=== PATIENT | female | born 1950 | race Caucasian/White ===

== ENCOUNTER 2016-09-08 11:31 | Emergency (ER) | payer MEDICARE, BC, OTHER ==
[~2016-09-08 11:31] MED LIST: /WARF25TA PO; ACETAMINOPHEN PO; ASPIRIN PO; BISO5TAB2 PO; BISO5TAB5 PO; CAFFEINE PO; CALTTAB10 PO; CALTTAB6 PO; CENTTAB PO; FISH1200 PO; KLOR10TA5 PO; LEVO500T PO; NIFE30TA2 PO; OSTETAB PO; SIMV20TA2 PO; TYLE325T5 PO; ULTR50TA PO; VERA180C PO; VITA10006 PO; VITA200015 PO; VITA200016 PO; VITA400C2 PO; VITA500C24 PO
[2016-09-08 12:19] LABS: BASO % 0.6 % (0.0-1.0); EOS # 0.2 K/mm3 (0.0-0.50); EOS % 3.2 % (0.0-3.0); LARGE UNSTAINED CELL # 0.1 K/mm3 (0.0-0.4); LYMPH # 1.6 K/mm3 (1.5-4.5); LYMPH % 22.6 % (24.0-44.0); MEAN CORPUSCULAR HEMOGLOBIN 29.7 pg (27.0-33.0); MEAN CORPUSCULAR HGB CONC 32.6 g/dl (32.0-36.5); MEAN CORPUSCULAR VOLUME 90.9 fl (80.0-96.0); MONO # 0.5 K/mm3 (0.0-0.8); MONO % 7.2 % (0.0-5.0); NEUTROPHILS # 4.1 K/mm3 (1.8-7.7); NEUTROPHILS % 64.3 % (36.0-66.0); PLATELET COUNT, AUTOMATED 289 k/mm3 (150-450); RED CELL DISTRIBUTION WIDTH 13.8 % (11.5-14.5); WHITE BLOOD COUNT 6.4 K/mm3 (4.0-10.0)
[2016-09-08 12:49] LABS: ALBUMIN 3.4 GM/DL (3.2-5.2); ALBUMIN/GLOBULIN RATIO 0.92 (1.00-1.93); ALKALINE PHOSPHATASE 49 U/L (45-117); ALT/SGPT 17 U/L (12-78); ANION GAP 7 MEQ/L (8-16); AST/SGOT 14 U/L (15-37); BILIRUBIN,DIRECT 0.1 MG/DL (0.0-0.2); BILIRUBIN,TOTAL 0.3 MG/DL (0.2-1.0); BLOOD UREA NITROGEN 18 MG/DL (7-18); CALCIUM LEVEL 9.2 MG/DL (8.8-10.2); CARBON DIOXIDE LEVEL 30 MEQ/L (21-32); CHLORIDE LEVEL 106 MEQ/L (98-107); CREATININE FOR GFR 0.75 MG/DL (0.55-1.02); GLOMERULAR FILTRATION RATE > 60.0 (>45); GLUCOSE, FASTING 98 MG/DL (80-110); POTASSIUM SERUM 3.9 MEQ/L (3.5-5.1); SODIUM LEVEL 143 MEQ/L (136-145); TOTAL PROTEIN 7.1 GM/DL (6.4-8.2)
[2016-09-08 12:51] LABS: YEAST LIKE CELL URINE AUTO MODERATE
[2016-09-08] MEDS ORDERED: NAPROXEN 250 MG TAB As Ordered ONE (13:11)
--- NOTE | 2016-09-08 14:59 | EDDOCDS ---
Physician Documentation [facility] Name: Sheryl Olsen Age: 66 yrs Sex: Female : 1950 Arrival Date: 09/08/2016 Time: 11:31 Bed 8 Private MD: Disposition: 09/08/16 14:03 Discharged to Home/Self Care. Impression: Unspecified renal colic, Chronic obstructive pyelonephritis. - Condition is Stable. - Discharge Instructions: Pyelonephritis, Adult, Ureteral Colic. - Prescriptions for Percocet 5- 325 mg Oral Tablet - take 1 tablet by ORAL route every 6 hours As needed MDD: 4 tabs; 20 tablet. Zofran 4 mg Oral Tablet - take 1 tablet by ORAL route 4 times per day As needed; 10 tablet. Cipro 500 mg Oral Tablet - take 1 tablet by ORAL route every 12 hours; 14 tablet. Diflucan 150 mg Oral Tablet - take 1 tablet by ORAL route one time for 1 day take after completing cipro. may repeat x1 after 7 days as needed; 2 tablet. - Medication Reconciliation, Local Pharmacy Hours form. - Follow up: Brennen Wilson; When: Call to arrange an appointment; Reason: Further diagnostic work-up, Continuance of care. - Problem is an acute exacerbation. - Symptoms are unchanged. Historical: - Allergies: no known allergies; - Home Meds: 1. verapamil 180 mg Oral TbER 1 tab 2 times per day 2. simvastatin 20 mg Oral tab 1 tab once daily 3. bisoprolol fumarate 5 mg oral tab 1 tab once daily 4. Nifedical XL 60 mg oral tr24 1 tab once daily - PMHx: brest cancer; Hypertension; Chronic Back pain; Hypercholesterolemia; - PSHx: Tubal ligation; LEFT BREAST RECONSTRUCTION; Knee Arthroplasty, Right; Hysterectomy; Tonsillectomy; Left knee replacement; RIGHT HIP REPLACEMENT; Cataract Surgery- Bilateral; RIGHT KNEE REPLACEMENT; - Social history: Smoking status: Patient states was never smoker of tobacco. No barriers to communication noted, The patient speaks fluent [place] Island[place]. - Family history: Not pertinent. - : The pt / caregiver states he / she is not on anticoagulants. Home medication list is obtained from the patient. - Exposure Risk Screening:: None identified. Vital Signs: 09/08 11:44 BP 169 / 84; Pulse 113; Resp 20; Temp 98.5(O); Pulse Ox 94% on R/A; Weight 108.86 kg / tmm1 240 lbs; Height 5 ft. 1 in. (154.94 cm); Pain 10/10; 11:56 BP 158 / 76 (auto/); js13 11:56 Pulse 102 MON; Resp 16; Pulse Ox 93% on R/A; js13 12:31 BP 171 / 77 (auto/); js13 12:31 Pulse 108 MON; Resp 16; Pulse Ox 93% on R/A; js13 12:41 BP 165 / 77 (auto/); js13 12:41 Pulse 106 MON; Resp 16; Pulse Ox 94% ; js13 12:56 BP 181 / 94 (auto/); js13 12:56 Pulse 114 MON; Resp 16; Pulse Ox 96% on R/A; js13 13:11 BP 164 / 89 (auto/); js13 13:11 Pulse 108 MON; Resp 16; Pulse Ox 96% on R/A; js13 13:26 BP 167 / 95 (auto/); js13 13:26 Pulse 116 MON; Resp 16; Pulse Ox 97% on R/A; js13 13:42 BP 175 / 93 (auto/); js13 13:42 Pulse 116 MON; Resp 16; Pulse Ox 97% on R/A; js13 13:56 BP 162 / 81 (auto/); js13 13:56 Pulse 108 MON; Resp 16; Pulse Ox 94% on R/A; js13 14:11 BP 156 / 77 (auto/); js13 14:11 Pulse 108 MON; Resp 16; Temp 98.3(O); Pulse Ox 94% on R/A; js13 14:20 Pain 3/10; js13 11:44 Body Mass Index 45.35 (108.86 kg, 154.94 cm) tmm1 MDM: 11:50 IV Saline Lock ordered. br1 11:51 CBC with Diff Ordered. EDMS 11:51 BMP Ordered. EDMS 11:51 Liver Profile Ordered. EDMS 11:51 Lipase Ordered. EDMS 11:51 Urinalysis Ordered. EDMS 11:51 Urine Culture Ordered. EDMS 12:34 Straight cath ordered. js13 13:09 Naproxen 500 mg PO once; administer with food or milk ordered. ke 13:10 CT ABD & PELVIS: No Contrast: right flank pain Ordered. EDMS 13:10 CBC with Diff Reviewed. ke 13:10 BMP Reviewed. ke 13:10 Liver Profile Reviewed. ke 13:10 Urinalysis Reviewed. ke 13:10 Lipase Reviewed. ke 14:28 Financial registration complete. mm15 14:31 [facility] Payment Agreement was scanned into [employer] and attached to record. mm15 Administered Medications: 13:27 Drug: Naproxen 500 mg [naproxen 250 mg tablet (2 tabs)] Route: PO; js13 14:20 Follow up: Pain 10/01 Adult; Response: Pain is decreased js13 Signatures: Dispatcher [employer] EDMS Mendez Greer, HISTOLOGIST TECHNOLOGIST HISTOLOGIST TECHNOLOGIST Martir Chaney MD MD br1 Ruba Waite RN RN js13 Franco Urbano mm15 The chart was reviewed and I authenticate all verbal orders and agree with the evaluation and treatment provided.Attachments: 14:31 [facility] Payment Agreement mm15 MTDD
--- NOTE | 2016-09-08 15:00 | EDDOCDS ---
Nurse's Notes [facility] Name: Sheryl Olsen Age: 66 yrs Sex: Female : 1950 Arrival Date: 09/08/2016 Time: 11:31 Bed 8 Private MD: Diagnosis: Unspecified renal colic;Chronic obstructive pyelonephritis Presentation: 09/08 11:41 Presenting complaint: EMS states: Patient has had right sided flank pain for past 3 js13 days. Patient describes pain as a stabbing pain. Suicide/Homicide risk assessment- the patient denies having any suicidal and/or homicidal ideations and does not present with any other emotional, behavioral or mental health complaints. Status: Patient is not a youth services specialist or dependent. Transition of care: patient was not received from another setting of care. Care prior to arrival: See EMS report. 11:41 Acuity: DHAVAL Level 3 js13 11:41 Method Of Arrival: Ambulance js13 11:47 Adult Sepsis Screening: The patient does not have new or worsening altered mentation. js13 Patient's respiratory rate is less than 22. Systolic blood pressure is greater than 100. Patient has a qSOFA score of 0- Negative Sepsis Screen. Triage Assessment: 11:46 General: Appears in no apparent distress, Behavior is appropriate for age, cooperative. js13 Pain: Location: right flank Pain currently is 7 out of 10 on a pain scale. Neurological: Level of Consciousness is awake, alert. Respiratory: Airway is patent Respiratory effort is even, unlabored, Respiratory pattern is regular, symmetrical, Breath sounds are clear. GI: Abdomen is non- distended obese, Bowel sounds present X 4 quads. Abd is soft and non tender. Derm: Skin is pink, warm & dry. Historical: - Allergies: no known allergies; - Home Meds: 1. verapamil 180 mg Oral TbER 1 tab 2 times per day 2. simvastatin 20 mg Oral tab 1 tab once daily 3. bisoprolol fumarate 5 mg oral tab 1 tab once daily 4. Nifedical XL 60 mg oral tr24 1 tab once daily - PMHx: brest cancer; Hypertension; Chronic Back pain; Hypercholesterolemia; - PSHx: Tubal ligation; LEFT BREAST RECONSTRUCTION; Knee Arthroplasty, Right; Hysterectomy; Tonsillectomy; Left knee replacement; RIGHT HIP REPLACEMENT; Cataract Surgery- Bilateral; RIGHT KNEE REPLACEMENT; - Social history: Smoking status: Patient states was never smoker of tobacco. No barriers to communication noted, The patient speaks fluent [place] Citizen. - Family history: Not pertinent. - : The pt / caregiver states he / she is not on anticoagulants. Home medication list is obtained from the patient. - Exposure Risk Screening:: None identified. Screenin:47 Screening information is obtained from the patient. Fall risk: No risks identified. js13 Assistance ADL's: requires no assistance with activities of daily living. Abuse/DV Screen: The patient / caregiver reports he/she is: not in a situation that causes fear, pain or injury. Nutritional screening: No deficits noted. Advance Directives: There is no active DNR order. home support is adequate. Assessment: 11:47 General: Appears in no apparent distress, comfortable, Behavior is appropriate for age, js13 cooperative. Pain: Location: right flank Quality of pain is described as stabbing. Neurological: Level of Consciousness is awake, alert. Respiratory: Airway is patent Respiratory effort is even, unlabored, Respiratory pattern is regular, symmetrical. GI: Abdomen is non- distended obese, Bowel sounds present X 4 quads. Abd is soft and non tender. Derm: Skin is pink, warm & dry. 12:35 General: Appears in no apparent distress, comfortable, Behavior is appropriate for age, js13 cooperative. Pain: Location: righ flank. Neurological: Level of Consciousness is awake, alert. Respiratory: Airway is patent Respiratory effort is even, unlabored, Respiratory pattern is regular, symmetrical. : Urine is cloudy, Reports incontinence. Derm: Skin is pink, warm & dry. 13:40 Adult Sepsis Screening: The patient does not have new or worsening altered mentation. js13 Patient's respiratory rate is less than 22. Systolic blood pressure is greater than 100. Patient has a qSOFA score of 0- Negative Sepsis Screen. General: Appears in no apparent distress, comfortable, Behavior is appropriate for age, cooperative. Pain: Location: right flank. Neurological: Level of Consciousness is awake, alert. Respiratory: Airway is patent Respiratory effort is even, unlabored, Respiratory pattern is regular, symmetrical. Derm: Skin is pink, warm & dry. 14:16 General: Appears in no apparent distress, comfortable, Behavior is appropriate for age, js13 cooperative. Pain: Location: right flank. Neurological: Level of Consciousness is awake, alert. Respiratory: Airway is patent Respiratory effort is even, unlabored, Respiratory pattern is regular, symmetrical. Respiratory: Airway is patent Respiratory effort is even, unlabored, Respiratory pattern is regular, symmetrical. Derm: Skin is pink, warm & dry. Vital Signs: 11:44 BP 169 / 84; Pulse 113; Resp 20; Temp 98.5(O); Pulse Ox 94% on R/A; Weight 108.86 kg; tmm1 Height 5 ft. 1 in. (154.94 cm); Pain 10/10; 11:56 BP 158 / 76 (auto/); js13 11:56 Pulse 102 MON; Resp 16; Pulse Ox 93% on R/A; js13 12:31 BP 171 / 77 (auto/); js13 12:31 Pulse 108 MON; Resp 16; Pulse Ox 93% on R/A; js13 12:41 BP 165 / 77 (auto/); js13 12:41 Pulse 106 MON; Resp 16; Pulse Ox 94% ; js13 12:56 BP 181 / 94 (auto/); js13 12:56 Pulse 114 MON; Resp 16; Pulse Ox 96% on R/A; js13 13:11 BP 164 / 89 (auto/); js13 13:11 Pulse 108 MON; Resp 16; Pulse Ox 96% on R/A; js13 13:26 BP 167 / 95 (auto/); js13 13:26 Pulse 116 MON; Resp 16; Pulse Ox 97% on R/A; js13 13:42 BP 175 / 93 (auto/); js13 13:42 Pulse 116 MON; Resp 16; Pulse Ox 97% on R/A; js13 13:56 BP 162 / 81 (auto/); js13 13:56 Pulse 108 MON; Resp 16; Pulse Ox 94% on R/A; js13 14:11 BP 156 / 77 (auto/); js13 14:11 Pulse 108 MON; Resp 16; Temp 98.3(O); Pulse Ox 94% on R/A; js13 14:20 Pain 3/10; js13 11:44 Body Mass Index 45.35 (108.86 kg, 154.94 cm) tmm1 Vitals: 11:46 Log In Time N/A - ambulance arrival. js13 ED Course: 11:32 Patient visited by Carlotta Morris, Adhesive Primer. lbd 11:32 Patient moved to Waiting lbd 11:35 Ruba Waite,RN is Primary Nurse. lbd 11:35 Patient moved to 8 lbd 11:42 Triage Initiated js13 11:45 Patient visited by Nica Ramirez PCA. tmm1 11:47 The patient / caregiver is instructed regarding the plan of care and ED course. Cardiac js13 monitor on. Pulse ox on. NIBP on. 11:48 Patient visited by Ruba Waite RN. js13 12:33 Urine Culture Sent. js13 12:33 Urinalysis Sent. js13 12:33 Inserted saline lock: 18 gauge in left antecubital area and blood collected. The js13 patient tolerated the procedure well. No procedures done that require assistance. Labs drawn. (by ED staff). Sent per order to lab. Urine collected. straight cath specimen. Urine specimen sent to lab. 12:34 Quick cath inserted Specimen obtained. Returned cloudy urine. Patient tolerated well. js13 12:36 Patient visited by Ruba Waite RN. js13 13:05 [facility]. ke 13:05 Patient visited by Mendez Greer FNP. ke 13:05 Patient visited by Mendez Greer FNP. ke 13:34 Patient visited by Mendez Greer FNP. ke 13:45 Assisted with bedpan. jml1 13:46 Patient visited by Fabian Alvarez. jml1 14:02 Brennen Wilson is Referral Physician. ke 14:11 Discontinued IV lock intact, bleeding controlled, pressure dressing applied, No js13 redness/swelling at site. 14:19 Patient visited by Ruba Waite RN. js13 14:31 [facility] Payment Agreement was scanned into [employer] and attached to record. mm15 Administered Medications: 13:27 Drug: Naproxen 500 mg [naproxen 250 mg tablet (2 tabs)] Route: PO; js13 14:20 Follow up: Pain 3/10 Adult; Response: Pain is decreased js13 Order Results: Lab Order: CBC with Diff; SPEC'M 09/08/16 12:04 Test: WHITE BLOOD COUNT; Value: 6.4; Range: 4.0-10.0; Units: K/mm3; Status: F Test: RED BLOOD COUNT; Value: 4.61; Range: 4.00-5.40; Units: M/mm3; Status: F Test: HEMOGLOBIN; Value: 13.7; Range: 12.0-16.0; Units: g/dl; Status: F Test: HEMATOCRIT; Value: 41.9; Range: 36.0-47.0; Units: %; Status: F Test: MEAN CORPUSCULAR VOLUME; Value: 90.9; Range: 80.0-96.0; Units: fl; Status: F Test: MEAN CORPUSCULAR HEMOGLOBIN; Value: 29.7; Range: 27.0-33.0; Units: pg; Status: F Test: MEAN CORPUSCULAR HGB CONC; Value: 32.6; Range: 32.0-36.5; Units: g/dl; Status: F Test: RED CELL DISTRIBUTION WIDTH; Value: 13.8; Range: 11.5-14.5; Units: %; Status: F Test: PLATELET COUNT, AUTOMATED; Value: 289; Range: 150-450; Units: k/mm3; Status: F Test: NEUTROPHILS %; Value: 64.3; Range: 36.0-66.0; Units: %; Status: F Test: LYMPH %; Value: 22.6; Range: 24.0-44.0; Abnormal: Below low normal; Units: %; Status: F Test: MONO %; Value: 7.2; Range: 0.0-5.0; Abnormal: Above high normal; Units: %; Status: F Test: EOS %; Value: 3.2; Range: 0.0-3.0; Abnormal: Above high normal; Units: %; Status: F Test: BASO %; Value: 0.6; Range: 0.0-1.0; Units: %; Status: F Test: LARGE UNSTAINED CELL %; Value: 2.0; Range: 0.0-4.0; Units: %; Status: F Test: NEUTROPHILS #; Value: 4.1; Range: 1.8-7.7; Units: K/mm3; Status: F Test: LYMPH #; Value: 1.6; Range: 1.5-4.5; Units: K/mm3; Status: F Test: MONO #; Value: 0.5; Range: 0.0-0.8; Units: K/mm3; Status: F Test: EOS #; Value: 0.2; Range: 0.0-0.50; Units: K/mm3; Status: F Test: BASO #; Value: 0.0; Range: 0.0-0.2; Units: K/mm3; Status: F Test: LARGE UNSTAINED CELL #; Value: 0.1; Range: 0.0-0.4; Units: K/mm3; Status: F Lab Order: BMP; SPEC'M 09/08/16 12:03 Test: GLUCOSE, FASTING; Value: 98; Range: 80-110; Units: MG/DL; Status: F Test: BLOOD UREA NITROGEN; Value: 18; Range: 7-18; Units: MG/DL; Status: F Test: CREATININE FOR GFR; Value: 0.75; Range: 0.55-1.02; Units: MG/DL; Status: F Test: GLOMERULAR FILTRATION RATE; Value: > 60.0; Range: >45; Status: F Test: SODIUM LEVEL; Value: 143; Range: 136-145; Units: MEQ/L; Status: F Test: POTASSIUM SERUM; Value: 3.9; Range: 3.5-5.1; Units: MEQ/L; Status: F Test: CHLORIDE LEVEL; Value: 106; Range: 98-107; Units: MEQ/L; Status: F Test: CARBON DIOXIDE LEVEL; Value: 30; Range: 21-32; Units: MEQ/L; Status: F Test: ANION GAP; Value: 7; Range: 8-16; Abnormal: Below low normal; Units: MEQ/L; Status: F Test: CALCIUM LEVEL; Value: 9.2; Range: 8.8-10.2; Units: MG/DL; Status: F Test Note: ; Units are mL/min/1.73 m2 Chronic Kidney Disease Staging per NKF: Stage I & II GFR >=60 Normal to Mildly Decreased Stage III GFR 30-59 Moderately Decreased Stage IV GFR 15-29 Severely Decreased Stage V GFR <15 Very Little GFR Left ESRD GFR <15 on MOLD CLOSER HELPER Lab Order: Liver Profile; SPEC'M 09/08/16 12:03 Test: AST/SGOT; Value: 14; Range: 15-37; Abnormal: Below low normal; Units: U/L; Status: F Test: ALT/SGPT; Value: 17; Range: 12-78; Units: U/L; Status: F Test: ALKALINE PHOSPHATASE; Value: 49; Range: 45-117; Units: U/L; Status: F Test: BILIRUBIN,TOTAL; Value: 0.3; Range: 0.2-1.0; Units: MG/DL; Status: F Test: BILIRUBIN,DIRECT; Value: 0.1; Range: 0.0-0.2; Units: MG/DL; Status: F Test: TOTAL PROTEIN; Value: 7.1; Range: 6.4-8.2; Units: GM/DL; Status: F Test: ALBUMIN; Value: 3.4; Range: 3.2-5.2; Units: GM/DL; Status: F Test: ALBUMIN/GLOBULIN RATIO; Value: 0.92; Range: 1.00-1.93; Abnormal: Below low normal; Status: F Lab Order: Lipase; SPEC'M 09/08/16 12:03 Test: LIPASE; Value: 126; Range: 73-393; Units: U/L; Status: F Lab Order: Urinalysis; SPEC'M 09/08/16 12:30 Test: APPEARANCE, URINE; Value: HAZY; Range: CLEAR; Status: F Test: COLOR, URINE; Value: YELLOW; Range: YELLOW; Status: F Test: PH,URINE; Value: 6.0; Range: 5.0-9.0; Units: UNITS; Status: F Test: SPECIFIC GRAVITY URINE AUTO; Value: 1.010; Range: 1.002-1.035; Status: F Test: PROTEIN, URINE AUTO; Value: 1+; Range: NEGATIVE; Abnormal: Above high normal; Units: mg/dL; Status: F Test: GLUCOSE, URINE (UA) AUTO; Value: NEGATIVE; Range: NEGATIVE; Units: mg/dL; Status: F Test: KETONE, URINE AUTO; Value: NEGATIVE; Range: NEGATIVE; Units: mg/dL; Status: F Test: UROBILINOGEN, URINE AUTO; Value: 0.2; Range: 0.0-2.0; Units: mg/dL; Status: F Test: BILIRUBIN, URINE AUTO; Value: NEGATIVE; Range: NEGATIVE; Status: F Test: NITRITE, URINE AUTO; Value: POSITIVE; Range: NEGATIVE; Status: F Test: LEUKOCYTE ESTERASE, URINE AUTO; Value: 3+; Range: NEGATIVE; Abnormal: Above high normal; Status: F Test: BLOOD, URINE BLOOD; Value: 3+; Range: NEGATIVE; Abnormal: Above high normal; Status: F Test: WBC, URINE AUTO; Value: 103; Range: 0-3; Abnormal: Above high normal; Units: /HPF; Status: F Test: RBC, URINE AUTO; Value: TNTC; Range: 0-3; Abnormal: Above high normal; Units: /HPF; Status: F Test: BACTERIA, URINE AUTO; Value: 3+; Range: NEGATIVE; Abnormal: Above high normal; Status: F Test: YEAST LIKE CELL URINE AUTO; Value: MODERATE; Range: NONE; Abnormal: Above high normal; Status: F Test: SQUAMOUS EPITHELIAL CELL UR AU; Value: 0; Range: 0-6; Units: /HPF; Status: F Test: HYALINE CAST, URINE AUTO; Value: 0; Range: 0-1; Units: /LPF; Status: F Outcome: 14:03 Discharge ordered by Provider. ke 14:11 Discharge Assessment: Patient awake, alert and oriented x 3. No cognitive and/or js13 functional deficits noted. Patient verbalized understanding of disposition instructions. patient administered narcotics - no. The following High Risk Discharge criteria are identified: None. Discharged to home via wheelchair, with significant other. Condition: stable. Discharge instructions given to patient, significant other, Instructed on discharge instructions, follow up and referral plans. medication usage, Demonstrated understanding of instructions, medications, Pt was receptive of discharge instructions/ teaching. CT Study completed. Property :Personal belongings accompany Pt. 14:44 Prescriptions given X 4. js13 14:58 Patient left the ED. js13 Signatures: Carlotta Morris, Adhesive Primer Unit lbd Mendez Greer, SAXOPHONE PLAYER Fabian Jonesl1 Ruba Waite,RIA RN js13 Nica Ramirez, LEATHA LIBRARY CONSULTANT tmm1 Franco Urbano mm15 Corrections: (The following items were deleted from the chart) 14:18 14:11 Pulse 108bpm; MonitorResp 16bpm; Pulse Ox 94% RA; js13 js13 MTDD
--- NOTE | 2016-09-10 16:00 | EDDOCDS ---
Physician Documentation [facility] Name: Sheryl Olsen Age: 66 yrs Sex: Female : 1950 Arrival Date: 09/08/2016 Time: 11:31 Bed 8 Private MD: Disposition: 09/08/16 14:03 Discharged to Home/Self Care. Impression: Unspecified renal colic, Chronic obstructive pyelonephritis. - Condition is Stable. - Discharge Instructions: Pyelonephritis, Adult, Ureteral Colic. - Prescriptions for Percocet 5- 325 mg Oral Tablet - take 1 tablet by ORAL route every 6 hours As needed MDD: 4 tabs; 20 tablet. Zofran 4 mg Oral Tablet - take 1 tablet by ORAL route 4 times per day As needed; 10 tablet. Cipro 500 mg Oral Tablet - take 1 tablet by ORAL route every 12 hours; 14 tablet. Diflucan 150 mg Oral Tablet - take 1 tablet by ORAL route one time for 1 day take after completing cipro. may repeat x1 after 7 days as needed; 2 tablet. - Medication Reconciliation, Local Pharmacy Hours form. - Follow up: Brennen Wilson; When: Call to arrange an appointment; Reason: Further diagnostic work-up, Continuance of care. - Problem is an acute exacerbation. - Symptoms are unchanged. Historical: - Allergies: no known allergies; - Home Meds: 1. verapamil 180 mg Oral TbER 1 tab 2 times per day 2. simvastatin 20 mg Oral tab 1 tab once daily 3. bisoprolol fumarate 5 mg oral tab 1 tab once daily 4. Nifedical XL 60 mg oral tr24 1 tab once daily - PMHx: brest cancer; Hypertension; Chronic Back pain; Hypercholesterolemia; - PSHx: Tubal ligation; LEFT BREAST RECONSTRUCTION; Knee Arthroplasty, Right; Hysterectomy; Tonsillectomy; Left knee replacement; RIGHT HIP REPLACEMENT; Cataract Surgery- Bilateral; RIGHT KNEE REPLACEMENT; - Social history: Smoking status: Patient states was never smoker of tobacco. No barriers to communication noted, The patient speaks fluent [place]. - Family history: Not pertinent. - : The pt / caregiver states he / she is not on anticoagulants. Home medication list is obtained from the patient. - Exposure Risk Screening:: None identified. Vital Signs: 09/08 11:44 BP 169 / 84; Pulse 113; Resp 20; Temp 98.5(O); Pulse Ox 94% on R/A; Weight 108.86 kg / tmm1 240 lbs; Height 5 ft. 1 in. (154.94 cm); Pain 10/10; 11:56 BP 158 / 76 (auto/); js13 11:56 Pulse 102 MON; Resp 16; Pulse Ox 93% on R/A; js13 12:31 BP 171 / 77 (auto/); js13 12:31 Pulse 108 MON; Resp 16; Pulse Ox 93% on R/A; js13 12:41 BP 165 / 77 (auto/); js13 12:41 Pulse 106 MON; Resp 16; Pulse Ox 94% ; js13 12:56 BP 181 / 94 (auto/); js13 12:56 Pulse 114 MON; Resp 16; Pulse Ox 96% on R/A; js13 13:11 BP 164 / 89 (auto/); js13 13:11 Pulse 108 MON; Resp 16; Pulse Ox 96% on R/A; js13 13:26 BP 167 / 95 (auto/); js13 13:26 Pulse 116 MON; Resp 16; Pulse Ox 97% on R/A; js13 13:42 BP 175 / 93 (auto/); js13 13:42 Pulse 116 MON; Resp 16; Pulse Ox 97% on R/A; js13 13:56 BP 162 / 81 (auto/); js13 13:56 Pulse 108 MON; Resp 16; Pulse Ox 94% on R/A; js13 14:11 BP 156 / 77 (auto/); js13 14:11 Pulse 108 MON; Resp 16; Temp 98.3(O); Pulse Ox 94% on R/A; js13 14:20 Pain 3/10; js13 11:44 Body Mass Index 45.35 (108.86 kg, 154.94 cm) tmm1 MDM: 11:50 IV Saline Lock ordered. br1 11:51 CBC with Diff Ordered. EDMS 11:51 BMP Ordered. EDMS 11:51 Liver Profile Ordered. EDMS 11:51 Lipase Ordered. EDMS 11:51 Urinalysis Ordered. EDMS 11:51 Urine Culture Ordered. EDMS 12:34 Straight cath ordered. js13 13:09 Naproxen 500 mg PO once; administer with food or milk ordered. ke 13:10 CT ABD & PELVIS: No Contrast: right flank pain Ordered. EDMS 13:10 CBC with Diff Reviewed. ke 13:10 BMP Reviewed. ke 13:10 Liver Profile Reviewed. ke 13:10 Urinalysis Reviewed. ke 13:10 Lipase Reviewed. ke 14:28 Financial registration complete. mm15 14:31 [facility] Payment Agreement was scanned into [employer] and attached to record. mm15 15:25 T-Sheet-- Draft Copy was scanned into [employer] and attached to record. 09/10 14:34 Lab / Xray Callback was scanned into [employer] and attached to record. lbd Administered Medications: 09/08 13:27 Drug: Naproxen 500 mg [naproxen 250 mg tablet (2 tabs)] Route: PO; js13 14:20 Follow up: Pain 10/01 Adult; Response: Pain is decreased js13 Signatures: Dispatcher [employer] EDMS Carlotta Morris, Professional Skateboarder Unit lbd Zee Piña, Reg Reg gb Mendez Greer, BORDER GUARD BORDER GUARD Martir Chaney MD MD br1 Ruba WaiteRN RN js13 Franco Urbano mm15 The chart was reviewed and I authenticate all verbal orders and agree with the evaluation and treatment provided.Attachments: 14:31 [facility] Payment Agreement mm15 15:25 T-Sheet-- Draft Copy gb Chart Complete MTDD
--- NOTE | 2016-09-10 16:00 | EDDOCDS ---
Physician Documentation [facility] Name: Sheryl Olsen Age: 66 yrs Sex: Female : 1950 Arrival Date: 09/08/2016 Time: 11:31 Bed 8 Private MD: Disposition: 09/08/16 14:03 Discharged to Home/Self Care. Impression: Unspecified renal colic, Chronic obstructive pyelonephritis. - Condition is Stable. - Discharge Instructions: Pyelonephritis, Adult, Ureteral Colic. - Prescriptions for Percocet 5- 325 mg Oral Tablet - take 1 tablet by ORAL route every 6 hours As needed MDD: 4 tabs; 20 tablet. Zofran 4 mg Oral Tablet - take 1 tablet by ORAL route 4 times per day As needed; 10 tablet. Cipro 500 mg Oral Tablet - take 1 tablet by ORAL route every 12 hours; 14 tablet. Diflucan 150 mg Oral Tablet - take 1 tablet by ORAL route one time for 1 day take after completing cipro. may repeat x1 after 7 days as needed; 2 tablet. - Medication Reconciliation, Local Pharmacy Hours form. - Follow up: Brennen Wilson; When: Call to arrange an appointment; Reason: Further diagnostic work-up, Continuance of care. - Problem is an acute exacerbation. - Symptoms are unchanged. Historical: - Allergies: no known allergies; - Home Meds: 1. verapamil 180 mg Oral TbER 1 tab 2 times per day 2. simvastatin 20 mg Oral tab 1 tab once daily 3. bisoprolol fumarate 5 mg oral tab 1 tab once daily 4. Nifedical XL 60 mg oral tr24 1 tab once daily - PMHx: brest cancer; Hypertension; Chronic Back pain; Hypercholesterolemia; - PSHx: Tubal ligation; LEFT BREAST RECONSTRUCTION; Knee Arthroplasty, Right; Hysterectomy; Tonsillectomy; Left knee replacement; RIGHT HIP REPLACEMENT; Cataract Surgery- Bilateral; RIGHT KNEE REPLACEMENT; - Social history: Smoking status: Patient states was never smoker of tobacco. No barriers to communication noted, The patient speaks fluent Iraqi. - Family history: Not pertinent. - : The pt / caregiver states he / she is not on anticoagulants. Home medication list is obtained from the patient. - Exposure Risk Screening:: None identified. Vital Signs: 09/08 11:44 BP 169 / 84; Pulse 113; Resp 20; Temp 98.5(O); Pulse Ox 94% on R/A; Weight 108.86 kg / tmm1 240 lbs; Height 5 ft. 1 in. (154.94 cm); Pain 10/10; 11:56 BP 158 / 76 (auto/); js13 11:56 Pulse 102 MON; Resp 16; Pulse Ox 93% on R/A; js13 12:31 BP 171 / 77 (auto/); js13 12:31 Pulse 108 MON; Resp 16; Pulse Ox 93% on R/A; js13 12:41 BP 165 / 77 (auto/); js13 12:41 Pulse 106 MON; Resp 16; Pulse Ox 94% ; js13 12:56 BP 181 / 94 (auto/); js13 12:56 Pulse 114 MON; Resp 16; Pulse Ox 96% on R/A; js13 13:11 BP 164 / 89 (auto/); js13 13:11 Pulse 108 MON; Resp 16; Pulse Ox 96% on R/A; js13 13:26 BP 167 / 95 (auto/); js13 13:26 Pulse 116 MON; Resp 16; Pulse Ox 97% on R/A; js13 13:42 BP 175 / 93 (auto/); js13 13:42 Pulse 116 MON; Resp 16; Pulse Ox 97% on R/A; js13 13:56 BP 162 / 81 (auto/); js13 13:56 Pulse 108 MON; Resp 16; Pulse Ox 94% on R/A; js13 14:11 BP 156 / 77 (auto/); js13 14:11 Pulse 108 MON; Resp 16; Temp 98.3(O); Pulse Ox 94% on R/A; js13 14:20 Pain 3/10; js13 11:44 Body Mass Index 45.35 (108.86 kg, 154.94 cm) tmm1 MDM: 11:50 IV Saline Lock ordered. br1 11:51 CBC with Diff Ordered. EDMS 11:51 BMP Ordered. EDMS 11:51 Liver Profile Ordered. EDMS 11:51 Lipase Ordered. EDMS 11:51 Urinalysis Ordered. EDMS 11:51 Urine Culture Ordered. EDMS 12:34 Straight cath ordered. js13 13:09 Naproxen 500 mg PO once; administer with food or milk ordered. ke 13:10 CT ABD & PELVIS: No Contrast: right flank pain Ordered. EDMS 13:10 CBC with Diff Reviewed. ke 13:10 BMP Reviewed. ke 13:10 Liver Profile Reviewed. ke 13:10 Urinalysis Reviewed. ke 13:10 Lipase Reviewed. ke 14:28 Financial registration complete. mm15 14:31 [facility] Payment Agreement was scanned into [employer] and attached to record. mm15 15:25 T-Sheet-- Draft Copy was scanned into [employer] and attached to record. 09/10 14:34 Lab / Xray Callback was scanned into [employer] and attached to record. lbd Administered Medications: 09/08 13:27 Drug: Naproxen 500 mg [naproxen 250 mg tablet (2 tabs)] Route: PO; js13 14:20 Follow up: Pain 10/01 Adult; Response: Pain is decreased js13 Signatures: Dispatcher [employer] EDMS Carlotta Morris, Wet End Tester Unit lbd Zee Piña, Reg Reg gb Mendez Greer, NP NP Martir Chaney MD MD br1 Ruba WaiteRN RN js13 Franco Urbano mm15 The chart was reviewed and I authenticate all verbal orders and agree with the evaluation and treatment provided.Attachments: 14:31 [facility] Payment Agreement mm15 15:25 T-Sheet-- Draft Copy gb Chart Complete MTDD
--- NOTE | 2016-09-10 16:00 | EDDOCDS ---
Nurse's Notes [facility] Name: Sheryl Olsen Age: 66 yrs Sex: Female : 1950 Arrival Date: 09/08/2016 Time: 11:31 Bed 8 Private MD: Diagnosis: Unspecified renal colic;Chronic obstructive pyelonephritis Presentation: 09/08 11:41 Presenting complaint: EMS states: Patient has had right sided flank pain for past 3 js13 days. Patient describes pain as a stabbing pain. Suicide/Homicide risk assessment- the patient denies having any suicidal and/or homicidal ideations and does not present with any other emotional, behavioral or mental health complaints. Status: Patient is not a customer service clerk or dependent. Transition of care: patient was not received from another setting of care. Care prior to arrival: See EMS report. 11:41 Acuity: DHAVAL Level 3 js13 11:41 Method Of Arrival: Ambulance js13 11:47 Adult Sepsis Screening: The patient does not have new or worsening altered mentation. js13 Patient's respiratory rate is less than 22. Systolic blood pressure is greater than 100. Patient has a qSOFA score of 0- Negative Sepsis Screen. Triage Assessment: 11:46 General: Appears in no apparent distress, Behavior is appropriate for age, cooperative. js13 Pain: Location: right flank Pain currently is 7 out of 10 on a pain scale. Neurological: Level of Consciousness is awake, alert. Respiratory: Airway is patent Respiratory effort is even, unlabored, Respiratory pattern is regular, symmetrical, Breath sounds are clear. GI: Abdomen is non- distended obese, Bowel sounds present X 4 quads. Abd is soft and non tender. Derm: Skin is pink, warm & dry. Historical: - Allergies: no known allergies; - Home Meds: 1. verapamil 180 mg Oral TbER 1 tab 2 times per day 2. simvastatin 20 mg Oral tab 1 tab once daily 3. bisoprolol fumarate 5 mg oral tab 1 tab once daily 4. Nifedical XL 60 mg oral tr24 1 tab once daily - PMHx: brest cancer; Hypertension; Chronic Back pain; Hypercholesterolemia; - PSHx: Tubal ligation; LEFT BREAST RECONSTRUCTION; Knee Arthroplasty, Right; Hysterectomy; Tonsillectomy; Left knee replacement; RIGHT HIP REPLACEMENT; Cataract Surgery- Bilateral; RIGHT KNEE REPLACEMENT; - Social history: Smoking status: Patient states was never smoker of tobacco. No barriers to communication noted, The patient speaks fluent Haitian. - Family history: Not pertinent. - : The pt / caregiver states he / she is not on anticoagulants. Home medication list is obtained from the patient. - Exposure Risk Screening:: None identified. Screenin:47 Screening information is obtained from the patient. Fall risk: No risks identified. js13 Assistance ADL's: requires no assistance with activities of daily living. Abuse/DV Screen: The patient / caregiver reports he/she is: not in a situation that causes fear, pain or injury. Nutritional screening: No deficits noted. Advance Directives: There is no active DNR order. home support is adequate. Assessment: 11:47 General: Appears in no apparent distress, comfortable, Behavior is appropriate for age, js13 cooperative. Pain: Location: right flank Quality of pain is described as stabbing. Neurological: Level of Consciousness is awake, alert. Respiratory: Airway is patent Respiratory effort is even, unlabored, Respiratory pattern is regular, symmetrical. GI: Abdomen is non- distended obese, Bowel sounds present X 4 quads. Abd is soft and non tender. Derm: Skin is pink, warm & dry. 12:35 General: Appears in no apparent distress, comfortable, Behavior is appropriate for age, js13 cooperative. Pain: Location: righ flank. Neurological: Level of Consciousness is awake, alert. Respiratory: Airway is patent Respiratory effort is even, unlabored, Respiratory pattern is regular, symmetrical. : Urine is cloudy, Reports incontinence. Derm: Skin is pink, warm & dry. 13:40 Adult Sepsis Screening: The patient does not have new or worsening altered mentation. js13 Patient's respiratory rate is less than 22. Systolic blood pressure is greater than 100. Patient has a qSOFA score of 0- Negative Sepsis Screen. General: Appears in no apparent distress, comfortable, Behavior is appropriate for age, cooperative. Pain: Location: right flank. Neurological: Level of Consciousness is awake, alert. Respiratory: Airway is patent Respiratory effort is even, unlabored, Respiratory pattern is regular, symmetrical. Derm: Skin is pink, warm & dry. 14:16 General: Appears in no apparent distress, comfortable, Behavior is appropriate for age, js13 cooperative. Pain: Location: right flank. Neurological: Level of Consciousness is awake, alert. Respiratory: Airway is patent Respiratory effort is even, unlabored, Respiratory pattern is regular, symmetrical. Respiratory: Airway is patent Respiratory effort is even, unlabored, Respiratory pattern is regular, symmetrical. Derm: Skin is pink, warm & dry. Vital Signs: 11:44 BP 169 / 84; Pulse 113; Resp 20; Temp 98.5(O); Pulse Ox 94% on R/A; Weight 108.86 kg; tmm1 Height 5 ft. 1 in. (154.94 cm); Pain 10/10; 11:56 BP 158 / 76 (auto/); js13 11:56 Pulse 102 MON; Resp 16; Pulse Ox 93% on R/A; js13 12:31 BP 171 / 77 (auto/); js13 12:31 Pulse 108 MON; Resp 16; Pulse Ox 93% on R/A; js13 12:41 BP 165 / 77 (auto/); js13 12:41 Pulse 106 MON; Resp 16; Pulse Ox 94% ; js13 12:56 BP 181 / 94 (auto/); js13 12:56 Pulse 114 MON; Resp 16; Pulse Ox 96% on R/A; js13 13:11 BP 164 / 89 (auto/); js13 13:11 Pulse 108 MON; Resp 16; Pulse Ox 96% on R/A; js13 13:26 BP 167 / 95 (auto/); js13 13:26 Pulse 116 MON; Resp 16; Pulse Ox 97% on R/A; js13 13:42 BP 175 / 93 (auto/); js13 13:42 Pulse 116 MON; Resp 16; Pulse Ox 97% on R/A; js13 13:56 BP 162 / 81 (auto/); js13 13:56 Pulse 108 MON; Resp 16; Pulse Ox 94% on R/A; js13 14:11 BP 156 / 77 (auto/); js13 14:11 Pulse 108 MON; Resp 16; Temp 98.3(O); Pulse Ox 94% on R/A; js13 14:20 Pain 3/10; js13 11:44 Body Mass Index 45.35 (108.86 kg, 154.94 cm) tmm1 Vitals: 11:46 Log In Time N/A - ambulance arrival. js13 ED Course: 11:32 Patient visited by Carlotta Morris, Senior Cognos Developer. lbd 11:32 Patient moved to Waiting lbd 11:35 Ruba Waite,RN is Primary Nurse. lbd 11:35 Patient moved to 8 lbd 11:42 Triage Initiated js13 11:45 Patient visited by Nica Ramirez PCA. tmm1 11:47 The patient / caregiver is instructed regarding the plan of care and ED course. Cardiac js13 monitor on. Pulse ox on. NIBP on. 11:48 Patient visited by Ruba Waite RN. js13 12:33 Urine Culture Sent. js13 12:33 Urinalysis Sent. js13 12:33 Inserted saline lock: 18 gauge in left antecubital area and blood collected. The js13 patient tolerated the procedure well. No procedures done that require assistance. Labs drawn. (by ED staff). Sent per order to lab. Urine collected. straight cath specimen. Urine specimen sent to lab. 12:34 Quick cath inserted Specimen obtained. Returned cloudy urine. Patient tolerated well. js13 12:36 Patient visited by Ruba Waite RN. js13 13:05 [facility] ke 13:05 Patient visited by Mendez Greer FNP. ke 13:05 Patient visited by Mendez Greer FNP. ke 13:34 Patient visited by Mendez Greer FNP. ke 13:45 Assisted with bedpan. jml1 13:46 Patient visited by Fabian Alvarez. jml1 14:02 Brennen Wilson is Referral Physician. ke 14:11 Discontinued IV lock intact, bleeding controlled, pressure dressing applied, No js13 redness/swelling at site. 14:19 Patient visited by Ruba Waite RN. js13 14:31 [facility] Payment Agreement was scanned into [employer] and attached to record. mm15 15:25 T-Sheet-- Draft Copy was scanned into [employer] and attached to record. gb 02 14:34 Lab / Xray Callback was scanned into [employer] and attached to record. lbd Administered Medications: 09/08 13:27 Drug: Naproxen 500 mg [naproxen 250 mg tablet (2 tabs)] Route: PO; js13 14:20 Follow up: Pain 3/10 Adult; Response: Pain is decreased js13 Order Results: Lab Order: CBC with Diff; SPEC'M 09/08/16 12:04 Test: WHITE BLOOD COUNT; Value: 6.4; Range: 4.0-10.0; Units: K/mm3; Status: F Test: RED BLOOD COUNT; Value: 4.61; Range: 4.00-5.40; Units: M/mm3; Status: F Test: HEMOGLOBIN; Value: 13.7; Range: 12.0-16.0; Units: g/dl; Status: F Test: HEMATOCRIT; Value: 41.9; Range: 36.0-47.0; Units: %; Status: F Test: MEAN CORPUSCULAR VOLUME; Value: 90.9; Range: 80.0-96.0; Units: fl; Status: F Test: MEAN CORPUSCULAR HEMOGLOBIN; Value: 29.7; Range: 27.0-33.0; Units: pg; Status: F Test: MEAN CORPUSCULAR HGB CONC; Value: 32.6; Range: 32.0-36.5; Units: g/dl; Status: F Test: RED CELL DISTRIBUTION WIDTH; Value: 13.8; Range: 11.5-14.5; Units: %; Status: F Test: PLATELET COUNT, AUTOMATED; Value: 289; Range: 150-450; Units: k/mm3; Status: F Test: NEUTROPHILS %; Value: 64.3; Range: 36.0-66.0; Units: %; Status: F Test: LYMPH %; Value: 22.6; Range: 24.0-44.0; Abnormal: Below low normal; Units: %; Status: F Test: MONO %; Value: 7.2; Range: 0.0-5.0; Abnormal: Above high normal; Units: %; Status: F Test: EOS %; Value: 3.2; Range: 0.0-3.0; Abnormal: Above high normal; Units: %; Status: F Test: BASO %; Value: 0.6; Range: 0.0-1.0; Units: %; Status: F Test: LARGE UNSTAINED CELL %; Value: 2.0; Range: 0.0-4.0; Units: %; Status: F Test: NEUTROPHILS #; Value: 4.1; Range: 1.8-7.7; Units: K/mm3; Status: F Test: LYMPH #; Value: 1.6; Range: 1.5-4.5; Units: K/mm3; Status: F Test: MONO #; Value: 0.5; Range: 0.0-0.8; Units: K/mm3; Status: F Test: EOS #; Value: 0.2; Range: 0.0-0.50; Units: K/mm3; Status: F Test: BASO #; Value: 0.0; Range: 0.0-0.2; Units: K/mm3; Status: F Test: LARGE UNSTAINED CELL #; Value: 0.1; Range: 0.0-0.4; Units: K/mm3; Status: F Lab Order: [facility]; SPEC'M 09/08/16 12:03 Test: GLUCOSE, FASTING; Value: 98; Range: 80-110; Units: MG/DL; Status: F Test: BLOOD UREA NITROGEN; Value: 18; Range: 7-18; Units: MG/DL; Status: F Test: CREATININE FOR GFR; Value: 0.75; Range: 0.55-1.02; Units: MG/DL; Status: F Test: GLOMERULAR FILTRATION RATE; Value: > 60.0; Range: >45; Status: F Test: SODIUM LEVEL; Value: 143; Range: 136-145; Units: MEQ/L; Status: F Test: POTASSIUM SERUM; Value: 3.9; Range: 3.5-5.1; Units: MEQ/L; Status: F Test: CHLORIDE LEVEL; Value: 106; Range: 98-107; Units: MEQ/L; Status: F Test: CARBON DIOXIDE LEVEL; Value: 30; Range: 21-32; Units: MEQ/L; Status: F Test: ANION GAP; Value: 7; Range: 8-16; Abnormal: Below low normal; Units: MEQ/L; Status: F Test: CALCIUM LEVEL; Value: 9.2; Range: 8.8-10.2; Units: MG/DL; Status: F Test Note: ; Units are mL/min/1.73 m2 Chronic Kidney Disease Staging per NKF: Stage I & II GFR >=60 Normal to Mildly Decreased Stage III GFR 30-59 Moderately Decreased Stage IV GFR 15-29 Severely Decreased Stage V GFR <15 Very Little GFR Left ESRD GFR <15 on BOILER HOUSE MECHANIC Lab Order: Liver Profile; [facility]'M 09/08/16 12:03 Test: AST/SGOT; Value: 14; Range: 15-37; Abnormal: Below low normal; Units: U/L; Status: F Test: ALT/SGPT; Value: 17; Range: 12-78; Units: U/L; Status: F Test: ALKALINE PHOSPHATASE; Value: 49; Range: 45-117; Units: U/L; Status: F Test: BILIRUBIN,TOTAL; Value: 0.3; Range: 0.2-1.0; Units: MG/DL; Status: F Test: BILIRUBIN,DIRECT; Value: 0.1; Range: 0.0-0.2; Units: MG/DL; Status: F Test: TOTAL PROTEIN; Value: 7.1; Range: 6.4-8.2; Units: GM/DL; Status: F Test: ALBUMIN; Value: 3.4; Range: 3.2-5.2; Units: GM/DL; Status: F Test: ALBUMIN/GLOBULIN RATIO; Value: 0.92; Range: 1.00-1.93; Abnormal: Below low normal; Status: F Lab Order: Lipase; [facility]'M 09/08/16 12:03 Test: LIPASE; Value: 126; Range: 73-393; Units: U/L; Status: F Lab Order: Urinalysis; [facility]' 09/08/16 12:30 Test: APPEARANCE, URINE; Value: HAZY; Range: CLEAR; Status: F Test: COLOR, URINE; Value: YELLOW; Range: YELLOW; Status: F Test: PH,URINE; Value: 6.0; Range: 5.0-9.0; Units: UNITS; Status: F Test: SPECIFIC GRAVITY URINE AUTO; Value: 1.010; Range: 1.002-1.035; Status: F Test: PROTEIN, URINE AUTO; Value: 1+; Range: NEGATIVE; Abnormal: Above high normal; Units: mg/dL; Status: F Test: GLUCOSE, URINE (UA) AUTO; Value: NEGATIVE; Range: NEGATIVE; Units: mg/dL; Status: F Test: KETONE, URINE AUTO; Value: NEGATIVE; Range: NEGATIVE; Units: mg/dL; Status: F Test: UROBILINOGEN, URINE AUTO; Value: 0.2; Range: 0.0-2.0; Units: mg/dL; Status: F Test: BILIRUBIN, URINE AUTO; Value: NEGATIVE; Range: NEGATIVE; Status: F Test: NITRITE, URINE AUTO; Value: POSITIVE; Range: NEGATIVE; Status: F Test: LEUKOCYTE ESTERASE, URINE AUTO; Value: 3+; Range: NEGATIVE; Abnormal: Above high normal; Status: F Test: BLOOD, URINE BLOOD; Value: 3+; Range: NEGATIVE; Abnormal: Above high normal; Status: F Test: WBC, URINE AUTO; Value: 103; Range: 0-3; Abnormal: Above high normal; Units: /HPF; Status: F Test: RBC, URINE AUTO; Value: TNTC; Range: 0-3; Abnormal: Above high normal; Units: /HPF; Status: F Test: BACTERIA, URINE AUTO; Value: 3+; Range: NEGATIVE; Abnormal: Above high normal; Status: F Test: YEAST LIKE CELL URINE AUTO; Value: MODERATE; Range: NONE; Abnormal: Above high normal; Status: F Test: SQUAMOUS EPITHELIAL CELL UR AU; Value: 0; Range: 0-6; Units: /HPF; Status: F Test: HYALINE CAST, URINE AUTO; Value: 0; Range: 0-1; Units: /LPF; Status: F Lab Order: Urine Culture; SPEC'M 09/08/16 12:30 Test: URINE CULTURE; Value: <EXTERNAL COMMENT eCWMed> FULL REPORT IN LAB NOTES (eCW and Medent).; Status: F Test: URINE CULTURE; Value: ORGANISM 1: ESCHERICHIA COLI; Status: F Test: URINE CULTURE; Value: ESCHERICHIA COLI; Status: F Test: URINE CULTURE; Value: COLONY COUNT CFU/ml >100,000; Status: F Test: URINE CULTURE; Value: GRAM NEG SENSI - VITEK 80; Status: F Test: URINE CULTURE; Value: Method: VIT2; Status: F Test: URINE CULTURE; Value: EXTD BRD SPCTRM BETA LACTAMASE -; Status: F Test: URINE CULTURE; Value: TRIMETHOPRIM/SULFAMETHOXAZOLE <=20 S; Status: F Test: URINE CULTURE; Value: AMPICILLIN <=2 S; Status: F Test: URINE CULTURE; Value: GENTAMICIN <=1 S; Status: F Test: URINE CULTURE; Value: NITROFURANTOIN <=16 S; Status: F Test: URINE CULTURE; Value: CEFAZOLIN <=4 S; Status: F Test: URINE CULTURE; Value: LEVOFLOXACIN <=0.12 S; Status: F Test: URINE CULTURE; Value: TOBRAMYCIN <=1 S; Status: F Test: URINE CULTURE; Value: CEFTRIAXONE <=1 S; Status: F Test: URINE CULTURE; Value: CEFTAZIDIME <=1 S; Status: F Test: URINE CULTURE; Value: AMPICILLIN/SULBACTAM <=2 S; Status: F Test: URINE CULTURE; Value: PIPERACILLIN/TAZOBACTAM <=4 S; Status: F Test: URINE CULTURE; Value: AZTREONAM <=1 S; Status: F Test: URINE CULTURE; Value: ERTAPENEM <=0.5 S; Status: F Test: URINE CULTURE; Value: MEROPENEM <=0.25 S; Status: F Test: URINE CULTURE; Value: TIGECYCLINE <=0.5 S; Status: F Test: URINE CULTURE; Value: CEFEPIME <=1 S; Status: F Outcome: 14:03 Discharge ordered by Provider. ke 14:11 Discharge Assessment: Patient awake, alert and oriented x 3. No cognitive and/or js13 functional deficits noted. Patient verbalized understanding of disposition instructions. patient administered narcotics - no. The following High Risk Discharge criteria are identified: None. Discharged to home via wheelchair, with significant other. Condition: stable. Discharge instructions given to patient, significant other, Instructed on discharge instructions, follow up and referral plans. medication usage, Demonstrated understanding of instructions, medications, Pt was receptive of discharge instructions/ teaching. CT Study completed. Property :Personal belongings accompany Pt. 14:44 Prescriptions given X 4. js13 14:58 Patient left the ED. js13 Signatures: Carlotta Morris, Senior Cognos Developer Unit lbd Zee Piña, Reg Reg gb Mendez Greer, PHARMACIST IN CHARGE OWNER PHARMACIST IN CHARGE OWNER Fabian Ruff Jennifer,RIA RN js13 McLear, Nica, EDGE POLISHER EDGE POLISHER tmm1 Franco Urbano mm15 Corrections: (The following items were deleted from the chart) 14:18 14:11 Pulse 108bpm; MonitorResp 16bpm; Pulse Ox 94% RA; js13 js13 Chart Complete MTDD
--- NOTE | 2016-09-13 17:52 | REP ---
Clinical: Renal colic. Comparison: 01/26/2014. Findings: The left kidney demonstrates multiple intrarenal calculi measuring up to approximately 13 mm in the renal pelvis with surrounding inflammatory stranding suggesting intermittent obstruction associated with renal colic. The right kidney demonstrates multiple intrarenal calcifications. No significant perinephric stranding. No obstructing ureteral calculus. Liver, spleen, pancreas, and bilateral adrenal glands are normal. Cholelithiasis noted without CT evidence for acute cholecystitis. The bowel gas pattern is nonspecific. Scattered colonic and sigmoid diverticulosis noted without acute diverticulitis. No ascites. No free air. No obvious adenopathy. Musculoskeletal structures demonstrate diffuse degenerative changes and right hip prosthesis. Lung bases demonstrate chronic fibro atelectatic changes. Impression: 13 mm calculus in the left renal pelvis with surrounding inflammatory stranding suggests intermittent obstruction and renal colic. Bilateral nonobstructing renal calculi noted. No obstructing ureteral calcifications. Signed by Fritz Aguirre MD 09/13/2016 05:43 P
== END 2016-09-08 14:58 | disposition home or self-care (01) ==
LOC: M ED 11:31
DX: N10 Acute pyelonephritis (principal); N11.9 Chronic tubulo-interstitial nephritis, unspecified; N20.1 Calculus of ureter; Z85.3 Personal history of malignant neoplasm of breast; I10 Essential (primary) hypertension; G89.29 Other chronic pain; M54.9 Dorsalgia, unspecified; E78.00 Pure hypercholesterolemia, unspecified; Z96.651 Presence of right artificial knee joint; Z96.641 Presence of right artificial hip joint; Z96.652 Presence of left artificial knee joint; Z79.899 Other long term (current) drug therapy
CPT/HCPCS: 36415; 74176; 80048; 80076; 81001; 83690; 85025; 87088; 87186; 99285; P9612

== ENCOUNTER 2016-10-02 11:53 | Emergency (ER) | payer MEDICARE, BC, OTHER ==
[2016-10-02] MEDS ORDERED: ACETAMINOPHEN TAB 650MG DOSE (2X325MG) PO ONE (12:30)
[2016-10-02] MEDS ORDERED: NS 500 ML IV ONE ×2 (12:30)
[2016-10-02 13:08] LABS: BASO % 0.5 % (0.0-1.0); EOS # 0.1 K/mm3 (0.0-0.50); EOS % 1.1 % (0.0-3.0); LARGE UNSTAINED CELL # 0.1 K/mm3 (0.0-0.4); LARGE UNSTAINED CELL % 0.6 % (0.0-4.0); LYMPH # 0.2 K/mm3 (1.5-4.5); LYMPH % 1.8 % (24.0-44.0); MEAN CORPUSCULAR HEMOGLOBIN 29.2 pg (27.0-33.0); MEAN CORPUSCULAR HGB CONC 31.9 g/dl (32.0-36.5); MEAN CORPUSCULAR VOLUME 91.6 fl (80.0-96.0); MONO # 0.5 K/mm3 (0.0-0.8); MONO % 6.6 % (0.0-5.0); NEUTROPHILS # 7.1 K/mm3 (1.8-7.7); NEUTROPHILS % 89.5 % (36.0-66.0); PLATELET COUNT, AUTOMATED 247 k/mm3 (150-450); RED CELL DISTRIBUTION WIDTH 13.5 % (11.5-14.5)
[2016-10-02 13:41] LABS: ANION GAP 10 MEQ/L (8-16); BLOOD UREA NITROGEN 14 MG/DL (7-18); CALCIUM LEVEL 8.8 MG/DL (8.8-10.2); CARBON DIOXIDE LEVEL 26 MEQ/L (21-32); CHLORIDE LEVEL 105 MEQ/L (98-107); CREATININE FOR GFR 1.04 MG/DL (0.55-1.02); GLOMERULAR FILTRATION RATE 56.1 (>45); GLUCOSE, FASTING 142 MG/DL (80-110); POTASSIUM SERUM 3.7 MEQ/L (3.5-5.1); SODIUM LEVEL 141 MEQ/L (136-145)
--- NOTE | 2016-10-02 14:17 | REP ---
REASON: History of stroke-like symptoms. COMPARISON: None. The ventricles and sulci are within normal limits. The deep white matter is within normal limits. There is no shift of the midline structures. There is no evidence of any acute intracranial hemorrhagic or nonhemorrhagic event. There is no evidence of a skull fracture. The imaged para nasal sinuses and mastoid air cells are within normal limits. IMPRESSION: No evidence of acute intracranial abnormality. Signed by Andreas Spear DO 10/02/2016 04:48 P
--- NOTE | 2016-10-02 14:18 | REP ---
REASON: Chest pain. COMPARISON: 03/21/2013 The technique utilized in obtaining the radiograph has magnified the cardiac silhouette and accentuated the interstitial markings. There has been no significant change from the prior exam. The heart is enlarged. No acute patchy parenchymal opacities or pleural effusions have developed. There is no change in the osseous structures. IMPRESSION: Stable chronic changes without evidence of acute cardiopulmonary disease. Signed by Andreas Spear DO 10/02/2016 04:48 P
[2016-10-02] MEDS ORDERED: IBUPROFEN 600 MG TAB PO ONE (14:45)
[2016-10-02] MEDS ORDERED: VERA1TAB11 PO (14:46)
[2016-10-02] MEDS ORDERED: NIFE15TA PO (14:46)
[2016-10-02] MEDS ORDERED: BISO5TAB5 PO (14:46)
[2016-10-02] MEDS ORDERED: VITA400C2 PO (14:46)
[2016-10-02] MEDS ORDERED: SIMV20TA2 PO (14:46)
[2016-10-02] MEDS ORDERED: EXCETAB80 PO (14:46)
[2016-10-02] MEDS ORDERED: VITA-130 PO (14:46)
[2016-10-02] MEDS ORDERED: TYLE325T5 PO (14:46)
[2016-10-02] MEDS ORDERED: ALDA25TA PO (14:46)
[2016-10-02] MEDS ORDERED: FISH1000 PO (14:46)
[2016-10-02] MEDS ORDERED: OSTETAB4 PO (14:47)
[2016-10-02] MEDS ORDERED: MACR100C3 PO (15:57)
[2016-10-02] MEDS ORDERED: cefTRIAXone SOD 1 GM in D5W MINI-BAG PLUS 50 ML IV ONE (16:30)
[2016-10-02 17:15] VITALS: BP 118/56
--- NOTE | 2016-10-03 06:38 | ECGEPIP ---
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
== END 2016-10-02 17:16 | disposition home or self-care (01) ==
LOC: EDBD 11:53 → M ED 12:32
DX: N39.0 Urinary tract infection, site not specified (principal); E11.9 Type 2 diabetes mellitus without complications; I10 Essential (primary) hypertension; M54.5 Low back pain; Z85.3 Personal history of malignant neoplasm of breast; Z79.899 Other long term (current) drug therapy; Z88.6 Allergy status to analgesic agent; Z88.8 Allergy status to other drugs, medicaments and biological substances; Z88.5 Allergy status to narcotic agent
CPT/HCPCS: 51701; 70450; 71020; 80048; 81001; 82550; 82553; 83605; 83880; 84484; 85025; 87040; 87088; 87804; 93005; 93041; 94760; 96374; 99285; J0696

== ENCOUNTER → 2016-11-08 | Outpatient (CLI) | payer MEDICARE, BC, OTHER ==
[~2016-11-08] MED LIST changes: +ALDA25TA PO; +EXCETAB80 PO; +FISH1000 PO; +MACR100C3 PO; +NIFE15TA PO; +OSTETAB4 PO; +VERA1TAB11 PO; +VITA-130 PO
--- NOTE | 2016-11-08 13:47 | REP ---
Three-phase bone scan of the knees: History: History of osteoarthritis. Bilateral knee replacements. Left knee pain times 1 year, question loosening. Technique: 20.6 mCi technetium 99m MDP is injected and standard three-phase imaging of the knees is acquired. Comparison study is from April 16, 2016. Findings: Anterior and posterior flow images show symmetric vascular structures and soft tissue perfusion. Blood pool images demonstrate photopenia from the prosthetic knee joint replacement components but no regional hyperemia. Delayed scan images show expected prosthetic bone interface uptake associated with both knee replacements. There is no focal area of increased uptake on either side to suggest loosening. Impression: Expected prosthetic bone interface uptake bilaterally. No scintigraphic evidence to suggest loosening. Signed by Bryce Yung MD 11/08/2016 06:26 P
== END ==
LOC: M RAD 09:24
PROVIDERS: ATTEND Orthopaedic Surgery
DX: M16.12 Unilateral primary osteoarthritis, left hip (principal)
CPT/HCPCS: 78315; A9503

== ENCOUNTER → 2017-01-03 | Outpatient (REF) | payer MEDICARE, BC, OTHER ==
[~2017-01-03] MED LIST changes: +BISO10TA PO; +COUM2.5T17 PO; -MACR100C3 PO; +MACR100C43 PO; +PERC5TAB12 PO; -VITA-130 PO; +VITA400C7 PO; +VITA500T PO
== END ==
LOC: M SMT 17:02
PROVIDERS: ATTEND Nurse Practitioner Women's Health
DX: N39.0 Urinary tract infection, site not specified (principal)
CPT/HCPCS: 51702; 81001; 87088; 87186; G0463

== ENCOUNTER → 2017-01-07 | Outpatient (CLI) | payer MEDICARE, BC, OTHER ==
[~2017-01-07] MED LIST changes: -BISO10TA PO; -COUM2.5T17 PO; +MACR100C3 PO; -MACR100C43 PO; -PERC5TAB12 PO; +VITA-130 PO; -VITA400C7 PO; -VITA500T PO
--- NOTE | 2017-01-07 11:41 | REP ---
Chest two views HISTORY: Hypertension Comparison: 10/02/2016 Calcified granuloma are present in the right upper lobe. The left lung is clear. The cardiac silhouette is enlarged. The pulmonary vasculature is normal in appearance. Degenerative changes present in the thoracic spine. IMPRESSION: 1. Old granulomatous disease. 2. Cardiomegaly. Signed by Rayo Delatorre MD 01/07/2017 11:33 A
[2017-01-07 11:43] LABS: MEAN CORPUSCULAR HEMOGLOBIN 30.1 pg (27.0-33.0); MEAN CORPUSCULAR HGB CONC 33.3 g/dl (32.0-36.5); MEAN CORPUSCULAR VOLUME 90.4 fl (80.0-96.0); RED CELL DISTRIBUTION WIDTH 14.1 % (11.5-14.5); WHITE BLOOD COUNT 7.3 K/mm3 (4.0-10.0)
[2017-01-07 11:46] LABS: INR 0.89
[2017-01-07 12:23] LABS: ALBUMIN/GLOBULIN RATIO 1.33 (1.00-1.93); BILIRUBIN,TOTAL 0.3 MG/DL (0.2-1.0); CALCIUM LEVEL 10.5 MG/DL (8.8-10.2); CREATININE FOR GFR 1.04 MG/DL (0.55-1.02); GLOMERULAR FILTRATION RATE 56.1 (>45); POTASSIUM SERUM 3.9 MEQ/L (3.5-5.1)
--- NOTE | 2017-01-08 08:44 | ECGEPIP ---
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
== END ==
LOC: M ADMPAT 09:20
PROVIDERS: ATTEND Orthopaedic Surgery
DX: M16.12 Unilateral primary osteoarthritis, left hip (principal); I10 Essential (primary) hypertension; I49.9 Cardiac arrhythmia, unspecified

== ENCOUNTER 2017-01-13 08:30 | Inpatient (IN) | payer MEDICARE, BC, OTHER ==
[2017-01-07 10:05] VITALS: BP 140/74
[~2017-01-13] VITALS: Ht 157.5 cm; Wt 95.2 kg
[~2017-01-13 08:30] MED LIST changes: -MACR100C3 PO; +MACR100C43 PO; -VITA-130 PO; +VITA400C7 PO; +VITA500T PO
--- NOTE | 2017-01-18 13:17 | HPE ---
DATE OF ADMISSION: 01/21/2017 ATTENDING: Dr. Eris Diaz. ADMITTING DIAGNOSIS: Left hip pain. HISTORY: This is a pleasant 66-year-old female patient with progressively worsening left hip pain and stiffness. She has failed to improve with conservative management. She has pain with weight bearing activities and activities of daily living. She has elected for surgery for her continued symptoms. She has consented for a left total hip arthroplasty by Dr. Diaz. X-rays of her left hip notable for end stage degenerative changes of her left knee. Medical optimization Dr. Babin. ALLERGIES: CELEBREX. CURRENT MEDICATIONS: - vitamin C 500 mg one tablet twice daily - Osteo Bi-flex - Caltrate 600 plus vitamin D daily - multivitamin - simvastatin 20 mg one tablet at bedtime - bisoprolol 5 mg one tablet once per day - verapamil extended release 180 mg one tablet once per day - nifedipine extended release 60 mg one tablet once per day She also takes over the counter Tylenol, fish oil and vitamin D3. MEDICAL HISTORY INCLUDES: Hypertension. History of breast cancer. Chronic back pain. Elevated lipids. Glaucoma. Right bundle branch block. PRIOR SURGERY INCLUDES: Bilateral total knee arthroplasties. Right total hip arthroplasty. Bilateral mastectomy. She has had bilateral cataract surgeries. She has had tonsils and adenoids removed. She has had a total hysterectomy. FAMILY HISTORY: Noncontributory. SOCIAL HISTORY: She does not smoke. She does not use alcohol. REVIEW OF SYSTEMS: Denies fevers or chills. Denies chest pain, shortness of breath or cough. Denies difficulty breathing. Denies abdominal pain. Denies nausea or vomiting. Denies chest pain. Has persistent pain in her left hip with weight bearing activities and activities of daily living. PHYSICAL EXAMINATION: Well nourished, well developed alert female patient. She reports into the exam room in a wheelchair. There is irritability on left hip range of motion. Straight leg raise testing is negative bilaterally. It is a well perfused left lower extremity. The skin is intact. No erythema, edema or ecchymosis. Neck is supple without adenopathy or jugular venous distention (JVD). Lungs are clear to auscultation without rales or wheeze. Heart: Regular rate and rhythm. Abdomen: Bowel sounds are present. Height 4 feet 11 inches. Weight 202 pounds, temperature 97.1, blood pressure 144/89, pulse 78, respirations 17. LABORATORY DATA: Chest x-ray: No acute cardiopulmonary disease process noted. EKG: Sinus rhythm. Sed rate is 17. Urinalysis positive for protein. Her urine culture was contaminated. Her nasal cultures are normal justina. PT 12.2, INR 0.89, glucose 97, BUN 20, creatinine 1.09, sodium 139, potassium 3.9, WBC count 7.3, RBC count 4.7, hemoglobin 14.2, hematocrit 42.5. IMPRESSION: Symptomatic osteoarthritis of her left hip, consented for left total hip arthroplasty by Dr. Diaz.
[2017-01-21] VITALS (7 sets, daily range): BP systolic 111–140; BP diastolic 69–95
[2017-01-21] MEDS ORDERED: ceFAZolin 1GM INJ (J0690) As Ordered ONE (06:16)
[2017-01-21] MEDS ORDERED: ceFAZolin 2 GM/D5W 50 ML IV BAG (J0690) As Ordered ONE (06:24)
[2017-01-21] MEDS ORDERED: LR 1,000 ML IV SCH ×2 (06:30→11:00)
[2017-01-21] MEDS ORDERED: ACETAMINOPHEN 500 MG TAB PO ONE (06:30)
[2017-01-21] MEDS ORDERED: LR 1,000 ML IV ONE (06:30)
[2017-01-21] MEDS ORDERED: ONDANSETRON 4MG/2ML VIAL (J2405) As Ordered ONE (07:02)
[2017-01-21] MEDS ORDERED: PROPOFOL 200 MG/20 ML VIAL As Ordered ONE (07:02)
[2017-01-21] MEDS ORDERED: fentaNYL 100 MCG/2 ML INJECTION (J3010) As Ordered ONE ×2 (07:02→08:48)
[2017-01-21] MEDS ORDERED: dexameTHASONE 4 MG/ML 1ML VIAL (J1100) As Ordered ONE (07:02)
[2017-01-21] MEDS ORDERED: LIDOCAINE 2% INJ 100 MG/5 ML SDV (FOR ANES.) As Ordered ONE (07:02)
[2017-01-21] MEDS ORDERED: MIDAZOLAM INJ 2 MG/2 ML VIAL (J2250) As Ordered ONE (07:02)
[2017-01-21] MEDS ORDERED: ROCURONIUM BROMIDE 50 MG/5 ML VIAL/SYRINGE As Ordered ONE (07:02)
[2017-01-21] MEDS ORDERED: BUPIVACAINE LIPOSOME/PF 1.3% 20 ML VIAL (13.3MG/ML)(EXPAREL) As Ordered ONE (07:45)
[2017-01-21] MEDS ORDERED: PHENYLEPHRINE INJ 10MG/ML VIAL (J2370) As Ordered ONE (08:41)
[2017-01-21] MEDS ORDERED: HYDROmorphone HCL 2 MG/ML 1ML VIAL (J1170) As Ordered ONE (10:07)
[2017-01-21] MEDS ORDERED: MORPHINE 1MG/ML IN 0.9% NACL 100ML IV BAG As Ordered ONE (10:35)
[2017-01-21] MEDS ORDERED: fentaNYL 100 MCG/2 ML INJECTION (J3010) IV PRN (11:00)
[2017-01-21] MEDS ORDERED: ONDANSETRON 4MG/2ML VIAL (J2405) IV PRN ×2 (11:00→11:15)
[2017-01-21] MEDS ORDERED: FLEET ENEMA PR PRN (11:15)
[2017-01-21] MEDS ORDERED: NALOXONE INJ 0.4 MG/1 ML VIAL (J2310) IV PRN (11:15)
[2017-01-21] MEDS ORDERED: EPIDURAL/PCA KEYS XX PRN (11:15)
[2017-01-21] MEDS ORDERED: diphenhydrAMINE INJ 50MG/ML VIAL (J1200) IV PRN (11:15)
[2017-01-21] MEDS ORDERED: ACETAMINOPHEN TAB 650MG DOSE (2X325MG) PO PRN (11:15)
[2017-01-21] MEDS ORDERED: MORPHINE 1MG/ML IN 0.9% NACL 100ML IV BAG IV PRN (11:15)
[2017-01-21] MEDS ORDERED: NALBUPHINE HCL 10 MG/ML AMP (J2300) IV PRN (11:15)
[2017-01-21] MEDS: LR 1,000 ML IV SCH ×2 (12:40→20:25)
--- NOTE | 2017-01-21 14:18 | RO ---
DATE OF PROCEDURE: 01/21/2017 PREOPERATIVE DIAGNOSIS: Left hip degenerative arthritis. POSTOPERATIVE DIAGNOSIS: Left hip degenerative arthritis. PROCEDURE: Left total hip arthroplasty using a size 4 [place] stem with a 1.5 neck, 36 mm head, with a 54 mm GRIPTION acetabular cup with a 36 mm neutral polyethylene liner. The prosthesis was made by [employer]. SURGEON: Yu Diaz MD LEAD MINER: MICKEY Del Cid ANESTHESIA: Attempted spinal and then converted to general endotracheal anesthetic. COMPLICATIONS: None. SPECIMENS: Femoral head. ESTIMATED BLOOD LOSS: 300 mL. COMPLICATIONS: None. DESCRIPTION OF PROCEDURE: Antibiotics were given intravenously preoperatively. Then they brought her to the operating room and an attempted spinal was done, but unsuccessfully and therefore a general endotracheal anesthetic was established and then a Carter catheter placed. Then she was placed in a lateral decubitus position with a [place] hip positioner. Down leg well padded, especially the perineal nerve and axillary roll was utilized. The hip area was then carefully prepped and draped in the usual sterile fashion. Then after the appropriate time out had been confirmed, an incision was made for a direct lateral approach to the hip. Bovie cautery was used to coagulate crossing vessels down to the tensor fascia. The tensor fascia was divided in line with the skin incision and then we divided the gluteus medius, anterior one third, posterior two third junction, then divided the underlying gluteus minimus and the anterior hip capsule. I then carefully dissected off the anterior femur and dislocated the hip anteriorly. A starter reamer was placed in the piriformis fossa followed by the canal finding reamer and the lateralizing reamer, then we reamed up to a size 4 reamer. A femoral neck osteotomy was performed using the template. We then broached up to a size 4 broach. We exposed the acetabulum and performed a labral incision 360 degrees then began reaming with a 47 mm reamer, advanced to 53. A 54 cup seemed to fit just about right. We started to get thinned anteriorly and posteriorly, thus I elected to go with a 54 cup, but I wanted to extra fixation strength and I called for the GRIPTION cup as well as it had the holes in case I wanted to have supplementary fixation. After copiously pulsatile lavage irrigating out the acetabulum, the 54 GRIPTION cup was placed using the extramedullary alignment jig to help us set the version and abduction. It had a nice bite, but I made one screw fixation point superolaterally for supplementary fixation. The drill was placed and a 20 mm screw was placed with excellent purchase. We then placed the central hole eliminator and then real polyethylene after irrigating. I then reapplied the broach into the femoral canal and did a trial reduction of the 1.5 neck length and the 36 mm head and she had very good stability to flexion, adduction and internal rotation as well as extension and external rotation. There was just a trace of telescoping, thus I felt this was the appropriate size components to use and the trial broach was removed. We copiously irrigated out the femoral canal, placed the real number 4 stem, dried the trunnion, placed a 36 mm ball, and then reduced the hip after irrigating and then began closing the gluteus minimus and anterior hip capsule back anatomically with interrupted #1 PDS. Then we irrigated between layers, closed the gluteus medius back anatomically as well with interrupted #1 PDS sutures. Then we irrigated and closed the tensor fascia with a combination of interrupted #1 PDS sutures as well as running #1 STRATAFIX suture. Deep subdermal tissues were also closed with a running #2-0 PDS STRATAFIX suture deep, and then the more superficial subdermal tissues were closed with interrupted #2-0 PDS sutures. Then the skin was closed with kia, covered by Adaptic dry sterile bulky dressing. She was then turned supine, awakened from general endotracheal anesthesia after having tolerated the procedure well, transferred to the recovery room in stable condition. There were no intraoperative complications. Blanca Mendiola was critical to the success of the procedure by helping to manipulate the leg in and out of the bag, help with appropriate soft tissue retraction such that I could perform the operation smoothly and efficiently as well as helping to close the wound and helping to prepare the patient, amongst many other tasks.
[2017-01-21] MEDS ORDERED: WARFARIN SOD 5 MG TAB PO ONE (17:00)
[2017-01-21] MEDS: SIMVASTATIN 20 MG TAB PO SCH (20:23)
[2017-01-22 02:00] VITALS: BP 123/71
[2017-01-22 05:47] LABS: MEAN CORPUSCULAR HGB CONC 32.7 g/dl (32.0-36.5); MEAN CORPUSCULAR VOLUME 91.8 fl (80.0-96.0); RED CELL DISTRIBUTION WIDTH 13.9 % (11.5-14.5); WHITE BLOOD COUNT 10.5 K/mm3 (4.0-10.0)
[2017-01-22 05:59] LABS: INR 1.22
[2017-01-22 06:00] VITALS: BP 118/74
[2017-01-22 06:02] LABS: ANION GAP 7 MEQ/L (8-16); BLOOD UREA NITROGEN 24 MG/DL (7-18); CALCIUM LEVEL 8.4 MG/DL (8.8-10.2); CARBON DIOXIDE LEVEL 28 MEQ/L (21-32); CHLORIDE LEVEL 107 MEQ/L (98-107); CREATININE FOR GFR 0.77 MG/DL (0.55-1.02); GLOMERULAR FILTRATION RATE > 60.0 (>45); GLUCOSE, FASTING 136 MG/DL (80-110); POTASSIUM SERUM 4.2 MEQ/L (3.5-5.1); SODIUM LEVEL 142 MEQ/L (136-145)
[2017-01-22] MEDS ORDERED: ONDANSETRON 4 MG TAB (S0181) PO PRN (06:45)
[2017-01-22] MEDS: VERAPAMIL 180 MG SR TAB PO SCH (08:21)
[2017-01-22] MEDS: NIFEdipine 60 MG XL TAB PO SCH (08:21)
[2017-01-22] MEDS: SENOKOT S TAB PO SCH ×2 (08:21→20:11)
[2017-01-22] MEDS: PERCOCET 5MG/325MG TAB PO PRN ×3 (08:22→22:57)
[2017-01-22] MEDS: MOM 30ML SUSPENSION UDC PO SCH (08:24)
[2017-01-22] MEDS: BISOPROLOL FUMARATE 5 MG TAB PO SCH (08:24)
[2017-01-22] MEDS: MIRALAX *UNIT DOSE* 17GM PACKET PO SCH (08:24)
--- NOTE | 2017-01-22 09:47 | REP ---
Clinical: Status post arthroplasty. Technique: AP and cross-table lateral views. Findings: The patient is status post left hip replacement with normal positioning and appearance to the femoral and acetabular components. Overlying postsurgical changes appreciated. Impression: Satisfactory left hip replacement radiographs. Signed by Fritz Aguirre MD 01/22/2017 09:38 A
[2017-01-22 10:00] VITALS: BP 177/84
[2017-01-22 14:00] VITALS: BP 119/67
--- NOTE | 2017-01-22 15:44 | IPNPDOC ---
Subjective Date Seen The patient was seen on 01/22/17. Subjective Chief Complaint/HPI The patient is a 66-year-old female admitted with a reason for visit of Arthritis Left Hip. Events since last encounter Patient doing well postop day 1 after left hip arthroplasty. Patient states her pain is well-controlled. She has not yet had a bowel movement, and says she is not passing gas at this point. However, she is tolerating intake, denies nausea or vomiting, fevers, or chills. Constitutional: Denies: Chills, Fever Skin: Denies: Rash Pulmonary: Denies: Dyspnea, Cough Cardiovascular: Denies: Chest Pain, Palpitations Gastrointestinal: Denies: Nausea, Vomiting, Abdominal Pain Musculoskeletal: Reports: Joint Pain (controlled) Objective Physical Examination General Exam: Positive: Alert, Cooperative, No Acute Distress Eye Exam: Positive: Conjunctiva & lids normal, Negative: Sclera icteric ENT Exam: Positive: Mucous membr. moist/pink Neck Exam: Negative: JVD Chest Exam: Positive: Clear to auscultation, Normal air movement, Negative: Rales, Rhonchi, Wheezing Heart Exam: Positive: Tachycardic, Regular Rhythm, Normal S1, Normal S2, Negative: Gallops Abdomen Exam: Positive: Normal bowel sounds, Soft, Negative: Tenderness Extremity Exam: Negative: Clubbing, Cyanosis, Edema Skin Exam: Negative: Rash Neuro Exam: Positive: Sensation Intact Psych Exam: Positive: Mental status NL Assessment /Plan Problems (1) History of arthroplasty of left hip Status: Acute Problem Text: POD 1. Doing well. Pain controlled. - anticoagulation per ortho - pain management per ortho - PT concerned about doing much with the patient due to tachycardia. (2) Postoperative anemia due to acute blood loss Problem Text: Preoperative hemoglobin was 14.3, now 10.5. Patient is having some episodes of tachycardia, especially with exertion. She denies any lightheadedness or dizziness. May want to consider blood transfusion. (3) HTN (hypertension) Status: Chronic Response to Treatment: Stable Problem Text: Blood pressure stable on verapamil 100 mg daily, nifedipine 60 mg daily, bisoprolol 5 mg daily. Patient has had several episodes of tachycardia , especially with exertion. This is improved with her medications, however more likely related to anemia. (4) HLD (hyperlipidemia) Problem Text: Continuing home simvastatin (5) Hx of right bundle branch block Status: Chronic Response to Treatment: Stable Problem Text: No current symptoms of chest pain or pressure. (6) Tachycardia Status: Acute Response to Treatment: Stable Problem Text: Patient is has several episodes of tachycardia to the 130s and 140s. This is worse with exertion of any kind. Today her pulse improved significantly after her medications, so EKG was not obtained. Patient denies current symptoms such as chest pain, nausea, or shortness of breath. Likely related to acute blood loss anemia. If her symptoms of tachycardia persists, may pursue transfusion. -Monitor for resolution; nursing to encourage fluid intake -EKG if there is persistent tachycardia -History of right bundle branch block Plan/VTE VTE Prophylaxis Ordered?: Yes Disposition Per orthopedics VS, I&O, 24H, [facility] Vital Signs/I&O Vital Signs Date Time Temp Pulse Resp B/P (MAP) Pulse Ox O2 Delivery O2 Flow Rate FiO2 01/22/17 14:00 98.4 113 18 119/67 (84) 97 Nasal Cannula 2.0 I&O- Last 24 Hours up to 6 AM 01/22/17 06:00 Intake Total 3173 ml Output Total 900 ml Balance 2273 ml Laboratory Data 24H LABS Laboratory Tests 2 01/22/17 05:14: Prothrombin Time 15.6H, Prothromb Time International Ratio 1.22, Anion Gap 7L, Glomerular Filtration Rate > 60.0, Blood Urea Nitrogen 24H, Creatinine 0.77, Sodium Level 142, Potassium Level 4.2, Chloride Level 107, Carbon Dioxide Level 28, Calcium Level 8.4L CBC/BMP Laboratory Tests 01/22/17 05:14 Red Blood Count 3.33 L, Mean Corpuscular Volume 91.8, Mean Corpuscular Hemoglobin 30.0, Mean Corpuscular Hemoglobin Concent 32.7, Red Cell Distribution Width 13.9, Calcium Level 8.4 L HILDA POOLE MD Jan 22, 2017 15:44
[2017-01-22] MEDS ORDERED: WARFARIN SOD 5 MG TAB PO ONE (17:00)
[2017-01-22] MEDS: SIMVASTATIN 20 MG TAB PO SCH (20:11)
[2017-01-22 22:00] VITALS: BP 134/70
[2017-01-23] VITALS (9 sets, daily range): BP systolic 100–138; BP diastolic 56–80; O2SAT 94
[2017-01-23 06:11] LABS: MEAN CORPUSCULAR HEMOGLOBIN 29.9 pg (27.0-33.0); MEAN CORPUSCULAR HGB CONC 32.5 g/dl (32.0-36.5); MEAN CORPUSCULAR VOLUME 91.9 fl (80.0-96.0); RED CELL DISTRIBUTION WIDTH 13.8 % (11.5-14.5); WHITE BLOOD COUNT 10.5 K/mm3 (4.0-10.0)
[2017-01-23 06:13] LABS: INR 1.4
[2017-01-23 06:28] LABS: ANION GAP 5 MEQ/L (8-16); BLOOD UREA NITROGEN 25 MG/DL (7-18); CALCIUM LEVEL 8.6 MG/DL (8.8-10.2); CARBON DIOXIDE LEVEL 31 MEQ/L (21-32); CHLORIDE LEVEL 107 MEQ/L (98-107); CREATININE FOR GFR 0.62 MG/DL (0.55-1.02); GLOMERULAR FILTRATION RATE > 60.0 (>45); GLUCOSE, FASTING 147 MG/DL (80-110); SODIUM LEVEL 143 MEQ/L (136-145)
[2017-01-23] MEDS: VERAPAMIL 180 MG SR TAB PO SCH (07:40)
[2017-01-23] MEDS: MOM 30ML SUSPENSION UDC PO SCH (07:40)
[2017-01-23] MEDS: BISOPROLOL FUMARATE 5 MG TAB PO SCH (07:40)
[2017-01-23] MEDS: SENOKOT S TAB PO SCH ×2 (07:40→20:52)
[2017-01-23] MEDS: NIFEdipine 60 MG XL TAB PO SCH (07:41)
[2017-01-23] MEDS: MIRALAX *UNIT DOSE* 17GM PACKET PO SCH (07:41)
[2017-01-23] MEDS: PERCOCET 5MG/325MG TAB PO PRN ×3 (07:42→20:54)
--- NOTE | 2017-01-23 13:51 | ECGEPIP ---
Stationary ECG Study [facility] Test Date: 2017-01-23 Pat Name: JONAH ROBLES Department: Room: [place] [address] Gender: F Office Messenger: UBALDO : 1950 Requested By: HILDA Blakely Order Number: [id number] Reading MD: Nick Harrell Measurements Intervals [place] Rate: 130 P: 33 SD: 130 QRS: -17 QRSD: 130 T: -16 QT: 313 QTc: 461 Interpretive Statements SINUS TACHYCARDIA WITH OCCASIONAL SUPRAVENTRICULAR PREMATURE COMPLEXES RIGHT BUNDLE BRANCH BLOCK MODERATE VOLTAGE CRITERIA FOR LVH, CONSIDER NORMAL VARIANT SIMILAR 01/07/17 BUT FASTER HEART RATE Electronically Signed On 01-23-2017 13:51:26 EDT by Nick Harrell
--- NOTE | 2017-01-23 14:59 | IPNPDOC ---
Subjective Date Seen The patient was seen on 01/23/17. Subjective Chief Complaint/HPI The patient is a 66-year-old female admitted with a reason for visit of Arthritis Left Hip. Constitutional: Denies: Chills, Fever Eyes: Denies: Pain ENT: Denies: Head Aches Skin: Denies: Rash Pulmonary: Denies: Dyspnea, Cough Cardiovascular: Reports: Other Symptoms (+ tachycardia), Denies: Chest Pain, Palpitations, Orthopnea, Lt Headedness Gastrointestinal: Denies: Nausea, Vomiting, Abdominal Pain, Diarrhea, Constipation Genitourinary: Denies: Dysuria Hematologic: Denies: Bruising Musculoskeletal: Reports: Other Symptoms (+ hip pain, controlled) Neurological: Denies: Weakness, Numbness Other systems 10 point review systems otherwise negative Objective Physical Examination General Exam: Positive: Alert, Cooperative, No Acute Distress Eye Exam: Positive: Conjunctiva & lids normal, Negative: Sclera icteric ENT Exam: Positive: Mucous membr. moist/pink Neck Exam: Negative: JVD Chest Exam: Positive: Clear to auscultation, Normal air movement, Negative: Rales, Rhonchi, Wheezing Heart Exam: Positive: Tachycardic, Regular Rhythm, Normal S1, Normal S2, Negative: Gallops Abdomen Exam: Positive: Normal bowel sounds, Soft, Negative: Tenderness Extremity Exam: Negative: Clubbing, Cyanosis, Edema Skin Exam: Negative: Rash Neuro Exam: Positive: Sensation Intact Psych Exam: Positive: Mental status NL Assessment /Plan Problems (1) History of arthroplasty of left hip Status: Acute Response to Treatment: Improving Problem Text: POD 2. Doing well. Pain controlled. - anticoagulation per ortho - pain management per ortho -PT concerned about doing activities with the patient due to persistent tachycardia (2) Postoperative anemia due to acute blood loss Status: Acute Response to Treatment: Worse Problem Text: Patient continues to have episodes of tachycardia. Preop hemoglobin was 14.3. Although patient denies any symptoms of dizziness or lightheadedness, nursing states that she is quite sluggish, and is not very active and her own care. Physical therapy has been concerned about doing any PT with the patient due to tachycardia. Given persistent tachycardia, history of right bundle branch block and other cardiac risk factors, would recommend keeping patient above 10. Hemoglobin currently 8.8. -Will discuss with orthopedics -Transfuse 1-2 units if orthopedics and patient are amenable (3) Hx of right bundle branch block Status: Chronic Response to Treatment: Stable Problem Text: EKG obtained today due to persistent tachycardia. EKG indicates persistent right bundle branch block, sinus tachycardia, and occasional premature complexes. There are no acute findings. (4) HTN (hypertension) Status: Chronic Response to Treatment: Stable (5) Tachycardia Status: Acute Response to Treatment: Stable Problem Text: Likely secondary to acute blood loss anemia from recent hip arthroplasty. -See above (6) HLD (hyperlipidemia) Status: Chronic Response to Treatment: Stable Problem Text: Continue home statin Plan/VTE VTE Prophylaxis Ordered?: Yes VS, I&O, 24H, [facility] Vital Signs/I&O Vital Signs Date Time Temp Pulse Resp B/P (MAP) Pulse Ox O2 Delivery O2 Flow Rate FiO2 01/23/17 09:39 Nasal Cannula 2.0 01/23/17 09:11 18 01/23/17 07:42 144 94 01/23/17 06:00 98.2 119/65 (83) I&O- Last 24 Hours up to 6 AM 01/23/17 06:00 Intake Total 660 ml Output Total 300 ml Balance 360 ml Laboratory Data 24H LABS Laboratory Tests 2 01/23/17 05:09: Prothrombin Time 17.5H, Prothromb Time International Ratio 1.40, Anion Gap 5L, Glomerular Filtration Rate > 60.0, Blood Urea Nitrogen 25H, Creatinine 0.62, Sodium Level 143, Potassium Level 4.0, Chloride Level 107, Carbon Dioxide Level 31, Calcium Level 8.6L CBC/BMP Laboratory Tests 01/23/17 05:09 Red Blood Count 2.94 L, Mean Corpuscular Volume 91.9, Mean Corpuscular Hemoglobin 29.9, Mean Corpuscular Hemoglobin Concent 32.5, Red Cell Distribution Width 13.8, Calcium Level 8.6 L HILDA POOLE MD Jan 23, 2017 14:59
[2017-01-23] MEDS ORDERED: FUROSEMIDE 20 MG/2 ML VIAL (J1940) IV PRN (16:15)
[2017-01-23] MEDS ORDERED: WARFARIN SOD 3 MG TAB PO ONE (17:00)
[2017-01-23] MEDS: SIMVASTATIN 20 MG TAB PO SCH (20:53)
[2017-01-24] VITALS (7 sets, daily range): BP systolic 121–146; BP diastolic 66–88
[2017-01-24 07:06] LABS: MEAN CORPUSCULAR HEMOGLOBIN 30.1 pg (27.0-33.0); MEAN CORPUSCULAR HGB CONC 33.4 g/dl (32.0-36.5); MEAN CORPUSCULAR VOLUME 90.1 fl (80.0-96.0); WHITE BLOOD COUNT 10.7 K/mm3 (4.0-10.0)
[2017-01-24 07:08] LABS: INR 1.76
[2017-01-24] MEDS ORDERED: MAGNESIUM CITRATE 300 ML BTL PO ONE (07:30)
[2017-01-24 07:31] LABS: ANION GAP 5 MEQ/L (8-16); BLOOD UREA NITROGEN 27 MG/DL (7-18); CALCIUM LEVEL 8.9 MG/DL (8.8-10.2); CARBON DIOXIDE LEVEL 33 MEQ/L (21-32); CHLORIDE LEVEL 105 MEQ/L (98-107); CREATININE FOR GFR 0.56 MG/DL (0.55-1.02); GLOMERULAR FILTRATION RATE > 60.0 (>45); GLUCOSE, FASTING 125 MG/DL (80-110); SODIUM LEVEL 143 MEQ/L (136-145)
[2017-01-24] MEDS: MIRALAX *UNIT DOSE* 17GM PACKET PO SCH (09:01)
[2017-01-24] MEDS: SENOKOT S TAB PO SCH ×2 (09:01→21:00)
[2017-01-24] MEDS: MOM 30ML SUSPENSION UDC PO SCH (09:01)
[2017-01-24] MEDS: NIFEdipine 60 MG XL TAB PO SCH (09:05)
[2017-01-24] MEDS: PERCOCET 5MG/325MG TAB PO PRN ×3 (09:05→18:39)
[2017-01-24] MEDS: BISOPROLOL FUMARATE 5 MG TAB PO SCH (09:05)
[2017-01-24] MEDS: VERAPAMIL 180 MG SR TAB PO SCH (09:05)
[2017-01-24] MEDS: NYSTATIN 100,000 UNITS/GM TOPICAL PWD 15 GM TOP SCH ×2 (10:18→21:41)
--- NOTE | 2017-01-24 11:00 | IPNPDOC ---
Subjective Date Seen The patient was seen on 01/24/17. Subjective Chief Complaint/HPI The patient is a 66-year-old female admitted with a reason for visit of Arthritis Left Hip. Events since last encounter Pt states she is feeling better today. States more energy. Denies CP or SOB. Constitutional: Denies: Chills, Fever Pulmonary: Denies: Dyspnea Cardiovascular: Denies: Chest Pain Gastrointestinal: Denies: Nausea, Vomiting, Abdominal Pain Objective Physical Examination General Exam: Positive: Alert, Cooperative, No Acute Distress Eye Exam: Positive: Conjunctiva & lids normal, Negative: Sclera icteric ENT Exam: Positive: Mucous membr. moist/pink Neck Exam: Negative: JVD Chest Exam: Positive: Clear to auscultation, Normal air movement, Negative: Rales, Rhonchi, Wheezing Heart Exam: Positive: Tachycardic, Regular Rhythm, Normal S1, Normal S2, Negative: Gallops Abdomen Exam: Positive: Normal bowel sounds, Soft, Negative: Tenderness Extremity Exam: Negative: Clubbing, Cyanosis, Edema Skin Exam: Negative: Rash Neuro Exam: Positive: Sensation Intact Psych Exam: Positive: Mental status NL Assessment /Plan Assessment Family Medicine Attending Note: I saw and examined Ms. Olsen, discussed with URBANO Burks. Agree with their note as documented. She reports she feels much more energy after her transfusion last night. She has been up to the commode with nursing and is also working with physical therapy. She has no other concerns or complaints. 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 Pt feeling better today. States she has been working with PT. Ortho managing pain and anticoagulation. 01/23 -POD 2. Doing well. Pain controlled. - anticoagulation per ortho - pain management per ortho -PT concerned about doing activities with the patient due to persistent tachycardia (2) Postoperative anemia due to acute blood loss Status: Acute Response to Treatment: Worse Problem Text: 01/24 - Pt received 2 units PRBCs yesterday. Hgb improved to 10.2 (was 8.8 yesterday). Pt feels better today and states she has more energy. 01/23 - Patient continues to have episodes of tachycardia. Preop hemoglobin was 14.3. Although patient denies any symptoms of dizziness or lightheadedness, nursing states that she is quite sluggish, and is not very active and her own care. Physical therapy has been concerned about doing any PT with the patient due to tachycardia. Given persistent tachycardia, history of right bundle branch block and other cardiac risk factors, would recommend keeping patient above 10. Hemoglobin currently 8.8. -Will discuss with orthopedics -Transfuse 1-2 units if orthopedics and patient are amenable (3) Hx of right bundle branch block Status: Chronic Response to Treatment: Stable Problem Text: 01/23 - EKG obtained today due to persistent tachycardia. EKG indicates persistent right bundle branch block, sinus tachycardia, and occasional premature complexes. There are no acute findings. (4) HTN (hypertension) Status: Chronic Response to Treatment: Stable (5) Tachycardia Status: Chronic Response to Treatment: Stable Problem Text: 01/24 - HR 110s-120s. 01/23 - Likely secondary to acute blood loss anemia from recent hip arthroplasty. -See above (6) HLD (hyperlipidemia) Status: Chronic Response to Treatment: Stable Problem Text: Continue home statin Plan/VTE VTE Prophylaxis Ordered?: Yes VS, I&O, 24H, [facility] Vital Signs/I&O Vital Signs Date Time Temp Pulse Resp B/P (MAP) Pulse Ox O2 Delivery O2 Flow Rate FiO2 01/24/17 10:38 95 Nasal Cannula 2.0 01/24/17 09:35 18 01/24/17 09:05 110/58 01/24/17 09:05 122 01/24/17 06:00 98.8 I&O- Last 24 Hours up to 6 AM 01/24/17 06:00 Intake Total 1580 ml Output Total 825 ml Balance 755 ml Laboratory Data 24H LABS Laboratory Tests 2 01/24/17 06:21: Prothrombin Time 21.1H, Prothromb Time International Ratio 1.76, Anion Gap 5L, Glomerular Filtration Rate > 60.0, Blood Urea Nitrogen 27H, Creatinine 0.56, Sodium Level 143, Potassium Level 4.0, Chloride Level 105, Carbon Dioxide Level 33H, Calcium Level 8.9 CBC/BMP Laboratory Tests 01/24/17 06:21 Red Blood Count 3.40 L, Mean Corpuscular Volume 90.1, Mean Corpuscular Hemoglobin 30.1, Mean Corpuscular Hemoglobin Concent 33.4, Red Cell Distribution Width 14.0, Calcium Level 8.9 Felix,Kaz M RPA-C Jan 24, 2017 10:59 Rob Leach MD Jan 24, 2017 20:32
[2017-01-24] MEDS ORDERED: WARFARIN SOD 2.5 MG TAB PO ONE (17:00)
[2017-01-24] MEDS: SIMVASTATIN 20 MG TAB PO SCH (21:00)
[2017-01-25 06:13] VITALS: BP 127/66
[2017-01-25 06:45] LABS: BASO % 0.2 % (0.0-1.0); EOS # 0.1 K/mm3 (0.0-0.50); EOS % 1.6 % (0.0-3.0); LARGE UNSTAINED CELL # 0.2 K/mm3 (0.0-0.4); LARGE UNSTAINED CELL % 2.1 % (0.0-4.0); LYMPH # 0.9 K/mm3 (1.5-4.5); LYMPH % 10.7 % (24.0-44.0); MEAN CORPUSCULAR HEMOGLOBIN 30.3 pg (27.0-33.0); MEAN CORPUSCULAR HGB CONC 33.7 g/dl (32.0-36.5); MEAN CORPUSCULAR VOLUME 89.8 fl (80.0-96.0); MONO # 0.7 K/mm3 (0.0-0.8); MONO % 7.7 % (0.0-5.0); NEUTROPHILS # 6.7 K/mm3 (1.8-7.7); NEUTROPHILS % 77.6 % (36.0-66.0); PLATELET COUNT, AUTOMATED 249 k/mm3 (150-450); WHITE BLOOD COUNT 8.6 K/mm3 (4.0-10.0)
[2017-01-25 07:03] LABS: ALBUMIN 2.2 GM/DL (3.2-5.2); ALBUMIN/GLOBULIN RATIO 0.65 (1.00-1.93); ALKALINE PHOSPHATASE 41 U/L (45-117); ALT/SGPT 10 U/L (12-78); ANION GAP 6 MEQ/L (8-16); AST/SGOT 18 U/L (15-37); BILIRUBIN,TOTAL 0.5 MG/DL (0.2-1.0); BLOOD UREA NITROGEN 32 MG/DL (7-18); CALCIUM LEVEL 8.5 MG/DL (8.8-10.2); CARBON DIOXIDE LEVEL 33 MEQ/L (21-32); CHLORIDE LEVEL 105 MEQ/L (98-107); CREATININE FOR GFR 0.57 MG/DL (0.55-1.02); GLOMERULAR FILTRATION RATE > 60.0 (>45); GLUCOSE, FASTING 129 MG/DL (80-110); POTASSIUM SERUM 4.1 MEQ/L (3.5-5.1); SODIUM LEVEL 144 MEQ/L (136-145); TOTAL PROTEIN 5.6 GM/DL (6.4-8.2)
--- NOTE | 2017-01-25 07:59 | IPNPDOC ---
Subjective Date Seen The patient was seen on 01/25/17. Subjective Chief Complaint/HPI The patient is a 66-year-old female admitted with a reason for visit of Arthritis Left Hip. Events since last encounter Pt this morning without new concerns. She states that her pain is reasonably controlled. She has no pain while at rest. She is moving her bowels. General: Denies: Fatigue Constitutional: Denies: Chills, Fever ENT: Denies: Head Aches Skin: Denies: Rash, Lesions Pulmonary: Denies: Dyspnea, Cough Cardiovascular: Denies: Chest Pain, Palpitations Gastrointestinal: Denies: Nausea, Vomiting, Diarrhea, Constipation Neurological: Denies: Weakness Psych: Reports: Mood Normal Objective Physical Examination General Exam: Positive: Alert, Cooperative, No Acute Distress ENT Exam: Positive: Mucous membr. moist/pink Neck Exam: Negative: JVD Chest Exam: Positive: Clear to auscultation, Normal air movement, Negative: Rales, Rhonchi, Wheezing Heart Exam: Positive: Tachycardic, Regular Rhythm, Normal S1, Normal S2, Negative: Gallops Abdomen Exam: Positive: Normal bowel sounds, Soft, Negative: Tenderness Extremity Exam: Negative: Clubbing, Cyanosis, Edema Skin Exam: Negative: Rash Neuro Exam: Positive: Sensation Intact Psych Exam: Positive: Mental status NL Assessment /Plan Problems (1) History of arthroplasty of left hip Status: Acute Response to Treatment: Improving Problem Text: 01/25 - POD 4, pt cont to remain stable. Pain is controlled. Unsafe for d/c per PT. 01/24 - POD 3. Pt feeling better today. States she has been working with PT. Ortho managing pain and anticoagulation. 01/23 -POD 2. Doing well. Pain controlled. - anticoagulation per ortho - pain management per ortho -PT concerned about doing activities with the patient due to persistent tachycardia (2) Postoperative anemia due to acute blood loss Status: Acute Response to Treatment: Worse Problem Text: 01/25 - Hgb remains stable, at 10.2, HR remains tachy. 01/24 - Pt received 2 units PRBCs yesterday. Hgb improved to 10.2 (was 8.8 yesterday). Pt feels better today and states she has more energy. 01/23 - Patient continues to have episodes of tachycardia. Preop hemoglobin was 14.3. Although patient denies any symptoms of dizziness or lightheadedness, nursing states that she is quite sluggish, and is not very active and her own care. Physical therapy has been concerned about doing any PT with the patient due to tachycardia. Given persistent tachycardia, history of right bundle branch block and other cardiac risk factors, would recommend keeping patient above 10. Hemoglobin currently 8.8. -Will discuss with orthopedics -Transfuse 1-2 units if orthopedics and patient are amenable (3) Tachycardia Status: Chronic Response to Treatment: Stable Problem Text: 01/25 - review of office records suggests that pt consistently has had HR > 100, will increase her Zebeta from 5 mg to 10 mg daily today. 01/24 - HR 110s-120s. 01/23 - Likely secondary to acute blood loss anemia from recent hip arthroplasty. -See above (4) Hx of right bundle branch block Status: Chronic Response to Treatment: Stable Problem Text: 01/23 - EKG obtained today due to persistent tachycardia. EKG indicates persistent right bundle branch block, sinus tachycardia, and occasional premature complexes. There are no acute findings. (5) HTN (hypertension) Status: Chronic Response to Treatment: Stable (6) HLD (hyperlipidemia) Status: Chronic Response to Treatment: Stable Problem Text: Continue home statin Plan/VTE VTE Prophylaxis Ordered?: Yes Plan Attending note: I saw and evaluated the patient, and agree with the plan of care as discussed and documented above. Patient is doing significantly better after blood transfusion. Color has improved, and patient is not able to tolerate physical therapy. She has no complaints or concerns today. Heart rate remains somewhat elevated, but discussed with the patient that she will have reduced cardiac capacity for several weeks until her full blood supply is able to be replenished by her body. Selvin Coleman MD VS, I&O, 24H, [facility] Vital Signs/I&O Vital Signs Date Time Temp Pulse Resp B/P (MAP) Pulse Ox O2 Delivery O2 Flow Rate FiO2 01/25/17 06:42 95 Room Air 01/25/17 06:13 98.6 123 20 127/66 (86) 01/24/17 14:00 2.0 I&O- Last 24 Hours up to 6 AM 01/25/17 05:59 Intake Total 980 ml Output Total 700 ml Balance 280 ml Laboratory Data 24H LABS Laboratory Tests 2 01/25/17 06:22: White Blood Count 8.6, Red Blood Count 3.37L, Hemoglobin 10.2L, Hematocrit 30.2L , Mean Corpuscular Volume 89.8, Mean Corpuscular Hemoglobin 30.3, Mean Corpuscular Hemoglobin Concent 33.7, Red Cell Distribution Width 14.0, Platelet Count 249, Neutrophils (%) (Auto) 77.6H, Lymphocytes (%) (Auto) 10.7L, Monocytes (%) (Auto) 7.7H, Eosinophils (%) (Auto) 1.6, Basophils (%) (Auto) 0.2 , Neutrophils # (Auto) 6.7, Lymphocytes # (Auto) 0.9L, Monocytes # (Auto) 0.7, Eosinophils # (Auto) 0.1, Basophils # (Auto) 0.0, Large Unclassified Cells % 2.1 , Large Unclassified Cells # 0.2, Anion Gap 6L, Glomerular Filtration Rate > 60.0, Blood Urea Nitrogen 32H, Creatinine 0.57, Sodium Level 144, Potassium Level 4.1, Chloride Level 105, Carbon Dioxide Level 33H, Calcium Level 8.5L, Aspartate Amino Transf (AST/SGOT) 18, Alanine Aminotransferase (ALT/SGPT) 10L, Alkaline Phosphatase 41L, Total Bilirubin 0.5, Total Protein 5.6L, Albumin 2.2L , Albumin/Globulin Ratio 0.65L CBC/BMP Laboratory Tests 01/25/17 06:22 Red Blood Count 3.37 L, Mean Corpuscular Volume 89.8, Mean Corpuscular Hemoglobin 30.3, Mean Corpuscular Hemoglobin Concent 33.7, Red Cell Distribution Width 14.0, Neutrophils (%) (Auto) 77.6 H, Lymphocytes (%) (Auto) 10.7 L, Monocytes (%) (Auto) 7.7 H, Eosinophils (%) (Auto) 1.6, Basophils (%) ( Auto) 0.2, Neutrophils # (Auto) 6.7, Lymphocytes # (Auto) 0.9 L, Monocytes # ( Auto) 0.7, Eosinophils # (Auto) 0.1, Basophils # (Auto) 0.0, Calcium Level 8.5 L , Aspartate Amino Transf (AST/SGOT) 18, Alanine Aminotransferase (ALT/SGPT) 10 L , Alkaline Phosphatase 41 L, Total Bilirubin 0.5, Total Protein 5.6 L, Albumin 2.2 L KIKI VALE PA-C Jan 25, 2017 07:59 SELVIN COLEMAN MD Jan 25, 2017 13:10
[2017-01-25] MEDS: SENOKOT S TAB PO SCH ×2 (09:00→20:34)
[2017-01-25] MEDS: MIRALAX *UNIT DOSE* 17GM PACKET PO SCH (09:00)
[2017-01-25] MEDS: MOM 30ML SUSPENSION UDC PO SCH (09:00)
[2017-01-25] MEDS: PERCOCET 5MG/325MG TAB PO PRN ×2 (09:50→16:50)
[2017-01-25] MEDS: NIFEdipine 60 MG XL TAB PO SCH (09:51)
[2017-01-25] MEDS: VERAPAMIL 180 MG SR TAB PO SCH (09:51)
[2017-01-25] MEDS: BISOPROLOL FUMARATE 10 MG TAB PO SCH (09:51)
[2017-01-25] MEDS: NYSTATIN 100,000 UNITS/GM TOPICAL PWD 15 GM TOP SCH ×2 (09:52→20:33)
[2017-01-25 14:00] VITALS: BP 135/91
[2017-01-25] MEDS ORDERED: WARFARIN SOD 3 MG TAB PO ONE (17:00)
[2017-01-25] MEDS: SIMVASTATIN 20 MG TAB PO SCH (20:32)
[2017-01-25 22:00] VITALS: BP 120/71
[2017-01-26 06:00] VITALS: BP 129/70
[2017-01-26 07:09] LABS: MEAN CORPUSCULAR HEMOGLOBIN 29.9 pg (27.0-33.0); MEAN CORPUSCULAR HGB CONC 32.8 g/dl (32.0-36.5); MEAN CORPUSCULAR VOLUME 91.2 fl (80.0-96.0); WHITE BLOOD COUNT 7.7 K/mm3 (4.0-10.0)
[2017-01-26 07:11] LABS: INR 1.89
--- NOTE | 2017-01-26 07:38 | IPNPDOC ---
Subjective Date Seen The patient was seen on 01/26/17. Subjective Chief Complaint/HPI The patient is a 66-year-old female admitted with a reason for visit of Arthritis Left Hip. Events since last encounter Pt denies any new issues. Denies CP, SOB. Constitutional: Denies: Chills, Fever Pulmonary: Denies: Dyspnea Cardiovascular: Denies: Chest Pain Gastrointestinal: Denies: Abdominal Pain Objective Physical Examination General Exam: Positive: Alert, Cooperative, No Acute Distress Eye Exam: Positive: Conjunctiva & lids normal, Negative: Sclera icteric ENT Exam: Positive: Mucous membr. moist/pink Neck Exam: Negative: JVD Chest Exam: Positive: Clear to auscultation, Normal air movement, Negative: Rales, Rhonchi, Wheezing Heart Exam: Positive: Tachycardic, Regular Rhythm, Normal S1, Normal S2, Negative: Gallops Abdomen Exam: Positive: Normal bowel sounds, Soft, Negative: Tenderness Extremity Exam: Negative: Clubbing, Cyanosis, Edema Skin Exam: Negative: Rash Neuro Exam: Positive: Sensation Intact Psych Exam: Positive: Mental status NL Assessment /Plan Problems (1) History of arthroplasty of left hip Status: Acute Response to Treatment: Improving Problem Text: 01/26 - POD 5, pt cont to remain stable. Pain is controlled. Unsafe for d/c per PT. 01/25 - POD 4, pt cont to remain stable. Pain is controlled. Unsafe for d/c per PT. 01/24 - POD 3. Pt feeling better today. States she has been working with PT. Ortho managing pain and anticoagulation. 01/23 -POD 2. Doing well. Pain controlled. - anticoagulation per ortho - pain management per ortho -PT concerned about doing activities with the patient due to persistent tachycardia (2) Postoperative anemia due to acute blood loss Status: Acute Response to Treatment: Worse Problem Text: 01/26 - Hgb remains stable, at 10.0, HR remains tachy. 01/25 - Hgb remains stable, at 10.2, HR remains tachy. 01/24 - Pt received 2 units PRBCs yesterday. Hgb improved to 10.2 (was 8.8 yesterday). Pt feels better today and states she has more energy. 01/23 - Patient continues to have episodes of tachycardia. Preop hemoglobin was 14.3. Although patient denies any symptoms of dizziness or lightheadedness, nursing states that she is quite sluggish, and is not very active and her own care. Physical therapy has been concerned about doing any PT with the patient due to tachycardia. Given persistent tachycardia, history of right bundle branch block and other cardiac risk factors, would recommend keeping patient above 10. Hemoglobin currently 8.8. -Will discuss with orthopedics -Transfuse 1-2 units if orthopedics and patient are amenable (3) Tachycardia Status: Chronic Response to Treatment: Stable Problem Text: 01/26 - Zebeta increased to 10 mg yesterday. HR 80s-117. 01/25 - review of office records suggests that pt consistently has had HR > 100, will increase her Zebeta from 5 mg to 10 mg daily today. 01/24 - HR 110s-120s. 01/23 - Likely secondary to acute blood loss anemia from recent hip arthroplasty. -See above (4) Hx of right bundle branch block Status: Chronic Response to Treatment: Stable Problem Text: 01/23 - EKG obtained today due to persistent tachycardia. EKG indicates persistent right bundle branch block, sinus tachycardia, and occasional premature complexes. There are no acute findings. (5) HTN (hypertension) Status: Chronic Response to Treatment: Stable (6) HLD (hyperlipidemia) Status: Chronic Response to Treatment: Stable Problem Text: Continue home statin Plan/VTE VTE Prophylaxis Ordered?: Yes Plan Family Medicine Attending Note: I saw and examined Ms. Olsen, discussed with URBANO Burks. Agree with their note as documented. She reports she is feeling relatively good today. She's been up and walked a little farther. She still does have some significant hip pain. Her hemoglobin is stable. We will continue to monitor this. 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) VS, I&O, 24H, [facility] Vital Signs/I&O Vital Signs Date Time Temp Pulse Resp B/P (MAP) Pulse Ox O2 Delivery O2 Flow Rate FiO2 01/26/17 06:00 98.1 117 14 129/70 (89) 97 Room Air 01/24/17 14:00 2.0 I&O- Last 24 Hours up to 6 AM 01/26/17 06:00 Intake Total 960 ml Output Total 800 ml Balance 160 ml Laboratory Data 24H LABS Laboratory Tests 2 01/26/17 06:21: Prothrombin Time 22.3H, Prothromb Time International Ratio 1.89 CBC/BMP Laboratory Tests 01/26/17 06:21 Red Blood Count 3.36 L, Mean Corpuscular Volume 91.2, Mean Corpuscular Hemoglobin 29.9, Mean Corpuscular Hemoglobin Concent 32.8, Red Cell Distribution Width 14.0 Kaz Felix RPA-Princess Jan 26, 2017 07:38 Rob Leach MD Jan 28, 2017 00:49
[2017-01-26] MEDS: MIRALAX *UNIT DOSE* 17GM PACKET PO SCH (09:00)
[2017-01-26] MEDS: MOM 30ML SUSPENSION UDC PO SCH (09:17)
[2017-01-26] MEDS: PERCOCET 5MG/325MG TAB PO PRN ×3 (09:25→21:55)
[2017-01-26] MEDS: VERAPAMIL 180 MG SR TAB PO SCH (09:25)
[2017-01-26] MEDS: NIFEdipine 60 MG XL TAB PO SCH (09:26)
[2017-01-26] MEDS: BISOPROLOL FUMARATE 10 MG TAB PO SCH (09:26)
[2017-01-26] MEDS: SENOKOT S TAB PO SCH ×2 (09:26→21:00)
[2017-01-26] MEDS: NYSTATIN 100,000 UNITS/GM TOPICAL PWD 15 GM TOP SCH ×2 (09:27→21:55)
[2017-01-26 14:00] VITALS: BP 116/67
[2017-01-26] MEDS ORDERED: WARFARIN SOD 2.5 MG TAB PO ONE (17:00)
[2017-01-26] MEDS: SIMVASTATIN 20 MG TAB PO SCH (21:55)
[2017-01-26 22:00] VITALS: BP 120/72
[2017-01-27 06:00] VITALS: BP 132/61
[2017-01-27] MEDS ORDERED: PERC5TAB12 PO (07:06)
[2017-01-27] MEDS ORDERED: COUM2.5T17 PO (07:06)
[2017-01-27 07:12] LABS: BASO % 0.4 % (0.0-1.0); EOS # 0.4 K/mm3 (0.0-0.50); EOS % 5.6 % (0.0-3.0); LARGE UNSTAINED CELL # 0.2 K/mm3 (0.0-0.4); LARGE UNSTAINED CELL % 2.5 % (0.0-4.0); LYMPH # 1.7 K/mm3 (1.5-4.5); LYMPH % 22.4 % (24.0-44.0); MEAN CORPUSCULAR HEMOGLOBIN 29.4 pg (27.0-33.0); MEAN CORPUSCULAR HGB CONC 32.4 g/dl (32.0-36.5); MEAN CORPUSCULAR VOLUME 90.7 fl (80.0-96.0); MONO # 0.6 K/mm3 (0.0-0.8); MONO % 8.9 % (0.0-5.0); NEUTROPHILS # 4.2 K/mm3 (1.8-7.7); NEUTROPHILS % 60.3 % (36.0-66.0); PLATELET COUNT, AUTOMATED 306 k/mm3 (150-450); RED CELL DISTRIBUTION WIDTH 14.3 % (11.5-14.5)
[2017-01-27 07:17] LABS: INR 1.76
[2017-01-27] MEDS ORDERED: BISO10TA PO (08:42)
--- NOTE | 2017-01-27 08:43 | IPNPDOC ---
Subjective Date Seen The patient was seen on 01/27/17. Subjective Chief Complaint/HPI The patient is a 66-year-old female admitted with a reason for visit of Arthritis Left Hip. Events since last encounter Pt feeling better. Denies CP, SOB, Abd pain. Ortho plans on D/C today. Constitutional: Denies: Chills, Fever Pulmonary: Denies: Dyspnea Cardiovascular: Denies: Chest Pain Gastrointestinal: Denies: Nausea, Vomiting, Abdominal Pain Objective Physical Examination General Exam: Positive: Alert, Cooperative, No Acute Distress Eye Exam: Positive: Conjunctiva & lids normal, Negative: Sclera icteric ENT Exam: Positive: Mucous membr. moist/pink Neck Exam: Negative: JVD Chest Exam: Positive: Clear to auscultation, Normal air movement, Negative: Rales, Rhonchi, Wheezing Heart Exam: Positive: Tachycardic, Regular Rhythm, Normal S1, Normal S2, Negative: Gallops Abdomen Exam: Positive: Normal bowel sounds, Soft, Negative: Tenderness Extremity Exam: Negative: Clubbing, Cyanosis, Edema Skin Exam: Negative: Rash Neuro Exam: Positive: Sensation Intact Psych Exam: Positive: Mental status NL Assessment /Plan Problems (1) History of arthroplasty of left hip Status: Acute Response to Treatment: Improving Problem Text: 01/27 - Ortho plans d/c today. 01/26 - POD 5, pt cont to remain stable. Pain is controlled. Unsafe for d/c per PT. 01/25 - POD 4, pt cont to remain stable. Pain is controlled. Unsafe for d/c per PT. 01/24 - POD 3. Pt feeling better today. States she has been working with PT. Ortho managing pain and anticoagulation. 01/23 -POD 2. Doing well. Pain controlled. - anticoagulation per ortho - pain management per ortho -PT concerned about doing activities with the patient due to persistent tachycardia (2) Postoperative anemia due to acute blood loss Status: Acute Response to Treatment: Worse Problem Text: 01/27 - Hgb stable 01/26 - Hgb remains stable, at 10.0, HR remains tachy. 01/25 - Hgb remains stable, at 10.2, HR remains tachy. 01/24 - Pt received 2 units PRBCs yesterday. Hgb improved to 10.2 (was 8.8 yesterday). Pt feels better today and states she has more energy. 01/23 - Patient continues to have episodes of tachycardia. Preop hemoglobin was 14.3. Although patient denies any symptoms of dizziness or lightheadedness, nursing states that she is quite sluggish, and is not very active and her own care. Physical therapy has been concerned about doing any PT with the patient due to tachycardia. Given persistent tachycardia, history of right bundle branch block and other cardiac risk factors, would recommend keeping patient above 10. Hemoglobin currently 8.8. -Will discuss with orthopedics -Transfuse 1-2 units if orthopedics and patient are amenable (3) Tachycardia Status: Chronic Response to Treatment: Stable Problem Text: 01/27 - On Zebeta. Increased from 5 mg to 10 mg this week. Will d /c home on the increased dose of the Zebeta 10 mg daily. 01/26 - Zebeta increased to 10 mg yesterday. HR 80s-117. 01/25 - review of office records suggests that pt consistently has had HR > 100, will increase her Zebeta from 5 mg to 10 mg daily today. 01/24 - HR 110s-120s. 01/23 - Likely secondary to acute blood loss anemia from recent hip arthroplasty. -See above (4) Hx of right bundle branch block Status: Chronic Response to Treatment: Stable Problem Text: 01/23 - EKG obtained today due to persistent tachycardia. EKG indicates persistent right bundle branch block, sinus tachycardia, and occasional premature complexes. There are no acute findings. (5) HTN (hypertension) Status: Chronic Response to Treatment: Stable (6) HLD (hyperlipidemia) Status: Chronic Response to Treatment: Stable Problem Text: Continue home statin Plan/VTE VTE Prophylaxis Ordered?: Yes Plan Family Medicine Attending Note: I saw and examined Ms. Olsen, discussed with URBANO Burks. Agree with their note as documented. She is excited today. She is made enough progress to go home. I see no medical reason to hold her. We will send her on the increased dose(10 mg versus 5 mg) of Zebeta because she is done better with this while here. I suspect some of it may have to do with the pain of therapy. I told her to watch this carefully and to bring it up to her physician if she ever begins to feel lightheaded or signs of hypotension. They may need to move her Zebeta back down to 5 mg at some point. 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) VS, I&O, 24H, [facility] Vital Signs/I&O Vital Signs Date Time Temp Pulse Resp B/P (MAP) Pulse Ox O2 Delivery O2 Flow Rate FiO2 01/27/17 06:00 98.2 103 16 132/61 (84) 99 Room Air 01/24/17 14:00 2.0 I&O- Last 24 Hours up to 6 AM 01/27/17 06:00 Intake Total 1200 ml Output Total 975 ml Balance 225 ml Laboratory Data 24H LABS Laboratory Tests 2 01/27/17 06:43: White Blood Count 7.0, Red Blood Count 3.27L, Hemoglobin 9.6L, Hematocrit 29.7L , Mean Corpuscular Volume 90.7, Mean Corpuscular Hemoglobin 29.4, Mean Corpuscular Hemoglobin Concent 32.4, Red Cell Distribution Width 14.3, Platelet Count 306, Neutrophils (%) (Auto) 60.3, Lymphocytes (%) (Auto) 22.4L, Monocytes (%) (Auto) 8.9H, Eosinophils (%) (Auto) 5.6H, Basophils (%) (Auto) 0.4, Neutrophils # (Auto) 4.2, Lymphocytes # (Auto) 1.7, Monocytes # (Auto) 0.6, Eosinophils # (Auto) 0.4, Basophils # (Auto) 0.0, Large Unclassified Cells % 2.5 , Large Unclassified Cells # 0.2, Prothrombin Time 21.1H, Prothromb Time International Ratio 1.76 CBC/BMP Laboratory Tests 01/27/17 06:43 Red Blood Count 3.27 L, Mean Corpuscular Volume 90.7, Mean Corpuscular Hemoglobin 29.4, Mean Corpuscular Hemoglobin Concent 32.4, Red Cell Distribution Width 14.3, Neutrophils (%) (Auto) 60.3, Lymphocytes (%) (Auto) 22.4 L, Monocytes (%) (Auto) 8.9 H, Eosinophils (%) (Auto) 5.6 H, Basophils (%) (Auto) 0.4, Neutrophils # (Auto) 4.2, Lymphocytes # (Auto) 1.7, Monocytes # ( Auto) 0.6, Eosinophils # (Auto) 0.4, Basophils # (Auto) 0.0 Kaz Felix RPA-C Jan 27, 2017 08:43 Rob Leach MD Jan 28, 2017 00:52
[2017-01-27] MEDS: MOM 30ML SUSPENSION UDC PO SCH (09:00)
[2017-01-27] MEDS: MIRALAX *UNIT DOSE* 17GM PACKET PO SCH (09:00)
[2017-01-27] MEDS: BISOPROLOL FUMARATE 10 MG TAB PO SCH (09:53)
[2017-01-27 09:54] VITALS: BP 132/61
[2017-01-27] MEDS: NYSTATIN 100,000 UNITS/GM TOPICAL PWD 15 GM TOP SCH (09:54)
[2017-01-27] MEDS: SENOKOT S TAB PO SCH (09:54)
[2017-01-27] MEDS: VERAPAMIL 180 MG SR TAB PO SCH (09:54)
[2017-01-27] MEDS: NIFEdipine 60 MG XL TAB PO SCH (09:54)
[2017-01-27] MEDS: PERCOCET 5MG/325MG TAB PO PRN (10:41)
--- NOTE | 2017-02-02 15:08 | DSES ---
DATE OF ADMISSION: 01/21/2017 DATE OF DISCHARGE: 01/27/2017 ATTENDING PHYSICIAN: Dr. Eris Diaz ADMITTING DIAGNOSIS: Left hip degenerative arthritis. OTHER DIAGNOSES: 1. Hypertension. 2. Chronic back pain. 3. Elevated lipids. 4. Glaucoma. 5. Right bundle branch block. 6. History of breast cancer. DISCHARGE DIAGNOSIS: Left hip degenerative arthritis, status post left total hip arthroplasty. HISTORY OF PRESENT ILLNESS: The patient is a pleasant female with progressively worsening left hip and stiffness. She failed to improve with conservative measures, so she elected for a left total hip arthroplasty with Dr. Diaz. OPERATION PERFORMED: Left total hip arthroplasty. HOSPITALIZATION COURSE: The patient underwent a left total hip arthroplasty under general anesthesia status post attempted spinal. Surgery was without complication. The patient developed tachycardia secondary to postoperative anemia during her hospital stay and was transfused with 2 units of packed red blood cells. She was stable upon discharge and has Cardiology referral per Hospitalist. She was discharged on oral pain medications and was instructed to resume her preoperative medications and diet. She also has followup with cardiology. The patient will be weight bearing as tolerated on the left lower extremity. She will take her Coumadin and use her thromboembolic deterrent stockings for 30 days postoperatively to prevent deep vein thrombosis (DVT). She will followup in our office in 12 to 14 days or sooner if there is any increased pain, drainage, bleeding, redness, numbness and tingling, fever greater than 101 degrees of any other concerns. Please see medical record for additional details. [facility]
== END 2017-01-27 13:05 | disposition home health service (06) | DRG 470 ==
LOC: M OR 01-21 06:07 → M MS5PR 01-21 11:50
PROVIDERS: ADMIT Orthopaedic Surgery; ATTEND Orthopaedic Surgery
PROC: 0SRB02Z Replacement of Left Hip Joint with Metal on Polyethylene Synthetic Substitute, Open Approach (ICD-10-PCS; principal; 2017-01-21 07:30)
PROC: 30253N1 (ICD-10-PCS; 2017-01-23)
DX: M16.12 Unilateral primary osteoarthritis, left hip (principal); D62 Acute posthemorrhagic anemia; I10 Essential (primary) hypertension; E78.5 Hyperlipidemia, unspecified; H40.9 Unspecified glaucoma; M54.9 Dorsalgia, unspecified; R00.0 Tachycardia, unspecified; Z85.3 Personal history of malignant neoplasm of breast; Z96.653 Presence of artificial knee joint, bilateral; Z96.641 Presence of right artificial hip joint; Z90.710 Acquired absence of both cervix and uterus; Z79.891 Long term (current) use of opiate analgesic; Z79.899 Other long term (current) drug therapy; Z88.8 Allergy status to other drugs, medicaments and biological substances; Z88.5 Allergy status to narcotic agent

== ENCOUNTER → 2017-01-20 | Outpatient (REF) | payer MEDICARE, OTHER ==
[~2017-01-20] MED LIST changes: +BISO10TA PO; +COUM2.5T17 PO; +PERC5TAB12 PO
== END ==
LOC: M SMT 17:10
PROVIDERS: ATTEND Nurse Practitioner Women's Health
DX: N39.0 Urinary tract infection, site not specified (principal)

== ENCOUNTER → 2017-02-10 | Outpatient (REF) | payer MEDICARE, OTHER ==
[2017-02-10 13:35] LABS: INR 1.19
== END ==
LOC: M LAB REF 13:01
PROVIDERS: ATTEND Nurse Practitioner Family
DX: Z79.01 Long term (current) use of anticoagulants (principal); I10 Essential (primary) hypertension; M54.9 Dorsalgia, unspecified

== ENCOUNTER → 2017-02-15 | Outpatient (REF) | payer MEDICARE, BC, OTHER ==
[2017-02-15 18:15] LABS: ALBUMIN 3.3 GM/DL (3.2-5.2); ALBUMIN/GLOBULIN RATIO 1.06 (1.00-1.93); ALKALINE PHOSPHATASE 72 U/L (45-117); ALT/SGPT 15 U/L (12-78); ANION GAP 8 MEQ/L (8-16); AST/SGOT 16 U/L (15-37); BILIRUBIN,TOTAL 0.3 MG/DL (0.2-1.0); BLOOD UREA NITROGEN 11 MG/DL (7-18); CALCIUM LEVEL 8.8 MG/DL (8.8-10.2); CARBON DIOXIDE LEVEL 26 MEQ/L (21-32); CHLORIDE LEVEL 105 MEQ/L (98-107); CREATININE FOR GFR 0.68 MG/DL (0.55-1.02); GLOMERULAR FILTRATION RATE > 60.0 (>45); GLUCOSE, FASTING 91 MG/DL (80-110); POTASSIUM SERUM 3.8 MEQ/L (3.5-5.1); SODIUM LEVEL 139 MEQ/L (136-145); TOTAL PROTEIN 6.4 GM/DL (6.4-8.2)
[2017-02-15 18:51] LABS: BASO % 0.3 % (0.0-1.0); EOS # 0.2 K/mm3 (0.0-0.50); EOS % 3.1 % (0.0-3.0); LARGE UNSTAINED CELL # 0.1 K/mm3 (0.0-0.4); LARGE UNSTAINED CELL % 1.9 % (0.0-4.0); LYMPH # 1.4 K/mm3 (1.5-4.5); LYMPH % 17.3 % (24.0-44.0); MEAN CORPUSCULAR HEMOGLOBIN 29.4 pg (27.0-33.0); MEAN CORPUSCULAR HGB CONC 31.4 g/dl (32.0-36.5); MEAN CORPUSCULAR VOLUME 93.6 fl (80.0-96.0); MONO # 0.5 K/mm3 (0.0-0.8); MONO % 7.2 % (0.0-5.0); NEUTROPHILS # 5.3 K/mm3 (1.8-7.7); NEUTROPHILS % 70.3 % (36.0-66.0); PLATELET COUNT, AUTOMATED 360 k/mm3 (150-450); RED CELL DISTRIBUTION WIDTH 14.2 % (11.5-14.5); WHITE BLOOD COUNT 7.5 K/mm3 (4.0-10.0)
== END ==
LOC: M SFHCPLAZ 13:27
PROVIDERS: ATTEND Nurse Practitioner Family
DX: R19.7 Diarrhea, unspecified (principal)
CPT/HCPCS: 36415; 80053; 85025; G0463

== ENCOUNTER → 2017-03-22 | Outpatient (CLI) | payer MEDICARE, BC ==
--- NOTE | 2017-03-24 08:53 | DEXA ---
AP SPINE L1 - L4 1.980 6.3 8.0 LT FEMUR TOTAL Replaced. RT FEMUR TOTAL Replaced. TOTAL BODY TOTAL RIGHT FOREARM 0.888 0.1 1.8 DUAL FEMUR FRAX* ASSESSMENT Risk factors: Not performed. 10 year probability of fracture Major osteoporotic fracture % Hip fracture % COMMENTS: Normal bone densitometry of the spine. Normal bone densitometry of the right forearm. FOLLOW-UP: Recommendation for the next bone density exam: 5 years. MTDD
== END ==
LOC: M WHC 13:12
PROVIDERS: ATTEND Family Medicine
DX: M81.0 Age-related osteoporosis without current pathological fracture (principal)

== ENCOUNTER → 2017-04-18 | Outpatient (REF) | payer MEDICARE, BC, OTHER ==
[2017-04-18 14:41] LABS: YEAST LIKE CELL URINE AUTO LARGE
== END ==
LOC: M SMT 13:10
PROVIDERS: ATTEND Nurse Practitioner Women's Health
DX: R35.0 Frequency of micturition (principal)
CPT/HCPCS: 51702; 81001; 87086; G0463

== ENCOUNTER → 2017-07-21 | Outpatient (CLI) | payer MEDICARE, BC, OTHER ==
[2017-07-21 12:36] LABS: MEAN CORPUSCULAR HEMOGLOBIN 28.2 pg (27.0-33.0); MEAN CORPUSCULAR HGB CONC 31.4 g/dl (32.0-36.5); MEAN CORPUSCULAR VOLUME 89.7 fl (80.0-96.0); PLATELET COUNT, AUTOMATED 324 10^3/uL (150-450); RED CELL DISTRIBUTION WIDTH 14.7 % (11.5-14.5); WHITE BLOOD COUNT 8.9 10^3/uL (4.0-10.0)
[2017-07-21 12:46] LABS: INR 1.02
[2017-07-21 13:19] LABS: ANION GAP 5 MEQ/L (8-16); BLOOD UREA NITROGEN 21 MG/DL (7-18); CALCIUM LEVEL 9.3 MG/DL (8.8-10.2); CARBON DIOXIDE LEVEL 31 MEQ/L (21-32); CHLORIDE LEVEL 109 MEQ/L (98-107); GLOMERULAR FILTRATION RATE > 60.0 (>45); GLUCOSE, FASTING 105 MG/DL (80-110); POTASSIUM SERUM 4.5 MEQ/L (3.5-5.1); SODIUM LEVEL 145 MEQ/L (136-145)
== END ==
LOC: M SMT 09:13
DX: Z01.818 Encounter for other preprocedural examination (principal); N20.0 Calculus of kidney
CPT/HCPCS: 80048

== ENCOUNTER → 2017-08-02 | Outpatient (REF) | payer MEDICARE, OTHER ==
[2017-08-02 19:19] LABS: BILIRUBIN, URINE AUTO NEGATIVE (NEGATIVE); COLOR, URINE YELLOW (YELLOW); GLUCOSE, URINE (UA) AUTO NEGATIVE (NEGATIVE); KETONE, URINE AUTO NEGATIVE (NEGATIVE); MUCUS, URINE SMALL (NEGATIVE); NITRITE, URINE AUTO NEGATIVE (NEGATIVE); UROBILINOGEN, URINE AUTO 0.2 mg/dL (0.0-2.0)
[2017-08-02 21:27] LABS: APPEARANCE, URINE CLOUDY (CLEAR); SPECIFIC GRAVITY URINE AUTO 1.016 (1.002-1.035); TRANSITIONAL EPITHELIAL AUTO 1 /HPF
[2017-08-02 21:28] LABS: BACTERIA, URINE AUTO 1+ (NEGATIVE); BLOOD, URINE BLOOD 3+ (NEGATIVE); LEUKOCYTE ESTERASE, URINE AUTO 3+ (NEGATIVE); PROTEIN, URINE AUTO 2+ mg/dL (NEGATIVE); RBC, URINE AUTO TNTC /HPF (0-3); SQUAMOUS EPITHELIAL CELL UR AU 3 /HPF (0-6); WBC, URINE AUTO TNTC /HPF (0-3)
== END ==
LOC: M SFHCPLAZ 15:32
DX: Z01.818 Encounter for other preprocedural examination (principal); N20.0 Calculus of kidney
CPT/HCPCS: 81001

== ENCOUNTER → 2017-08-08 | Outpatient (REF) | payer MEDICARE | LOC: M SMT 13:21 | DX: N39.0 Urinary tract infection, site not specified (principal) | CPT/HCPCS: 87086 ==

== ENCOUNTER 2017-08-11 05:57 | Day surgery (SDC) | payer MEDICARE, BC, OTHER ==
[2017-08-11] MEDS ORDERED: BISOPROLOL FUMARATE 5 MG TAB As Ordered (07:15)
[2017-08-11] MEDS ORDERED: LR 1,000 ML IV (07:15)
[2017-08-11] MEDS ORDERED: PROPOFOL 200 MG/20 ML VIAL As Ordered (07:16)
[2017-08-11] MEDS ORDERED: LIDOCAINE 2% INJ 100 MG/5 ML SDV (FOR ANES.) As Ordered (07:16)
[2017-08-11] MEDS ORDERED: MIDAZOLAM INJ 2 MG/2 ML VIAL (J2250) As Ordered (07:19)
[2017-08-11] MEDS ORDERED: fentaNYL 100 MCG/2 ML INJECTION (J3010) As Ordered (07:19)
[2017-08-11] MEDS: BISOPROLOL FUMARATE 10 MG TAB PO (07:20)
== END 2017-08-11 10:08 | disposition home or self-care (01) ==
LOC: M SDC 05:57
DX: N20.0 Calculus of kidney (principal); R00.0 Tachycardia, unspecified; I10 Essential (primary) hypertension; E78.00 Pure hypercholesterolemia, unspecified; D64.9 Anemia, unspecified; M12.9 Arthropathy, unspecified; M51.26 Other intervertebral disc displacement, lumbar region; R29.898 Other symptoms and signs involving the musculoskeletal system; E78.5 Hyperlipidemia, unspecified; Z88.5 Allergy status to narcotic agent; Z88.6 Allergy status to analgesic agent; Z88.8 Allergy status to other drugs, medicaments and biological substances; Z79.899 Other long term (current) drug therapy; Z90.710 Acquired absence of both cervix and uterus; Z96.643 Presence of artificial hip joint, bilateral; Z96.653 Presence of artificial knee joint, bilateral; Z96.1 Presence of intraocular lens; Z99.3 Dependence on wheelchair
CPT/HCPCS: 50590

== ENCOUNTER → 2017-10-11 | Outpatient (CLI) | payer MEDICARE, BC, OTHER | LOC: M SMT 10:13 | DX: N20.0 Calculus of kidney (principal) | CPT/HCPCS: 74018 ==

== ENCOUNTER → 2017-10-13 | Outpatient (CLI) | payer MEDICARE, BC, OTHER ==
[2017-10-13 10:53] LABS: HEMATOCRIT 41.4 % (36.0-47.0); HEMOGLOBIN 13.4 g/dl (12.0-16.0); MEAN CORPUSCULAR HEMOGLOBIN 28.3 pg (27.0-33.0); MEAN CORPUSCULAR HGB CONC 32.4 g/dl (32.0-36.5); MEAN CORPUSCULAR VOLUME 87.3 fl (80.0-96.0); PLATELET COUNT, AUTOMATED 257 10^3/uL (150-450); RED BLOOD COUNT 4.74 10^6/uL (4.00-5.40); RED CELL DISTRIBUTION WIDTH 13.7 % (11.5-14.5); WHITE BLOOD COUNT 8.6 10^3/uL (4.0-10.0)
[2017-10-13 11:04] LABS: ANION GAP 9 MEQ/L (8-16); BLOOD UREA NITROGEN 18 MG/DL (7-18); CARBON DIOXIDE LEVEL 26 MEQ/L (21-32); CHLORIDE LEVEL 108 MEQ/L (98-107); CREATININE FOR GFR 0.72 MG/DL (0.55-1.30); GLOMERULAR FILTRATION RATE > 60.0 (>45); GLUCOSE, FASTING 104 MG/DL (70-100); INR 0.93; PROTHROMBIN TIME 12.6 SECONDS (12.4-14.5); SODIUM LEVEL 143 MEQ/L (136-145)
[2017-10-13 11:05] LABS: PARTIAL THROMBOPLASTIN TIME 28.3 SECONDS (26.8-37.9)
[2017-10-13 11:31] LABS: APPEARANCE, URINE MANUAL HAZY (CLEAR); BILIRUBIN, URINE MANUAL NEGATIVE (NEGATIVE); COLOR, URINE MANUAL LT YELLOW (YELLOW); GLUCOSE, URINE (UA) MANUAL NEGATIVE (NEGATIVE); KETONE, URINE MANUAL NEGATIVE (NEGATIVE); PROTEIN, URINE MANUAL 3+ mg/dL (NEGATIVE); SPECIFIC GRAVITY,URINE MANUAL 1.015 (1.002-1.035); UROBILINOGEN, URINE MANUAL NORMAL (NORMAL)
[2017-10-13 11:32] LABS: BLOOD URINE MANUAL POSITIVE (NEGATIVE); LEUKOCYTE ESTERASE, URINE MAN POSITIVE (NEGATIVE); MICROSCOPIC INDICATED? MAN YES (NO); NITRITE, URINE MANUAL POSITIVE (NEGATIVE)
[2017-10-13 11:34] LABS: SQUAMOUS EPITHELIAL CELL URINE SMALL AMOUNT /hpf (SMALL AMT); WBC, URINE 20-30 /hpf (0-3)
[2017-10-13 11:35] LABS: BACTERIA, URINE LARGE AMOUNT; HYALINE CAST, URINE NONE SEEN /lpf (0-1); MICROSCOPIC EXAM UNSPUN
== END ==
LOC: M LAB 10:04
DX: Z01.818 Encounter for other preprocedural examination (principal); N20.0 Calculus of kidney
CPT/HCPCS: 80048

== ENCOUNTER 2017-10-28 03:34 | Emergency (ER) | payer MEDICARE, BC, OTHER ==
[2017-10-28] MEDS: ACETAMINOPHEN 325 MG TAB PO (06:59)
== END 2017-10-28 07:01 | disposition home or self-care (01) ==
LOC: M ED 03:34
DX: S93.601A Unspecified sprain of right foot, initial encounter (principal); W01.0XXA Fall on same level from slipping, tripping and stumbling without subsequent striking against object, initial encounter; Y92.009 Unspecified place in unspecified non-institutional (private) residence as the place of occurrence of the external cause; M19.071 Primary osteoarthritis, right ankle and foot; E66.01 Morbid (severe) obesity due to excess calories; J45.909 Unspecified asthma, uncomplicated; I10 Essential (primary) hypertension; Z79.899 Other long term (current) drug therapy; Z98.890 Other specified postprocedural states; Z88.8 Allergy status to other drugs, medicaments and biological substances
CPT/HCPCS: 73630

== ENCOUNTER 2017-11-17 00:32 | Emergency (ER) | payer MEDICARE, BC, OTHER ==
[2017-11-17] MEDS: AUGMENTIN 875 MG TAB PO (03:45)
== END 2017-11-17 03:52 | disposition home or self-care (01) ==
LOC: M ED 00:32
DX: H66.92 Otitis media, unspecified, left ear (principal); H60.92 Unspecified otitis externa, left ear; I10 Essential (primary) hypertension; Z79.899 Other long term (current) drug therapy; Z88.8 Allergy status to other drugs, medicaments and biological substances; Z88.5 Allergy status to narcotic agent
CPT/HCPCS: 99284

== ENCOUNTER → 2018-03-17 | Outpatient (CLI) | payer MEDICARE, BC, OTHER ==
[2018-03-17 11:50] LABS: ANION GAP 9 MEQ/L (8-16); BLOOD UREA NITROGEN 17 MG/DL (7-18); CALCIUM LEVEL 9.2 MG/DL (8.8-10.2); CARBON DIOXIDE LEVEL 27 MEQ/L (21-32); CHLORIDE LEVEL 108 MEQ/L (98-107); CHOLESTEROL LEVEL 156 MG/DL (<200); CHOLESTEROL RISK RATIO 1.879 (<5); CREATININE FOR GFR 0.87 MG/DL (0.55-1.30); GLOMERULAR FILTRATION RATE > 60.0 (>45); GLUCOSE, FASTING 108 MG/DL (70-100); HDL CHOLESTEROL 83 MG/DL (>40); LDL CHOLESTEROL 57.8 MG/DL (<100); NON-HDL-C 73 MG/DL; POTASSIUM SERUM 4.3 MEQ/L (3.5-5.1); SODIUM LEVEL 144 MEQ/L (136-145); TRIGLYCERIDES LEVEL 76 MG/DL (<150)
== END ==
LOC: M SMT 09:42
DX: Z13.220 Encounter for screening for lipoid disorders (principal); I10 Essential (primary) hypertension
CPT/HCPCS: 80061

== ENCOUNTER → 2018-03-20 | Outpatient (REF) | payer MEDICARE, BC, OTHER ==
[2018-03-20 14:13] LABS: CREATININE, URINE 45.8 MG/DL; MALB URINE SIEMENS 28.7 MG/L; MAU/CREAT RATIO 62.6 MCG/MG (0.0-30.0)
== END ==
LOC: M SFHCPLAZ 13:04
DX: Z13.220 Encounter for screening for lipoid disorders (principal); I10 Essential (primary) hypertension
CPT/HCPCS: 82043

== ENCOUNTER → 2018-03-21 | Outpatient (CLI) | payer MEDICARE, BC, OTHER | LOC: M SMT 13:43 | DX: M51.36 Other intervertebral disc degeneration, lumbar region (principal); M51.34 Other intervertebral disc degeneration, thoracic region; N20.0 Calculus of kidney | CPT/HCPCS: 74018; G0463 ==

== ENCOUNTER → 2018-11-20 | Outpatient (REF) | payer MEDICARE, OTHER ==
[~2018-11-20] MED LIST changes: -/WARF25TA PO; -ALDA25TA PO; +AUGM500T34 PO; -BISO10TA PO; +BISO10TA13 PO; +COUM1TAB18 PO; +EXCETAB81 PO; +FLOM0.4C39 PO; +OXYB10TA PO; +SPIR1TAB34 PO; +TYLE650T35 PO; +VERA180T3 PO; -VERA1TAB11 PO; +VITA100067 PO
[2018-11-20 18:46] LABS: BLOOD UREA NITROGEN 15 MG/DL (7-18); CARBON DIOXIDE LEVEL 27 MEQ/L (21-32); CHLORIDE LEVEL 110 MEQ/L (98-107); CREATININE FOR GFR 0.69 MG/DL (0.55-1.30); GLOMERULAR FILTRATION RATE > 60.0 (>39); GLUCOSE, FASTING 105 MG/DL (70-100); POTASSIUM SERUM 3.7 MEQ/L (3.5-5.1); SODIUM LEVEL 143 MEQ/L (136-145)
== END ==
LOC: M SFHCPLAZ 14:58
PROVIDERS: ATTEND Family Medicine
DX: I10 Essential (primary) hypertension (principal)
CPT/HCPCS: 80048; G0463

== ENCOUNTER 2019-03-14 08:06 | Emergency (ER) | payer MEDICARE, BC, OTHER ==
[~2019-03-14] VITALS: Ht 167.6 cm; Wt 100.0 kg
[~2019-03-14 08:06] MED LIST changes: +BISO5TAB9 PO; -OXYB10TA PO; +OXYB10TA2 PO
[2019-03-14] MEDS ORDERED: ACETAMINOPHEN 500 MG TAB PO ONE (08:30)
[2019-03-14 09:39] LABS: ALBUMIN 2.9 GM/DL (3.2-5.2); ALT/SGPT 14 U/L (12-78); BILIRUBIN,TOTAL 0.7 MG/DL (0.2-1.0); BLOOD UREA NITROGEN 12 MG/DL (7-18); CALCIUM LEVEL 8.6 MG/DL (8.8-10.2); CARBON DIOXIDE LEVEL 29 MEQ/L (21-32); CHLORIDE LEVEL 106 MEQ/L (98-107); CK-MB VALUE MASS < 1.0 NG/ML (<3.6); CPK CREATINE PHOSPHOKINASE 146 U/L (26-192); CREATININE FOR GFR 0.88 MG/DL (0.55-1.30); GLOMERULAR FILTRATION RATE > 60.0 (>39); GLUCOSE, FASTING 122 MG/DL (70-100); LIPASE 101 U/L (73-393); MB/CK RELATIVE INDEX 0.68 (< OR =4); SODIUM LEVEL 143 MEQ/L (136-145); TOTAL PROTEIN 6.6 GM/DL (6.4-8.2); TROPONIN I < 0.02 NG/ML (< 0.10)
[2019-03-14] MEDS ORDERED: NS 500 ML IV ONE ×2 (10:00→10:45)
--- NOTE | 2019-03-14 10:03 | REP ---
Lumbar spine five views: Comparison is the abdomen/pelvis CT dated 05/31/2017. There is lumbar scoliosis convex left, unchanged. Vertebral body heights are normal. There are no vertebral body compression deformities. There is advanced degenerative disc disease at every lumbar level. This is unchanged. There is grade 1 L5 spondylolisthesis. Upon review of the comparison CT. I suspect there are bilateral pars interarticularis defects at L5. There is advanced L5 S1 degenerative disc disease and a suspect that the L5 vertebral body is fused to the S1 vertebral body. The pedicles are unremarkable. The facets are unremarkable. The sacroiliac articulations are unremarkable. There are bilateral hip arthroplasties. Impression: No acute fracture or listhesis. There is chronic grade 1 L5 anterolisthesis, bilateral L5 pars interarticularis defects and advanced L5 S1 degenerative disc disease with probable fusion of the L5 and S1 vertebral bodies. These findings are unchanged from the comparison CT. There is multilevel advanced degenerative disc disease throughout the lumbar spine and lumbar scoliosis, unchanged from the comparison CT. Electronically Signed by Tavo Hernandez MD 03/14/2019 09:55 A
--- NOTE | 2019-03-14 10:05 | REP ---
Thoracic spine four views: Comparison is a PA and lateral plain film study of the chest dated 01/07/2017. Vertebral body heights and alignment are normal. No vertebral body compression deformities. There is advanced degenerative disc disease throughout the thoracic spine. This is unchanged. There is thoracic scoliosis convex right in the lower thoracic spine. This is unchanged. The pedicles are unremarkable. Impression: No vertebral body compression deformity or listhesis. Multilevel advanced degenerative disc disease. Scoliosis. No change from the comparison PA and lateral chest. Electronically Signed by Tavo Hernandez MD 03/14/2019 09:57 A
--- NOTE | 2019-03-14 10:08 | REP ---
Chest, AP and lateral views with the patient sitting: Comparison is 01/07/2017. There is no pneumothorax, hemothorax or pulmonary contusion. There are too small nodules in the right upper lobe, unchanged, likely granulomas. There are surgical clips in the axilla bilaterally. There is advanced degenerative disc disease throughout the thoracic spine and thoracic scoliosis convex right. These findings are unchanged. Cardiac size is normal. The pat, mediastinum, and skeletal structures are unchanged. There is an electronic device along the left lateral chest wall. This was not present on the comparison study. Impression: No acute cardiopulmonary findings. There are chronic stable findings as described. Electronically Signed by Tavo Hernandez MD 03/14/2019 10:00 A
[2019-03-14 10:16] LABS: BASO % 0.3 % (0.0-1.0); EOS % 0.2 % (0.0-3.0); HEMATOCRIT 43.4 % (36.0-47.0); HEMOGLOBIN 13.8 g/dl (12.0-15.5); LYMPH # 0.8 10^3/uL (1.5-4.5); LYMPH % 7.1 % (24.0-44.0); MEAN CORPUSCULAR HEMOGLOBIN 28.6 pg (27.0-33.0); MEAN CORPUSCULAR HGB CONC 31.8 g/dl (32.0-36.5); MONO # 0.9 10^3/uL (0.0-0.8); MONO % 7.7 % (0.0-5.0); NEUTROPHILS # 9.3 10^3/uL (1.8-7.7); NEUTROPHILS % 83.8 % (36.0-66.0); PLATELET COUNT, AUTOMATED 223 10^3/uL (150-450); RED BLOOD COUNT 4.82 10^6/uL (4.00-5.40); WHITE BLOOD COUNT 11.1 10^3/uL (4.0-10.0)
[2019-03-14] MEDS ORDERED: BISOPROLOL FUMARATE 10 MG TAB PO ONE (11:45)
[2019-03-14 11:57] VITALS: BP 186/101
[2019-03-14] MEDS ORDERED: BISOPROLOL FUMARATE 5 MG TAB PO ONE (12:00)
[2019-03-14 13:30] VITALS: BP 166/91
[2019-03-14] MEDS ORDERED: KEFL500C17 PO (13:34)
--- NOTE | 2019-03-15 13:25 | ECGEPIP ---
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
== END 2019-03-14 13:59 | disposition home or self-care (01) ==
LOC: M ED 08:06 → EDBD 08:06 → M ED 13:59
DX: I10 Essential (primary) hypertension (principal); N39.0 Urinary tract infection, site not specified; R00.0 Tachycardia, unspecified; M51.36 Other intervertebral disc degeneration, lumbar region; M51.34 Other intervertebral disc degeneration, thoracic region; M41.86 Other forms of scoliosis, lumbar region; M41.24 Other idiopathic scoliosis, thoracic region; I45.10 Unspecified right bundle-branch block; W19.XXXA Unspecified fall, initial encounter; Y92.099 Unspecified place in other non-institutional residence as the place of occurrence of the external cause; Y93.9 Activity, unspecified; Y99.9 Unspecified external cause status; M51.9 Unspecified thoracic, thoracolumbar and lumbosacral intervertebral disc disorder; Z85.3 Personal history of malignant neoplasm of breast; Z87.442 Personal history of urinary calculi

== ENCOUNTER 2019-03-20 14:39 | Inpatient (IN) | payer MEDICARE, BC, OTHER ==
[~2019-03-20] VITALS: Ht 157.5 cm; Wt 87.0 kg
[~2019-03-20 14:39] MED LIST changes: +KEFL500C17 PO
[2019-03-20] MEDS ORDERED: NS 1,000 ML IV ONE (15:00)
[2019-03-20] MEDS ORDERED: LIDOCAINE 2% 5ML JELLY UROJET TOP ONE (15:15)
[2019-03-20 15:31] LABS: BASO % 0.2 % (0.0-1.0); EOS % 0.4 % (0.0-3.0); HEMATOCRIT 41.9 % (36.0-47.0); HEMOGLOBIN 13.5 g/dl (12.0-15.5); LYMPH # 0.6 10^3/uL (1.5-4.5); LYMPH % 6.1 % (24.0-44.0); MEAN CORPUSCULAR HEMOGLOBIN 28.2 pg (27.0-33.0); MEAN CORPUSCULAR HGB CONC 32.2 g/dl (32.0-36.5); MEAN CORPUSCULAR VOLUME 87.5 fl (80.0-96.0); MONO # 0.4 10^3/uL (0.0-0.8); MONO % 3.9 % (0.0-5.0); NEUTROPHILS # 8.5 10^3/uL (1.8-7.7); NEUTROPHILS % 88.9 % (36.0-66.0); PLATELET COUNT, AUTOMATED 323 10^3/uL (150-450); RED BLOOD COUNT 4.79 10^6/uL (4.00-5.40); WHITE BLOOD COUNT 9.5 10^3/uL (4.0-10.0)
--- NOTE | 2019-03-20 15:38 | REP ---
Portable left knee two views: Comparison is 04/30/2013. There is a total hip arthroplasty with the components tightly applied and in satisfactory positions alignment. There is no fracture, dislocation or loosening. There is a focal lucency in the lateral tibial plateau, similar to the prior study, possibly a bone cyst. There is a small joint effusion. Electronically Signed by Tavo Hernandez MD 03/20/2019 03:28 P
--- NOTE | 2019-03-20 15:48 | REP ---
Portable chest, 03:03 p.m., single AP view with the patient supine: Comparison is 03/14/2009. There is interstitial coarsening, particularly in the upper lobes. This could be from vascular congestion or could be from the patient positioned. There are no focal infiltrates. Cardiac size appears enlarged but is magnified by positioning. The aortic arch is magnified by positioning. Thoracic scoliosis is again identified convex right, unchanged. Impression: Interstitial coarsening, particularly in the upper lobes, interstitial infiltrates versus artifact from supine positioning. Electronically Signed by Tavo Hernandez MD 03/20/2019 03:39 P
--- NOTE | 2019-03-20 15:53 | REP ---
CT of the head without contrast Indication: Fall. Comparison: CT head of 10/02/2016. Technique: Axial CT of the head was performed without contrast. Findings: There is no visible soft tissue swelling or calvarial fracture. There is hyperostosis frontalis. There is no evidence of acute intracranial hemorrhage or extra-axial fluid collection. There are mild scattered hypodensities within the periventricular white matter which is nonspecific but suggestive of microvascular ischemic disease, similar to prior. There is no mass effect or midline shift. The basal cisterns are patent. There is no hydrocephalus. Note is made of intracranial vascular calcification. The visualized paranasal sinuses and mastoid air cells are clear. Impression: No acute intracranial abnormality. Electronically Signed by Abiodun Urbina MD 03/20/2019 03:45 P
[2019-03-20 15:58] LABS: ALBUMIN 3.1 GM/DL (3.2-5.2); ALT/SGPT 17 U/L (12-78); BILIRUBIN,DIRECT 0.1 MG/DL (0.0-0.2); BILIRUBIN,TOTAL 0.4 MG/DL (0.2-1.0); BLOOD UREA NITROGEN 12 MG/DL (7-18); CALCIUM LEVEL 8.8 MG/DL (8.8-10.2); CARBON DIOXIDE LEVEL 31 MEQ/L (21-32); CHLORIDE LEVEL 108 MEQ/L (98-107); CREATININE FOR GFR 0.74 MG/DL (0.55-1.30); GLOMERULAR FILTRATION RATE > 60.0 (>39); GLUCOSE, FASTING 145 MG/DL (70-100); POTASSIUM SERUM 3.3 MEQ/L (3.5-5.1); SODIUM LEVEL 146 MEQ/L (136-145)
[2019-03-20] MEDS ORDERED: SULF1TAB93 PO (16:16)
[2019-03-20] MEDS ORDERED: cefTRIAXone SOD 1 GM in D5W MINI-BAG PLUS 50 ML IV ONE (16:45)
[2019-03-20] MEDS ORDERED: ACETAMINOPHEN TAB 650MG DOSE (2X325MG) PO PRN (17:30)
[2019-03-20] MEDS ORDERED: ALBUTEROL SULFATE 2.5 MG/0.5 ML INH NEB SOLN INH PRN (17:30)
[2019-03-20] MEDS ORDERED: MOM 30ML SUSPENSION UDC PO PRN (17:30)
[2019-03-20] MEDS ORDERED: NIFEdipine 30 MG XL TAB PO STA (17:39)
[2019-03-20] MEDS ORDERED: AZITHROMYCIN INJ 500 MG, VIAL MATE ADAPTER 1 EACH in D5W 250 ML IV SCH (18:00)
--- NOTE | 2019-03-20 18:58 | ECGEPIP ---
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
--- NOTE | 2019-03-20 19:12 | REP ---
THORACIC SPINE: 03/20/2019. Comparison: 03/14/2019. Clinical history: Prior equivocal chest x-ray. Patient fell. Findings: AP and lateral views show a dextroconvex mid upper to lower thoracic scoliosis. There is diffuse degenerative disc change with marginal osteophytes and disc space narrowing at most levels. Posterior ribs and portions of the medial clavicles are grossly unremarkable. Lateral view shows no definite compression deformity or destructive lesion. There is slightly increased kyphosis in the upper thoracic spine. Impression: 1. S-shaped thoracic scoliosis with diffuse degenerative disc changes involving the mid upper to lower thoracic spine and into the lumbar region. No acute compression deformity, destructive lesion or posterior rib articular abnormalities/fracture. Medial clavicles intact. Electronically Signed by Kurtis Perry MD 03/20/2019 07:48 P
--- NOTE | 2019-03-20 19:13 | REP ---
AP LATERAL PORTABLE CHEST: 03/20/2019. Comparison: AP portable chest 03/20/2019 3 hours ago, 03/14/2019. The lungs are less well inflated than on the previous study. Heart has left ventricular configuration. The aorta is quite ectatic and tortuous. Some venous hypertension seen without cierra edema. I do not see dense consolidation or gross effusion. S-shaped thoracic scoliosis noted. There are axillary surgical clips bilaterally. CP angles are sharply defined on the lateral view. Diffuse degenerative disc changes throughout the spine on that lateral projection. Impression: 1. Left ventricular configuration of the heart with some venous hypertension; no cierra edema, effusion or dense consolidation identified. 2. Tortuous calcified aorta and a dextroconvex thoracic scoliosis. 3. Bones demineralized with diffuse degenerative disc changes throughout the thoracic spine. No compression fracture. Electronically Signed by Kurtis Perry MD 03/20/2019 07:48 P
[2019-03-20 20:30] VITALS: BP 186/101
[2019-03-20] MEDS ORDERED: BISO10TA10 PO (22:02)
[2019-03-20] MEDS ORDERED: BACT800T5 PO (22:02)
[2019-03-20] MEDS ORDERED: BISOPROLOL FUMARATE 10 MG TAB PO ONE (22:15)
[2019-03-20] MEDS: HEPARIN SOD (PORCINE) 5000 UNITS/ML VIAL SC SCH (22:28)
[2019-03-20] MEDS: SIMVASTATIN 20 MG TAB PO SCH (22:50)
[2019-03-20] MEDS: BACTRIM 160MG/800MG DS TAB PO SCH (22:50)
[2019-03-20 23:59] VITALS: BP 175/90
[2019-03-21 04:00] VITALS: BP 157/88
[2019-03-21] MEDS: HEPARIN SOD (PORCINE) 5000 UNITS/ML VIAL SC SCH ×3 (05:49→21:06)
[2019-03-21 06:08] LABS: HEMATOCRIT 45.6 % (36.0-47.0); HEMOGLOBIN 14.7 g/dl (12.0-15.5); MEAN CORPUSCULAR HEMOGLOBIN 28.5 pg (27.0-33.0); MEAN CORPUSCULAR HGB CONC 32.2 g/dl (32.0-36.5); MEAN CORPUSCULAR VOLUME 88.4 fl (80.0-96.0); PLATELET COUNT, AUTOMATED 353 10^3/uL (150-450); RED BLOOD COUNT 5.16 10^6/uL (4.00-5.40); WHITE BLOOD COUNT 12.4 10^3/uL (4.0-10.0)
[2019-03-21 06:33] LABS: BLOOD UREA NITROGEN 8 MG/DL (7-18); CALCIUM LEVEL 9.1 MG/DL (8.8-10.2); CARBON DIOXIDE LEVEL 31 MEQ/L (21-32); CHLORIDE LEVEL 105 MEQ/L (98-107); CREATININE FOR GFR 0.72 MG/DL (0.55-1.30); GLOMERULAR FILTRATION RATE > 60.0 (>39); GLUCOSE, FASTING 155 MG/DL (70-100); POTASSIUM SERUM 3.2 MEQ/L (3.5-5.1); SODIUM LEVEL 142 MEQ/L (136-145)
[2019-03-21] MEDS ORDERED: POTASSIUM CHL PWD 20 MEQ PACKET PO ONE (07:00)
[2019-03-21] MEDS ORDERED: KCL 10MEQ/100ML SWI (KRUN) 10 MEQ in APPROPRIATE DILUENT 1 EA IV ONE (07:00)
[2019-03-21 07:55] LABS: MAGNESIUM LEVEL 1.9 MG/DL (1.8-2.4)
[2019-03-21 08:00] VITALS: BP 160/75
[2019-03-21] MEDS ORDERED: POTASSIUM CHLORIDE 10 MEQ SR TABLET PO ONE (08:00)
[2019-03-21] MEDS ORDERED: BENZONATATE 100 MG CAP PO PRN (08:45)
--- NOTE | 2019-03-21 08:48 | IPNPDOC ---
Text Note Date of Service The patient was seen on 03/21/19. NOTE HPI: Patient is examined at bedside. She reported still having cough but otherwise pt minimally answering questions. Patient denies dyspnea but answered yes to chest pain upon asking; however not answering any further questions. ROS: Limited ROS was able to be obtained d/t patient's mental status. Chest: Pos for unspecified chest/chest wall pain PHYSICAL EXAMINATION: General: Patient is alert and oriented to name only; not in acute distress. HEENT: No conjunctiva injection or scleral icterus. Head normocephalic. Mucous membranes appears moist. HEART: RRR, No murmur. Normal S1, S2. LUNGS: CTA b/l, no rales/wheezing/rhonchi. No subcostal retractions or nasal flaring. No obvious accessory muscle use. ABDOMEN: Soft. Bowel sounds auscultated in all four quadrants. No signs of tenderness upon palpation in all quadrants. No guarding. EXTREMITIES: Non-pitting edema noted in bilateral lower extremities. Radial pulses equal bilaterally. NEURO: Alert and oriented times to name only. Slowed response. Mild to modmemory and cognitive function impairment. PSYCH: Mood appears to be stable; flat affect ASSESSMENT/PLAN: 1.Acute cough questionable d/t underlying undiagnosed COPD -Non-productive cough X3 weeks; no dyspnea. NO fever/chills noted. -Initial bedside chest x-ray showed interstitial coarsening particularly in the upper lobes versus artifact. Repeat chest x-ray with AP andlateral showed no signs of infiltrate/consolidation. -Resp panel unremarkable. Tessalon kaleigh PRN ordered. d/C Ceftriaxone and Azithromycin. Albuterol nebulized as needed. Oxygen therapy and acetaminophen as needed. -simple inpt spirometery ordered; pt likely will need to f/u outpt to r/o underlying COPD -Does not require oxy at home; down-titrating oxygen as pt shows no sign of resp distress and sat well on 2L 2. Chronic HTN -Cont pt's home med Bisoprolol 3. Mechanical fall -May be 2/2 dementia. Patient uses a cane at baseline. -PT ordered; recommended pt to cont rehab when ready for d/c -head CT without contrast unremarkable -Left knee x-ray showed no acute fracture, dislocation or loosening. Questionable for a bone cyst was shown on the left knee x-ray. Recommend patient to followup outpatient. - Thoracic X ray showed no acute abnormalities 4. Dementia: Patient is alert and oriented to name only. - reported mentation is at baseline. - Patient is not on outpatient dementia medications. Will continue to observe the patient with fall precaution. -licensed master social worker consulted for placement possible rehab 5. Urinary tract infection (UTI): Patient's urinalysis (UA) showed positive nitrites with leukocyte esterase. Denies dysuria or urinary urgency. Patient reported urinary frequency, however, upon further questioning, she reported urinating four times yesterday and reported that was more frequent than usual. -Urine culture pending. Blood culture 1 neg X24 hrs; 1 pending. -Will continue to observe the patient for signs and symptoms; may restart antibiotics if pt reported urinary symptoms 6. Severe asymptomatic hypertension; resolved -likely 2/2 missing home BP med. - No obvious neurological findings was noted. Brain CT without contrast showed no acute abnormalities. -Cont home BP meds 7. Bilateral lower extremity nonpitting edema - Questionable secondary to un-diagnosed heart failure. Patient had no prior echo noted. Echocardiogram was ordered with pending results. - does not appear to be fluid overload/uncompensated, at this time, we will continue to monitor patient's fluid status. -TSH and T4 wnl 8. Hyperlipidemia: Continue home medications of simvastatin 20 mg by mouth nightly. 9. Chest/chest wall pain -questionable d/t pt's underlying dementia. Unable to obtain further info including whether tenderness present -Vitals roughly stable with CXR yesterday showed no acute abnormalities -trop neg. Cont to monitor -echo pending DVT prophylaxis lovenox Diet low fat low chol diet VS,Fishbone, I+O VS, Fishbone, I+O Laboratory Tests 03/20/19 15:03 Red Blood Count 4.79, Mean Corpuscular Volume 87.5, Mean Corpuscular Hemoglobin 28.2, Mean Corpuscular Hemoglobin Concent 32.2, Red Cell Distribution Width 14.6 H, Neutrophils (%) (Auto) 88.9 H, Lymphocytes (%) (Auto) 6.1 L, Monocytes (%) (Auto) 3.9, Eosinophils (%) (Auto) 0.4, Basophils (%) (Auto) 0.2, Neutrophils # (Auto) 8.5 H, Lymphocytes # (Auto) 0.6 L, Monocytes # (Auto) 0.4, Eosinophils # (Auto) 0.0, Basophils # (Auto) 0.0 03/21/19 05:44 Red Blood Count 5.16, Mean Corpuscular Volume 88.4, Mean Corpuscular Hemoglobin 28.5, Mean Corpuscular Hemoglobin Concent 32.2, Red Cell Distribution Width 14.6 H, Calcium Level 9.1 Vital Signs Date Time Temp Pulse Resp B/P (MAP) Pulse Ox O2 Delivery O2 Flow Rate FiO2 03/21/19 04:00 2.0 03/21/19 04:00 98.5 102 16 157/88 (111) 96 03/20/19 20:07 Nasal Cannula I&O- Last 24 Hours up to 6 AM 03/21/19 05:59 Intake Total 1300 ml Output Total 1825 ml Balance -525 ml GME ATTESTATION GME ATTESTATION My faculty preceptor for this patient encounter was physically present during the encounter and was fully available. All aspects of the patient interview, examination, medical decision making process, and medical care plan development were reviewed and approved by the faculty preceptor. The faculty preceptor is aware and concurs with the plan as stated in the body of this note and will attest to such by his/her cosignature. ATTENDING NOTE I, Sabrina Hernandez, have independently examined this patient and performed my own physical exam, as well as reviewed the documentation and edited where necessary. I have discussed in detail with the resident / student the findings and plan of treatment as documented by the resident / student and edited their note. I agree with their findings and treatment plan and have edited their documentation. I will continue to follow the patient during this hospital stay. DG BEAUCHAMP DO Mar 21, 2019 08:48 SABRINA HERNANDEZ MD Mar 21, 2019 15:23
[2019-03-21 09:15] LABS: FREE T4 1.28 NG/DL (0.76-1.46); THYROID STIMULATING HORMONE 0.594 uIU/ML (0.358-3.740)
--- NOTE | 2019-03-21 09:26 | HPE ---
DATE OF ADMISSION: 03/20/2019 Patient is a 68-year-old female with a past medical history of bilateral breast cancer, hypertension, chronic back pain who presented to the emergency room (ER) due to 3 weeks of nonproductive cough and mechanical fall today. Patient has baseline dementia. Part of the history of present illness (HPI) and medical history was obtained from . It was noted that the patient had 3 weeks of unproductive cough, which is increased on baseline. There is no fever, chills, or sputum production. reported that 3 weeks ago he was diagnosed with pneumonia and was hospitalized for a week. Patient reported no dyspnea or pleuritic chest pain. It was noted that on the way to the ER, patient had a mechanical fall when her was assisting her walk. The patient slipped and fell backwards. Patient reported that she hit her back or head. Denies any dizziness, lightheadedness, vertigo, or loss of consciousness. Patient usually walks with a cane at home. It was noted on 03/14/2019, patient presented to the emergency room, and reported back pain after a mechanical fall. also reported 3-4 days again he found the patient lying on the bedroom floor with unwitnessed fall; pt unable to recall the details of the fall. The patient denies fever or chills, dyspnea, chest pain palpitation, abdominal pain lightheadedness or dizziness. REVIEW OF SYSTEMS: GENERAL: Patient denies fever, chills. PULMONARY: Positive for dry cough. Denies dyspnea or pleuritic chest pain. HEART: Denies chest pain, palpitations. ABDOMEN: Denies abdominal pain, constipation, diarrhea, hematochezia or melena. GENITOURINARY: Denies dysuria. Reported urinary frequency (four times yesterday). Denies urinary urgency. MUSCULOSKELETAL: Positive for thoracic back pain. PAST MEDICAL HISTORY: 1. Left breast cancer diagnosed in 1981. 2. Right breast cancer diagnosed in 2000. 3. Hypertension. 4. Herniated disc/chronic back pain. 5. Dyslipidemia. 6. History of osteoporosis: DEXA February 2017, normal. 7. History of nephrolithiasis. 8. Right bundle branch block/left ventricular hypertrophy/left atrial enlargement (RBBB/LVH/LAE). PAST SURGICAL HISTORY: 1. Cataract surgery in 1957, unspecified side. Patient and family unable to recall which side. 2. Eye surgery, membrane growth. 3. Tonsillectomy and adenoidectomy (T and A) 1959. 4. Tubal ligation 1982. 5. Left mastectomy 1982. 6. Reconstructive breast surgery 1984. 7. Arthroscopic right knee surgery 1986. 8. Hysterectomy for menorrhagia 1998. 9. Right mastectomy 1999. 10. Right hip replacement 2001. 11. Left knee replacement in October of 2012. 12. Double J stent placement March 21, 2013. 13. Right extracorporal shock wave lithotripsy (ESWL), 06/20/2013. 14. Colonoscopy showed diverticulosis, two hyperplastic polyps with Dr. Palacios 2013. 15. Left hip replacement January 04, 2017. 16. Nephrolithiasis lithotripsy October 2017. 17. Reported right knee replacement. MEDICATIONS: - acetaminophen 650 mg every 8 hours abdominal pain. - bisoprolol fumarate 10 mg by mouth daily - nifedipine XL 6 mg by mouth daily - oxybutynin chloride ER 10 mg by mouth daily - simvastatin 20 mg by mouth nightly - SMP TMX 1 tablet by mouth twice a day. - verapamil HCL ER 180 mg by mouth twice a day ALLERGIES: CELEBREX, unknown reaction. DEMEROL, nausea, vomiting. METOPROLOL TARTRATE, wheezing, LISINOPRIL, cough. FAMILY HISTORY: Father at 72 years old of myocardial infarction (AL). Mother at 75 years old of Alzheimer's. Siblings: One brother from amyotrophic lateral sclerosis (ALS), sister with lung cancer, one brother alive and healthy. SOCIAL HISTORY: Patient lives at home with significant other. Never smoker. Alcohol use, rarely. Denies recreational drug use. PHYSICAL EXAMINATION: VITALS: Temperature 97.9, pulse 117, blood pressure 192/97, pulse ox 96% on 2 liters nasal cannula. GENERAL: Patient is alert and oriented times two not in acute distress. Cooperative. HEENT: No conjunctiva injection or scleral icterus. Head normocephalic. Small excoriations less than 1 cm in diameter on the left temporal region and wrapped around the ear. No obvious signs of infection, drainage or active bleeding. Mucous membranes appears moist. HEART: Tachycardia, regular rhythm. No murmur. Normal S1, S2. LUNGS: Mild to moderate rales bilaterally. No subcostal retractions or nasal flaring. No obvious accessory muscle use. ABDOMEN: Soft. Bowel sounds auscultated in all four quadrants. No tenderness upon palpation in all quadrants. No guarding. EXTREMITIES: Ecchymosis noted in the left dorsal hand. Non-pitting edema noted in bilateral lower extremities. Nail hypertrophies noted in all toes. Radial pulse equal bilaterally. MUSCULOSKELETAL: Tenderness upon palpation in the thoracic back region. NEURO: Alert and oriented to name and place. Slowed response. Mild memory and cognitive function impairment. PSYCH: Mood appears to be stable and appropriate to situation. ASSESSMENT/PLAN: 1. Questionable pneumonia versus bronchitis. Nonproductive cough increased from baseline starting 3 weeks ago. Denies dyspnea, fever or chills. Sick contact who was diagnosed with pneumonia 3 weeks ago. Patient is saturating well at 96% on 2 liters nasal cannula; does now require oxygen at home. Initial chest x-ray showed interstitial coarsening, particularly in the upper lobes versus artifact. Repeat chest x-ray with AP and lateral as the bedside chest x-ray was equivocal. Patient was given 1 dose of ceftriaxone in ER. Ceftriaxone and azithromycin was ordered. Albuterol nebulized as needed. Oxygen therapy and acetaminophen as needed. Respiratory panel was ordered. 2. Mechanical fall: Mechanical fall today reported d/t patient slipping. Also frequent falls recently. Patient denies any dizziness, lightheadedness or vertigo. She reported that she fell backwards and hit the back. Reported the back pain is different from baseline back pain.Patient received a head CT without contrast in the emergency room and the result shows no acute intracranial abnormalities. Physical exam revealed tenderness in the thoracic spine region. Thoracic spine x-ray ordered. Left knee x-ray ordered by emergency room showing no acute fracture, dislocation or loosening. A focal lucency in the lateral tibial plateau questionable for a bone cyst was shown on the left knee x-ray. Recommend patient to followup outpatient. Patient uses a cane at baseline. Physical therapy (PT) and occupational therapy (OT) and fall precaution ordered. 3. Dementia: Patient is alert and oriented to name and place. reported mentation is at baseline. Patient is not on outpatient dementia medications. Will continue to observe the patient with fall precaution. 4. Urinary tract infection (UTI): Patient's urinalysis (UA) showed positive nitrites with leukocyte esterase. Denies dysuria or urinary urgency. Patient reported urinary frequency, however, upon further questioning, she reported urinating four times yesterday and reported that was more frequent than usual. Urine culture pending. Blood culture pending. Patient is already on ceftriaxone for questionable pneumonia. Will continue to observe the patient for signs and symptoms and followup on urine culture results. 5. Severe asymptomatic hypertension: Patient's blood pressure in the emergency room ranges from 178/95 to 198/99. Repeat blood pressure after large cough remained high. No obvious neurological findings was noted. Brain CT without contrast showed no acute abnormalities. It was noted that the patient has tachycardia. At this time, we will resume patient's home medications after a dose of nifedipine XL 30 mg by mouth was given. Continue vital signs as scheduled. 6. Bilateral lower extremity nonpitting edema: Questionable secondary to un-diagnosed heart failure. Patient had no prior echo noted. Echocardiogram was ordered with pending results. She does not appear to be fluid overload/uncompensated, at this time, we will continue to monitor patient's fluid status. 7. Hyperlipidemia: Continue home medications of simvastatin 20 mg by mouth nightly. DVT prophylaxis: Sabrina Pacheco, have independently examined this patient and performed my own physical exam, as well as reviewed the documentation and edited where necessary. I have discussed in detail with the resident / student the findings and plan of treatment as documented by the resident / student and edited their note. I agree with their findings and treatment plan and have edited their documentation. I will continue to follow the patient during this hospital stay. ALMA
[2019-03-21] MEDS: oxyBUTYnin *DITROPAN XL* 5 MG TABCR PO SCH (09:39)
[2019-03-21] MEDS: BACTRIM 160MG/800MG DS TAB PO SCH ×2 (09:39→21:06)
[2019-03-21] MEDS: BISOPROLOL FUMARATE 10 MG TAB PO SCH (09:41)
[2019-03-21 12:00] VITALS: BP 136/70
[2019-03-21 16:00] VITALS: BP 140/68
--- NOTE | 2019-03-21 19:40 | ECHO ---
DATE OF PROCEDURE: 03/21/2019 AGE: 68 GENDER: Female HEIGHT: 62 inches WEIGHT: 196 pounds BODY SURFACE AREA: 1.9 m2 PATIENT LOCATION: Inpatient, PCU, room 3226 REFERRING PHYSICIAN: Nicole Steele MD INDICATION: Edema. 2-D MEASUREMENTS: RV: 4.1 cm LV: 3.7 cm Septum: 1.3 cm Posterior wall: 1.2 cm Aortic root: 3.0 cm LA: 4.0 cm LVEF: 70% DOPPLER MEASUREMENTS: AV: not accurate LVOT: not accurate LVOT: 1.8 cm MV-E: 48, A: 35, EA ratio: 1.4 Early mitral deceleration time: 141 ms PV: 0.7 m/s Pulmonary artery acceleration time: 106 ms RVSP: 43 mmHg IVC: 1.5 cm Normal sinus rhythm with right bundle branch block. Technically difficult study in light of the patient's body habitus but diagnostically useful information was still obtained. M-mode and two-dimensional echocardiography was performed with pulsed, continuous wave, color flow and tissue Doppler studies. Mild concentric left ventricular hypertrophy with hyperkinetic wall motion. Mildly dilated left atrium with currently normal, E/A ratio. Unfortunately, unable to obtain tissue Doppler to further define mean left atrial pressure. Right heart chamber sizes upper limits of normal with normal wall motion and Doppler evidence of moderate pulmonary hypertension. Normal IVC size and collapse against an elevated central venous pressure. Slightly thickened aortic cusps with normal cusp separation and only trace insufficiency. Normal aortic root size. Subtle thickening of the mitral valvular apparatus with adequate leaflet separation and mild insufficiency. Normal appearing tricuspid valve with mild insufficiency. No apparent intracardiac mass or pericardial effusion.
[2019-03-21 20:00] VITALS: BP 140/70
[2019-03-21] MEDS: SIMVASTATIN 20 MG TAB PO SCH (21:06)
[2019-03-22 04:00] VITALS: BP 136/92
[2019-03-22 05:40] LABS: HEMATOCRIT 47.4 % (36.0-47.0); HEMOGLOBIN 15.2 g/dl (12.0-15.5); MEAN CORPUSCULAR HEMOGLOBIN 28.6 pg (27.0-33.0); MEAN CORPUSCULAR HGB CONC 32.1 g/dl (32.0-36.5); MEAN CORPUSCULAR VOLUME 89.1 fl (80.0-96.0); PLATELET COUNT, AUTOMATED 363 10^3/uL (150-450); RED BLOOD COUNT 5.32 10^6/uL (4.00-5.40); WHITE BLOOD COUNT 13.6 10^3/uL (4.0-10.0)
[2019-03-22 06:04] LABS: BLOOD UREA NITROGEN 9 MG/DL (7-18); CALCIUM LEVEL 9.2 MG/DL (8.8-10.2); CARBON DIOXIDE LEVEL 32 MEQ/L (21-32); CHLORIDE LEVEL 104 MEQ/L (98-107); CREATININE FOR GFR 0.82 MG/DL (0.55-1.30); GLOMERULAR FILTRATION RATE > 60.0 (>39); GLUCOSE, FASTING 137 MG/DL (70-100); POTASSIUM SERUM 3.9 MEQ/L (3.5-5.1); SODIUM LEVEL 139 MEQ/L (136-145)
[2019-03-22] MEDS: HEPARIN SOD (PORCINE) 5000 UNITS/ML VIAL SC SCH (06:05)
[2019-03-22 08:00] VITALS: BP 147/90
--- NOTE | 2019-03-22 08:20 | IPNPDOC ---
Text Note Date of Service The patient was seen on 03/22/19. NOTE HPI: Patient is examined at bedside. She reported still having cough but otherwise pt minimally answering questions. Patient denies dyspnea but answered yes to chest pain upon asking; however not answering any further questions. ROS: Limited ROS was able to be obtained d/t patient's mental status. Chest: Pos for unspecified chest/chest wall pain PHYSICAL EXAMINATION: General: Patient is alert and oriented to name only; not in acute distress. HEENT: No conjunctiva injection or scleral icterus. Head normocephalic. Mucous membranes appears moist. HEART: RRR, No murmur. Normal S1, S2. LUNGS: CTA b/l, no rales/wheezing/rhonchi. No subcostal retractions or nasal flaring. No obvious accessory muscle use. ABDOMEN: Soft. Bowel sounds auscultated in all four quadrants. No signs of tenderness upon palpation in all quadrants. No guarding. EXTREMITIES: Non-pitting edema noted in bilateral lower extremities. Radial pulses equal bilaterally. NEURO: Alert and oriented times to name only. Slowed response. Mild to modmemory and cognitive function impairment. PSYCH: Mood appears to be stable; flat affect ASSESSMENT/PLAN: 1.Acute cough questionable d/t underlying undiagnosed COPD -Non-productive cough X3 weeks; no dyspnea. NO fever/chills noted. -Initial bedside chest x-ray showed interstitial coarsening particularly in the upper lobes versus artifact. Repeat chest x-ray with AP andlateral showed no signs of infiltrate/consolidation. -Resp panel unremarkable. Tessalon kaleigh PRN ordered. d/C Ceftriaxone and Azithromycin. Albuterol nebulized as needed. Oxygen therapy and acetaminophen as needed. -simple inpt spirometery ordered; pt likely will need to f/u outpt to r/o underlying COPD -Does not require oxy at home; down-titrating oxygen as pt shows no sign of resp distress and sat well on 2L 2. Pulm HTN -Echo showed mod pulm HTN; may be d/t undiagnosed underlying COPD vs less likely chronic thromboembolic disease -CTA pending. 3. Chronic HTN -Initially presented with severe asymptomatic hypertension which had resolved; likely 2/2 missing home BP med. - No obvious neurological findings was noted however pt difficult to assess d/t dementia. Brain CT without contrast showed no acute abnormalities. -Cont home BP meds 4. Mechanical fall -May be 2/2 dementia. Patient uses a cane at baseline. -PT ordered; recommended pt to cont rehab when ready for d/c -head CT without contrast unremarkable -Left knee x-ray showed no acute fracture, dislocation or loosening. Questionable for a bone cyst was shown on the left knee x-ray. Recommend patient to followup outpatient. - Thoracic X ray showed no acute abnormalities 5. Dementia: Patient is alert and oriented to name only. - reported mentation is at baseline. - Patient is not on outpatient dementia medications. Will continue to observe the patient with fall precaution. -social worker aide consulted for placement possible rehab 6. Urinary tract infection (UTI): Patient's urinalysis (UA) showed positive nitrites with leukocyte esterase. Denies dysuria or urinary urgency. Patient reported urinary frequency. -Urine culture pos for e-coli. Blood culture neg -S/p 1 dose Ceftrixaone IV; Bactrim day 2. D/c 03/22 night. -Continue to observe the patient for signs and symptoms; may restart antibiotics if pt reported urinary symptoms - will change antibiotics from TMP-SMX to Cefdinir 7. Bilateral lower extremity nonpitting edema - Questionable secondary to un-diagnosed heart failure. Patient had no prior echo noted. Echocardiogram was ordered with pending results. - does not appear to be fluid overload/uncompensated, at this time, we will continue to monitor patient's fluid status. -TSH and T4 wnl 8. Hyperlipidemia: Continue home medications of simvastatin 20 mg by mouth nightly. 9. Chest/chest wall pain -questionable d/t pt's underlying dementia. Unable to obtain further info including whether tenderness present -Vitals roughly stable with CXR yesterday showed no acute abnormalities -trop negX2. Cont to monitor -echo showed Normal IVC size against elevated CVP; Mild LVH and dilated LA. Moderate pulmonary hypertension. Mild mitral and tricuspid insufficiency. DVT prophylaxis lovenox Diet low fat low chol diet VS,Fishbone, I+O VS, Fishbone, I+O Laboratory Tests 03/22/19 04:51 Red Blood Count 5.32, Mean Corpuscular Volume 89.1, Mean Corpuscular Hemoglobin 28.6, Mean Corpuscular Hemoglobin Concent 32.1, Red Cell Distribution Width 14.8 H, Calcium Level 9.2 Vital Signs Date Time Temp Pulse Resp B/P (MAP) Pulse Ox O2 Delivery O2 Flow Rate FiO2 03/22/19 04:00 97.0 88 18 136/92 (107) 93 03/21/19 12:00 2.0 03/20/19 20:07 Nasal Cannula I&O- Last 24 Hours up to 6 AM 03/22/19 06:00 Intake Total 536 ml Output Total 75 ml Balance 461 ml GME ATTESTATION GME ATTESTATION My faculty preceptor for this patient encounter was physically present during the encounter and was fully available. All aspects of the patient interview, examination, medical decision making process, and medical care plan development were reviewed and approved by the faculty preceptor. The faculty preceptor is aware and concurs with the plan as stated in the body of this note and will attest to such by his/her cosignature. ATTENDING NOTE I, Sabrina Hernandez, have independently examined this patient and performed my own physical exam, as well as reviewed the documentation and edited where necessary. I have discussed in detail with the resident / student the findings and plan of treatment as documented by the resident / student and edited their note. I agree with their findings and treatment plan and have edited their documentation. I will continue to follow the patient during this hospital stay. DG BEAUCHAMP DO Mar 22, 2019 08:20 SABRINA HERNANDEZ MD Mar 22, 2019 13:16
[2019-03-22] MEDS ORDERED: ISOVUE-370 76% 100ML VIAL (Q9967) As Ordered ONE (08:51)
[2019-03-22 09:07] LABS: AMYLASE 64 U/L (25-115); LIPASE 252 U/L (73-393)
[2019-03-22] MEDS: BACTRIM 160MG/800MG DS TAB PO SCH (09:39)
[2019-03-22] MEDS: BISOPROLOL FUMARATE 10 MG TAB PO SCH (09:40)
[2019-03-22] MEDS: oxyBUTYnin *DITROPAN XL* 5 MG TABCR PO SCH (09:40)
[2019-03-22] MEDS ORDERED: GASTROGRAFIN SOLUTION 30ML (Q9963) As Ordered ONE (13:41)
[2019-03-22] MEDS: GASTROGRAFIN SOLUTION 30ML PO SCH ×2 (13:53→13:57)
[2019-03-22] MEDS ORDERED: THIAMINE 100 MG TAB PO ONE (16:00)
--- NOTE | 2019-03-22 16:37 | REP ---
CT of the chest with IV contrast, the pulmonary artery CT angiography protocol: There are no comparison studies. There are no emboli in the pulmonary trunk or central pulmonary arteries. There is a tiny 2 ml embolus in the a right upper lobe segmental branch. There is a second 2 mm tiny embolus in the right upper lobe segmental branch. There is a small 2 ml x 6 mm embolus in a right lower lobe segmental branch. No other pulmonary emboli are identified. There are no infiltrates. There is discoid atelectasis in the lingula. The interstitium is diffusely coarsened, this could be chronic, acute or combination. There are no pleural effusions. The thoracic aorta is unremarkable. Cardiac size is enlarged. There is no pericardial effusion. There are calcified granulomas in the right hilus. There is no mediastinal, hilar or axillary lymph node enlargement. There is a left breast implant. The implant capsule is calcified. Upper abdomen: The visualized hepatic parenchyma is unremarkable. There are multiple tiny gallbladder calculi. There is no biliary duct dilatation. The visualized areas of the pancreas, spleen, adrenals and renal upper poles are unremarkable except for a nonobstructive renal calculi bilaterally. Impression: There are three small emboli in segmental branches of the right upper lobe and right lower lobe. There is discoid atelectasis in the lingula. There is diffuse interstitial coarsening. This could be chronic, acute or combination. There are calcified granulomas in the right hilus. Cholelithiasis. Cardiomegaly. Electronically Signed by Tavo Hernandez MD 03/22/2019 04:28 P
--- NOTE | 2019-03-22 16:51 | REP ---
CT of the abdomen pelvis with IV contrast and with bowel contrast: The studies performed. Contiguous with the chest CT this same date. Comparison is 05/31/2017. The hepatic parenchyma is homogeneous. There are small layering gallbladder calculi, better appreciated on the chest CT. There is no biliary duct dilatation. The pancreas appears diffusely atrophic but is otherwise unremarkable. This is unchanged. The spleen is normal size and unremarkable. The adrenals are unremarkable. There are bilateral nonobstructive renal calculi. There is no hydronephrosis. There are no solid or cystic renal masses. The abdominal aorta is unremarkable. There is mild dilatation of the cecum and ascending colon. There is no distension of the transverse colon or descending colon and there is no small bowel distension. Pelvis: The appendix is unremarkable. There are diverticula in the descending colon and sigmoid colon. There is no CT evidence of diverticulitis. There are bilateral hip arthroplasties resulting in significant beam-hardening artifact that obscures the remainder of the pelvis. Impression: Nonspecific mild distension of the cecum and ascending colon. No other bowel distension. Cholelithiasis without biliary duct dilatation. Chronic pancreatic atrophy. Nonobstructive renal calculi. Diverticulosis without diverticulitis. Bilateral hip arthroplasties resulting in beam hardening and obscures most of the pelvis. Electronically Signed by Tavo Hernandez MD 03/22/2019 04:43 P
[2019-03-22] MEDS: CEFDINIR 300 MG CAP (OMNICEF) PO SCH ×2 (17:03→20:12)
[2019-03-22] MEDS: NYSTATIN 100,000 UNITS/GM TOPICAL PWD 15 GM TOP PRN (17:35)
[2019-03-22] MEDS: APIXABAN 5 MG TAB (ELIQUIS) PO SCH (17:36)
[2019-03-22] MEDS ORDERED: SIMETHICONE 80 MG CHEW TAB PO PRN (17:45)
[2019-03-22 19:57] VITALS: BP 155/97
[2019-03-22] MEDS: SIMVASTATIN 20 MG TAB PO SCH (20:12)
[2019-03-22] MEDS ORDERED: APIXABAN 5 MG TAB (ELIQUIS) PO SCH (21:00)
[2019-03-22 23:59] VITALS: BP 144/80
[2019-03-23 06:03] LABS: HEMATOCRIT 44.2 % (36.0-47.0); HEMOGLOBIN 14.4 g/dl (12.0-15.5); MEAN CORPUSCULAR HEMOGLOBIN 28.7 pg (27.0-33.0); MEAN CORPUSCULAR HGB CONC 32.6 g/dl (32.0-36.5); PLATELET COUNT, AUTOMATED 363 10^3/uL (150-450); RED BLOOD COUNT 5.02 10^6/uL (4.00-5.40); WHITE BLOOD COUNT 13.8 10^3/uL (4.0-10.0)
[2019-03-23 06:33] LABS: CALCIUM LEVEL 9.2 MG/DL (8.8-10.2); CREATININE FOR GFR 1.04 MG/DL (0.55-1.30); GLOMERULAR FILTRATION RATE 55.8 (>39); POTASSIUM SERUM 4.2 MEQ/L (3.5-5.1)
[2019-03-23 08:00] VITALS: BP 160/73
[2019-03-23] MEDS: APIXABAN 5 MG TAB (ELIQUIS) PO SCH ×2 (08:33→21:31)
[2019-03-23] MEDS: oxyBUTYnin *DITROPAN XL* 5 MG TABCR PO SCH (08:34)
[2019-03-23] MEDS: BISOPROLOL FUMARATE 10 MG TAB PO SCH (08:34)
[2019-03-23] MEDS: CEFDINIR 300 MG CAP (OMNICEF) PO SCH ×2 (08:40→21:32)
--- NOTE | 2019-03-23 09:49 | IPNPDOC ---
Text Note Date of Service The patient was seen on 03/23/19. NOTE HPI: Patient is examined at bedside. She appears more alert and answering some questions with short answers. Reported a little dyspnea. Patient denies wheezing, coughing, chest pain, fever, chills, or abdominal pain. Patient indicated that she thinks she has been passing gas. Denies dysuria; unable to answer if urgency or frequency. ROS: Limited ROS was able to be obtained d/t patient's mental status. General: Denies fever or chills Chest: Pos for unspecified chest/chest wall pain Lung: Some dyspnea,. Denies wheezing, coughing Abd: Neg abdominal pain. PHYSICAL EXAMINATION: General: Patient is A&O to name and place; indicated it's fall but unable to tell the year. Not in acute distress; appears sleepy. HEENT: No conjunctiva injection or scleral icterus. Head normocephalic. Mucous membranes appears moist. HEART: RRR, No murmur. Normal S1, S2. LUNGS: Mod wheezing noted b/l. No decreased breath sounds. No subcostal retractions or nasal flaring. No obvious accessory muscle use. ABDOMEN: Soft. Bowel sounds auscultated in all four quadrants. No signs of tenderness upon palpation in all quadrants. No guarding. EXTREMITIES: Non-pitting edema noted in bilateral lower extremities. Radial pulses equal bilaterally. Indicated tenderness upon palpation in b/l LE. Stasis dermatitis noted b/l LE NEURO: Alert and oriented times to name and place. Slowed response. Mod memory and cognitive function impairment. CN 7 &8 appears intact; pt not following com mands thus unable to assess rest of neurological exam. Pt moving all 4 extremities PSYCH: Mood appears to be stable; flat affect ASSESSMENT/PLAN: 1.Pulmonary embolism -Non-productive cough X3 week. Mild dyspnea; pt sat well for COPD on RA. No fever/chills noted. Pt more arousable and oriented compared to yesterday -CTA showed three small emboli in segmental branches of the right upper lobe and right lower lobe; eliquis started -Initial bedside CXR showed interstitial coarsening particularly in the upper lobes versus artifact. CXR repeated showed no signs of infiltrate/consolidation. -Resp panel unremarkable. Tessalon kaleigh PRN ordered. d/C Ceftriaxone and Azithromycin. Albuterol nebulized as needed. Oxygen therapy and acetaminophen as needed. -Oxy therapy ordered PRN 2. Pulm HTN -Echo showed mod pulm HTN; likely d/t PE -Pt now on eliquis and does not appear to be hypovolemia. consider f/u outpt for procedure confirming definitive diagnosis and further maintenance after stablization -; COPD but d/t likely pulmonary HTN; maintain ox>92% 3. Chronic HTN -Initially presented with severe asymptomatic hypertension which had resolved; likely 2/2 missing home BP med. - No obvious neurological findings was noted however pt difficult to assess d/t dementia. Brain CT without contrast showed no acute abnormalities. -Pt moving all 4 extremities following commands; CN7&8 intact, and rest of CN exam unable to assess as pt sleepy -Cont home BP meds 4. Mechanical fall -May be 2/2 dementia. Patient uses a cane at baseline. -PT ordered; recommended pt to cont rehab when ready for d/c -head CT without contrast unremarkable -Left knee x-ray showed no acute fracture, dislocation or loosening. Questionable for a bone cyst was shown on the left knee x-ray. Recommend patient to followup outpatient. - Thoracic X ray showed no acute abnormalities 5. Dementia: Patient is alert and oriented to name only. - initially reported mentation is at baseline; later noted pt mentation decreased compared to baseline - Patient is not on outpatient dementia medications. Will continue to observe the patient with fall precaution. -psychotherapist social worker consulted for placement possible rehab 6. Urinary tract infection (UTI): Patient's urinalysis (UA) showed positive nitrites with leukocyte esterase. Denies dysuria; unable to answer whether other urinary symptoms present -Urine culture pos for e-coli. Blood culture neg -S/p 1 dose Ceftrixaone IV. Cefdinir started day 2. S/p Bactrim day 2. D/c 03/22 night. -Continue to observe the patient for signs and symptoms 7. Bilateral lower extremity nonpitting edema with stasis dermatitis, improving - Likely 2/2 IVC compression. -echo showed Normal IVC size compressed against elevated CVP; Mild LVH and dilated LA. Moderate pulmonary hypertension. Mild mitral and tricuspid insufficiency. - Appears to be chronic; currently does not appear to be fluid overload/uncompensated. Pt limited PO intake. At this time, we will continue to monitor patient's fluid status. -Pt also indicated tenderness in b/l calves, likely 2/2 stasis dermatitis vs DVT -TSH and T4 wnl 8. Hyperlipidemia: Continue home medications of simvastatin 20 mg by mouth nightly. 9. Stage 1 sacral ulcer -Cont wound care -Turn and reposition Q2H 9. Chest/chest wall pain; resolved -questionable d/t pt's underlying dementia/AMS. Pt denies CP today -Vitals roughly stable with CXR yesterday showed no acute abnormalities -trop negX2. Cont to monitor DVT prophylaxis Pt already on eliquis for PE Diet low fat low chol diet VS,Fishbone, I+O VS, Fishbone, I+O Laboratory Tests 03/23/19 05:26 Red Blood Count 5.02, Mean Corpuscular Volume 88.0, Mean Corpuscular Hemoglobin 28.7, Mean Corpuscular Hemoglobin Concent 32.6, Red Cell Distribution Width 14.8 H, Calcium Level 9.2 Vital Signs Date Time Temp Pulse Resp B/P (MAP) Pulse Ox O2 Delivery O2 Flow Rate FiO2 03/23/19 08:34 144/78 03/23/19 08:00 97.2 106 18 95 03/23/19 04:08 2.0 03/20/19 20:07 Nasal Cannula I&O- Last 24 Hours up to 6 AM 03/23/19 06:00 Intake Total 0 ml Output Total 0 ml Balance 0 ml GME ATTESTATION GME ATTESTATION My faculty preceptor for this patient encounter was physically present during the encounter and was fully available. All aspects of the patient interview, examination, medical decision making process, and medical care plan development were reviewed and approved by the faculty preceptor. The faculty preceptor is aware and concurs with the plan as stated in the body of this note and will attest to such by his/her cosignature. ATTENDING NOTE I, Sabrina Hernandez, have independently examined this patient and performed my own physical exam, as well as reviewed the documentation and edited where necessary. I have discussed in detail with the resident / student the findings and plan of treatment as documented by the resident / student and edited their note. I agree with their findings and treatment plan and have edited their documentation. I will continue to follow the patient during this hospital stay. DG BEAUCHAMP DO Mar 23, 2019 09:49 SABRINA HERNANDEZ MD Mar 23, 2019 13:37
[2019-03-23 10:00] VITALS: BP 108/66
[2019-03-23] MEDS: PHENAZOPYRIDINE 100 MG TAB PO SCH (21:31)
[2019-03-23] MEDS: SIMVASTATIN 20 MG TAB PO SCH (21:32)
[2019-03-24 05:52] LABS: HEMATOCRIT 45.7 % (36.0-47.0); HEMOGLOBIN 14.3 g/dl (12.0-15.5); MEAN CORPUSCULAR HEMOGLOBIN 27.6 pg (27.0-33.0); MEAN CORPUSCULAR HGB CONC 31.3 g/dl (32.0-36.5); MEAN CORPUSCULAR VOLUME 88.2 fl (80.0-96.0); PLATELET COUNT, AUTOMATED 420 10^3/uL (150-450); RED BLOOD COUNT 5.18 10^6/uL (4.00-5.40); WHITE BLOOD COUNT 13.2 10^3/uL (4.0-10.0)
[2019-03-24 06:00] VITALS: BP 130/65
[2019-03-24 06:13] LABS: CALCIUM LEVEL 9.2 MG/DL (8.8-10.2); CREATININE FOR GFR 1.2 MG/DL (0.55-1.30); GLOMERULAR FILTRATION RATE 47.3 (>39)
--- NOTE | 2019-03-24 07:04 | IPNPDOC ---
Text Note Date of Service The patient was seen on 03/24/19. NOTE HPI: Patient is examined at bedside; no family member present in exam room at time of exam. She continues to be more alert. Reported a little dyspnea with unproductive cough. She reported having dysuria and frequency; unable to answer if there's urgency. Patient denies wheezing, chest pain, palpitation, fever, chills, or abdominal pain. Patient indicated she is going to have a bowel movement at time of exam Pt indicated her will be visiting today. ROS: Limited ROS was able to be obtained d/t patient's mental status/baseline dementia. General: Denies fever or chills Chest: Denies chest pain, palpitation Lung: Some dyspnea and unproductive cough. Denies wheezing Abd: Neg abdominal pain. : Pos for dysuria and frequency PHYSICAL EXAMINATION: General: Patient is A&O to name and place; unable to tell the year. Not in acute distress. Appears more alert HEENT: No conjunctiva injection or scleral icterus. Head normocephalic. Mucous membranes appears moist. HEART: Tachycardia, normal rhythm, No murmur. Normal S1, S2. LUNGS: Mod rhonchi noted b/l. No obvious decreased breath sounds. No subcostal retractions or nasal flaring. No obvious accessory muscle use. ABDOMEN: Soft. Bowel sounds auscultated in all four quadrants. No signs of tenderness upon palpation in all quadrants. No guarding. EXTREMITIES: Non-pitting edema noted in bilateral lower extremities. Indicated tenderness upon palpation in b/l LE. Stasis dermatitis noted b/l LE NEURO: Alert and oriented times to name and place. Mild to mod memory and cognitive function impairment. Able to answer with short sentences. PSYCH: Mood appears to be stable; flat affect ASSESSMENT/PLAN: 1.Pulmonary embolism, likely 2/2 immobilization -Non-productive cough X3 week. Mild dyspnea; pt sat well for COPD on RA. No fever/chills noted. Pt more alert compared to yesterday; answer questions with short sentences -CTA showed three small emboli in segmental branches of the right upper lobe and right lower lobe; eliquis 10mg BID started 03/22 after CTA result; cont for 10 days then 5mg BID -Initial bedside CXR showed interstitial coarsening particularly in the upper lobes versus artifact. CXR repeated showed no signs of infiltrate/consolidation. -Resp panel unremarkable. Cont Tessalon kaleigh PRN. d/C Ceftriaxone and Azithromycin. Albuterol nebulized as needed. Oxygen therapy and acetaminophen as needed. -Oxy therapy ordered PRN 2. Pulm HTN -Echo showed mod pulm HTN; likely d/t PE -Pt now on eliquis and appears to be mildly hypovolemia. Consider f/u outpt for procedure confirming definitive diagnosis and further maintenance after stabilization -Pt is COPD but d/t likely pulmonary HTN will maintain ox>92% with ox therapy PRN 3. Chronic HTN -Initially presented with severe asymptomatic hypertension which had resolved; likely 2/2 missing home BP med. - No obvious neurological findings was noted however pt difficult to assess d/t dementia. Brain CT without contrast showed no acute abnormalities. -Cont home BP meds 4. Mechanical fall -May be 2/2 dementia vs altered mental status. Patient uses a cane at baseline. -PT ordered; recommended pt to [facility] subacute rehab when ready for d/c -head CT without contrast unremarkable -Left knee x-ray showed no acute fracture, dislocation or loosening. Questionable for a bone cyst was shown on the left knee x-ray. Recommend patient to followup outpatient. - Thoracic X ray showed no acute abnormalities 5. Dementia: - Clinically has had improvement in mentation - initially reported mentation is at baseline; later noted pt mentation decreased compared to baseline - Patient is not on outpatient dementia medications. Will continue to observe the patient with fall precaution. -social media marketing specialist consulted for placement; subacute rehab 6. Complicated Urinary tract infection (UTI) -It was noted that pt had urinary frequency yesterday -Urine culture pos for e-coli. Blood culture neg -Cefdinir 300mg BID d/t sensitivity day 11/01. S/p Bactrim day 2 and 1 dose Ceftrixaone IV. . -Pyridium was started 7. Bilateral lower extremity nonpitting edema with stasis dermatitis, improving - Likely 2/2 IVC compression. -echo showed Normal IVC size compressed against elevated CVP; Mild LVH and dilated LA. Moderate pulmonary hypertension. Mild mitral and tricuspid insufficiency. - Appears to be chronic; currently does not appear to be fluid overload/uncompensated.At this time, we will continue to monitor patient's fluid status. -Pt also indicated tenderness in b/l calves, likely 2/2 stasis dermatitis vs DV T; pt already on eliquis -TSH and T4 wnl 8. Hyperlipidemia: Continue home medications of simvastatin 20 mg by mouth nightly. 9. Stage 1 sacral ulcer -Cont wound care -Turn and reposition Q2H 10. Chest/chest wall pain; resolved -Initially reported chest pain when somnolent; questionable d/t pt's underlying dementia/AMS. Pt has been denying CP since 03/23 -Vitals roughly stable with CXR yesterday showed no acute abnormalities -trop negX2. Cont to monitor DVT prophylaxis Pt already on eliquis for PE Diet low fat low chol diet DISPOSITION: Clinical improvement but still reported mild dyspnea with coughing. Cont eliquis tx for PE and cefidinir for symptomatic UTI. Likely d/c to subacute rehab next Tue VS,Michael, I+O VS, Michael, I+O Laboratory Tests 03/24/19 05:24 Red Blood Count 5.18, Mean Corpuscular Volume 88.2, Mean Corpuscular Hemoglobin 27.6, Mean Corpuscular Hemoglobin Concent 31.3 L, Red Cell Distribution Width 15.0 H, Calcium Level 9.2 Vital Signs Date Time Temp Pulse Resp B/P (MAP) Pulse Ox O2 Delivery O2 Flow Rate FiO2 03/24/19 06:00 97.2 100 18 130/65 (86) 96 03/23/19 04:08 2.0 03/20/19 20:07 Nasal Cannula I&O- Last 24 Hours up to 6 AM0 03/24/19 06:00 Intake Total 1080 ml Output Total 300 ml Balance 780 ml GME ATTESTATION GME ATTESTATION My faculty preceptor for this patient encounter was physically present during the encounter and was fully available. All aspects of the patient interview, examination, medical decision making process, and medical care plan development were reviewed and approved by the faculty preceptor. The faculty preceptor is aware and concurs with the plan as stated in the body of this note and will attest to such by his/her cosignature. ATTENDING NOTE I, Sabrina Hernandez, have independently examined this patient and performed my own physical exam, as well as reviewed the documentation and edited where necessary. I have discussed in detail with the resident / student the findings and plan of treatment as documented by the resident / student and edited their note. I agree with their findings and treatment plan and have edited their documentation. I will continue to follow the patient during this hospital stay. DG BEAUCHAMP DO Mar 24, 2019 07:04 SABRINA HERNANDEZ MD Mar 24, 2019 10:53
[2019-03-24] MEDS ORDERED: NS 1,000 ML IV SCH (08:00)
[2019-03-24] MEDS: LR 1,000 ML IV SCH ×2 (08:13→15:48)
[2019-03-24] MEDS: THIAMINE 100 MG TAB PO SCH (08:13)
[2019-03-24] MEDS: CEFDINIR 300 MG CAP (OMNICEF) PO SCH ×2 (08:14→20:32)
[2019-03-24] MEDS: APIXABAN 5 MG TAB (ELIQUIS) PO SCH ×2 (08:14→20:31)
[2019-03-24] MEDS: BISOPROLOL FUMARATE 10 MG TAB PO SCH (08:14)
[2019-03-24] MEDS: oxyBUTYnin *DITROPAN XL* 5 MG TABCR PO SCH (08:15)
[2019-03-24] MEDS: PHENAZOPYRIDINE 100 MG TAB PO SCH ×2 (08:21→20:31)
--- NOTE | 2019-03-24 10:41 | REP ---
Clinical: Hip pain. Technique: Neutral and lateral views of the left hip. Findings: Prior arthroplasty. No acute fracture dislocation. Orthopedic hardware in satisfactory, normal position. Impression: Relatively normal left hip radiographs. Electronically Signed by Fritz Aguirre MD 03/24/2019 10:32 A
[2019-03-24 14:00] VITALS: BP 102/73
[2019-03-24] MEDS: SIMVASTATIN 20 MG TAB PO SCH (20:31)
[2019-03-24 22:00] VITALS: BP 120/62
[2019-03-25 06:00] VITALS: BP 130/87
[2019-03-25] MEDS: LR 1,000 ML IV SCH (06:19)
[2019-03-25 07:22] LABS: HEMATOCRIT 42.8 % (36.0-47.0); HEMOGLOBIN 13.3 g/dl (12.0-15.5); MEAN CORPUSCULAR HEMOGLOBIN 27.8 pg (27.0-33.0); MEAN CORPUSCULAR HGB CONC 31.1 g/dl (32.0-36.5); MEAN CORPUSCULAR VOLUME 89.4 fl (80.0-96.0); PLATELET COUNT, AUTOMATED 428 10^3/uL (150-450); RED BLOOD COUNT 4.79 10^6/uL (4.00-5.40); WHITE BLOOD COUNT 15.1 10^3/uL (4.0-10.0)
[2019-03-25 08:32] LABS: BLOOD UREA NITROGEN 31 MG/DL (7-18); CALCIUM LEVEL 8.4 MG/DL (8.8-10.2); CARBON DIOXIDE LEVEL 28 MEQ/L (21-32); CHLORIDE LEVEL 110 MEQ/L (98-107); CREATININE FOR GFR 0.79 MG/DL (0.55-1.30); GLOMERULAR FILTRATION RATE > 60.0 (>39); GLUCOSE, FASTING 134 MG/DL (70-100); MAGNESIUM LEVEL 2.2 MG/DL (1.8-2.4); POTASSIUM SERUM 4.7 MEQ/L (3.5-5.1); SODIUM LEVEL 142 MEQ/L (136-145)
[2019-03-25] MEDS: BISOPROLOL FUMARATE 10 MG TAB PO SCH (08:39)
[2019-03-25] MEDS: CEFDINIR 300 MG CAP (OMNICEF) PO SCH (08:39)
[2019-03-25] MEDS: oxyBUTYnin *DITROPAN XL* 5 MG TABCR PO SCH (08:39)
[2019-03-25] MEDS: THIAMINE 100 MG TAB PO SCH (08:39)
[2019-03-25] MEDS: PHENAZOPYRIDINE 100 MG TAB PO SCH ×2 (08:40→20:34)
[2019-03-25] MEDS: APIXABAN 5 MG TAB (ELIQUIS) PO SCH ×2 (08:40→20:34)
[2019-03-25 12:26] LABS: C REACTIVE PROTEIN QUANTITATIV 6.84 MG/DL (0.00-0.30)
--- NOTE | 2019-03-25 12:52 | IPNPDOC ---
Text Note Date of Service The patient was seen on 03/25/19. NOTE Subjective: Patient was seen and examined at the bedside. . Currently, patient reports that she is not expressing any pain. She denies any nausea, vomiting or abdominal pain. Patient was noted to have a bowel movement yesterday. Denies any urinary discomfort. Still has not progressed well with physical therapy. Objective: Vitals (See below) General: Lying in bed, no acute distress, comfortable, Awake / Alert HEENT: NC, AT CVS: RRR, +S1S2 Lungs: Fair air entry b/l, auscultation is free of rhonchi, rales or wheezing Abdomen: Soft, ND, NT, obese Extremities: There does not appear to be any pitting edema bilaterally, - Calf tenderness Assessment and plan: Pulmonary embolism - likely 2/2 immobilization - Patient does not complaint of any short of breath - Remains hemodynamically stable and is saturating well on room air - CTA 03/22: There are three small emboli in segmental branches of the right upper lobe and right lower lobe. There is discoid atelectasis in the lingula. There is diffuse interstitial coarsening. This could be chronic, acute or combination. There are calcified granulomas in the right hilus. Cholelithiasis. Cardiomegaly. - c/w Eliquis Mechanical fall - likely 2/2 deconditioning / dementia - Patient uses a cane at baseline - CT head 03/20: No acute intracranial abnormality. - XR Knee 03/20: There is no fracture, dislocation or loosening. There is a focal lucency in the lateral tibial plateau, similar to the prior study, possibly a bone cyst. There is a small joint effusion. - XR Left Hip 03/24: Relatively normal left hip radiographs. - c/w Physical therapy; patient has been slow to progress - She will likely require subacute rehabilitation placement Deconditioning / weakness - possibly 2/2 underlying infection - Patient remains afebrile and hemodynamically stable - WBC has been noted to trend up; will check CRP trend - Urine analysis consistent with infection - Urine culture. 03/20: Escherichia coli - CTA chest noted above - CT ab/pel 03/22: Nonspecific mild distension of the cecum and ascending colon. No other bowel distension. Cholelithiasis without biliary duct dilatation. Chronic pancreatic atrophy. Nonobstructive renal calculi. Diverticulosis without diverticulitis. Bilateral hip arthroplasties resulting in beam hardening and obscures most of the pelvis. - c/w Cefdinir (Day #3) Dementia - As per patient's home care provider, ; patient has intermittent episodes of confusion - Currently, she remains oriented to person and place Bilateral lower extremity chronic venous stasis changes - No signs of fluid overload - Will continue to monitor Elevated Cr - c/w IV fluid hydration for now Pulmonary HTN - Noted on echocardiogram HTN - s/p Hypertensive urgency - BP appears well controlled - c/w Bisoprolol DLP - c/w Simvastatin Stage 1 sacral decubitus ulcer - c/w local wound care and position changes s/p Pleuritic chest pain - Currently has no complaints of chest pain - EKG without any significant changes - Troponin negative x 2 DVT prophylaxis - c/w full anticoagulation with Eliquis Disposition: - Will likely require GEOFF when medically cleared VS,Fishbone, I+O VS, Fishbone, I+O Laboratory Tests 03/25/19 06:33 Red Blood Count 4.79, Mean Corpuscular Volume 89.4, Mean Corpuscular Hemoglobin 27.8, Mean Corpuscular Hemoglobin Concent 31.1 L, Red Cell Distribution Width 14.9 H 03/25/19 08:02 Calcium Level 8.4 L Vital Signs Date Time Temp Pulse Resp B/P (MAP) Pulse Ox O2 Delivery O2 Flow Rate FiO2 03/25/19 08:39 78 130/87 03/25/19 06:00 98.5 17 95 03/23/19 04:08 2.0 03/20/19 20:07 Nasal Cannula I&O- Last 24 Hours up to 6 AM 03/25/19 06:00 Intake Total 1697 ml Output Total 400 ml Balance 1297 ml DURAN HERNANDEZ MD Mar 25, 2019 12:52
[2019-03-25 13:04] LABS: C REACTIVE PROTEIN QUANTITATIV 8.46 MG/DL (0.00-0.30)
[2019-03-25 13:09] VITALS: BP 122/78
--- NOTE | 2019-03-25 15:08 | REP ---
Clinical: Lethargy. Comparison: 03/20/2019. Findings: The mediastinum and cardiac silhouette are stable and within normal limits for portable technique. The lung dee are clear without acute consolidation, effusion, or pneumothorax. Skeletal structures are intact. Impression: No acute cardiopulmonary process appreciated. Electronically Signed by Fritz Aguirre MD 03/25/2019 03:00 P
[2019-03-25 15:19] LABS: BLOOD UREA NITROGEN 28 MG/DL (7-18); C REACTIVE PROTEIN QUANTITATIV 2.81 MG/DL (0.00-0.30); CARBON DIOXIDE LEVEL 29 MEQ/L (21-32); CHLORIDE LEVEL 109 MEQ/L (98-107); CREATININE FOR GFR 0.83 MG/DL (0.55-1.30); GLOMERULAR FILTRATION RATE > 60.0 (>39); GLUCOSE, FASTING 111 MG/DL (70-100); MAGNESIUM LEVEL 2.4 MG/DL (1.8-2.4); SODIUM LEVEL 144 MEQ/L (136-145)
[2019-03-25 15:25] LABS: HEMATOCRIT 43.8 % (36.0-47.0); HEMOGLOBIN 13.7 g/dl (12.0-15.5); MEAN CORPUSCULAR VOLUME 91.3 fl (80.0-96.0); WHITE BLOOD COUNT 13.9 10^3/uL (4.0-10.0)
[2019-03-25 15:26] LABS: BASO % 0.2 % (0.0-1.0); EOS # 0.1 10^3/uL (0.0-0.5); EOS % 0.6 % (0.0-3.0); LYMPH # 1.1 10^3/uL (1.5-5.0); LYMPH % 7.7 % (24.0-44.0); MEAN CORPUSCULAR HEMOGLOBIN 28.5 pg (27.0-33.0); MEAN CORPUSCULAR HGB CONC 31.3 g/dl (32.0-36.5); MONO # 1.1 10^3/uL (0.0-0.8); MONO % 7.8 % (0.0-5.0); NEUTROPHILS # 11.6 10^3/uL (1.5-8.5); NEUTROPHILS % 83.4 % (36.0-66.0); PLATELET COUNT, AUTOMATED 391 10^3/uL (150-450)
--- NOTE | 2019-03-25 15:27 | REP ---
Clinical: confusion. Comparison: 03/20/2019. Findings: Age-related atrophy and microvascular ischemic changes are appreciated. The ventricles and sulci are symmetric. Payton-white differentiation is maintained. There is no evidence for acute intracranial hemorrhage, mass/mass effect, pathology or infarction. No extra-axial fluid collection. Calvarium is intact. Paranasal sinuses and mastoid air cells are clear. Impression: Age related atrophy and microvascular ischemic changes. No acute intracranial hemorrhage, infarction, or mass/mass effect. Electronically Signed by Fritz Aguirre MD 03/25/2019 03:18 P
--- NOTE | 2019-03-25 15:39 | PHACANCOPD ---
PHARMACY VANCOMYCIN DOSING Pt Demographics Demographics Patient Age:68 , Weight:93.800 , Gender: female Adjusted Body Weight Date: 03/25/19, Adjusted Body Weight: [67] Kg Events Past 24 Hours Events Past 24 Hours: NO: Dialysis, Diuretic Therapy, Change in CrCl, Fever, Elevation in WBC, Pending Diagnostics, Pending Procedures, Other Vancomycin Vancomycin indication: MRSA coverage Vancomycin Target Ranges: 15-20 mcg/ml Vancomycin Load Y/N: Yes Load Dose Date Time Vancomycin Load Dose: 1000mg Date: 03/25 Time: 16:00 Vancomycin Dose Date: 03/25/19. Current Vancomycin Dose: [1g IV q12h @20] Intermittent Dosing?: No Labs Labs Item Value Date Time C-Reactive Protein, Quantitative 2.81 MG/DL H 03/25/19 1446 Creatinine 0.83 MG/DL 03/25/19 1446 White Blood Count 13.9 10^3/uL H 03/25/19 1446 Micro Microbiology 03/25/19 Blood Culture, Received Pending 03/25/19 Blood Culture, Received Pending 03/20/19 Blood Culture - Preliminary, Resulted No Growth after 72 hours. All specime... 03/20/19 Blood Culture - Final, Complete NO GROWTH AFTER 5 DAYS 03/20/19 Respiratory Virus Panel (PCR) (RAJESH) - Final, Complete 03/20/19 Urine Culture - Final, Complete Escherichia Coli Creatinine Clearance Date:03/25/19. Creatinine Clearance: [55-65 ml/min]. Pending Labs Vanco trough scheduled 03/27 @07:00 Assessment and Plan Maintaining Current Dose?: Yes Reason for dose change: No Dose Change Pharmacist Note Pharmacist Note Date: 03/25/19. Pharmacist note: pt has been started on Vancomycin and Zosyn. She was previously on cefdinir 300mg bid x3 days for a UTI (E. coli). She has not been on vancomycin at our facility in the past. I have started her on vancomycin 1g this afternoon, followed by 1g IV q12h dosing to start ~4 hours later. I have a trough scheduled for Tuesday. We will continue to monitor and make adjustments as necessary. Henrique Pastor Pharm.D. Mar 25, 2019 15:39
[2019-03-25] MEDS ORDERED: NS 1,000 ML IV SCH (15:45)
[2019-03-25] MEDS: PIPERACILLIN/TAZOBACTAM SOD 3.375 GM in D5W MINI-BAG PLUS 50 ML IV SCH ×2 (15:57→23:19)
[2019-03-25] MEDS ORDERED: VANCOMYCIN HCL 1,000 MG, VIAL MATE ADAPTER 1 EACH in D5W 250 ML IV ONE (16:00)
[2019-03-25 17:16] LABS: APPEARANCE, URINE CLEAR (CLEAR); BACTERIA, URINE AUTO NEGATIVE (NEGATIVE); BILIRUBIN, URINE AUTO NEGATIVE (NEGATIVE); BLOOD, URINE BLOOD 3+ (NEGATIVE); COLOR, URINE AMBER (YELLOW); GLUCOSE, URINE (UA) AUTO 1+ mg/dL (NEGATIVE); KETONE, URINE AUTO NEGATIVE (NEGATIVE); LEUKOCYTE ESTERASE, URINE AUTO NEGATIVE (NEGATIVE); NITRITE, URINE AUTO POSITIVE (NEGATIVE); PROTEIN, URINE AUTO NEGATIVE (NEGATIVE); RBC, URINE AUTO TNTC /HPF (0-3); SQUAMOUS EPITHELIAL CELL UR AU 0 /HPF (0-6); WBC, URINE AUTO 19 /HPF (0-3)
--- NOTE | 2019-03-25 18:37 | REPVR ---
EXAM: MR Lumbar Spine Without Contrast. EXAM DATE/TIME: 03/25/2019 5:44 PM CLINICAL HISTORY: 68 years old, female; Patient HX: PT states some confusion with UTI infection and past 4 days increase weakness in lower ext. ; Additional info: Weakness of barbie TECHNIQUE: Imaging protocol: Multiplanar magnetic resonance images of the lumbar spine without intravenous contrast. COMPARISON: CR Spine. Lumbosacral, complete 03/14/2019 8:[address] ABD/PEL W/IV ORAL CONTRAS 03/22/2019 3:59:36 PM FINDINGS: Vertebrae: Mild levoconvex scoliosis. 4 mm of degenerative retrolisthesis of T12 on L1. 11 mm of grade 1, borderline grade 2 degenerative anterolisthesis of L5 on S1. No acute fracture seen. There is an L3 hemangioma. Spinal epidural space: No evidence of epidural abscess. Spinal cord: The conus medullaris ends normally. There is a lipomatous filum terminale. T7-T8: Disc desiccation with severe disc height loss and spondylosis throughout with fatty degenerative marrow signal changes of the endplates. No evidence of discitis. T11-T12: Evaluated on the sagittal imaging. Disc osteophyte complex and facet arthropathy without contribution to central spinal canal stenosis. Moderate left neural foraminal stenosis. No significant right neural foraminal narrowing T12-L1: Evaluated on the sagittal imaging. Retrolisthesis, disc osteophyte complex and facet arthropathy. The central spinal canal remains patent. Moderate right and mild left neural foraminal stenoses. L1-L2: Marked diffuse disc osteophyte complex as well as marked right and moderate left facet arthropathy. The central spinal canal remains patent. The right lateral recess is moderately effaced. Moderate right neural foraminal stenosis. No significant left neural foraminal narrowing. L2-L3: Moderate diffuse disc osteophyte complex as well as marked facet arthropathy and ligamentum flavum buckling. The central spinal canal remains patent. Moderate right and mild left lateral recess stenoses. Moderate right neural foraminal stenosis. No significant left neural foraminal narrowing. L3-L4: Moderate disc osteophyte complex and facet arthropathy. A 2.7 mm left lateral canal disc protrusion with high-intensity zone abuts and mildly posteriorly displaces the left L4 nerve root in the lateral recess. The central spinal canal is patent. No significant foraminal stenoses. L4-L5: Moderate disc osteophyte complex, facet arthropathy and ligamentum flavum buckling. 4 mm broad-based right sided disc protrusion demonstrated paracentral to foraminal components. The central spinal canal remains patent. Right lateral recess stenosis is mild. Severe right neural foraminal stenosis, the exiting right L4 nerve root abutting foraminal disc material. No significant left neural foraminal stenosis. L5-S1: Facet arthropathy is severe. The central spinal canal remains patent. The right lateral recess is moderately effaced near the right S1 nerve root. Severe right neural foraminal stenosis, the exiting right L5 nerve root abutting hypertrophic facet and disc osteophyte complex. No significant left neural foraminal narrowing. Soft tissues: Mild, nonspecific edema in the subcutaneous fat may be dependent/positional. IMPRESSION: 1. No acute findings. 2. Degenerative levoconvex scoliosis. 3. Grade 1, borderline grade 2 degenerative anterolisthesis of L5 on S1. 4. Advanced multilevel degenerative disc disease. 5. Moderate left neural foraminal stenosis at T11-12. 6. Moderate right neural foraminal stenosis at T12-L1. 7. Moderate right lateral recess and neural foraminal stenoses at L1-2. 8. Moderate right lateral recess and neural foraminal stenoses at L2-3. 9. A left lateral canal disc protrusion at L3-4 may be cause of left L4 distribution radiculopathy. 10. Diffuse degenerative changes as well as right-sided broad-based disc protrusion at L4-5 causing severe right neural foraminal which may be cause of right L4 distribution radiculopathy. 11. Moderate right lateral recess and severe right neural foraminal stenoses at L5-S1 may be cause of right S1 and L5 distribution radiculopathy, respectively. Electronically signed by: Leilani Love On 03/25/2019 18:37:24 PM
--- NOTE | 2019-03-25 18:45 | REPVR ---
EXAM: MR Pelvis Without Contrast EXAM DATE/TIME: 03/25/2019 5:44 PM CLINICAL HISTORY: 68 years old, female; Patient HX: , PT states some confusion with UTI infection and past 4 days increase weakness in lower ext. ; Additional info: Weakness of le TECHNIQUE: Imaging protocol: Magnetic resonance images of the pelvis without intravenous contrast. COMPARISON: CT ABD/PEL W/IV ORAL CONTRAS 03/22/2019 3:59 PM FINDINGS: Extremely limited study secondary to artifact from bilateral hip arthroplasty prostheses. No pelvic hematoma. Uterus is surgically absent. Distal colonic diverticular changes are present without obvious inflammation. No abnormal pelvic sidewall lymph nodes. No mass within the sciatic notch regions. Symphysis and sacroiliac joints show normal alignment. No acute obturator ring deformity or expansile lesion. Diffuse muscle atrophy in the hip and proximal thigh musculature appearing symmetric. No common hamstring origin avulsion. IMPRESSION: Very limited study secondary to hip arthroplasty artifact, demonstrating no neurocompression in the sciatic notch regions and no pelvic mass or adenopathy. No acute osseous abnormality the imaged pelvis. Prior hysterectomy. Diffuse symmetric muscle atrophy Electronically signed by: Leonardo Ureña On 03/25/2019 18:45:00 PM
[2019-03-25] MEDS ORDERED: VANCOMYCIN HCL 1,000 MG, VIAL MATE ADAPTER 1 EACH in D5W 250 ML IV SCH (20:00)
[2019-03-25] MEDS: SIMVASTATIN 20 MG TAB PO SCH (20:34)
[2019-03-25 22:00] VITALS: BP 120/67
[2019-03-26] MEDS: PIPERACILLIN/TAZOBACTAM SOD 3.375 GM in D5W MINI-BAG PLUS 50 ML IV SCH (03:41)
[2019-03-26 06:00] VITALS: BP 124/69
[2019-03-26 07:31] LABS: HEMATOCRIT 37.7 % (36.0-47.0); HEMOGLOBIN 12.1 g/dl (12.0-15.5); MEAN CORPUSCULAR HEMOGLOBIN 28.3 pg (27.0-33.0); MEAN CORPUSCULAR HGB CONC 32.1 g/dl (32.0-36.5); MEAN CORPUSCULAR VOLUME 88.3 fl (80.0-96.0); PLATELET COUNT, AUTOMATED 370 10^3/uL (150-450); RED BLOOD COUNT 4.27 10^6/uL (4.00-5.40); WHITE BLOOD COUNT 10.9 10^3/uL (4.0-10.0)
[2019-03-26 08:02] LABS: BLOOD UREA NITROGEN 26 MG/DL (7-18); C REACTIVE PROTEIN QUANTITATIV 1.27 MG/DL (0.00-0.30); CALCIUM LEVEL 7.7 MG/DL (8.8-10.2); CARBON DIOXIDE LEVEL 26 MEQ/L (21-32); CHLORIDE LEVEL 111 MEQ/L (98-107); CREATININE FOR GFR 0.82 MG/DL (0.55-1.30); GLOMERULAR FILTRATION RATE > 60.0 (>39); GLUCOSE, FASTING 105 MG/DL (70-100); MAGNESIUM LEVEL 2.1 MG/DL (1.8-2.4); POTASSIUM SERUM 4.4 MEQ/L (3.5-5.1); SODIUM LEVEL 142 MEQ/L (136-145)
[2019-03-26] MEDS: oxyBUTYnin *DITROPAN XL* 5 MG TABCR PO SCH (09:49)
[2019-03-26] MEDS: CEFDINIR 300 MG CAP (OMNICEF) PO SCH ×2 (09:49→20:49)
[2019-03-26] MEDS: APIXABAN 5 MG TAB (ELIQUIS) PO SCH ×2 (09:49→20:49)
[2019-03-26] MEDS: PHENAZOPYRIDINE 100 MG TAB PO SCH ×2 (09:50→20:49)
[2019-03-26] MEDS: THIAMINE 100 MG TAB PO SCH (09:50)
[2019-03-26] MEDS: BISOPROLOL FUMARATE 10 MG TAB PO SCH (09:50)
--- NOTE | 2019-03-26 11:02 | IPNPDOC ---
Text Note Date of Service The patient was seen on 03/26/19. NOTE HPI: Patient was seen and examined at the bedside. Pt reported LLQ abd pain. She denies any dyspnea, chest pain, palpitation, or dysuria. Pt is able to answer the name and place but not to year still. Further questions unable to be obtained due to pt's dementia/mental status. ROS:limited ROS was able to be obtained General: denies fever or chills Chest: denies any chest pain, palp Lung:Denies dyspnea Abd: Pos for LLL pain : denies dysuria Objective: General: Lying in bed, no acute distress, comfortable, A&OX2 but at times falls asleep during conversations HEENT: Head normocephalic, atraumatic Heart: RRR, no murmur, normal S1 and S2 Lungs:CTA, no rhonchi, rales or wheezing. No accessory muscle use Abdomen: Soft, tenderness in b/l upper quadrants. No guarding. Obese Extremities: There does not appear to be any pitting edema bilaterall. Calf tenderness on left Assessment and plan: 1. Pulmonary embolism - likely 2/2 immobilization - Denies dyspnea, sat well on RA - Remains hemodynamically stable and is saturating well on room air - CTA 03/22 showed 3 small emboli in segmental branches of the right upper lobe and right lower lobe. There is discoid atelectasis in the lingula. There is diffuse interstitial coarsening. There are calcified granulomas in the right hilus. -Cont eliquis 10mg BID for 10 days then 5mg BID -Initial bedside CXR showed interstitial coarsening particularly in the upper lobes versus artifact. CXR repeated showed no signs of infiltr ate/consolidation. -Oxygen therapy and acetaminophen as needed. 2. Mechanical fall - likely 2/2 deconditioning / dementia - Patient uses a cane at baseline - CT head 03/20 showed No acute intracranial abnormality. - XR Knee 03/20 showed no fracture, dislocation or loosening.Focal lucency in the lateral tibial plateau, similar to the prior study, possibly a bone cyst; small joint effusion. Pt will likely need f/u outpt for possible bone cyst - XR Left Hip 03/24 unremarkable. - c/w Physical therapy; patient has been slow to progress - She will likely require subacute rehabilitation placement 3. Deconditioning / weakness - possibly 2/2 underlying infection - Remains afebrile and hemodynamically stable - WBC was noted to trend up now trending down; CRP also trending down - Urine Cx pos for E-coli. Cont Cefdinir (Day #4) and pyridium; repeat urine Cx neg. - CTA chest noted above - CT ab/pel 03/22: Nonspecific mild distension of the cecum and ascending colon. No other bowel distension. Cholelithiasis without biliary duct dilatation. Chronic pancreatic atrophy. Nonobstructive renal calculi. Diverticulosis without diverticulitis. Bilateral hip arthroplasties resulting in beam hardening and obscures most of the pelvis. 4. Dementia - As per patient's home care provider, ; patient has intermittent episodes of confusion - Currently, Pt remains A&O to name and place 5. Bilateral lower extremity chronic venous stasis changes - No signs of fluid overload - Will continue to monitor 6. Elevated Cr - Resolved. D/C IV fluid hydration 7. Pulmonary HTN - Noted on echocardiogram - likely d/t PE 8. HTN - s/p Hypertensive urgency - BP appears well controlled - cont home med Bisoprolol 9. Dyslipidemia - cont home med Simvastatin 10. Stage 1 sacral decubitus ulcer - cont local wound care and position changes 11. s/p Pleuritic chest pain - Currently has no complaints of chest pain - EKG without any significant changes - Troponin negative x 2 13. Intertrigo -Cont Nystatin powder; pending clinical improvement DVT prophylaxis - Cont with anticoagulation with Eliquis Disposition: - Will likely require GEOFF when medically cleared; pending clinical improvement and placement. Pt on Cefidinir day 4 VS,[place], I+O VS, [place], I+O Laboratory Tests 03/25/19 14:46 Red Blood Count 4.80, Mean Corpuscular Volume 91.3, Mean Corpuscular Hemoglobin 28.5, Mean Corpuscular Hemoglobin Concent 31.3 L, Red Cell Distribution Width 14.9 H, Neutrophils (%) (Auto) 83.4 H, Lymphocytes (%) (Auto) 7.7 L, Monocytes (%) (Auto) 7.8 H, Eosinophils (%) (Auto) 0.6, Basophils (%) (Auto) 0.2, Neutrophils # (Auto) 11.6 H, Lymphocytes # (Auto) 1.1 L, Monocytes # (Auto) 1.1 H, Eosinophils # (Auto) 0.1, Basophils # (Auto) 0.0, Calcium Level 9.0 03/26/19 07:03 Calcium Level 7.7 L 03/26/19 07:06 Red Blood Count 4.27, Mean Corpuscular Volume 88.3, Mean Corpuscular Hemoglobin 28.3, Mean Corpuscular Hemoglobin Concent 32.1, Red Cell Distribution Width 15.1 H Vital Signs Date Time Temp Pulse Resp B/P (MAP) Pulse Ox O2 Delivery O2 Flow Rate FiO2 03/26/19 09:50 89 118/65 03/26/19 06:00 97.3 18 96 03/23/19 04:08 2.0 03/20/19 20:07 Nasal Cannula I&O- Last 24 Hours up to 6 AM 03/26/19 06:00 Intake Total 1869 ml Output Total 1000 ml Balance 869 ml GME ATTESTATION GME ATTESTATION My faculty preceptor for this patient encounter was physically present during the encounter and was fully available. All aspects of the patient interview, examination, medical decision making process, and medical care plan development were reviewed and approved by the faculty preceptor. The faculty preceptor is aware and concurs with the plan as stated in the body of this note and will attest to such by his/her cosignature. ATTENDING NOTE I, Sabrina Hernandez, have independently examined this patient and performed my own physical exam, as well as reviewed the documentation and edited where necessary. I have discussed in detail with the resident / student the findings and plan of treatment as documented by the resident / student and edited their note. I agree with their findings and treatment plan and have edited their documentation. I will continue to follow the patient during this hospital stay. Yesterday, patient had an episode of lethargy and a possibility of sepsis was raised. - Full septic workup was completed - Imaging via CT head, chest x-ray, MRI, lumbar and sacral spine were completed - Antibiotics were adjusted to broad-spectrum - Results with septic workup have shown improvement of underlying infection; antibiotics were narrowed down to specific treatment of E. coli urinary tract infection DG BEAUCHAMP DO Mar 26, 2019 11:02 SABRINA HERNANDEZ MD Mar 26, 2019 14:39
[2019-03-26 14:00] VITALS: BP 125/69
[2019-03-26 20:33] VITALS: BP 125/70
[2019-03-26] MEDS: SIMVASTATIN 20 MG TAB PO SCH (20:49)
[2019-03-27 05:37] VITALS: BP 117/68
[2019-03-27 06:37] LABS: HEMATOCRIT 40.2 % (36.0-47.0); HEMOGLOBIN 12.8 g/dl (12.0-15.5); MEAN CORPUSCULAR HGB CONC 31.8 g/dl (32.0-36.5); MEAN CORPUSCULAR VOLUME 91.2 fl (80.0-96.0); PLATELET COUNT, AUTOMATED 359 10^3/uL (150-450); RED BLOOD COUNT 4.41 10^6/uL (4.00-5.40); WHITE BLOOD COUNT 9.3 10^3/uL (4.0-10.0)
[2019-03-27 08:08] LABS: BLOOD UREA NITROGEN 21 MG/DL (7-18); C REACTIVE PROTEIN QUANTITATIV 0.84 MG/DL (0.00-0.30); CALCIUM LEVEL 8.5 MG/DL (8.8-10.2); CARBON DIOXIDE LEVEL 27 MEQ/L (21-32); CHLORIDE LEVEL 112 MEQ/L (98-107); CREATININE FOR GFR 0.68 MG/DL (0.55-1.30); GLOMERULAR FILTRATION RATE > 60.0 (>39); GLUCOSE, FASTING 112 MG/DL (70-100); POTASSIUM SERUM 4.1 MEQ/L (3.5-5.1); SODIUM LEVEL 144 MEQ/L (136-145)
[2019-03-27] MEDS: THIAMINE 100 MG TAB PO SCH (08:13)
[2019-03-27] MEDS: CEFDINIR 300 MG CAP (OMNICEF) PO SCH ×2 (08:13→20:45)
[2019-03-27] MEDS: PHENAZOPYRIDINE 100 MG TAB PO SCH ×2 (08:13→20:45)
[2019-03-27] MEDS: oxyBUTYnin *DITROPAN XL* 5 MG TABCR PO SCH (08:16)
[2019-03-27] MEDS: BISOPROLOL FUMARATE 10 MG TAB PO SCH (08:16)
[2019-03-27] MEDS: APIXABAN 5 MG TAB (ELIQUIS) PO SCH ×2 (08:16→20:45)
--- NOTE | 2019-03-27 10:50 | IPNPDOC ---
Text Note Date of Service The patient was seen on 03/27/19. NOTE HPI: Patient was seen and examined at the bedside.Pt reported no complaints today upon asking. She denied any fever, chills, dyspnea, chest pain, palpitation, abd pain, dysuria. Pt is able to answer the name and place but not to year still. Further questions continued to be unable to be obtained due to pt's dementia/mental status. Pt reported that her will come visit her today. ROS:limited ROS was able to be obtained General: denies fever or chills Chest: denies any chest pain or palpitation Lung:Denies dyspnea Abd: Denies any abdominal pain : denies dysuria Objective: General: Sitting on chair. no acute distress, comfortable, A&OX2. Appears more alert HEENT: Head normocephalic, atraumatic Heart: RRR, no murmur, normal S1 and S2 Lungs:CTA, no rhonchi, rales or wheezing. No accessory muscle use Abdomen: Soft, no tenderness upon palpation in all quad. No guarding. Obese Extremities: There does not appear to be any pitting edema bilateral. Calf tenderness b/l Assessment and plan: 1. Pulmonary embolism - likely 2/2 immobilization - Denies dyspnea, continue sat well on RA - Remains hemodynamically stable and is saturating well on room air - CTA 03/22 showed 3 small emboli in segmental branches of the right upper lobe and right lower lobe. There is discoid atelectasis in the lingula. There is diffuse interstitial coarsening. There are calcified granulomas in the right hilus. -Cont eliquis 10mg BID for 10 days then 5mg BID -Initial bedside CXR showed interstitial coarsening particularly in the upper lobes versus artifact. CXR repeated showed no signs of infiltrate/consolidation. -Oxygen therapy and acetaminophen as needed. 2. Mechanical fall - likely 2/2 deconditioning / dementia - Patient uses a cane at baseline - CT head 03/20 showed No acute intracranial abnormality. - XR Knee 03/20 showed no fracture, dislocation or loosening. Focal lucency in the lateral tibial plateau, similar to the prior study, possibly a bone cyst; small joint effusion. Pt will likely need f/u outpt for possible bone cyst - XR Left Hip 03/24 unremarkable. -Cont with Physical therapy; patient has been slow to progress - She will likely require subacute rehabilitation placement 3. Deconditioning / weakness - possibly 2/2 underlying infection - Remains afebrile and hemodynamically stable - WBC was noted to trend up now trending down; CRP also trending down - Urine Cx pos for E-coli. Cont Cefdinir (Day #5/14) and pyridium; repeat urine Cx neg. Leukocytosis resolved - CTA chest noted above - CT ab/pel 03/22: Nonspecific mild distension of the cecum and ascending colon. No other bowel distension. Cholelithiasis without biliary duct dilatation. Chronic pancreatic atrophy. Nonobstructive renal calculi. Diverticulosis without diverticulitis. Bilateral hip arthroplasties resulting in beam hardening and obscures most of the pelvis. 4. Dementia - As per patient's home care provider, ; patient has intermittent episodes of confusion - Currently, Pt remains A&O to name and place 5. Bilateral lower extremity chronic venous stasis changes - No signs of fluid overload - Will continue to monitor 7. Pulmonary HTN - Noted on echocardiogram - likely d/t PE 8. HTN - s/p Hypertensive urgency - BP appears well controlled - cont home med Bisoprolol 9. Dyslipidemia - cont home med Simvastatin 10. Stage 1 sacral decubitus ulcer - cont local wound care and position changes 11. s/p Pleuritic chest pain - Currently has no complaints of chest pain - EKG without any significant changes - Troponin negative x 2 13. Intertrigo -Cont Nystatin powder; pending clinical improvement DVT prophylaxis - Cont with anticoagulation with Eliquis Disposition: - Will likely require GEOFF when medically cleared; pending clinical improvement and placement. Pt on Cefidinir day 5. Leukocytosis resolved I saw and evaluated the patient. I agree with the findings and plan of care as documented in the above note Michael CARMONA, I+O Michael CARMONA, I+O Laboratory Tests 03/27/19 06:16 Red Blood Count 4.41, Mean Corpuscular Volume 91.2, Mean Corpuscular Hemoglobin 29.0, Mean Corpuscular Hemoglobin Concent 31.8 L, Red Cell Distribution Width 15.1 H 03/27/19 07:34 Calcium Level 8.5 L Vital Signs Date Time Temp Pulse Resp B/P (MAP) Pulse Ox O2 Delivery O2 Flow Rate FiO2 03/27/19 08:16 99 116/63 03/27/19 05:37 97.3 16 97 03/23/19 04:08 2.0 I&O- Last 24 Hours up to 6 AM 03/27/19 06:00 Intake Total 2050 ml Output Total 825 ml Balance 1225 ml DG BEAUCHAMP DO Mar 27, 2019 10:50 ANDREW HAND MD Mar 31, 2019 10:23
[2019-03-27 14:00] VITALS: BP 120/81
[2019-03-27] MEDS: SIMVASTATIN 20 MG TAB PO SCH (20:45)
[2019-03-27 22:00] VITALS: BP 123/69
[2019-03-28 06:00] VITALS: BP 133/81
[2019-03-28 07:38] LABS: HEMATOCRIT 38.7 % (36.0-47.0); HEMOGLOBIN 12.1 g/dl (12.0-15.5); MEAN CORPUSCULAR HGB CONC 31.3 g/dl (32.0-36.5); MEAN CORPUSCULAR VOLUME 89.6 fl (80.0-96.0); PLATELET COUNT, AUTOMATED 343 10^3/uL (150-450); RED BLOOD COUNT 4.32 10^6/uL (4.00-5.40); WHITE BLOOD COUNT 8.8 10^3/uL (4.0-10.0)
[2019-03-28 07:50] LABS: BLOOD UREA NITROGEN 19 MG/DL (7-18); CALCIUM LEVEL 8.4 MG/DL (8.8-10.2); CARBON DIOXIDE LEVEL 25 MEQ/L (21-32); CHLORIDE LEVEL 114 MEQ/L (98-107); CREATININE FOR GFR 0.64 MG/DL (0.55-1.30); GLOMERULAR FILTRATION RATE > 60.0 (>39); GLUCOSE, FASTING 110 MG/DL (70-100); POTASSIUM SERUM 4.1 MEQ/L (3.5-5.1); SODIUM LEVEL 143 MEQ/L (136-145)
[2019-03-28] MEDS: THIAMINE 100 MG TAB PO SCH (09:01)
[2019-03-28] MEDS: CEFDINIR 300 MG CAP (OMNICEF) PO SCH ×2 (09:01→19:58)
[2019-03-28] MEDS: oxyBUTYnin *DITROPAN XL* 5 MG TABCR PO SCH (09:02)
[2019-03-28] MEDS: PHENAZOPYRIDINE 100 MG TAB PO SCH (09:02)
[2019-03-28] MEDS: APIXABAN 5 MG TAB (ELIQUIS) PO SCH ×2 (09:02→19:58)
[2019-03-28] MEDS: BISOPROLOL FUMARATE 10 MG TAB PO SCH (09:02)
[2019-03-28] MEDS: NYSTATIN 100,000 UNITS/GM TOPICAL PWD 15 GM TOP PRN (11:11)
[2019-03-28] MEDS: TAMSULOSIN 0.4 MG CAP PO SCH (11:11)
--- NOTE | 2019-03-28 11:16 | IPNPDOC ---
Text Note Date of Service The patient was seen on 03/28/19. NOTE HPI: Patient was seen and examined at the bedside.Pt reported no complaints today upon asking except for dysuria. She denied any fever, chills, dyspnea, chest pain, palpitation, abd pain. Pt is A&OX3 now and is able to answer her date of . It was noted that pt had urinary retention and had required straight cath. Pt reported some mild burning sensations in b/l inguinal region ROS: General: denies fever,chills, N/V Chest: denies any chest pain or palpitation Lung:Denies dyspnea Abd: Denies any abdominal pain, nausea, or vomiting : denies dysuria Objective: General: Sitting on chair. no acute distress, comfortable, A&OX3. Fully awake HEENT: Head normocephalic, atraumatic Heart: RRR, no murmur, normal S1 and S2 Lungs:CTA, no rhonchi, rales or wheezing. No accessory muscle use Abdomen: Soft, no tenderness upon palpation in all quad. No guarding. Obese Extremities: There does not appear to be any pitting edema bilateral. Calf tenderness b/l Skin: Intertrigo still noted in b/l inguinal region Assessment and plan: 1. Pulmonary embolism - likely 2/2 immobilization - Denies dyspnea, continue sat well on RA - Remains hemodynamically stable and is saturating well on room air - CTA 03/22 showed 3 small emboli in segmental branches of the right upper lobe and right lower lobe. There is discoid atelectasis in the lingula. There is diffuse interstitial coarsening. There are calcified granulomas in the right hilus. -Cont eliquis 10mg BID since 03/22/19 for 10 days then 5mg BID -Initial bedside CXR showed interstitial coarsening particularly in the upper lobes versus artifact. CXR repeated showed no signs of infiltrate/consolidation. -Oxygen therapy and acetaminophen as needed. 2. Mechanical fall - likely 2/2 deconditioning / dementia - Patient uses a cane at baseline - CT head 03/20 showed No acute intracranial abnormality. - XR Knee 03/20 showed no fracture, dislocation or loosening. Focal lucency in the lateral tibial plateau, similar to the prior study, possibly a bone cyst; small joint effusion. Pt will likely need f/u outpt for possible bone cyst - XR Left Hip 03/24 unremarkable. -Cont with Physical therapy; PT recommends to cont rehab after d/c 3. Deconditioning / weakness - possibly 2/2 underlying infection - Remains afebrile and hemodynamically stable - leukocytosis resolved; CRP also trending down - Urine Cx pos for E-coli. Cont Cefdinir (Day #6/). Repeat urine Cx neg. Leukocytosis resolved. - CTA chest noted above - CT ab/pel 03/22: Nonspecific mild distension of the cecum and ascending colon. No other bowel distension. Cholelithiasis without biliary duct dilatation. Chronic pancreatic atrophy. Nonobstructive renal calculi. Diverticulosis without diverticulitis. Bilateral hip arthroplasties resulting in beam hardening and obscures most of the pelvis. - Pyridium d/c. It was noted that pt had required straight cath d/t urinary retention. Tamsulosin ordered. Bladder scan and straight cath TID PRN ordered. Pt transferred to [facility]. 4. Dementia - As per patient's home care provider, ; patient has intermittent e pisodes of confusion - Pt mental status improved form A&OX0 to &A&OX3 5. Bilateral lower extremity chronic venous stasis changes - No signs of fluid overload - Will continue to monitor 7. Pulmonary HTN - Noted on echocardiogram - likely d/t PE 8. HTN - s/p Hypertensive urgency - BP appears well controlled - cont home med Bisoprolol 9. Dyslipidemia - cont home med Simvastatin 10. Stage 1 sacral decubitus ulcer - cont local wound care and position changes 11. s/p Pleuritic chest pain - Currently has no complaints of chest pain - EKG without any significant changes - Troponin negative x 2 13. Intertrigo -Intertrigo still present; pt reported burning sensation in b/l inguinal region. -Cont Nystatin powder; pending clinical improvement DVT prophylaxis - Cont with anticoagulation with Eliquis Disposition: - Will likely require GEOFF when medically cleared; pending clinical improvement and placement. Pt on Cefidinir day 6. Pt transferred to [facility] I saw and evaluated the patient. I agree with the findings and plan of care as documented in the above note Michael CARMONA, I+O VSMichael, I+O Laboratory Tests 03/28/19 07:21 Red Blood Count 4.32, Mean Corpuscular Volume 89.6, Mean Corpuscular Hemoglobin 28.0, Mean Corpuscular Hemoglobin Concent 31.3 L, Red Cell Distribution Width 15.1 H, Calcium Level 8.4 L Vital Signs Date Time Temp Pulse Resp B/P (MAP) Pulse Ox O2 Delivery O2 Flow Rate FiO2 03/28/19 09:02 98 133/81 03/28/19 06:00 96.5 17 93 03/23/19 04:08 2.0 I&O- Last 24 Hours up to 6 AM 03/28/19 06:00 Intake Total 810 ml Output Total 0 ml Balance 810 ml DG BEAUCHAMP DO Mar 28, 2019 11:16 ANDREW HAND MD Mar 31, 2019 10:33
[2019-03-28] MEDS: SIMVASTATIN 20 MG TAB PO SCH (19:58)
[2019-03-28 22:04] VITALS: BP 129/77
[2019-03-29 04:17] VITALS: BP 129/77
[2019-03-29 06:58] LABS: HEMATOCRIT 40.7 % (36.0-47.0); HEMOGLOBIN 12.6 g/dl (12.0-15.5); MEAN CORPUSCULAR HEMOGLOBIN 28.6 pg (27.0-33.0); MEAN CORPUSCULAR VOLUME 92.3 fl (80.0-96.0); PLATELET COUNT, AUTOMATED 327 10^3/uL (150-450); RED BLOOD COUNT 4.41 10^6/uL (4.00-5.40)
[2019-03-29 07:19] LABS: BLOOD UREA NITROGEN 16 MG/DL (7-18); CALCIUM LEVEL 8.6 MG/DL (8.8-10.2); CARBON DIOXIDE LEVEL 25 MEQ/L (21-32); CHLORIDE LEVEL 114 MEQ/L (98-107); CREATININE FOR GFR 0.84 MG/DL (0.55-1.30); GLOMERULAR FILTRATION RATE > 60.0 (>39); GLUCOSE, FASTING 114 MG/DL (70-100); POTASSIUM SERUM 4.2 MEQ/L (3.5-5.1); SODIUM LEVEL 143 MEQ/L (136-145)
[2019-03-29] MEDS: BISOPROLOL FUMARATE 10 MG TAB PO SCH (08:33)
[2019-03-29] MEDS: THIAMINE 100 MG TAB PO SCH (08:33)
[2019-03-29] MEDS: oxyBUTYnin *DITROPAN XL* 5 MG TABCR PO SCH (08:34)
[2019-03-29] MEDS: CEFDINIR 300 MG CAP (OMNICEF) PO SCH ×2 (08:34→20:11)
[2019-03-29] MEDS: APIXABAN 5 MG TAB (ELIQUIS) PO SCH ×2 (08:34→20:11)
[2019-03-29] MEDS: TAMSULOSIN 0.4 MG CAP PO SCH (08:34)
[2019-03-29] MEDS: SIMVASTATIN 20 MG TAB PO SCH (20:11)
[2019-03-30 06:42] LABS: HEMATOCRIT 36.8 % (36.0-47.0); HEMOGLOBIN 11.6 g/dl (12.0-15.5); MEAN CORPUSCULAR HEMOGLOBIN 28.9 pg (27.0-33.0); MEAN CORPUSCULAR HGB CONC 31.5 g/dl (32.0-36.5); MEAN CORPUSCULAR VOLUME 91.8 fl (80.0-96.0); PLATELET COUNT, AUTOMATED 320 10^3/uL (150-450); RED BLOOD COUNT 4.01 10^6/uL (4.00-5.40); WHITE BLOOD COUNT 8.5 10^3/uL (4.0-10.0)
[2019-03-30 06:54] VITALS: BP 112/63
[2019-03-30 07:06] LABS: BLOOD UREA NITROGEN 21 MG/DL (7-18); CALCIUM LEVEL 8.9 MG/DL (8.8-10.2); CARBON DIOXIDE LEVEL 26 MEQ/L (21-32); CHLORIDE LEVEL 113 MEQ/L (98-107); CREATININE FOR GFR 0.88 MG/DL (0.55-1.30); GLOMERULAR FILTRATION RATE > 60.0 (>39); GLUCOSE, FASTING 128 MG/DL (70-100); POTASSIUM SERUM 4.2 MEQ/L (3.5-5.1); SODIUM LEVEL 144 MEQ/L (136-145)
[2019-03-30] MEDS ORDERED: FLOM0.4C39 PO (09:02)
[2019-03-30] MEDS ORDERED: ELIQ5TAB PO (09:02)
[2019-03-30 09:10] VITALS: BP 130/70
[2019-03-30] MEDS: BISOPROLOL FUMARATE 10 MG TAB PO SCH (09:10)
[2019-03-30] MEDS: THIAMINE 100 MG TAB PO SCH (09:11)
[2019-03-30] MEDS: APIXABAN 5 MG TAB (ELIQUIS) PO SCH (09:11)
[2019-03-30] MEDS: TAMSULOSIN 0.4 MG CAP PO SCH (09:11)
[2019-03-30] MEDS: oxyBUTYnin *DITROPAN XL* 5 MG TABCR PO SCH (09:12)
[2019-03-30] MEDS: CEFDINIR 300 MG CAP (OMNICEF) PO SCH (09:13)
--- NOTE | 2019-03-30 17:00 | DS.PDOC ---
Discharge Summary General Date of Admission Mar 20, 2019 at 17:32 Date of Discharge 03/30/19 Discharge Summary PROCEDURES PERFORMED DURING STAY: None. ADMITTING DIAGNOSES: 1. Questionable pneumonia versus bronchitis. 2. Mechanical fall 3. Dementia 4. UTI 5. Severe asymptomatic hypertension 6. Bilateral lower extremity non-pitting edema 7. Dyslipidemia DISCHARGE DIAGNOSES: 1. Pulmonary embolism - likely 2/2 immobilization 2. Mechanical fall - likely 2/2 deconditioning / dementia 3. Deconditioning / weakness - possibly 2/2 underlying infection 4. Dementia 5. Bilateral lower extremity chronic venous stasis changes 6. Pulmonary HTN 7. Chronic HTN with resolved severe asymptomatic hypertension 8. Dyslipidemia 9. Stage 1 sacral decubitus ulcer 10. Pleuritic chest pain, resolved 11. Intertrigo COMPLICATIONS/CHIEF COMPLAINT: UTI. HISTORY OF PRESENT ILLNESS: Patient is a 68-year-old female with a PMH of bilateral breast cancer, hypertension, chronic back pain presented [facility] ER due to 3 weeks of nonproductive cough and mechanical fall today. Patient has baseline dementia. Part of the HPI and medical history was obtained from at bedside. It was noted that the patient had 3 weeks of unproductive cough, which is increased on baseline. There is no fever, chills, or sputum production noted. reported that 3 weeks ago he was diagnosed with pneumonia and was hospitalized for a week. Patient reported no dyspnea or pleuritic chest pain. It was noted that on the way to the ER, patient had a mechanical fall when her was assisting her walk. The patient slipped and fell backwards. Patient reported that she hit her back or head; reported that she had back pain in the thoracic region. Denies any dizziness, lightheadedness, vertigo, or loss of consciousness. Patient usually walks with a cane at home. Frequent falls; it was noted prior to this hospital admission, on 03/14/2019, patient presented to [facility] ER, and reported back pain after a mechanical fall. also reported 3-4 days prior to admission, he found the patient lying on the bedroom floor with unwitnessed fall; pt unable to recall the details of the fall at that time. The patient denies fever or chills, dyspnea, chest pain palpitation, abdominal pain lightheadedness, dizziness, dysuria, urgency. She reported urinary frequency, stating she urinated 4 times the day prior to admission which is increased from baseline HOSPITAL COURSE: Upon admission, she is A&O to name and place with slowed response. Tenderness upon palpation in the thorcic back region was also reported. Pt's Initial chest x-ray showed interstitial coarsening,particularly in the upper lobes versus artifact. Repeat chest x-ray ordered AP and lateral as the bedside chest x-ray was equivocal. Patient was given 1 dose of ceftriaxone in ER. Ceftriaxone and azithromycin was ordered with albuterol and oxygen therapy. Respiratory panel was neg thus pt's antibiotics was transitioned to PO cefdinir for UTI. Head CT done in ER and thoracic X ray showed no acute abnormality; left knee X ray showed no acute fracture, dislocation, or loosening however there's focal lucency questionable for bone cyst noted in left knee X ray. She has blood pressure in ER ranges from 178/95 to 198/99 even with large cuff, a nifedipine Xl 30mg was given with resumed home BP med.B/L LE edema noted thus echo ordered which shows mod pulm HTN thus suspected PE; CTA ordered showed several PE. Pt was started on eliquis 10mg and continues to be more alert and awake the next day being started on eliquis. Pt's mental status had gradually improved with good ox sat on RA. On 03/25/19 there was a question whether patient was is sepsis thus several images were ordered and antibiotics were changed but resumed the next day. No acute abnormalities noted in the images. Pt remains A&Ox2 and at times A&OX3 which is likely baseline. It was noted that pt's was hesitant on having pt go to rehab/correction. Pt was made ALC status as clinically stable. On the day of discharge, pt denies any complaint including fever, chills, nausea, vomiting, dyspnea, or abd pain. DISCHARGE MEDICATIONS: Please see below. ALLERGIES: Please see below. PHYSICAL EXAMINATION ON DISCHARGE: VITAL SIGNS: Please see below. GENERAL: Alert and oriented to name and place. Pt thought it's 2016. Not in acute distress. Pleasant HEENT: Head normocephalic, atraumatic, no conjunctiva injection or scleral icterus NECK: supple CARDIOVASCULAR EXAMINATION: RRR, no murmur, normal S1 and S2 RESPIRATORY EXAMINATION:CTA b/l, no rales, wheezing, or rhonchi ABDOMINAL EXAMINATION: soft, no guarding or distention, bowel sound aus in all 4 quad. No tenderness in all 4 quad EXTREMITIES: No to mild pitting edema in b/l LE. Tenderness in left LE. NEUROLOGICAL EXAMINATION: A&O to name and place. Slowed response. Cognitive fxn and memory mild impairment likely baseline PSYCHIATRIC EXAMINATION: Mood stable, appropriate to situation LABORATORY DATA: Please see below. IMAGING: CXR 03/20 showed Interstitial coarsening/ interstitial infiltrates vs artifact CXR 03/20 repeat showed Left ventricular configuration of the heart with some venous hypertension. Tortuous calcified aorta. Thoracic scoliosis and diffuse degenerative disc changes throughout the thoracic spine. CXR 03/25 unremarkable CTA Three small emboli right upper lobe and right lower lobe. Discoid atelectasis in the lingula. Diffuse interstitial coarsening. Calcified granulomas in the right hilus. Cholelithiasis and cardiomegaly. Thoracic spine X ray showed S-shaped thoracic scoliosis;diffuse degenerative disc changes. No acute abnormality Head CT showed no acute abnormality Left knee X ray showed focal lucency in the lateral tibial plateau possibly bone cyst; small joint effusion Pelvis/abd CT showed nonspecific mild distension of cecum and ascending colon Left hip X ray unremarkable Pelvis MRI limited study. Showed prior hysterectomy and diffuse symmetric muscle atrophy Lumbar MRI showed no acute findings Head CT showed age related atrophy and microvascular changes; no acute finding PROGNOSIS: Good ACTIVITY: As tolerated. DIET: 2G Na diet DISPOSITION: [facility]. DISCHARGE PLAN AND INSTRUCTIONS: 1. Follow up with provider at [facility]. 2. Start Eliquis 5 mg BID for PE; Patient has already received 10 mg BID for 7 days 3. Return to ED if symtpoms worsen. ITEMS TO FOLLOWUP ON ON OUTPATIENT: 1. Pulmonary embolism 2. Intertrigo 3. Stage 1 sacral decubitus ulcer 4. Bilateral lower extremity chronic venous stasis changes 5. Deconditioning / weakness 6. Pulmonary hypertension 7. Focal lucency in left knee X ray questionable for bone cyst DISCHARGE CONDITION: Stable. I saw and evaluated the patient. I agree with the findings and plan of care as documented in the documenters note. I spent 45 minutes coordinating this patient's discharge. Vital Signs/I&Os Vital Signs Date Time Temp Pulse Resp B/P (MAP) Pulse Ox O2 Delivery O2 Flow Rate FiO2 03/30/19 09:10 103 130/70 03/30/19 06:54 98.4 18 98 I&O- Last 24 Hours up to 6 AM 03/30/19 06:00 Intake Total 1940 ml Output Total 1200 ml Balance 740 ml Laboratory Data Labs 24H Laboratory Tests 2 03/30/19 05:50: Nucleated Red Blood Cells % (auto) 0.0, Anion Gap 5L, Glomerular Filtration Rate > 60.0, Blood Urea Nitrogen 21H, Creatinine 0.88, Sodium Level 144, Potassium Level 4.2, Chloride Level 113H, Carbon Dioxide Level 26, Calcium Level 8.9 CBC/BMP Laboratory Tests 03/30/19 05:50 Red Blood Count 4.01, Mean Corpuscular Volume 91.8, Mean Corpuscular Hemoglobin 28.9, Mean Corpuscular Hemoglobin Concent 31.5 L, Red Cell Distribution Width 15.2 H, Calcium Level 8.9 Microbiology Microbiology 03/25/19 Blood Culture - Final, Complete NO GROWTH AFTER 5 DAYS 03/25/19 Blood Culture - Final, Complete NO GROWTH AFTER 5 DAYS 03/20/19 Blood Culture - Final, Complete NO GROWTH AFTER 5 DAYS 03/20/19 Blood Culture - Final, Complete NO GROWTH AFTER 5 DAYS 03/20/19 Respiratory Virus Panel (PCR) (RAJESH) - Final, Complete 03/25/19 Urine Culture - Final, Complete 03/20/19 Urine Culture - Final, Complete Escherichia Coli Discharge Medications Scheduled Apixaban (Eliquis) 5 Mg Tablet, 1 TAB PO BID Bisoprolol Fumarate (Bisoprolol Fumarate) 10 Mg Tablet, 10 MG PO DAILY, (Reported) Simvastatin (Simvastatin) 20 Mg Tab, 20 MG PO QHS, (Reported) Tamsulosin HCl (Flomax) 0.4 Mg Capsule, 0.4 MG PO DAILY Allergies Coded Allergies: atenolol (Verified Allergy, Intermediate, WHEEZING, 03/14/19) celecoxib (Verified Adverse Reaction, Mild, NAUSEA, 03/14/19) meperidine (Verified Adverse Reaction, Mild, VOMITING, 03/14/19) DG BEAUCHAMP DO Mar 30, 2019 17:00 ANDREW HAND MD Mar 31, 2019 10:48
== END 2019-03-30 13:15 | DRG 689 ==
LOC: EDBD 14:39 → M ED 14:39 → M ED INP 17:32 → M PCU 20:34 → M MS5PR 03-23 09:37
PROVIDERS: ADMIT Internal Medicine; ATTEND Internal Medicine
DX: N39.0 Urinary tract infection, site not specified (principal); I26.99 Other pulmonary embolism without acute cor pulmonale; I10 Essential (primary) hypertension; E78.5 Hyperlipidemia, unspecified; R60.0 Localized edema; F03.90 Unspecified dementia, unspecified severity, without behavioral disturbance, psychotic disturbance, mood disturbance, and anxiety; B96.20 Unspecified Escherichia coli [E. coli] as the cause of diseases classified elsewhere; I45.10 Unspecified right bundle-branch block; L30.4 Erythema intertrigo; J44.9 Chronic obstructive pulmonary disease, unspecified; I27.20 Pulmonary hypertension, unspecified; M54.6 Pain in thoracic spine; J84.10 Pulmonary fibrosis, unspecified; R07.89 Other chest pain; L89.151 Pressure ulcer of sacral region, stage 1; I87.2 Venous insufficiency (chronic) (peripheral); M81.0 Age-related osteoporosis without current pathological fracture; R29.6 Repeated falls; Z87.442 Personal history of urinary calculi; Z98.49 Cataract extraction status, unspecified eye; Z90.13 Acquired absence of bilateral breasts and nipples; Z96.643 Presence of artificial hip joint, bilateral; Z96.653 Presence of artificial knee joint, bilateral; Z85.3 Personal history of malignant neoplasm of breast; Z86.010 Personal history of colon polyps; Z79.899 Other long term (current) drug therapy; Z88.8 Allergy status to other drugs, medicaments and biological substances

== ENCOUNTER → 2019-04-02 | Outpatient (REF) | payer MEDICARE, BC, OTHER ==
[~2019-04-02] MED LIST changes: +ACET1TAB55 PO; +APAP325T4 PO; +ARIC1TAB PO; +BACT800T5 PO; +BISA10SU27 PR; +BISO10TA14 PO; +BISO5TAB14 PO; -BISO5TAB9 PO; +ELIQ5TAB PO; +ENEMENE PR; +ENSU1LIQ36 PO; +MILKSUS3 PO; +NON-325T5 PO; -OXYB10TA2 PO; +OXYB10TA23 PO; +SIMV20TA22 PO; +SULF1TAB93 PO
[2019-04-02 15:26] LABS: HEMOGLOBIN 11.9 g/dl (12.0-15.5); MEAN CORPUSCULAR HEMOGLOBIN 28.8 pg (27.0-33.0); MEAN CORPUSCULAR HGB CONC 31.3 g/dl (32.0-36.5); PLATELET COUNT, AUTOMATED 297 10^3/uL (150-450); RED BLOOD COUNT 4.13 10^6/uL (4.00-5.40); WHITE BLOOD COUNT 9.2 10^3/uL (4.0-10.0)
[2019-04-02 15:28] LABS: APPEARANCE, URINE MANUAL CLOUDY (CLEAR)
[2019-04-02 15:29] LABS: BILIRUBIN, URINE MANUAL OBSCURED (NEGATIVE); BLOOD URINE MANUAL OBSCURED (NEGATIVE); COLOR, URINE MANUAL BROWN (YELLOW); GLUCOSE, URINE (UA) MANUAL OBSCURED mg/dL (NEGATIVE); KETONE, URINE MANUAL OBSCURED mg/dL (NEGATIVE); LEUKOCYTE ESTERASE, URINE MAN OBSCURED (NEGATIVE); NITRITE, URINE MANUAL OBSCURED (NEGATIVE); PH,URINE MAN OBSCURED UNITS (5.0 - 7.0); PROTEIN, URINE MANUAL OBSCURED mg/dL (NEGATIVE); SPECIFIC GRAVITY,URINE MANUAL 1.016 (1.002-1.035); UROBILINOGEN, URINE MANUAL OBSCURED mg/dl (NORMAL)
[2019-04-02 15:32] LABS: BACTERIA, URINE MOD AMOUNT; RBC, URINE TNTC /hpf (0-3); WBC, URINE 20-30 /hpf (0-3)
[2019-04-02 15:52] LABS: BLOOD UREA NITROGEN 25 MG/DL (7-18); CALCIUM LEVEL 8.6 MG/DL (8.8-10.2); CARBON DIOXIDE LEVEL 25 MEQ/L (21-32); CHLORIDE LEVEL 111 MEQ/L (98-107); CREATININE FOR GFR 0.79 MG/DL (0.55-1.30); GLOMERULAR FILTRATION RATE > 60.0 (>39); GLUCOSE, FASTING 125 MG/DL (70-100); POTASSIUM SERUM 4.3 MEQ/L (3.5-5.1); SODIUM LEVEL 146 MEQ/L (136-145)
== END ==
PROVIDERS: ATTEND Family Medicine
DX: I10 Essential (primary) hypertension (principal)

== ENCOUNTER → 2019-04-05 | Outpatient (REF) ==
[2019-04-05 10:24] LABS: HEMATOCRIT 34.7 % (36.0-47.0); HEMOGLOBIN 10.9 g/dl (12.0-15.5); MEAN CORPUSCULAR HEMOGLOBIN 28.9 pg (27.0-33.0); MEAN CORPUSCULAR HGB CONC 31.4 g/dl (32.0-36.5); PLATELET COUNT, AUTOMATED 269 10^3/uL (150-450); RED BLOOD COUNT 3.77 10^6/uL (4.00-5.40); WHITE BLOOD COUNT 6.9 10^3/uL (4.0-10.0)
[2019-04-05 10:47] LABS: BLOOD UREA NITROGEN 15 MG/DL (7-18); CALCIUM LEVEL 8.4 MG/DL (8.8-10.2); CARBON DIOXIDE LEVEL 25 MEQ/L (21-32); CHLORIDE LEVEL 111 MEQ/L (98-107); GLOMERULAR FILTRATION RATE > 60.0 (>39); GLUCOSE, FASTING 90 MG/DL (70-100); POTASSIUM SERUM 4.2 MEQ/L (3.5-5.1); SODIUM LEVEL 144 MEQ/L (136-145)
== END ==
PROVIDERS: ATTEND Family Medicine
DX: R31.0 Gross hematuria (principal)

== ENCOUNTER → 2019-04-06 | Outpatient (REF) | PROVIDERS: ATTEND Family Medicine | DX: R31.0 Gross hematuria (principal) ==

== ENCOUNTER → 2019-04-09 | Outpatient (REF) | payer MEDICARE ==
[~2019-04-09] MED LIST changes: -ACET1TAB55 PO; -APAP325T4 PO; -ARIC1TAB PO; -BISA10SU27 PR; +BISO10TA10 PO; -BISO10TA14 PO; -BISO5TAB14 PO; +BISO5TAB9 PO; -ENEMENE PR; -ENSU1LIQ36 PO; -MILKSUS3 PO; -NON-325T5 PO; +OXYB10TA2 PO; -OXYB10TA23 PO; -SIMV20TA22 PO
== END ==
PROVIDERS: ATTEND Physician Assistant
DX: R31.9 Hematuria, unspecified (principal)

== ENCOUNTER → 2019-04-11 | Outpatient (REF) ==
[2019-04-11 09:22] LABS: HEMATOCRIT 35.2 % (36.0-47.0); HEMOGLOBIN 11.1 g/dl (12.0-15.5); MEAN CORPUSCULAR HEMOGLOBIN 28.6 pg (27.0-33.0); MEAN CORPUSCULAR HGB CONC 31.5 g/dl (32.0-36.5); MEAN CORPUSCULAR VOLUME 90.7 fl (80.0-96.0); PLATELET COUNT, AUTOMATED 290 10^3/uL (150-450); RED BLOOD COUNT 3.88 10^6/uL (4.00-5.40); WHITE BLOOD COUNT 6.6 10^3/uL (4.0-10.0)
[2019-04-11 09:47] LABS: BLOOD UREA NITROGEN 14 MG/DL (7-18); CALCIUM LEVEL 8.6 MG/DL (8.8-10.2); CARBON DIOXIDE LEVEL 26 MEQ/L (21-32); CHLORIDE LEVEL 109 MEQ/L (98-107); CREATININE FOR GFR 0.72 MG/DL (0.55-1.30); GLOMERULAR FILTRATION RATE > 60.0 (>39); GLUCOSE, FASTING 175 MG/DL (70-100); POTASSIUM SERUM 4.3 MEQ/L (3.5-5.1); SODIUM LEVEL 142 MEQ/L (136-145)
== END ==
PROVIDERS: ATTEND Family Medicine
DX: R31.9 Hematuria, unspecified (principal)

== ENCOUNTER → 2019-04-12 | Outpatient (REF) | payer MEDICARE | PROVIDERS: ATTEND Family Medicine | DX: R31.0 Gross hematuria (principal) ==

== ENCOUNTER → 2019-05-16 | Outpatient (REF) ==
[2019-05-16 10:03] LABS: HEMATOCRIT 40.9 % (36.0-47.0); HEMOGLOBIN 12.5 g/dl (12.0-15.5); MEAN CORPUSCULAR HEMOGLOBIN 28.5 pg (27.0-33.0); MEAN CORPUSCULAR HGB CONC 30.6 g/dl (32.0-36.5); MEAN CORPUSCULAR VOLUME 93.4 fl (80.0-96.0); PLATELET COUNT, AUTOMATED 306 10^3/uL (150-450); RED BLOOD COUNT 4.38 10^6/uL (4.00-5.40); WHITE BLOOD COUNT 7.6 10^3/uL (4.0-10.0)
[2019-05-16 10:21] LABS: BLOOD UREA NITROGEN 26 MG/DL (7-18); CALCIUM LEVEL 8.5 MG/DL (8.8-10.2); CARBON DIOXIDE LEVEL 27 MEQ/L (21-32); CHLORIDE LEVEL 109 MEQ/L (98-107); CREATININE FOR GFR 0.93 MG/DL (0.55-1.30); GLOMERULAR FILTRATION RATE > 60.0 (>39); GLUCOSE, FASTING 267 MG/DL (70-100); SODIUM LEVEL 143 MEQ/L (136-145)
== END ==
PROVIDERS: ATTEND Family Medicine
DX: I10 Essential (primary) hypertension (principal)

== ENCOUNTER → 2019-05-18 | Outpatient (REF) | payer MEDICARE, OTHER ==
[~2019-05-18] MED LIST changes: +ACET1TAB55 PO; +APAP325T4 PO; +ARIC1TAB PO; +BISA10SU27 PR; +ENEMENE PR; +ENSU1LIQ36 PO; +MILKSUS3 PO; +NON-325T5 PO
== END ==
LOC: M SFHCPLAZ 17:32
PROVIDERS: ATTEND Dermatology
DX: C44.519 Basal cell carcinoma of skin of other part of trunk (principal)
CPT/HCPCS: 11102; 88305; G0463

== ENCOUNTER 2019-05-19 17:33 | Emergency (ER) | payer MEDICARE, OTHER ==
[~2019-05-19 17:33] MED LIST changes: -ACET1TAB55 PO; -APAP325T4 PO; -ARIC1TAB PO; -BISA10SU27 PR; -ENEMENE PR; -ENSU1LIQ36 PO; -MILKSUS3 PO; -NON-325T5 PO
[2019-05-19] MEDS ORDERED: NON-325T5 PO (18:03)
[2019-05-19] MEDS ORDERED: BISA10SU27 PR (18:03)
[2019-05-19] MEDS ORDERED: ARIC1TAB PO (18:03)
[2019-05-19] MEDS ORDERED: APAP325T4 PO (18:03)
[2019-05-19] MEDS ORDERED: ELIQ5TAB PO (18:03)
[2019-05-19] MEDS ORDERED: ENEMENE PR (18:03)
[2019-05-19] MEDS ORDERED: ENSU1LIQ36 PO (18:03)
[2019-05-19] MEDS ORDERED: MILKSUS3 PO (18:03)
[2019-05-19] MEDS ORDERED: ACET1TAB55 PO (18:04)
[2019-05-19 18:10] LABS: BASO % 0.2 % (0.0-1.0); EOS % 0.2 % (0.0-3.0); HEMATOCRIT 44.7 % (36.0-47.0); HEMOGLOBIN 14.3 g/dl (12.0-15.5); LYMPH # 1.1 10^3/uL (1.5-5.0); LYMPH % 10.7 % (24.0-44.0); MEAN CORPUSCULAR HEMOGLOBIN 29.4 pg (27.0-33.0); MEAN CORPUSCULAR VOLUME 91.8 fl (80.0-96.0); MONO # 0.7 10^3/uL (0.0-0.8); MONO % 7.1 % (0.0-5.0); NEUTROPHILS # 8.4 10^3/uL (1.5-8.5); NEUTROPHILS % 81.4 % (36.0-66.0); PLATELET COUNT, AUTOMATED 312 10^3/uL (150-450); RED BLOOD COUNT 4.87 10^6/uL (4.00-5.40); WHITE BLOOD COUNT 10.3 10^3/uL (4.0-10.0)
[2019-05-19 18:35] LABS: ALBUMIN 3.3 GM/DL (3.2-5.2); ALT/SGPT 19 U/L (12-78); BILIRUBIN,DIRECT < 0.1 MG/DL (0.0-0.2); BILIRUBIN,TOTAL 0.4 MG/DL (0.2-1.0); LIPASE 149 U/L (73-393); TOTAL PROTEIN 6.5 GM/DL (6.4-8.2)
[2019-05-19] MEDS ORDERED: ISOVUE-370 76% 100ML VIAL (Q9967) As Ordered ONE (19:08)
--- NOTE | 2019-05-19 20:37 | REPVR ---
PROCEDURE INFORMATION: Exam: CT Abdomen And Pelvis With Contrast Exam date and time: 05/19/2019 7:12 PM Clinical history: 69 years old, female; Abdominal pain; Localized; Lower; Additional info: Lower abdominal pain; R/O colitis vs appy TECHNIQUE: Imaging protocol: Computed tomography of the abdomen and pelvis with intravenous contrast. Radiation optimization: All CT scans at this facility use at least one of these dose optimization techniques: automated exposure control; mA and/or kV adjustment per patient size (includes targeted exams where dose is matched to clinical indication); or iterative reconstruction. Contrast material: ISOVUE 370; Contrast volume: 100 ml; Contrast route: IV; COMPARISON: CT ABD/PEL W/IV ORAL CONTRAS 03/22/2019 3:59 PM FINDINGS: Limitations: Streak artifact obscures the pelvis. Tubes, catheters and devices: A balloon bladder catheter is present. Lungs: Dependent subsegmental pulmonary atelectasis. Liver: Small, less than 5 mm, liver hypodensity. Highly likely to be benign and does not require follow-up imaging or biopsy per ACR. Gallbladder and bile ducts: Normal. No calcified stones. No ductal dilation. Pancreas: Normal. No ductal dilation. Spleen: Normal. No splenomegaly. Adrenals: Normal. No mass. Kidneys and ureters: Renal scarring. Right ureteral urothelial enhancement and thickening, correlate with urinalysis for ureteritis. Moderate renal atrophy. Numerous nonobstructing renal calculi measuring up to 1 cm. Renal scarring. Distal ureters cannot be visualized due to the streak artifact from hip hardware. Stomach and bowel: Cholelithiasis, with mild mucosal enhancement of the wall and minimal thickening. Small gastric fundal diverticulum. Mild colonic diverticulosis without evidence for acute diverticulitis. Gastric wall mild thickening, question mild gastritis. Appendix: No evidence of acute appendicitis. Intraperitoneal space: Unremarkable. No free air. No significant fluid collection. Vasculature: Unremarkable. No abdominal aortic aneurysm. Lymph nodes: Unremarkable. No enlarged lymph nodes. Bladder: Largely obscured but decompressed. Reproductive: Hysterectomy. Bones/joints: Bilateral hip arthroplasty hardware intact. Mild lumbar spondylosis. Grade 2 L5-S1 anterolisthesis with osseous fusion across the endplates. Soft tissues: Left breast implants. Calcification of the breast capsule. IMPRESSION: 1. Cholelithiasis, with mild mucosal enhancement of the wall and minimal thickening. Correlate and consider ultrasound. 2. Right ureteral urothelial enhancement and thickening, correlate with urinalysis for ureteritis. 3. Distal ureters cannot be visualized due to the streak artifact from hip hardware. 4. Small gastric fundal diverticulum. 5. Numerous nonobstructing renal calculi measuring up to 1 cm. 6. Mild colonic diverticulosis without evidence for acute diverticulitis. 7. No evidence of acute appendicitis. 8. Gastric wall mild thickening, question mild gastritis. COMMENT: Consistent with the [employer]'s Incidental Findings Committee Report (J [employer] Jewel [employer]iol 2010): Unless the patient's specific circumstances suggest otherwise, any liver lesion 0.5 cm or less, any cystic kidney lesion less than 1.0 cm, and/or any adrenal lesion 1.0 cm or less not otherwise characterized in this report as possessing suspicious or indeterminate imaging features is/are highly likely to be benign and do not require follow-up imaging or biopsy. Electronically signed by: Saturnino Wilkes On 05/19/2019 20:37:18 PM
[2019-05-19 21:45] VITALS: BP 129/80
--- NOTE | 2019-05-20 08:35 | REP ---
CHEST, SINGLE VIEW: COMPARISON: 03/25/2019 I see no acute infiltrate. There is cardiomegaly. There is calcification and ectasia of the thoracic aorta. Calcified granulomatous are again seen in the right upper lobe. There are metallic clips in both axillary regions. There are degenerative changes of the spine with curvature toward the right. IMPRESSION: No acute infiltrate. Cardiomegaly and chronic changes. Electronically Signed by Tavo Payton MD 05/20/2019 12:25 P
--- NOTE | 2019-05-22 11:05 | ED PDOC ---
Post-Departure Follow-Up dr goodrich faxed formal report of ct abd/p for fu Momo Ureña MD May 22, 2019 11:05
== END 2019-05-19 22:09 | disposition home or self-care (01) ==
LOC: M ED 17:33 → EDBD 17:33 → M ED 22:09
DX: K80.20 Calculus of gallbladder without cholecystitis without obstruction (principal); T83.098A Other mechanical complication of other urinary catheter, initial encounter; X58.XXXA Exposure to other specified factors, initial encounter; Y92.89 Other specified places as the place of occurrence of the external cause; I10 Essential (primary) hypertension; E78.5 Hyperlipidemia, unspecified; K21.9 Gastro-esophageal reflux disease without esophagitis; Z79.899 Other long term (current) drug therapy; Z79.01 Long term (current) use of anticoagulants; Z88.8 Allergy status to other drugs, medicaments and biological substances
CPT/HCPCS: 36415; 51702; 71045; 74177; 80047; 80076; 81001; 83605; 83690; 85025; 87040; 87088; 87186; 93041; 99285; Q9967

== ENCOUNTER → 2019-06-05 | Outpatient (REF) ==
[~2019-06-05] MED LIST changes: +ACET1TAB55 PO; +APAP325T4 PO; +ARIC1TAB PO; +BISA10SU27 PR; +ENEMENE PR; +ENSU1LIQ36 PO; +MILKSUS3 PO; +NON-325T5 PO
[2019-06-05 10:54] LABS: HEMOGLOBIN A1c 5.9 %
== END ==
PROVIDERS: ATTEND Family Medicine
DX: E11.9 Type 2 diabetes mellitus without complications (principal)

== ENCOUNTER → 2019-07-16 | Outpatient (REF) ==
[~2019-07-16] MED LIST changes: +SIMV20TA22 PO
[2019-07-16 12:07] LABS: HEMATOCRIT 41.4 % (36.0-47.0); HEMOGLOBIN 12.7 g/dl (12.0-15.5); MEAN CORPUSCULAR HEMOGLOBIN 28.2 pg (27.0-33.0); MEAN CORPUSCULAR HGB CONC 30.7 g/dl (32.0-36.5); MEAN CORPUSCULAR VOLUME 91.8 fl (80.0-96.0); PLATELET COUNT, AUTOMATED 252 10^3/uL (150-450); RED BLOOD COUNT 4.51 10^6/uL (4.00-5.40); WHITE BLOOD COUNT 6.2 10^3/uL (4.0-10.0)
[2019-07-16 12:31] LABS: BLOOD UREA NITROGEN 25 MG/DL (7-18); CALCIUM LEVEL 8.3 MG/DL (8.8-10.2); CARBON DIOXIDE LEVEL 28 MEQ/L (21-32); CHLORIDE LEVEL 107 MEQ/L (98-107); CREATININE FOR GFR 0.83 MG/DL (0.55-1.30); GLOMERULAR FILTRATION RATE > 60.0 (>39); GLUCOSE, FASTING 218 MG/DL (70-100); POTASSIUM SERUM 4.2 MEQ/L (3.5-5.1); SODIUM LEVEL 143 MEQ/L (136-145)
== END ==
PROVIDERS: ATTEND Family Medicine
DX: I10 Essential (primary) hypertension (principal)

== ENCOUNTER → 2019-08-18 | Outpatient (REF) | payer MEDICARE, OTHER ==
[~2019-08-18] MED LIST changes: -BISO10TA10 PO; +BISO10TA14 PO; +BISO5TAB14 PO; -BISO5TAB9 PO; -OXYB10TA2 PO; +OXYB10TA23 PO
== END ==
PROVIDERS: ATTEND Family Medicine
DX: J06.9 Acute upper respiratory infection, unspecified (principal)

== ENCOUNTER → 2019-09-12 | Outpatient (CLI) | payer MEDICARE, BC, OTHER | LOC: M RAD 13:19 | PROVIDERS: ATTEND Family Medicine | DX: R05 Cough (principal) ==

== ENCOUNTER → 2019-09-12 | Outpatient (REF) ==
[2019-09-12 13:47] LABS: HEMOGLOBIN 12.3 g/dl (12.0-15.5); MEAN CORPUSCULAR HEMOGLOBIN 28.1 pg (27.0-33.0); MEAN CORPUSCULAR HGB CONC 31.5 g/dl (32.0-36.5); MEAN CORPUSCULAR VOLUME 89.2 fl (80.0-96.0); PLATELET COUNT, AUTOMATED 308 10^3/uL (150-450); RED BLOOD COUNT 4.37 10^6/uL (4.00-5.40); WHITE BLOOD COUNT 10.6 10^3/uL (4.0-10.0)
[2019-09-12 14:11] LABS: INFLUENZA A AMPLIFICATION POSITIVE (NEGATIVE); INFLUENZA B AMPLIFICATION NEGATIVE (NEGATIVE)
--- NOTE | 2019-09-12 14:12 | REP ---
Clinical: Cough. Technique: AP and cross-table lateral. Comparison: 05/19/2019. Findings: Left lower opacity is again noted and may reflect acute versus chronic infiltrate. Remainder of lung dee are relatively clear without further focal consolidation. No obvious effusion. No pneumothorax. Skeletal structures demonstrate osteopenia and degenerative changes. Evidence of prior bilateral axillary node dissection. Impression: Acute and/or chronic opacity at the left base should be correlated with auscultation and physical examination. Electronically Signed by Fritz Aguirre MD 09/12/2019 02:04 P
[2019-09-12 14:16] LABS: BLOOD UREA NITROGEN 26 MG/DL (7-18); CALCIUM LEVEL 9.2 MG/DL (8.8-10.2); CARBON DIOXIDE LEVEL 30 MEQ/L (21-32); CHLORIDE LEVEL 105 MEQ/L (98-107); CREATININE FOR GFR 0.95 MG/DL (0.55-1.30); GLOMERULAR FILTRATION RATE > 60.0 (>39); GLUCOSE, FASTING 135 MG/DL (70-100); POTASSIUM SERUM 4.7 MEQ/L (3.5-5.1); SODIUM LEVEL 140 MEQ/L (136-145)
== END ==
PROVIDERS: ATTEND Physician Assistant
DX: R05 Cough (principal)

== ENCOUNTER → 2019-10-17 | Outpatient (REF) | payer MEDICARE, BC, OTHER ==
[2019-10-17 10:02] LABS: HEMATOCRIT 39.2 % (36.0-47.0); HEMOGLOBIN 11.9 g/dl (12.0-15.5); MEAN CORPUSCULAR HEMOGLOBIN 27.4 pg (27.0-33.0); MEAN CORPUSCULAR HGB CONC 30.4 g/dl (32.0-36.5); MEAN CORPUSCULAR VOLUME 90.1 fl (80.0-96.0); PLATELET COUNT, AUTOMATED 254 10^3/uL (150-450); RED BLOOD COUNT 4.35 10^6/uL (4.00-5.40); WHITE BLOOD COUNT 7.4 10^3/uL (4.0-10.0)
[2019-10-17 10:16] LABS: BLOOD UREA NITROGEN 19 MG/DL (7-18); CALCIUM LEVEL 8.8 MG/DL (8.8-10.2); CARBON DIOXIDE LEVEL 29 MEQ/L (21-32); CHLORIDE LEVEL 108 MEQ/L (98-107); CREATININE FOR GFR 0.76 MG/DL (0.55-1.30); GLOMERULAR FILTRATION RATE > 60.0 (>39); GLUCOSE, FASTING 153 MG/DL (70-100); POTASSIUM SERUM 3.9 MEQ/L (3.5-5.1); SODIUM LEVEL 142 MEQ/L (136-145)
== END ==
PROVIDERS: ATTEND Family Medicine
DX: I10 Essential (primary) hypertension (principal)

== ENCOUNTER 2019-10-24 03:35 | Observation (INO) | payer MEDICARE, BC, OTHER ==
[~2019-10-24] VITALS: Ht 165.1 cm; Wt 77.3 kg
[2019-10-24] MEDS ORDERED: METF500T13 PO (03:53)
--- NOTE | 2019-10-24 03:59 | REPVR ---
PROCEDURE INFORMATION: Exam: CT Head Without Contrast Exam date and time: 10/24/2019 3:37 AM Age: 69 years old Clinical indication: Injury or trauma; Fall; Initial encounter; Concussion / head injury; Consciousness not specified; Additional info: Fall on eliquis, head injury TECHNIQUE: Imaging protocol: Computed tomography of the head without contrast. Radiation optimization: All CT scans at this facility use at least one of these dose optimization techniques: automated exposure control; mA and/or kV adjustment per patient size (includes targeted exams where dose is matched to clinical indication); or iterative reconstruction. COMPARISON: CT Head without contrast 03/25/2019 3:09 PM FINDINGS: Brain: There is minimal patchy low attenuation of deep white matter. There is slight prominence of the peripheral sulci. Bilateral basal ganglia calcifications are noted. Ventricles: There is slight prominence of the central ventricular system. Bones/joints: Unremarkable. No acute fracture. Sinuses: Visualized sinuses are unremarkable. No fluid levels. Mastoid air cells: Visualized mastoid air cells are well aerated. Soft tissues: Right posterior parietal scalp soft tissue swelling and hematoma. IMPRESSION: 1. Right posterior parietal scalp soft tissue swelling and hematoma which is new since 03/25/2019. 2. Minimal chronic ischemic white matter change and atrophy which is similar to the prior study. 3. Otherwise negative noncontrast head CT. Electronically signed by: Amarjit Guadalupe On 10/24/2019 03:58:41 AM
--- NOTE | 2019-10-24 04:04 | REPVR ---
PROCEDURE INFORMATION: Exam: CT Cervical Spine Without Contrast Exam date and time: 10/24/2019 3:37 AM Age: 69 years old Clinical indication: Injury or trauma; Fall; Initial encounter; Concussion /head injury; Additional info: Fall on eliquis, head injury TECHNIQUE: Imaging protocol: Computed tomography images of the cervical spine without contrast. Radiation optimization: All CT scans at this facility use at least one of these dose optimization techniques: automated exposure control; mA and/or kV adjustment per patient size (includes targeted exams where dose is matched to clinical indication); or iterative reconstruction. COMPARISON: No relevant prior studies available. FINDINGS: Vertebrae: No acute fracture. Ankylosis of the left apophyseal joints at C4-C5. C2-C3: Slight interspace narrowing with bilateral degenerative changes of apophyseal joints with no significant spinal or foraminal stenosis. C3-C4: Prominent interspace narrowing with endplate sclerosis and irregularity and mild retrolisthesis and minimal osteophytes and bilateral degenerative changes. There is moderate secondary spinal stenosis with focal cord flattening or compression and mild bilateral neural foraminal stenosis. C4-C5: Prominent interspace narrowing with slight anterolisthesis and bilateral degenerative change with ankylosis of the left apophyseal joints. There is mild secondary spinal stenosis and borderline left neural foraminal stenosis. C5-C6: Prominent interspace narrowing with minimal posterior osteophytes and bilateral degenerative change. There is mild bilateral neural foraminal stenosis. C6-C7: Moderate interspace narrowing with minimal posterior osteophytes and bilateral degenerative changes. There is adequate size of the neural foramen. C7-T1: Mild interspace narrowing with mild degenerative changes and no significant spinal or foraminal stenosis. Soft tissues: Unremarkable. Lungs: Minimal patchy infiltrates are noted. IMPRESSION: 1. Multilevel degenerative changes with varying degrees of spinal and neural foraminal stenosis as described. There is significant spinal stenosis at C3-C4 with focal cord flattening or compression. In the setting of trauma, cord injury may occur. 2. No acute fracture or subluxation. Electronically signed by: Amarjit Guadalupe On 10/24/2019 04:04:47 AM
[2019-10-24 04:51] LABS: BASO % 0.4 % (0.0-1.0); EOS # 0.1 10^3/uL (0.0-0.5); EOS % 1.3 % (0.0-3.0); HEMATOCRIT 40.3 % (36.0-47.0); HEMOGLOBIN 12.5 g/dl (12.0-15.5); LYMPH # 1.4 10^3/uL (1.5-5.0); LYMPH % 14.2 % (24.0-44.0); MEAN CORPUSCULAR HEMOGLOBIN 27.3 pg (27.0-33.0); NEUTROPHILS # 7.2 10^3/uL (1.5-8.5); NEUTROPHILS % 73.6 % (36.0-66.0); PLATELET COUNT, AUTOMATED 315 10^3/uL (150-450); RED BLOOD COUNT 4.58 10^6/uL (4.00-5.40); WHITE BLOOD COUNT 9.7 10^3/uL (4.0-10.0)
[2019-10-24] MEDS ORDERED: bisoproloL fumarate 5 MG TAB PO ONE (05:00)
[2019-10-24] MEDS ORDERED: bisoproloL fumarate 10 MG TAB PO ONE (05:00)
[2019-10-24 05:15] LABS: BLOOD UREA NITROGEN 20 MG/DL (7-18); CARBON DIOXIDE LEVEL 29 MEQ/L (21-32); CHLORIDE LEVEL 107 MEQ/L (98-107); CK-MB VALUE MASS 1.9 NG/ML (<3.6); CPK CREATINE PHOSPHOKINASE 60 U/L (26-192); CREATININE FOR GFR 0.72 MG/DL (0.55-1.30); GLOMERULAR FILTRATION RATE > 60.0 (>39); GLUCOSE, FASTING 107 MG/DL (70-100); MB/CK RELATIVE INDEX 3.17 (< OR =4); SODIUM LEVEL 141 MEQ/L (136-145); TROPONIN I < 0.02 NG/ML (< 0.10)
--- NOTE | 2019-10-24 05:39 | ECGEPIP ---
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
[2019-10-24] MEDS ORDERED: MECLIZINE 25 MG TABLET PO ONE (06:00)
[2019-10-24] MEDS ORDERED: ROBI1LIQ9 PO (07:33)
[2019-10-24] MEDS ORDERED: ENSU1LIQ36 PO (07:33)
[2019-10-24] MEDS ORDERED: SM A TOP (07:33)
[2019-10-24] MEDS ORDERED: SM N0.65 NARES (07:33)
[2019-10-24] MEDS ORDERED: ACET1TAB55 PO ×2 (07:37)
[2019-10-24] MEDS ORDERED: LR 1,000 ML IV SCH (08:30)
[2019-10-24 09:11] VITALS: BP 115/85
[2019-10-24] MEDS ORDERED: ACETAMINOPHEN TAB 650MG DOSE (2X325MG) PO PRN (11:30)
--- NOTE | 2019-10-24 12:23 | HPEPDOC ---
General Date of Admission Oct 24, 2019 at 08:21 Date of Service: Oct 24, 2019 Primary Care Physician: A Attending Physician: ABEL VENTURA MD Chief Complaint Dizziness, fall with head strike History of Present Illness The patient is a 69-year-old f HTN, HLD, Dementia, prior DVT and b/l breast CA admitted for dizziness and fall with head trauma. History limited as patient has dementia and is unclear regarding reason for remission. Most of history taken from report and notes Per patient, she fell a few days ago due to the floor being wet from being mopped and had head trauma. Patient unclear if she had dizziness at that time. Patient reports coming to the hospital due to her studies being abnormal. Per report from emergency room. Patient had a fall with head strike and dizziness. On interview with patient at bedside. She denies any fevers, chills, chest pain, difficulty breathing, nausea, vomiting, abdominal pain, dysuria, diarrhea, leg pain. Patient endorses intermittent dizziness, and leg swelling. Home Medications Scheduled Acetaminophen (Acetaminophen) 325 Mg Tablet, 650 MG PO TID, (Reported) 0800,1400,1900 Apixaban (Eliquis) 5 Mg Tablet, 5 MG PO BID, (Reported) Bisoprolol Fumarate (Bisoprolol Fumarate) 10 Mg Tablet, 10 MG PO DAILY, (Reported) Donepezil HCl (Aricept) 5 Mg Tablet, 5 MG PO DAILY, (Reported) Lactose-Reduced Food (Ensure Enlive) 237 Ml Liquid, 120 ML PO BID, (Reported) 0800 and 1900 Metformin HCl (Metformin HCl) 500 Mg Tablet, 500 MG PO DAILY, (Reported) Simvastatin (Simvastatin) 20 Mg Tab, 20 MG PO QHS, (Reported) Sodium Chloride (Saline Nasal [place]) 44 Ml [place], 1 SPRAY NARES TID, (Reported) Terbinafine HCl (Athlete's Foot) 15 Gm Cream..g., 1 APLCT TOP DAILY, (Reported) 1000 Scheduled PRN Acetaminophen (Acetaminophen) 325 Mg Tablet, 325 MG PO Q4H PRN for PAIN / FEVER, (Reported) Bisacodyl (Bisacodyl) 10 Mg Supp.rect, 10 MG [place] DAILY PRN for CONSTIPATION, (Reported) Guaifenesin/Dextromethorphan (Robitussin Cough-Chest Dm Liq) 237 Ml Liquid, 10 ML PO Q4H PRN for COUGH, (Reported) Magnesium Hydroxide (Milk of Magnesia) 400 Mg/5 Ml Oral.susp, 30 ML PO DAILY PRN for CONSTIPATION, (Reported) Sodium Phosphate,[place]-Dibasic (Enema) 133 Ml Enema, 1 АЛЕКСАНДР [place] DAILY PRN for CONSTIPATION, (Reported) Allergies Coded Allergies: atenolol (Verified Allergy, Intermediate, WHEEZING, 03/14/19) lisinopril (Verified Allergy, Unknown, 05/19/19) celecoxib (Verified Adverse Reaction, Mild, NAUSEA, 03/14/19) meperidine (Verified Adverse Reaction, Mild, VOMITING, 03/14/19) Past Medical History Medical History PAST MEDICAL HISTORY: 1. Left breast cancer diagnosed in 1981. 2. Right breast cancer diagnosed in 2000. 3. Hypertension. 4. Herniated disc/chronic back pain. 5. Dyslipidemia. 6. History of osteoporosis: DEXA February 2017, normal. 7. History of nephrolithiasis. 8. Right bundle branch block/left ventricular hypertrophy/left atrial enlargement (RBBB/LVH/LAE). 9. Prior DVT 10. Dementia Surgical History PAST SURGICAL HISTORY: 1. Cataract surgery in 1956, unspecified side. Patient and family unable to recall which side. 2. Eye surgery, membrane growth. 3. Tonsillectomy and adenoidectomy (T and A) 1959. 4. Tubal ligation 1982. 5. Left mastectomy 1982. 6. Reconstructive breast surgery 1984. 7. Arthroscopic right knee surgery 1986. 8. Hysterectomy for menorrhagia 1998. 9. Right mastectomy 1999. 10. Right hip replacement 2001. 11. Left knee replacement in October of 2012. 12. Double J stent placement March 21, 2013. 13. Right extracorporal shock wave lithotripsy (ESWL), 06/20/2013. 14. Colonoscopy showed diverticulosis, two hyperplastic polyps with Dr. Palacios 2013. 15. Left hip replacement January 04, 2017. 16. Nephrolithiasis lithotripsy October 2017. 17. Reported right knee replacement. Family History FAMILY HISTORY: Father at 72 years old of myocardial infarction (NH). Mother at 75 years old of Alzheimer's. Siblings: One brother from amyotrophic lateral sclerosis (ALS), sister with lung cancer, one brother alive and healthy. Social History * Smoker: Denies Alcohol: rarely Drugs: denies Recent Travel/Sick Contacts: Denies: Recent travel, Recent sick contacts Psychosocial History: Dementia lives in assisted living facility A-FIB/[facility] A-FIB History Current/History of A-Fib/PAF?: No Current PO Anticoag Therapy: Yes Review of Systems Other systems 14 point ROS reviewed and pertinent positives and negatives documented as per HPI. All other reviewed ROS negative. Physical Examination Other physical findings Laying in bed in no acute distress, pleasant but confused on interview. Surgical pupils, EOMI, OP clear No LAD. RRR, normal S1/2, +murmur CTA B/L, no W/R/R Soft, nondistended, none tender. Intact distal pulses, no pitting edema No rash or skin breakdown appreciated No focal deficits, normal speech. Alert, appropriate but confused. Hematoma over right temporal and occipital regions Vital Signs Vital Signs Date Time Temp Pulse Resp B/P (MAP) Pulse Ox O2 Delivery O2 Flow Rate FiO2 10/24/19 09:11 97.8 96 20 115/85 (95) 94 Room Air Laboratory Data Labs 24H Laboratory Tests 2 10/24/19 04:32: Immature Granulocyte % (Auto) 0.5, Neutrophils (%) (Auto) 73.6H, Lymphocytes (%) (Auto) 14.2L, Monocytes (%) (Auto) 10.0H, Eosinophils (%) (Auto) 1.3, Basophils (%) (Auto) 0.4, Neutrophils # (Auto) 7.2, Lymphocytes # (Auto) 1.4L, Monocytes # (Auto) 1.0H, Eosinophils # (Auto) 0.1, Basophils # (Auto) 0.0, Nucleated Red Blood Cells % (auto) 0.0, Anion Gap 5L, Glomerular Filtration Rate > 60.0, Calcium Level 9.0, Total Creatine Kinase 60, Creatine Kinase MB 1.9, Creatine Kinase MB Relative Index 3.17, Troponin I < 0.02 CBC/BMP Laboratory Tests 10/24/19 04:32 RAD Interpretation STUDY: Rad Actions: Report Reviewed RAD Interpretation: Other Result Comments: (1. Right posterior parietal scalp soft tissue swelling and hematoma) Assessment/Plan The patient is a 69-year-old f HTN, HLD, Dementia, prior DVT and b/l breast CA admitted for dizziness and fall with head trauma with resultant soft tissue hematoma. Patient also intermittent dizziness concern for orthostasis. On left patient looks slightly dry therefore will give fluids, have patient work with physical therapy and assess dizziness. Suspect patient may be able to go back to assisted living tomorrow. Problems (1) Dizziness Status: Acute Problem Text: Admit to observation with telemetry. IVFs Orthostatic vitals Physical therapy to assess for dizziness on standing (2) Fall Status: Acute Problem Text: PT to evaluate Fall precautions (3) Head injury Status: Acute Problem Text: Soft tissue hematoma, no intacranial bleeding Neurochecks. Trend hemoglobin Will continue to monitor Tylenol for headache (4) DVT (deep venous thrombosis) Status: Chronic Problem Text: Continue AC (5) HTN (hypertension) Status: Chronic Problem Text: Trend BP Continue home meds as needed (6) HLD (hyperlipidemia) Status: Chronic Problem Text: Continue home meds (7) Dementia Status: Chronic Problem Text: Appears confused on exam. Continue home meds Plan / VTE VTE Prophylaxis Ordered?: Yes Plan Anticipated Discharge: Assisted Living ABEL VENTURA MD Oct 24, 2019 12:01
[2019-10-24 14:00] VITALS: BP 119/80
[2019-10-24] MEDS ORDERED: traMADol 50 MG TAB PO PRN (15:30)
[2019-10-24 16:45] VITALS: BP_SYST 155; BP_SYST 160; BP_SYST 176; BP_DIAS 103; BP_DIAS 93; BP_DIAS 99
--- NOTE | 2019-10-24 19:05 | REPVR ---
PROCEDURE INFORMATION: Exam: US Duplex Right Lower Extremity Veins, Limited Exam date and time: 10/24/2019 6:41 PM Age: 69 years old Clinical indication: Pain; Leg, lower; Right; Additional info: Warmth of rle with pain and swelling TECHNIQUE: Imaging protocol: Real-time Duplex ultrasound of the Right Lower Extremity with 2-D orozco scale, color Doppler flow and spectral waveform analysis with image documentation. Limited exam was focused on the right lower extremity veins. COMPARISON: No relevant prior studies available. FINDINGS: Right deep veins: Unremarkable. The common femoral, femoral, proximal profunda femoral and popliteal veins are patent without thrombus. Normal Doppler waveforms. Normal compressibility and/or augmentation response. Right superficial veins: Unremarkable. Saphenofemoral junction is patent without thrombus. Soft tissues: Unremarkable. IMPRESSION: No evidence of DVT. Electronically signed by: Gordo Paul On 10/24/2019 19:05:31 PM
[2019-10-24] MEDS: APIXABAN 5 MG TAB (ELIQUIS) PO SCH (20:30)
[2019-10-24] MEDS ORDERED: SIMVASTATIN 20 MG TAB PO SCH (21:00)
[2019-10-24 22:00] VITALS: BP 149/88
[2019-10-24] MEDS: NYSTATIN 100,000 UNITS/GM TOPICAL PWD 15 GM TOP SCH (22:33)
[2019-10-25 05:46] LABS: HEMATOCRIT 32.9 % (36.0-47.0); MEAN CORPUSCULAR HEMOGLOBIN 27.4 pg (27.0-33.0); MEAN CORPUSCULAR HGB CONC 31.3 g/dl (32.0-36.5); MEAN CORPUSCULAR VOLUME 87.5 fl (80.0-96.0); PLATELET COUNT, AUTOMATED 295 10^3/uL (150-450); RED BLOOD COUNT 3.76 10^6/uL (4.00-5.40); WHITE BLOOD COUNT 8.9 10^3/uL (4.0-10.0)
[2019-10-25 05:53] LABS: HEMOGLOBIN 10.3 g/dl (12.0-15.5)
[2019-10-25 05:59] LABS: BLOOD UREA NITROGEN 20 MG/DL (7-18); CALCIUM LEVEL 8.5 MG/DL (8.8-10.2); CARBON DIOXIDE LEVEL 28 MEQ/L (21-32); CHLORIDE LEVEL 110 MEQ/L (98-107); CREATININE FOR GFR 0.65 MG/DL (0.55-1.30); GLOMERULAR FILTRATION RATE > 60.0 (>39); GLUCOSE, FASTING 106 MG/DL (70-100); POTASSIUM SERUM 3.7 MEQ/L (3.5-5.1); SODIUM LEVEL 143 MEQ/L (136-145)
[2019-10-25 06:00] VITALS: BP 120/83
[2019-10-25] MEDS ORDERED: DONEPEZIL 5 MG TAB PO SCH (09:00)
[2019-10-25] MEDS ORDERED: bisoproloL fumarate 10 MG TAB PO SCH (09:00)
[2019-10-25] MEDS: NYSTATIN 100,000 UNITS/GM TOPICAL PWD 15 GM TOP SCH (09:24)
[2019-10-25 09:26] VITALS: BP 129/84
[2019-10-25] MEDS: APIXABAN 5 MG TAB (ELIQUIS) PO SCH (09:26)
--- NOTE | 2019-10-25 13:02 | DS.PDOC ---
Discharge Summary General Date of Admission Oct 24, 2019 at 08:21 Date of Discharge 10/25/19 Attending Physician: ABEL VENTURA MD Discharge Summary PROCEDURES PERFORMED DURING STAY: None. ADMITTING DIAGNOSES: 1. Dizzines 2. Orthostasis 3. Fall with head trauma DISCHARGE DIAGNOSES: 1. Dizzines 2. Orthostasis 3. Fall with head trauma 4. Left breast cancer diagnosed in 1981. 5. Right breast cancer diagnosed in 2000. 6. Hypertension. 7. Herniated disc/chronic back pain. 8. Dyslipidemia. 9. History of osteoporosis: DEXA February 2017, normal. 10. Prior DVT 11. Dementia COMPLICATIONS/CHIEF COMPLAINT: Head Injury, dizziness HISTORY OF PRESENT ILLNESS: The patient is a 69-year-old f HTN, HLD, Dementia, prior DVT and b/l breast CA admitted for dizziness and fall with head trauma. History limited as patient has dementia and is unclear regarding reason for remission. Most of history taken from report and notes Per patient, she fell a few days ago due to the floor being wet from being mopped and had head trauma. Patient unclear if she had dizziness at that time. Patient reports coming to the hospital due to her studies being abnormal. Per report from emergency room. Patient had a fall with head strike and dizziness. On interview with patient at bedside. She denies any fevers, chills, chest pain, difficulty breathing, nausea, vomiting, abdominal pain, dysuria, diarrhea, leg pain. Patient endorses intermittent dizziness, and leg swelling. HOSPITAL COURSE: Patient's intermittent dizziness concerning for orthostasis. On labs patient looked slightly dry therefore given fluids, physical therapy consulted. Initially pt orthostatic but with fluids orthostatic vitals resolved. Dizziness on standing improved but still with some dizziness on changing positions consistent with orthostasis. Discussed with PT and plan to help pt take more time when changing positions to give body time to equilibrate. Pt's fall with head trauma of unclear etiology mechanical fall vs. dizziness. Pt's hematoma stable. Patient seen and examined on day of discharge and doing well. Patient denies dizziness currently as well as fever, chills, chest pain, difficulty breathing, nausea, vomiting, abdominal pain. Plan for patient to be discharged to long term facility. Patient in agreement with plan DISCHARGE MEDICATIONS: Please see below. ALLERGIES: Please see below. PHYSICAL EXAMINATION ON DISCHARGE: VITAL SIGNS: Please see below. Laying in bed in no acute distress, slightly confused, pleasant RRR, normal S1/2, +murmur CTA B/L, no W/R/R Soft, nondistended, none tender. Intact distal pulses, no pitting edema No rash or skin breakdown appreciated No focal deficits, normal speech. Alert, appropriate but confused. Hematoma over right temporal and occipital regions (appears stable) LABORATORY DATA: Please see below. IMAGING: Head CT: 1. Right posterior parietal scalp soft tissue swelling and hematoma which is new since 03/25/2019. 2. Minimal chronic ischemic white matter change and atrophy which is similar to the prior study. 3. Otherwise negative noncontrast head CT. PROGNOSIS: fair ACTIVITY: As tolerated. Please take more time when changing position. DIET: Cardiac diet, ensure enlive supplementation DISCHARGE PLAN: Plan to be discharged back to long term facility with plan to follow with primary care physician in one week DISCHARGE INSTRUCTIONS: 1. Please follow-up with her primary care physician 1 week DISCHARGE CONDITION: Stable. TIME SPENT ON DISCHARGE: 33 minutes. Vital Signs/I&Os Vital Signs Date Time Temp Pulse Resp B/P (MAP) Pulse Ox O2 Delivery O2 Flow Rate FiO2 10/25/19 11:49 15 10/25/19 09:26 97 129/84 10/25/19 06:00 98.7 92 Room Air I&O- Last 24 Hours up to 6 AM 10/25/19 06:00 Intake Total 1420 ml Output Total 300 ml Balance 1120 ml Laboratory Data Labs 24H Laboratory Tests 2 10/25/19 05:15: Nucleated Red Blood Cells % (auto) 0.0, Anion Gap 5L, Glomerular Filtration Rate > 60.0, Calcium Level 8.5L CBC/BMP Laboratory Tests 10/25/19 05:15 Discharge Medications Scheduled Acetaminophen (Acetaminophen) 325 Mg Tablet, 650 MG PO TID, (Reported) 0800,1400,1900 Apixaban (Eliquis) 5 Mg Tablet, 5 MG PO BID, (Reported) Bisoprolol Fumarate (Bisoprolol Fumarate) 10 Mg Tablet, 10 MG PO DAILY, (Reported) Donepezil HCl (Aricept) 5 Mg Tablet, 5 MG PO DAILY, (Reported) Lactose-Reduced Food (Ensure Enlive) 237 Ml Liquid, 120 ML PO BID, (Reported) 0800 and 1900 Metformin HCl (Metformin HCl) 500 Mg Tablet, 500 MG PO DAILY, (Reported) Simvastatin (Simvastatin) 20 Mg Tab, 20 MG PO QHS, (Reported) Sodium Chloride (Saline Nasal [place]) 44 Ml [place], 1 SPRAY NARES TID, (Reported) Terbinafine HCl (Athlete's Foot) 15 Gm Cream..g., 1 APLCT TOP DAILY, (Reported) 1000 Scheduled PRN Acetaminophen (Acetaminophen) 325 Mg Tablet, 325 MG PO Q4H PRN for PAIN / FEVER, (Reported) Bisacodyl (Bisacodyl) 10 Mg Supp.rect, 10 MG [place] DAILY PRN for CONSTIPATION, (Reported) Guaifenesin/Dextromethorphan (Robitussin Cough-Chest Dm Liq) 237 Ml Liquid, 10 ML PO Q4H PRN for COUGH, (Reported) Magnesium Hydroxide (Milk of Magnesia) 400 Mg/5 Ml Oral.susp, 30 ML PO DAILY PRN for CONSTIPATION, (Reported) Sodium Phosphate,[place]-Dibasic (Enema) 133 Ml Enema, 1 АЛЕКСАНДР [place] DAILY PRN for CONSTIPATION, (Reported) Allergies Coded Allergies: atenolol (Verified Allergy, Intermediate, WHEEZING, 03/14/19) lisinopril (Verified Allergy, Unknown, 05/19/19) celecoxib (Verified Adverse Reaction, Mild, NAUSEA, 03/14/19) meperidine (Verified Adverse Reaction, Mild, VOMITING, 03/14/19) ABEL VENTURA MD Oct 25, 2019 13:01
== END 2019-10-25 13:09 ==
LOC: EDBD 03:35 → M ED 03:35 → M ED INP 08:21 → M MSPAV 09:10
PROVIDERS: ADMIT Internal Medicine; ATTEND Internal Medicine
DX: R42 Dizziness and giddiness (principal); I95.1 Orthostatic hypotension; S09.90XA Unspecified injury of head, initial encounter; W01.0XXA Fall on same level from slipping, tripping and stumbling without subsequent striking against object, initial encounter; Y92.009 Unspecified place in unspecified non-institutional (private) residence as the place of occurrence of the external cause; Y93.9 Activity, unspecified; Y99.9 Unspecified external cause status; Z85.3 Personal history of malignant neoplasm of breast; I10 Essential (primary) hypertension; E78.49 Other hyperlipidemia; Z86.718 Personal history of other venous thrombosis and embolism; F03.90 Unspecified dementia, unspecified severity, without behavioral disturbance, psychotic disturbance, mood disturbance, and anxiety; Z79.84 Long term (current) use of oral hypoglycemic drugs; Z79.899 Other long term (current) drug therapy; Z88.8 Allergy status to other drugs, medicaments and biological substances
CPT/HCPCS: 36415; 70450; 72125; 80048; 82550; 82553; 84484; 85025; 85027; 93005; 93971; 96360; 96361; 97161; 97165; 97530; 99285; G0378

== ENCOUNTER → 2019-11-26 | Outpatient (REF) | payer MEDICARE, BC, OTHER ==
[~2019-11-26] MED LIST changes: +METF500T13 PO; +ROBI1LIQ9 PO; +SM A TOP; +SM N0.65 NARES; +VITA-243 PO; -VITA500T PO
--- NOTE | 2019-11-26 17:12 | REPPI ---
REASON: Pain. AP and lateral views show a knee prosthetic device in place. There is no abnormal paraprosthetic lucency. Limited two-view exam shows no acute fracture. Electronically Signed by Andreas Spear DO 11/26/2019 05:39 P
--- NOTE | 2019-11-26 17:25 | REPPI ---
REASON: Pain. COMPARISON: None. No trauma. There is no acute fracture. Not all of the ankle was imaged on this portable exam. Electronically Signed by Andreas Spear DO 11/26/2019 05:40 P
--- NOTE | 2019-11-26 17:26 | REPPI ---
LEFT ANKLE, AP AND LATERAL: AP and lateral views of left ankle performed. I see no fracture or dislocation. There is moderate inferior calcaneal spurring. There is mild narrowing of the talonavicular joint. No other abnormalities are seen. IMPRESSION: Calcaneal spurring. Electronically Signed by Tavo Payton MD 11/27/2019 09:41 A
== END ==
PROVIDERS: ATTEND Family Medicine
DX: M79.605 Pain in left leg (principal)

== ENCOUNTER → 2019-11-29 | Outpatient (CLI) | payer MEDICARE, BC, OTHER ==
--- NOTE | 2019-11-29 14:36 | REP ---
Left lower extremity Duplex Doppler venous ultrasound: Real time compression and duplex Doppler interrogation of the left lower extremity deep venous system is performed. The left common femoral, superficial femoral and popliteal veins are fully compressible with transducer pressure and demonstrate normal spontaneous and phasic flow, without evidence of deep venous thrombosis. Impression: No evidence of deep venous thrombosis of the left lower extremity femoral popliteal venous system. Electronically Signed by Tavo Payton MD 11/29/2019 02:28 P
== END ==
LOC: M RAD 13:35
PROVIDERS: ATTEND Physician Assistant
DX: M79.662 Pain in left lower leg (principal)

== ENCOUNTER → 2019-12-10 | Outpatient (REF) | PROVIDERS: ATTEND Internal Medicine | DX: Z03.818 Encounter for observation for suspected exposure to other biological agents ruled out (principal) ==

== ENCOUNTER → 2019-12-20 | Outpatient (REF) | payer MEDICARE, BC, OTHER ==
[2019-12-20 10:14] LABS: HEMATOCRIT 42.7 % (36.0-47.0); HEMOGLOBIN 14.9 g/dl (12.0-15.5); MEAN CORPUSCULAR HEMOGLOBIN 30.5 pg (27.0-33.0); MEAN CORPUSCULAR HGB CONC 34.9 g/dl (32.0-36.5); MEAN CORPUSCULAR VOLUME 87.3 fl (80.0-96.0); PLATELET COUNT, AUTOMATED 249 10^3/uL (150-450); RED BLOOD COUNT 4.89 10^6/uL (4.00-5.40); WHITE BLOOD COUNT 5.8 10^3/uL (4.0-10.0)
[2019-12-20 10:48] LABS: CALCIUM LEVEL 9.8 MG/DL (8.8-10.2); CREATININE FOR GFR 1.03 MG/DL (0.55-1.30); GLOMERULAR FILTRATION RATE 56.2 (>39); POTASSIUM SERUM 3.7 MEQ/L (3.5-5.1)
== END ==
PROVIDERS: ATTEND Family Medicine
DX: Z86.718 Personal history of other venous thrombosis and embolism (principal)

== ENCOUNTER → 2020-01-17 | Outpatient (REF) ==
[~2020-01-17] MED LIST changes: +ACET-838 PO; +ACET-897 PO; +ACET500T15 PO; +ACET650T61 PO; +FERR325T18 PO; +FURO20TA2 PO; +GABA-1171 PO; +GABA-282; +HYDR-3713 PO; +LOPE2TAB12 PO; +METH25TAB PO; -NON-325T5 PO; +PANT40TA29 PO; +PATIENT COMMENT; -SM A TOP; +TERB15CR TOP; -TYLE650T35 PO
[2020-01-17 10:33] LABS: HEMOGLOBIN 13.7 g/dl (12.0-15.5); MEAN CORPUSCULAR HEMOGLOBIN 26.9 pg (27.0-33.0); MEAN CORPUSCULAR HGB CONC 30.4 g/dl (32.0-36.5); MEAN CORPUSCULAR VOLUME 88.2 fl (80.0-96.0); PLATELET COUNT, AUTOMATED 312 10^3/uL (150-450); WHITE BLOOD COUNT 8.4 10^3/uL (4.0-10.0)
[2020-01-17 10:46] LABS: BLOOD UREA NITROGEN 26 MG/DL (7-18); CALCIUM LEVEL 9.3 MG/DL (8.8-10.2); CARBON DIOXIDE LEVEL 29 MEQ/L (21-32); CHLORIDE LEVEL 106 MEQ/L (98-107); CREATININE FOR GFR 0.82 MG/DL (0.55-1.30); GLOMERULAR FILTRATION RATE > 60.0 (>39); GLUCOSE, FASTING 200 MG/DL (70-100); POTASSIUM SERUM 4.4 MEQ/L (3.5-5.1); SODIUM LEVEL 143 MEQ/L (136-145)
== END ==
PROVIDERS: ATTEND Family Medicine
DX: I82.409 Acute embolism and thrombosis of unspecified deep veins of unspecified lower extremity (principal)

== ENCOUNTER → 2020-01-21 | Outpatient (REF) ==
[~2020-01-21] MED LIST changes: -ACET-838 PO; -ACET-897 PO; -ACET500T15 PO; -ACET650T61 PO; -FERR325T18 PO; -FURO20TA2 PO; -GABA-1171 PO; -GABA-282; -HYDR-3713 PO; -LOPE2TAB12 PO; -METH25TAB PO; +NON-325T5 PO; -PANT40TA29 PO; -PATIENT COMMENT; +SM A TOP; -TERB15CR TOP; +TYLE650T35 PO
[2020-01-21 11:03] LABS: HEMOGLOBIN A1c 6.4 %
== END ==
PROVIDERS: ATTEND Family Medicine
DX: E11.9 Type 2 diabetes mellitus without complications (principal)

== ENCOUNTER → 2020-02-25 | Outpatient (REF) | payer MEDICARE, BC, OTHER ==
[~2020-02-25] MED LIST changes: +ACET650T61 PO; +GABA-1171 PO; +GABA-843; +HYDR-3713 PO; +LOPE2TAB12 PO; +METH25TAB PO; -TYLE650T35 PO
[2020-04-07 11:30] LABS: BLOOD UREA NITROGEN 22 MG/DL (7-18); CALCIUM LEVEL 8.9 MG/DL (8.8-10.2); CARBON DIOXIDE LEVEL 28 MEQ/L (21-32); CHLORIDE LEVEL 112 MEQ/L (98-107); CREATININE FOR GFR 0.79 MG/DL (0.55-1.30); GLOMERULAR FILTRATION RATE > 60.0 (>39); GLUCOSE, FASTING 106 MG/DL (70-100); HEMOGLOBIN A1c 6.1 %; POTASSIUM SERUM 4.1 MEQ/L (3.5-5.1); SODIUM LEVEL 144 MEQ/L (136-145)
== END ==
LOC: M SFHCPLAZ 09:50
PROVIDERS: ATTEND Family Medicine
DX: E11.9 Type 2 diabetes mellitus without complications (principal); I10 Essential (primary) hypertension
CPT/HCPCS: 36415; 80048; 83036; G0463

== ENCOUNTER 2020-05-15 10:00 | Inpatient (IN) | payer MEDICARE, BC, OTHER ==
[~2020-05-15] VITALS: Ht 162.6 cm; Wt 82.9 kg
[~2020-05-15 10:00] MED LIST changes: -GABA-1171 PO; -GABA-843; -HYDR-3713 PO; -LOPE2TAB12 PO; -METH25TAB PO
--- NOTE | 2020-05-15 11:11 | REPVR ---
PROCEDURE INFORMATION: Exam: CT Cervical Spine Without Contrast Exam date and time: 05/15/2020 10:38 AM Age: 70 years old Clinical indication: Injury or trauma; Fall; Blunt trauma TECHNIQUE: Imaging protocol: Computed tomography images of the cervical spine without contrast. Radiation optimization: All CT scans at this facility use at least one of these dose optimization techniques: automated exposure control; mA and/or kV adjustment per patient size (includes targeted exams where dose is matched to clinical indication); or iterative reconstruction. COMPARISON: CT Spine,cervical w/o contrast 10/24/2019 3:39 AM FINDINGS: Bones/joints: 2 mm of grade 1 degenerative anterolisthesis of C2 on C3. 3-4 mm of degenerative retrolisthesis of C3 on C4. Mild lower cervical dextroconvex scoliosis. Alignment is unchanged compared to the prior study. No acute fracture seen. Central spinal canal stenosis again demonstrated at C3-C4, C5-C6 and C6-C7, in particular C3-C4. Multilevel neural foraminal stenoses due to uncovertebral and facet arthropathy. Discs/Spinal canal/Neural foramina: See "Bones/joints" finding. Soft tissues: Unremarkable. Thyroid: Bilateral thyroid nodules, the largest in the right thyroid lobe measures 1.6 cm. Stable compared to the prior study. Thyroid ultrasound is recommended for further evaluation. Lungs: Calcified granulomata in the right lung apex. IMPRESSION: 1. No cervical spine fracture seen. 2. 1.6 cm nodule in the right thyroid lobe. Thyroid ultrasound is recommended for further evaluation. COMMENTS: Consistent with the [employer]'s Incidental Findings Committee white paper (J Am Jewel Radiol 2015): In patients aged 35 years and older with an incidental thyroid nodule equal to or greater than 1.[address], MRI or extrathyroidal US, further evaluation with dedicated thyroid US is recommended for patients with normal life expectancy and without comorbidities. For smaller nodules without suspicious features, no further evaluation or follow up is recommended. Electronically signed by: Leilani Love On 05/15/2020 11:11:35 AM
--- NOTE | 2020-05-15 11:17 | REPVR ---
PROCEDURE INFORMATION: Exam: CT Head Without Contrast Exam date and time: 05/15/2020 10:38 AM Age: 70 years old Clinical indication: Injury or trauma; Fall; Blunt trauma (contusions or hematomas) TECHNIQUE: Imaging protocol: Computed tomography of the head without contrast. Radiation optimization: All CT scans at this facility use at least one of these dose optimization techniques: automated exposure control; mA and/or kV adjustment per patient size (includes targeted exams where dose is matched to clinical indication); or iterative reconstruction. COMPARISON: CT Head without contrast 10/24/2019 3:39 AM FINDINGS: Brain: Due to artifacts, poor visualization of the occipital lobes, kelsey, medulla and superior cerebellum. The brain demonstrates diffuse volume loss. There is white matter hypodensity most consistent with chronic small vessel ischemic change. No visible evolving territorial infarct. No hemorrhage. Cerebral ventricles: The ventricles are mildly enlarged in keeping with volume loss. Bones/joints: Unremarkable. No acute fracture. Paranasal sinuses: Small retention cyst or polyp in the left maxillary sinus. Mastoid air cells: Visualized mastoid air cells are well aerated. Orbital cavity: Prior lens surgery. Soft tissues: Unremarkable. IMPRESSION: 1. Partially degraded by artifact. 2. No acute intracranial abnormality seen. Electronically signed by: Leilani Love On 05/15/2020 11:16:49 AM
[2020-05-15 11:19] LABS: BASO % 0.2 % (0.0-1.0); HEMATOCRIT 43.1 % (36.0-47.0); HEMOGLOBIN 13.1 g/dl (12.0-15.5); LYMPH # 0.9 10^3/uL (1.5-5.0); LYMPH % 5.4 % (24.0-44.0); MEAN CORPUSCULAR HEMOGLOBIN 27.8 pg (27.0-33.0); MEAN CORPUSCULAR HGB CONC 30.4 g/dl (32.0-36.5); MEAN CORPUSCULAR VOLUME 91.3 fl (80.0-96.0); MONO # 1.5 10^3/uL (0.0-0.8); MONO % 8.7 % (0.0-5.0); NEUTROPHILS # 14.2 10^3/uL (1.5-8.5); NEUTROPHILS % 85.1 % (36.0-66.0); PLATELET COUNT, AUTOMATED 253 10^3/uL (150-450); RED BLOOD COUNT 4.72 10^6/uL (4.00-5.40); WHITE BLOOD COUNT 16.6 10^3/uL (4.0-10.0)
[2020-05-15 11:52] LABS: CALCIUM LEVEL 9.2 MG/DL (8.8-10.2); CREATININE FOR GFR 1.05 MG/DL (0.55-1.30); GLOMERULAR FILTRATION RATE 54.8 (>39); POTASSIUM SERUM 4.3 MEQ/L (3.5-5.1)
[2020-05-15] MEDS ORDERED: HYDR-3713 PO (11:53)
[2020-05-15] MEDS ORDERED: GABA-843 (11:53)
[2020-05-15] MEDS ORDERED: cefTRIAXone SOD 1 GM in D5W MINI-BAG PLUS 50 ML IV ONE (12:30)
[2020-05-15] MEDS ORDERED: LOPE2TAB12 PO (12:55)
[2020-05-15] MEDS ORDERED: GABA-1171 PO (12:55)
[2020-05-15] MEDS ORDERED: ACETAMINOPHEN 325 MG TAB PO PRN (14:15)
--- NOTE | 2020-05-15 14:19 | HPEPDOC ---
[facility] Medical History & Physical Date of Admission May 15, 2020 Date of Service: May 15, 2020 Attending Physician: Helga Ferrara MD History and Physical CHIEF COMPLAINT: weakness HISTORY OF PRESENT ILLNESS: Patient is a 70-year-old female with past medical history of bilateral breast cancer, hypertension, dyslipidemia, history of nephrolithiasis, stream of right bundle branch block, history of DVT and dementia who presented to [facility] emergency room with the chief complaint of increased weakness beginning this morning. The patient is an overall poor historian due to dementia. Her at the bedside was able to recant the story. Late last evening the patient complained of increased pain in her right leg and she was noticed to be increasingly shaky. This AM her home health aide arrived she attempted to be stood up and upon standing the patient became weak and fell to the floor backwards. Her states that he attempted to grab her before he fell but was unable. He denies her losing consciousness, tongue biting, loss of bowel or bladder, increased tremoring during this episode. She hit her head on the way down on the wall. She was increasingly shaky in her left upper arm, which her says occurs with urinary tract infections. The patient appeared to be more confused than normal. She denied chest pain, shortness of breath, fevers, chills, nausea or vomiting to her . She was then brought to the emergency room further evaluation. In the emergency room, heart rate was [id number], blood pressure initially 170 systolic and later decreased to 110. The WBC 16.5, UA positive- culture was sent. She was noticeably weak and confused, close to her baseline according to her for confusion. The patient was unable to go through the review of systems with ky due to confusion. The patient was admitted for increased weakness, fall likely secondary to urinary tract infection. REVIEW OF SYSTEMS: Neg PAST MEDICAL HISTORY: 1. Left breast cancer diagnosed in 1981. 2. Right breast cancer diagnosed in 2000. 3. Hypertension. 4. Herniated disc/chronic back pain. 5. Dyslipidemia. 6. History of osteoporosis: DEXA February 2017, normal. 7. History of nephrolithiasis. 8. Right bundle branch block/left ventricular hypertrophy/left atrial enlargement (RBBB/LVH/LAE). 9. Hx of DVT 10. Dementia PAST SURGICAL HISTORY: 1. Cataract surgery in 1957, unspecified side. 2. Eye surgery, membrane growth. 3. Tonsillectomy and adenoidectomy (T and A) 1959. 4. Tubal ligation 1982. 5. Left mastectomy 1982. 6. Reconstructive breast surgery 1984. 7. Arthroscopic right knee surgery 1986. 8. Hysterectomy for menorrhagia 1998. 9. Right mastectomy 1999. 10. Right hip replacement 2001. 11. Left knee replacement in October of 2012. 12. Double J stent placement March 21, 2013. 13. Right extracorporal shock wave lithotripsy (ESWL), 06/20/2013. 14. Colonoscopy showed diverticulosis, two hyperplastic polyps with Dr. Palacios 2013. 15. Left hip replacement January 04, 2017. 16. Nephrolithiasis lithotripsy October 2017. 17. Reported right knee replacement. FAMILY HISTORY: Father at 72 years old of myocardial infarction ([place]). Mother at 75 years old of Alzheimer's. Siblings: One brother from amyotrophic lateral sclerosis (ALS), sister with lung cancer, one brother alive and healthy. SOCIAL HISTORY: Smoker: NO Alcohol: NO Drugs: NO Recent Travel/Sick Contacts: NO Recent travel, Recent sick contacts Psychosocial History: Dementia, lives with who cares for her along with home health aid 5 days/week. ALLERGIES: Please see below. HOME MEDICATIONS: Please see below. PHYSICAL EXAMINATION: VS: Pleases see below. CONSTITUTIONAL: Appears lethargic, confused. No acute distress, resting comfor tably EYES: PERRLA, EOM intact, corrective lenses in place HENT, MOUTH: Normocephalic, atraumatic, moist mucous membranes NECK: SUPPLE, no JVD, no lymphadenopathy, no carotid bruit CV: tachycardic, sinus rhythm, S1S2 normal, no murmurs/rubs/gallops RESPIRATORY: Clear to auscultation bilaterally, no rales/rhonchi/wheezes GI: BS positive in 4 quadrants, soft, nontender, nondistended, no rebound or guarding, no organomegaly : Deferred MUSCULOSKELETAL: Normal ROM. No cyanosis, clubbing, swelling, joint deformity, extremity edema INTEGUMENTARY: Healed RLE ulcer on anterior olivas, PVD skin changes b/l lower ext. Otherwise, Intact, no rashes, no lesions, no erythema NEUROLOGIC: Unable to perform Cranial Nerves exam due to confused, no noted focal deficits LABORATORY DATA: Please see below IMAGING: CT head: 1. Partially degraded by artifact. 2. No acute intracranial abnormality seen. CT cervical spine: 1. No cervical spine fracture seen. 2. 1.6 cm nodule in the right thyroid lobe. Thyroid ultrasound is recommended for further evaluation. ASSESSMENT: 70-year-old female with past medical history of bilateral breast cancer, hypertension, dyslipidemia, history of nephrolithiasis, stream of right bundle branch block, history of DVT and dementia admitted for increased weakness likely secondary to urinary tract infection. PLAN: Weakness, fall 2/2 to UTI. -Hx of chronic deconditioning, requiring 10 months of rehab in past. Returned home this past 12/2019. -Remains weak, lethargic with increased confusion -F/u UCx, Bcx, daily labs -Started on ceftriaxone IV daily -PT/OT, fall precautions HTN -BP 170 systolic initially but improved, currently 110 systolic -C/w home medications Thyroid nodule, incidental finding on CT -Prior TSH in 02/2020 0.8 -F/u repeat TSH, thyroid US HLD -Statin Herniated disc/chronic back pain -C/w home pain regimen Hx of DVT -c/w eliquis BID RBBB, chronic -ECG abnormal but at baseline Bilateral breast cancer history -F/u with PCP Dementia -Requires 24 hr care, 5x/week home health aid -Appears to be close to baseline according to . -Redirect whenever possible DISPOSITION: Admitted under inpatient status. PT/OT when less lethargic. Plan may be rehab vs. home. Vital Signs Vital Signs Date Time Temp Pulse Resp B/P (MAP) Pulse Ox O2 Delivery O2 Flow Rate FiO2 05/15/20 12:00 100 16 117/62 (80) 77 05/15/20 10:15 99.3 Room Air Laboratory Data Labs 24H Laboratory Tests 2 05/15/20 11:02: Immature Granulocyte % (Auto) 0.6, Neutrophils (%) (Auto) 85.1H, Lymphocytes (%) (Auto) 5.4L, Monocytes (%) (Auto) 8.7H, Eosinophils (%) (Auto) 0.0, Basophils (%) (Auto) 0.2, Neutrophils # (Auto) 14.2H, Lymphocytes # (Auto) 0.9L, Monocytes # (Auto) 1.5H, Eosinophils # (Auto) 0.0, Basophils # (Auto) 0.0, Nucleated Red Blood Cells % (auto) 0.0, Anion Gap 3L, Glomerular Filtration Rate 54.8, Calcium Level 9.2 05/15/20 11:40: Urine Color MCKAYLA, Urine Appearance TURBIDH, Urine pH 7.0, Urine Specific [place] 1.015, Urine Protein 3+H, Urine Glucose (UA) NEGATIVE, Urine Ketones NE GATIVE, Urine Blood 2+H, Urine Nitrite POSITIVEH, Urine Bilirubin NEGATIVE, Urine Urobilinogen 0.2, Urine Leukocyte Esterase 1+H, Urine WBC (Auto) TNTCH, Urine RBC (Auto) TNTCH, Urine Hyaline Casts (Auto) 0, Urine Bacteria (Auto) 3+H, Urine Squamous Epithelial Cells 0, Urine Mucus (Auto) SMALL, Urine Sperm (Auto) 05/15/20 12:40: Lactic Acid Level 1.3 CBC/BMP Laboratory Tests 05/15/20 11:02 Microbiology Microbiology 05/15/20 Blood Culture, Received Pending 05/15/20 Urine Culture, Received Pending Home Medications Scheduled Apixaban (Eliquis) 5 Mg Tablet, 5 MG PO BID Bisoprolol Fumarate (Bisoprolol Fumarate) 10 Mg Tablet, 10 MG PO BID Donepezil HCl (Aricept) 5 Mg Tablet, 5 MG PO QHS Gabapentin (Gabapentin) 100 Mg Capsule, 200 MG PO BID Simvastatin (Simvastatin) 20 Mg Tab, 20 MG PO QHS Scheduled PRN Acetaminophen (Acetaminophen) 325 Mg Tablet, 325 MG PO Q4H PRN for PAIN / FEVER Hydrocodone/Acetaminophen (Hydrocodone-Acetamin 5-325 mg) 1 Each Tablet, 1 TAB PO Q8H PRN for PAIN Loperamide HCl (Imodium A-D) 2 Mg Tablet, 2 MG PO for DIARRHEA Allergies Coded Allergies: atenolol (Verified Allergy, Intermediate, WHEEZING, 03/14/19) lisinopril (Verified Allergy, Unknown, unknown reaction, 05/15/20) celecoxib (Verified Adverse Reaction, Mild, NAUSEA, 03/14/19) meperidine (Verified Adverse Reaction, Mild, VOMITING, 03/14/19) A-FIB/CHADSVASC A-FIB History Current/History of A-Fib/PAF?: No Current PO Anticoag Therapy: No Age/Risk Factor Scoring CHADSVASC: CHADSVASC Response (Comments) Value Age Risk Factor Age 65-74 years old 1 Gender Risk Factor Female 1 Hx of CHF No 0 Hx of HTN Yes 1 Hx of Stroke/TIA/or VTE No 0 Hx of Diabetes No 0 Hx of Vascular Disease Yes 1 Total 4 Treatment Treatment ordered: Other Other anticoagulant ordered: Helga Gastelum MD May 15, 2020 14:19
[2020-05-15] MEDS: ACETAMINOPHEN TAB 650MG DOSE (2X325MG) PO PRN (15:09)
[2020-05-15] MEDS: bisoproloL fumarate 10 MG TAB PO SCH ×2 (17:08→20:56)
[2020-05-15] MEDS: APIXABAN 5 MG TAB (ELIQUIS) PO SCH ×2 (17:08→20:55)
[2020-05-15 17:19] VITALS: BP 130/78
[2020-05-15] MEDS: NS 1,000 ML IV SCH (17:28)
[2020-05-15] MEDS: GABAPENTIN 100 MG CAP PO SCH (20:55)
[2020-05-15] MEDS: DONEPEZIL 5 MG TAB PO SCH (20:55)
[2020-05-15] MEDS: SIMVASTATIN 20 MG TAB PO SCH (20:55)
[2020-05-15] MEDS: NYSTATIN 100,000 UNITS/GM TOPICAL PWD 15 GM TOP SCH (20:56)
[2020-05-16] MEDS: ACETAMINOPHEN TAB 650MG DOSE (2X325MG) PO PRN ×2 (01:41→21:06)
[2020-05-16] MEDS: NS 1,000 ML IV SCH ×3 (03:34→21:06)
[2020-05-16 06:00] VITALS: BP 144/68
[2020-05-16 06:38] LABS: HEMATOCRIT 37.9 % (36.0-47.0); HEMOGLOBIN 11.5 g/dl (12.0-15.5); MEAN CORPUSCULAR HEMOGLOBIN 27.5 pg (27.0-33.0); MEAN CORPUSCULAR HGB CONC 30.3 g/dl (32.0-36.5); MEAN CORPUSCULAR VOLUME 90.7 fl (80.0-96.0); PLATELET COUNT, AUTOMATED 204 10^3/uL (150-450); RED BLOOD COUNT 4.18 10^6/uL (4.00-5.40); WHITE BLOOD COUNT 12.1 10^3/uL (4.0-10.0)
[2020-05-16 07:00] LABS: ALBUMIN 2.6 GM/DL (3.2-5.2); ALT/SGPT 11 U/L (12-78); BILIRUBIN,TOTAL 0.3 MG/DL (0.2-1.0); BLOOD UREA NITROGEN 22 MG/DL (7-18); CALCIUM LEVEL 8.3 MG/DL (8.8-10.2); CARBON DIOXIDE LEVEL 26 MEQ/L (21-32); CHLORIDE LEVEL 112 MEQ/L (98-107); CREATININE FOR GFR 0.75 MG/DL (0.55-1.30); GLOMERULAR FILTRATION RATE > 60.0 (>39); GLUCOSE, FASTING 118 MG/DL (70-100); POTASSIUM SERUM 3.5 MEQ/L (3.5-5.1); SODIUM LEVEL 146 MEQ/L (136-145); TOTAL PROTEIN 5.5 GM/DL (6.4-8.2)
[2020-05-16] MEDS: APIXABAN 5 MG TAB (ELIQUIS) PO SCH ×2 (08:27→21:05)
[2020-05-16] MEDS: GABAPENTIN 100 MG CAP PO SCH ×2 (08:28→21:05)
[2020-05-16] MEDS: bisoproloL fumarate 10 MG TAB PO SCH ×2 (08:29→21:06)
[2020-05-16] MEDS: NYSTATIN 100,000 UNITS/GM TOPICAL PWD 15 GM TOP SCH ×2 (08:30→21:05)
--- NOTE | 2020-05-16 09:16 | REP ---
INDICATION: sepsis, r/o PNA COMPARISON: 09/12/2019 TECHNIQUE: PA and lateral. FINDINGS: Mediastinum and cardiac silhouette are stable. Lung dee demonstrate chronic changes without obvious acute consolidation, effusion, or pneumothorax. Bilateral axillary node dissection and evidence for prior mastectomy. Skeletal structures demonstrate age-related changes IMPRESSION: Chronic appearing changes similar to prior examination. No obvious focal consolidation or effusion. <Electronically signed by Fritz Aguirre > 05/16/20 [id number]
[2020-05-16] MEDS: cefTRIAXone SOD 2 GM in D5W MINI-BAG PLUS 50 ML IV SCH (10:47)
[2020-05-16] MEDS ORDERED: cefTRIAXone SOD 1 GM in D5W MINI-BAG PLUS 50 ML IV SCH (13:00)
[2020-05-16 14:00] VITALS: BP 150/90
--- NOTE | 2020-05-16 16:28 | IPNPDOC ---
Date Seen The patient was seen on 05/16/20. Progress Note SUBJECTIVE: Remains tachycardic and febrile at times. WBC improved;however, BCx NG at 24 hrs but UCx pending. Patient states to still feel lethargic but looks more awake and alert compared to yesterday. Denies chest pain, sob, fevers, chill, n/v. OBJECTIVE: PHYSICAL EXAMINATION: VS: Pleases see below. CONSTITUTIONAL: More awake today, still confused but this is likely her baseline . No acute distress, resting comfortably EYES: PERRLA, EOM intact, corrective lenses in place HENT, MOUTH: Normocephalic, atraumatic, moist mucous membranes NECK: SUPPLE, no JVD, no lymphadenopathy, no carotid bruit CV: tachycardic, sinus rhythm, S1S2 normal, no murmurs/rubs/gallops RESPIRATORY: Clear to auscultation bilaterally, no rales/rhonchi/wheezes GI: BS positive in 4 quadrants, soft, nontender, nondistended, no rebound or guarding, no organomegaly : Deferred MUSCULOSKELETAL: Normal ROM. No cyanosis, clubbing, swelling, joint deformity, extremity edema INTEGUMENTARY: Healed RLE ulcer on anterior olivas, PVD skin changes b/l lower ext. Otherwise, Intact, no rashes, no lesions, no erythema NEUROLOGIC: CN 2-12 intact, no noted focal deficits LABORATORY DATA: Please see below IMAGING: CXR: Chronic appearing changes similar to prior examination. No obvious focal consolidation or effusion. CT head: 1. Partially degraded by artifact. 2. No acute intracranial abnormality seen. CT cervical spine: 1. No cervical spine fracture seen. 2. 1.6 cm nodule in the right thyroid lobe. Thyroid ultrasound is recommended for further evaluation. ASSESSMENT: 70-year-old female with past medical history of bilateral breast cancer, hypertension, dyslipidemia, history of nephrolithiasis, stream of right bundle branch block, history of DVT and dementia admitted for increased weakness likely secondary to urinary tract infection. PLAN: Weakness, fall 2/2 to UTI, sepsis. -Remains tachycardic -Hx of chronic deconditioning, requiring 10 months of rehab in past. Returned home this past 12/2019. -Remains weak, lethargic, confused but this is likely at baseline -F/u UCx, Bcx, daily labs -C/w gentle IVFs, ceftriaxone IV (increased dose, day 2) but if continues to spike fevers, consider CT abd/pelvis to r/o abscess/other source of infection and switching to cefepime. -PT/OT, fall precautions Fever, possibly 2/2 to UTI; however, r/o other sources -Persisting despite abx treatment with ceftriaxone -CXR today: neg -UCx pending -BCx NG at 24 hours -C/w treatment/plan above HTN -BP 140-160's -C/w home medications Thyroid nodule, incidental finding on CT -Prior TSH in 02/2020 0.8 -F/u repeat TSH, thyroid US HLD -Statin Herniated disc/chronic back pain -C/w home pain regimen Hx of DVT -c/w eliquis BID RBBB, chronic -ECG abnormal but at baseline Bilateral breast cancer history -F/u with PCP Dementia -Requires 24 hr care, 5x/week home health aid -Appears to be close to baseline according to . -Redirect whenever possible DISPOSITION: Admitted under inpatient status. PT/OT. Plan may be rehab vs. home. VS, I&O, 24H, [facility] Vital Signs/I&O Vital Signs Date Time Temp Pulse Resp B/P (MAP) Pulse Ox O2 Delivery O2 Flow Rate FiO2 05/16/20 14:00 100.0 112 20 150/90 (110) 96 Room Air I&O- Last 24 Hours up to 6 AM 05/16/20 06:00 Intake Total 1390 ml Output Total 200 ml Balance 1190 ml Laboratory Data 24H LABS Laboratory Tests 2 05/16/20 06:10: Nucleated Red Blood Cells % (auto) 0.0, Anion Gap 8, Glomerular Filtration Rate > 60.0, Calcium Level 8.3L, Total Bilirubin 0.3, Aspartate Amino Transf (AST/SGOT) 15, Alanine Aminotransferase (ALT/SGPT) 11L, Alkaline Phosphatase 36L, Total Protein 5.5L, Albumin 2.6L, Albumin/Globulin Ratio 0.9L CBC/BMP Laboratory Tests 05/16/20 06:10 Microbiology Microbiology 05/15/20 Blood Culture - Preliminary, Resulted No growth after 24 hours . All specim... 05/15/20 Blood Culture - Preliminary, Resulted No growth after 24 hours . All specim... 05/15/20 Urine Culture, Received Pending Current Medications Current Medications Medications (Trade) Dose Ordered Sig/Martha Route PRN Reason Start Time Stop Time Status Last Admin Dose Admin Acetaminophen (Tylenol Tab) 325 mg Q4H PRN PO PAIN / FEVER 05/15/20 14:15 Acetaminophen (Tylenol Tab) 650 mg Q4H PRN PO PAIN OR FEVER 05/15/20 13:00 05/16/20 01:41 Acetaminophen/ Hydrocodone Bitart ([place], [place] 5/325) 1 tab Q8H PRN PO PAIN 05/15/20 16:00 Apixaban (Eliquis) 5 mg BID PO 05/15/20 09:00 05/16/20 08:27 Bisoprolol Fumarate (Zebeta) 10 mg BID PO 05/15/20 09:00 05/16/20 08:29 Ceftriaxone Sodium 1 gm/ Dextrose 50 ml @ 100 mls/hr Q24H IV 05/16/20 13:00 05/16/20 08:20 DC Ceftriaxone Sodium 2 gm/ Dextrose 50 ml @ 100 mls/hr Q24H IV 05/16/20 08:30 05/16/20 10:47 Donepezil HCl (AriCEPT) 5 mg QHS PO 05/15/20 21:00 05/15/20 20:55 Gabapentin (Neurontin) 200 mg BID PO 05/15/20 21:00 05/16/20 08:28 Home Med (Med Rec Complete!) ASDIRECTED XX 05/15/20 13:00 05/15/20 12:57 DC Nystatin (Mycostatin Powder, Nystop) Apply to affected ar... BID TOP 05/15/20 21:00 05/16/20 08:30 Simvastatin (Zocor) 20 mg QHS PO 05/15/20 21:00 05/15/20 20:55 Sodium Chloride 1,000 ml @ 80 mls/hr [id number] IV 05/15/20 14:15 05/16/20 03:34 Allergies Coded Allergies: atenolol (Verified Allergy, Intermediate, WHEEZING, 03/14/19) lisinopril (Verified Allergy, Unknown, unknown reaction, 05/15/20) celecoxib (Verified Adverse Reaction, Mild, NAUSEA, 03/14/19) meperidine (Verified Adverse Reaction, Mild, VOMITING, 03/14/19) Helga Ferrara MD May 16, 2020 16:28
[2020-05-16 17:05] LABS: THYROID STIMULATING HORMONE 0.261 uIU/ML (0.358-3.740)
--- NOTE | 2020-05-16 20:14 | ECGEPIP ---
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
[2020-05-16] MEDS: SIMVASTATIN 20 MG TAB PO SCH (21:04)
[2020-05-16] MEDS: DONEPEZIL 5 MG TAB PO SCH (21:05)
--- NOTE | 2020-05-16 21:21 | REP ---
INDICATION: thyroid nodule COMPARISON: None. TECHNIQUE: Payton scale and color evaluation of the thyroid gland using the linear high frequency transducer. FINDINGS: The thyroid gland is diffusely heterogeneous and demonstrates multiple scattered nodules. Right thyroid lobe measures 3.6 x 2.4 x 2.1 cm and includes 1.7 x 1.3 x 1.7 cm complex mid pole nodule with cystic components and small calcifications as well as 5 x 4 x 6 mm lower pole cyst. Isthmus measures 7.6 mm mm in width. Left thyroid lobe measures 3.5 x 1.7 x 1.8 cm and includes 6 x 4 x 7 mm upper pole cyst and 4 x 3 x 3 mm midpole hypoechoic nodule. IMPRESSION: Heterogeneous thyroid gland with multiple nonspecific indeterminate nodules-the largest of which is noted in the right midpole and appears moderately suspicious. <Electronically signed by Fritz Aguirre > 05/16/20 [id number]
[2020-05-16 22:00] VITALS: BP 136/88
[2020-05-17] MEDS: NORCO, ANEXSIA 5/325MG TABLET (HYDROcodone/ACETAMINOPHEN) PO PRN (05:25)
[2020-05-17 05:58] LABS: HEMATOCRIT 35.8 % (36.0-47.0); HEMOGLOBIN 10.8 g/dl (12.0-15.5); MEAN CORPUSCULAR HEMOGLOBIN 27.9 pg (27.0-33.0); MEAN CORPUSCULAR HGB CONC 30.2 g/dl (32.0-36.5); MEAN CORPUSCULAR VOLUME 92.5 fl (80.0-96.0); PLATELET COUNT, AUTOMATED 206 10^3/uL (150-450); RED BLOOD COUNT 3.87 10^6/uL (4.00-5.40); WHITE BLOOD COUNT 11.5 10^3/uL (4.0-10.0)
[2020-05-17 06:00] VITALS: BP 144/83
[2020-05-17 06:29] LABS: ALBUMIN 2.3 GM/DL (3.2-5.2); ALT/SGPT 11 U/L (12-78); BILIRUBIN,TOTAL 0.2 MG/DL (0.2-1.0); BLOOD UREA NITROGEN 20 MG/DL (7-18); CALCIUM LEVEL 7.8 MG/DL (8.8-10.2); CARBON DIOXIDE LEVEL 25 MEQ/L (21-32); CHLORIDE LEVEL 118 MEQ/L (98-107); CREATININE FOR GFR 0.61 MG/DL (0.55-1.30); GLOMERULAR FILTRATION RATE > 60.0 (>39); GLUCOSE, FASTING 115 MG/DL (70-100); SODIUM LEVEL 149 MEQ/L (136-145); TOTAL PROTEIN 5.3 GM/DL (6.4-8.2)
[2020-05-17] MEDS: APIXABAN 5 MG TAB (ELIQUIS) PO SCH ×2 (08:43→20:35)
[2020-05-17] MEDS: cefTRIAXone SOD 2 GM in D5W MINI-BAG PLUS 50 ML IV SCH (08:43)
[2020-05-17] MEDS: NYSTATIN 100,000 UNITS/GM TOPICAL PWD 15 GM TOP SCH ×2 (08:43→20:36)
[2020-05-17] MEDS: GABAPENTIN 100 MG CAP PO SCH ×2 (08:43→20:35)
[2020-05-17] MEDS: bisoproloL fumarate 10 MG TAB PO SCH ×2 (08:45→20:36)
[2020-05-17] MEDS: GASTROGRAFIN SOLUTION 30ML PO SCH ×2 (09:12→09:55)
[2020-05-17] MEDS ORDERED: ISOVUE-370 76% 100ML VIAL As Ordered ONE (10:59)
--- NOTE | 2020-05-17 12:07 | REP ---
INDICATION: fever, r/o PE, infection COMPARISON: None. TECHNIQUE: Axial contrast enhanced images from the thoracic inlet to the upper abdomen using pulmonary embolus technique with multiplanar re-formations. 100 ml Isovue 370 intravenous contrast material administered without complication. CT of the abdomen and pelvis obtained following chest CT. This CT examination was performed using the following dose reduction techniques: Automated exposure control, adjustment of mA and/or kv according to the patient's size, and use of iterative reconstruction technique. FINDINGS: Satisfactory enhancement of the pulmonary vasculature is achieved and no filling defects are identified to suggest pulmonary embolus. Thoracic aorta demonstrates atherosclerotic changes without aneurysm or dissection. Cardiomegaly is appreciated along with moderately prominent pulmonary vasculature and poor inspiratory effort with subtle scattered ground-glass opacities. Trace left basilar atelectasis noted. No effusion. No pneumothorax. Tracheobronchial tree is patent. No obvious adenopathy. Evidence for mastectomy and left mammoplasty. IMPRESSION: 1. No evidence for pulmonary embolus. 2. Poor inspiratory effort limits evaluation. Mild pulmonary vascular congestion cannot be excluded. 3. Trace left basilar atelectasis. <Electronically signed by Fritz Aguirre > 05/17/20 [id number]
--- NOTE | 2020-05-17 12:22 | REP ---
INDICATION: fever, r/o PE, infection. COMPARISON: 05/19/2019 TECHNIQUE: Axial contrast-enhanced images from the lung bases to the pubic symphysis using 100 cc Isovue 370 intravenous contrast material. Coronal and sagittal reformations obtained.. This CT examination was performed using the following dose reduction techniques: Automated exposure control, adjustment of mA and/or kv according to the patient's size, and the use of iterative reconstruction technique. FINDINGS: Liver, spleen, pancreas, and bilateral adrenal glands are relatively normal/stable. Gallbladder demonstrates small amount of layering gravel/stones without evidence for acute cholecystitis. The kidneys demonstrate chronic changes including cortical thinning and perinephric stranding without hydronephrosis. Bilateral nephrolithiasis is appreciated including 13 mm right renal calculus and 8 mm left renal calculus. There is subtle enhancement to the right renal pelvis and proximal ureter which should be correlated with urinalysis. The enteric system is without obstruction or acute inflammatory process. Colonic diverticulosis noted without acute diverticulitis. Evaluation of the distal sigmoid colon within the pelvis is limited due to extensive beam hardening artifact. Evaluation of the pelvis is significantly limited due to beam hardening artifact from bilateral hip prosthesis. Bladder/prostate and rectosigmoid are incompletely evaluated. No ascites. No free air. No obvious adenopathy. Abdominal aorta and vasculature without aneurysm or dissection. Musculoskeletal structures demonstrate degenerative changes without acute osseous abnormality. IMPRESSION: 1. Cholelithiasis without evidence for acute cholecystitis. 2. Subtle stranding surrounding the right renal pelvis and proximal ureter is nonspecific and should be correlated with urinalysis. This may represent chronic changes related to irritation and intermittent obstruction. Non-obstructing renal calculi measure up to roughly 13 mm in the right kidney and 8 mm in the left kidney. 3. Diverticulosis. 4. Evaluation of the pelvis is limited by beam hardening artifact but without obvious acute abnormality. <Electronically signed by Fritz Aguirre > 05/17/20 [id number]
[2020-05-17 14:00] VITALS: BP 139/82
--- NOTE | 2020-05-17 15:31 | IPNPDOC ---
Date Seen The patient was seen on 05/17/20. Progress Note SUBJECTIVE: Tachycardic, febrile 100.0-101.[address] abd/pelvis and CTA chest neg for acute signs of infection. WBC improved, BCx NG at 24 hrs, UCx growing proteus which has been sensitive to current abx- unsure why remaining febrile still. Denies chest pain, sob, fevers, chill, n/v. OBJECTIVE: PHYSICAL EXAMINATION: VS: Pleases see below. CONSTITUTIONAL: More awake , confused at baseline . No acute distress, resting comfortably EYES: PERRLA, EOM intact, corrective lenses in place HENT, MOUTH: Normocephalic, atraumatic, moist mucous membranes NECK: SUPPLE, no JVD, no lymphadenopathy, no carotid bruit CV: tachycardic, sinus rhythm, S1S2 normal, no murmurs/rubs/gallops RESPIRATORY: Clear to auscultation bilaterally, no rales/rhonchi/wheezes GI: BS positive in 4 quadrants, soft, nontender, nondistended, no rebound or guarding, no organomegaly : Deferred MUSCULOSKELETAL: Normal ROM. No cyanosis, clubbing, swelling, joint deformity, extremity edema INTEGUMENTARY: Healed RLE ulcer on anterior olivas, PVD skin changes b/l lower ext. Otherwise, Intact, no rashes, no lesions, no erythema NEUROLOGIC: CN 2-12 intact, no noted focal deficits LABORATORY DATA: Please see below IMAGING: CTA chest: 1. No evidence for pulmonary embolus. 2. Poor inspiratory effort limits evaluation. Mild pulmonary vascular congestion cannot be excluded. 3. Trace left basilar atelectasis. CT abd/pelvis with contrast: 1. Cholelithiasis without evidence for acute cholecystitis. 2. Subtle stranding surrounding the right renal pelvis and proximal ureter is nonspecific and should be correlated with urinalysis. This may represent chronic changes related to irritation and intermittent obstruction. Non-obstructing renal calculi measure up to roughly 13 mm in the right kidney and 8 mm in the left kidney. 3. Diverticulosis. 4. Evaluation of the pelvis is limited by beam hardening artifact but without obvious acute abnormality. CXR: Chronic appearing changes similar to prior examination. No obvious focal consolidation or effusion. CT head: 1. Partially degraded by artifact. 2. No acute intracranial abnormality seen. CT cervical spine: 1. No cervical spine fracture seen. 2. 1.6 cm nodule in the right thyroid lobe. Thyroid ultrasound is recommended for further evaluation. ASSESSMENT: 70-year-old female with past medical history of bilateral breast cancer, hypertension, dyslipidemia, history of nephrolithiasis, stream of right bundle branch block, history of DVT and dementia admitted for increased weakness likely secondary to urinary tract infection. PLAN: Proteus mirabilis UTI, sepsis -Remains tachycardic, febrile overnight -UCx- proteus mirabilis sensitive to IV ceftriaxone -Bcx x 2 sets: NG -C/w gentle IVFs, ceftriaxone IV ( day 3) -F/u daily labs Fever, possibly 2/2 to UTI but ruling out other sources -Persisting fevers despite abx treatment with ceftriaxone, last over the evening -CT abd/pelvis and CTA chest above- no new infectious findings -BCx NG at 24 hours -C/w treatment/plan above Weakness, fall 2/2 UTI, sepsis -Hx of chronic deconditioning, requiring 10 months of rehab in past. Returned home this past 12/2019. -Remains weak, lethargic, confused at baseline -PT: patient was able to stand with maxAx2 was unable to advance lower extremities. She completed turning in bed with maxAx2; Pt states typically her and aids assist at baseline uses cane and walker PRN. Unsafe for discharge. -C/w treatment above, PT/OT, fall precautions HTN -BP stable -C/w home medications Thyroid nodules, incidental finding on CT -TSH low at 0.26, prior 0.8 in 02/2020 -F/u free T4, total T3 -Thyroid US: Heterogeneous thyroid gland with multiple nonspecific indeterminate nodules-the largest of which is noted in the right midpole and appears moderately suspicious. -Will need biopsy as o/p, endocrine referral by PCP Tachycardia, possibly persistent sepsis vs. possible hyperthyroidism -Awaiting thyroid studies above -Monitor on tele. HLD -Statin Herniated disc/chronic back pain -C/w home pain regimen Hx of DVT -c/w eliquis BID RBBB, chronic -ECG abnormal but at baseline Bilateral breast cancer history -F/u with PCP Dementia -Requires 24 hr care, 5x/week home health aid -Appears to be close to baseline according to . -Redirect whenever possible DISPOSITION: Admitted under inpatient status. PT/OT: Unsafe for home at this time. Plan may be rehab vs. home. VS, I&O, 24H, Fishbone Vital Signs/I&O Vital Signs Date Time Temp Pulse Resp B/P (MAP) Pulse Ox O2 Delivery O2 Flow Rate FiO2 05/17/20 08:45 96 142/94 05/17/20 06:58 16 05/17/20 06:00 99.3 95 Room Air I&O- Last 24 Hours up to 6 AM 05/17/20 05:59 Intake Total 360 ml Output Total 0 ml Balance 360 ml Laboratory Data 24H LABS Laboratory Tests 2 05/17/20 05:45: Nucleated Red Blood Cells % (auto) 0.0, Anion Gap 6L, Glomerular Filtration Rate > 60.0, Calcium Level 7.8L, Total Bilirubin 0.2, Aspartate Amino Transf (AST/SGOT) 14, Alanine Aminotransferase (ALT/SGPT) 11L, Alkaline Phosphatase 41L, Total Protein 5.3L, Albumin 2.3L, Albumin/Globulin Ratio 0.8L CBC/BMP Laboratory Tests 05/17/20 05:45 Microbiology Microbiology 05/15/20 Blood Culture - Preliminary, Resulted No Growth after 48 hours. All Specime... 05/15/20 Blood Culture - Preliminary, Resulted No Growth after 48 hours. All Specime... 05/15/20 Urine Culture - Final, Complete Proteus Mirabilis Current Medications Current Medications Medications (Trade) Dose Ordered Sig/Martha Route PRN Reason Start Time Stop Time Status Last Admin Dose Admin Acetaminophen (Tylenol Tab) 325 mg Q4H PRN PO PAIN / FEVER 05/15/20 14:15 Acetaminophen (Tylenol Tab) 650 mg Q4H PRN PO PAIN OR FEVER 05/15/20 13:00 05/16/20 21:06 Acetaminophen/ Hydrocodone Bitart ([place], Anexsia 5/325) 1 tab Q8H PRN PO PAIN 05/15/20 16:00 05/17/20 05:25 Apixaban (Eliquis) 5 mg BID PO 05/15/20 09:00 05/17/20 08:43 Bisoprolol Fumarate (Zebeta) 10 mg BID PO 05/15/20 09:00 05/17/20 08:45 Ceftriaxone Sodium 1 gm/ Dextrose 50 ml @ 100 mls/hr Q24H IV 05/16/20 13:00 05/16/20 08:20 DC Ceftriaxone Sodium 2 gm/ Dextrose 50 ml @ 100 mls/hr Q24H IV 05/16/20 08:30 05/17/20 08:43 Diatrizoate Meglum/ Diatrizoate Sod (Gastrografin) 10 ml Q30M PO 05/17/20 09:30 05/17/20 10:01 DC 05/17/20 09:55 Donepezil HCl (AriCEPT) 5 mg QHS PO 05/15/20 21:00 05/16/20 21:05 Gabapentin (Neurontin) 200 mg BID PO 05/15/20 21:00 05/17/20 08:43 Home Med (Med Rec Complete!) ASDIRECTED XX 05/15/20 13:00 05/15/20 12:57 DC Nystatin (Mycostatin Powder, Nystop) Apply to affected ar... BID TOP 05/15/20 21:00 05/17/20 08:43 Simvastatin (Zocor) 20 mg QHS PO 05/15/20 21:00 05/16/20 21:04 Sodium Chloride 1,000 ml @ 80 mls/hr [id number] IV 05/15/20 14:15 05/17/20 08:40 DC 05/16/20 21:06 Allergies Coded Allergies: atenolol (Verified Allergy, Intermediate, WHEEZING, 03/14/19) lisinopril (Verified Allergy, Unknown, unknown reaction, 05/15/20) celecoxib (Verified Adverse Reaction, Mild, NAUSEA, 03/14/19) meperidine (Verified Adverse Reaction, Mild, VOMITING, 03/14/19) Helga Ferrara MD May 17, 2020 15:31
[2020-05-17] MEDS: DONEPEZIL 5 MG TAB PO SCH (20:35)
[2020-05-17] MEDS: SIMVASTATIN 20 MG TAB PO SCH (20:35)
[2020-05-17 22:00] VITALS: BP 164/90
[2020-05-18 06:00] VITALS: BP 150/84
[2020-05-18 06:49] LABS: HEMATOCRIT 35.6 % (36.0-47.0); HEMOGLOBIN 11.1 g/dl (12.0-15.5); MEAN CORPUSCULAR HGB CONC 31.2 g/dl (32.0-36.5); MEAN CORPUSCULAR VOLUME 89.9 fl (80.0-96.0); PLATELET COUNT, AUTOMATED 228 10^3/uL (150-450); RED BLOOD COUNT 3.96 10^6/uL (4.00-5.40); WHITE BLOOD COUNT 9.1 10^3/uL (4.0-10.0)
[2020-05-18 08:26] LABS: ALBUMIN 2.1 GM/DL (3.2-5.2); ALT/SGPT 13 U/L (12-78); BILIRUBIN,TOTAL 0.3 MG/DL (0.2-1.0); BLOOD UREA NITROGEN 17 MG/DL (7-18); CARBON DIOXIDE LEVEL 27 MEQ/L (21-32); CHLORIDE LEVEL 117 MEQ/L (98-107); CREATININE FOR GFR 0.54 MG/DL (0.55-1.30); FREE T4 1.55 NG/DL (0.76-1.46); GLOMERULAR FILTRATION RATE > 60.0 (>39); GLUCOSE, FASTING 114 MG/DL (70-100); POTASSIUM SERUM 3.6 MEQ/L (3.5-5.1); SODIUM LEVEL 149 MEQ/L (136-145); TOTAL PROTEIN 5.1 GM/DL (6.4-8.2)
[2020-05-18] MEDS: NYSTATIN 100,000 UNITS/GM TOPICAL PWD 15 GM TOP SCH ×2 (10:23→20:57)
[2020-05-18] MEDS: APIXABAN 5 MG TAB (ELIQUIS) PO SCH ×2 (10:23→20:56)
[2020-05-18] MEDS: GABAPENTIN 100 MG CAP PO SCH ×2 (10:23→20:56)
[2020-05-18] MEDS: bisoproloL fumarate 10 MG TAB PO SCH ×2 (10:24→20:57)
[2020-05-18] MEDS: cefTRIAXone SOD 2 GM in D5W MINI-BAG PLUS 50 ML IV SCH (13:51)
[2020-05-18 14:00] VITALS: BP 148/99
--- NOTE | 2020-05-18 16:39 | IPNPDOC ---
Date Seen The patient was seen on 05/18/20. Progress Note SUBJECTIVE: Afebrile since 05/16/20, WBC wnl. COVID + exposure so on precautions. Denies chest pain, sob, fevers, chill, n/v. OBJECTIVE: PHYSICAL EXAMINATION: VS: Pleases see below. CONSTITUTIONAL: Awake . No acute distress, resting comfortably, Ox2 EYES: PERRLA, EOM intact, corrective lenses in place HENT, MOUTH: Normocephalic, atraumatic, moist mucous membranes NECK: SUPPLE, no JVD, no lymphadenopathy, no carotid bruit CV: tachycardic, sinus rhythm, S1S2 normal, no murmurs/rubs/gallops RESPIRATORY: Clear to auscultation bilaterally, no rales/rhonchi/wheezes GI: BS positive in 4 quadrants, soft, nontender, nondistended, no rebound or guarding, no organomegaly : Deferred MUSCULOSKELETAL: Normal ROM. No cyanosis, clubbing, swelling, joint deformity, extremity edema INTEGUMENTARY: Healed RLE ulcer on anterior olivas, PVD skin changes b/l lower ext. Otherwise, Intact, no rashes, no lesions, no erythema NEUROLOGIC: CN 2-12 intact, no noted focal deficits LABORATORY DATA: Please see below IMAGING: CTA chest: 1. No evidence for pulmonary embolus. 2. Poor inspiratory effort limits evaluation. Mild pulmonary vascular congestion cannot be excluded. 3. Trace left basilar atelectasis. CT abd/pelvis with contrast: 1. Cholelithiasis without evidence for acute cholecystitis. 2. Subtle stranding surrounding the right renal pelvis and proximal ureter is nonspecific and should be correlated with urinalysis. This may represent chronic changes related to irritation and intermittent obstruction. Non-obstructing renal calculi measure up to roughly 13 mm in the right kidney and 8 mm in the left kidney. 3. Diverticulosis. 4. Evaluation of the pelvis is limited by beam hardening artifact but without obvious acute abnormality. CXR: Chronic appearing changes similar to prior examination. No obvious focal consolidation or effusion. CT head: 1. Partially degraded by artifact. 2. No acute intracranial abnormality seen. CT cervical spine: 1. No cervical spine fracture seen. 2. 1.6 cm nodule in the right thyroid lobe. Thyroid ultrasound is recommended for further evaluation. ASSESSMENT: 70-year-old female with past medical history of bilateral breast cancer, hypertension, dyslipidemia, history of nephrolithiasis, stream of right bundle branch block, history of DVT and dementia admitted for increased weakness likely secondary to urinary tract infection. PLAN: Proteus mirabilis UTI, resolved sepsis -Remains tachycardic, afebrile overnight -UCx- proteus mirabilis sensitive to IV ceftriaxone -Bcx x 2 sets: NG -C/w gentle IVFs, ceftriaxone IV (day 11/01). Consider changing to PO abx 05/19/20 -F/u daily labs Weakness, fall 2/2 UTI, sepsis -Hx of chronic deconditioning, requiring 10 months of rehab in past. Returned home this past 12/2019. -Remains weak, lethargic, confused at baseline -PT: patient was able to stand with maxAx2 was unable to advance lower extremities. She completed turning in bed with maxAx2; Pt states typically her and aids assist at baseline uses cane and walker PRN. Unsafe for disch arge. -C/w treatment above, PT/OT, fall precautions COVID 19 exposure -Exposed to healthcare worker who tested + -No s/s currently -COVID test neg 05/17/20 but could be too early for symptoms to show -Monitor closely, c/w precautions HTN -BP stable -C/w home medications Thyroid nodules, incidental finding on CT -TSH low at 0.26, prior 0.8 in 02/2020 -Free T4 1.55, total T3 pending -Thyroid US: Heterogeneous thyroid gland with multiple nonspecific indeterminate nodules-the largest of which is noted in the right midpole and appears moderately suspicious. -Will need biopsy as o/p, endocrine referral by PCP Tachycardia, possibly persistent sepsis vs. possible hyperthyroidism -Awaiting thyroid studies above -Monitor on tele. HLD -Statin Herniated disc/chronic back pain -C/w home pain regimen Hx of DVT -c/w eliquis BID RBBB, chronic -ECG abnormal but at baseline Bilateral breast cancer history -F/u with PCP Dementia -Requires 24 hr care, 5x/week home health aid -Appears to be close to baseline according to . -Redirect whenever possible DISPOSITION: Admitted under inpatient status. PT/OT: Unsafe for home at this time. Plan may be rehab vs. home. VS, I&O, 24H, Fishbone Vital Signs/I&O Vital Signs Date Time Temp Pulse Resp B/P (MAP) Pulse Ox O2 Delivery O2 Flow Rate FiO2 05/18/20 14:00 98.7 101 22 148/99 (115) 98 Room Air I&O- Last 24 Hours up to 6 AM 05/18/20 06:00 Intake Total 1620 ml Balance 1620 ml Laboratory Data 24H LABS Laboratory Tests 2 05/17/20 16:47: Coronavirus (COVID-19)(PCR) NEGATIVE 05/18/20 06:37: Nucleated Red Blood Cells % (auto) 0.0, Anion Gap 5L, Glomerular Filtration Rate > 60.0, Calcium Level 8.0L, Total Bilirubin 0.3, Aspartate Amino Transf (AST/SGOT) 14, Alanine Aminotransferase (ALT/SGPT) 13, Alkaline Phosphatase 38L, Total Protein 5.1L, Albumin 2.1L, Albumin/Globulin Ratio 0.7L, Free Thyroxine 1.55H CBC/BMP Laboratory Tests 05/18/20 06:37 Microbiology Microbiology 05/15/20 Blood Culture - Preliminary, Resulted No Growth after 72 hours. All specime... 05/15/20 Blood Culture - Preliminary, Resulted No Growth after 72 hours. All specime... 05/15/20 Urine Culture - Final, Complete Proteus Mirabilis Current Medications Current Medications Medications (Trade) Dose Ordered Sig/Martha Route PRN Reason Start Time Stop Time Status Last Admin Dose Admin Acetaminophen (Tylenol Tab) 325 mg Q4H PRN PO PAIN / FEVER 05/15/20 14:15 Acetaminophen (Tylenol Tab) 650 mg Q4H PRN PO PAIN OR FEVER 05/15/20 13:00 05/16/20 21:06 Acetaminophen/ Hydrocodone Bitart ([place], Anexsia 5/325) 1 tab Q8H PRN PO PAIN 05/15/20 16:00 05/17/20 05:25 Apixaban (Eliquis) 5 mg BID PO 05/15/20 09:00 05/18/20 10:23 Bisoprolol Fumarate (Zebeta) 10 mg BID PO 05/15/20 09:00 05/18/20 10:24 Ceftriaxone Sodium 1 gm/ Dextrose 50 ml @ 100 mls/hr Q24H IV 05/16/20 13:00 05/16/20 08:20 DC Ceftriaxone Sodium 2 gm/ Dextrose 50 ml @ 100 mls/hr Q24H IV 05/16/20 08:30 05/18/20 13:51 Diatrizoate Meglum/ Diatrizoate Sod (Gastrografin) 10 ml Q30M PO 05/17/20 09:30 05/17/20 10:01 DC 05/17/20 09:55 Donepezil HCl (AriCEPT) 5 mg QHS PO 05/15/20 21:00 05/17/20 20:35 Gabapentin (Neurontin) 200 mg BID PO 05/15/20 21:00 05/18/20 10:23 Home Med (Med Rec Complete!) ASDIRECTED XX 05/15/20 13:00 05/15/20 12:57 DC Nystatin (Mycostatin Powder, Nystop) Apply to affected ar... BID TOP 05/15/20 21:00 05/18/20 10:23 Simvastatin (Zocor) 20 mg QHS PO 05/15/20 21:00 05/17/20 20:35 Sodium Chloride 1,000 ml @ 80 mls/hr [id number] IV 05/15/20 14:15 05/17/20 08:40 DC 05/16/20 21:06 Allergies Coded Allergies: atenolol (Verified Allergy, Intermediate, WHEEZING, 03/14/19) lisinopril (Verified Allergy, Unknown, unknown reaction, 05/15/20) celecoxib (Verified Adverse Reaction, Mild, NAUSEA, 03/14/19) meperidine (Verified Adverse Reaction, Mild, VOMITING, 03/14/19) Helga Ferrara MD May 18, 2020 16:39
[2020-05-18] MEDS: SIMVASTATIN 20 MG TAB PO SCH (20:56)
[2020-05-18] MEDS: DONEPEZIL 5 MG TAB PO SCH (20:56)
[2020-05-18 22:00] VITALS: BP 156/88
[2020-05-19 06:00] VITALS: BP 148/90
[2020-05-19 06:38] LABS: HEMATOCRIT 35.9 % (36.0-47.0); HEMOGLOBIN 11.5 g/dl (12.0-15.5); MEAN CORPUSCULAR HEMOGLOBIN 28.6 pg (27.0-33.0); MEAN CORPUSCULAR VOLUME 89.3 fl (80.0-96.0); PLATELET COUNT, AUTOMATED 258 10^3/uL (150-450); RED BLOOD COUNT 4.02 10^6/uL (4.00-5.40)
[2020-05-19 06:55] LABS: ALBUMIN 2.2 GM/DL (3.2-5.2); ALT/SGPT 15 U/L (12-78); BILIRUBIN,TOTAL 0.3 MG/DL (0.2-1.0); BLOOD UREA NITROGEN 17 MG/DL (7-18); CALCIUM LEVEL 8.1 MG/DL (8.8-10.2); CARBON DIOXIDE LEVEL 27 MEQ/L (21-32); CHLORIDE LEVEL 113 MEQ/L (98-107); CREATININE FOR GFR 0.59 MG/DL (0.55-1.30); GLOMERULAR FILTRATION RATE > 60.0 (>39); GLUCOSE, FASTING 113 MG/DL (70-100); POTASSIUM SERUM 3.9 MEQ/L (3.5-5.1); SODIUM LEVEL 146 MEQ/L (136-145); TOTAL PROTEIN 5.3 GM/DL (6.4-8.2)
[2020-05-19] MEDS: MIRALAX *UNIT DOSE* 17GM PACKET PO SCH (08:26)
[2020-05-19] MEDS: GABAPENTIN 100 MG CAP PO SCH ×2 (08:26→21:53)
[2020-05-19] MEDS: cefTRIAXone SOD 2 GM in D5W MINI-BAG PLUS 50 ML IV SCH (08:26)
[2020-05-19] MEDS: bisoproloL fumarate 10 MG TAB PO SCH ×2 (08:26→21:52)
[2020-05-19] MEDS: NYSTATIN 100,000 UNITS/GM TOPICAL PWD 15 GM TOP SCH ×2 (08:27→21:53)
[2020-05-19] MEDS: APIXABAN 5 MG TAB (ELIQUIS) PO SCH ×2 (08:27→21:53)
[2020-05-19] MEDS: LevoFLOXacin 500 MG TABLET PO SCH (09:15)
[2020-05-19 11:54] LABS: TOTAL T3 69.7 NG/DL (60.0-181.0)
[2020-05-19 14:00] VITALS: BP 150/97
--- NOTE | 2020-05-19 15:25 | IPNPDOC ---
Date Seen The patient was seen on 05/19/20. Progress Note SUBJECTIVE: Max assist with PT, very weak. Remains afebrile, transitioned to PO abx today. Denies chest pain, sob, fevers, chill, n/v. OBJECTIVE: PHYSICAL EXAMINATION: VS: Pleases see below. CONSTITUTIONAL: Awake and pleasantly confused at times. No acute distress, resting comfortably, Ox2 EYES: PERRLA, EOM intact, corrective lenses in place HENT, MOUTH: Normocephalic, atraumatic, moist mucous membranes NECK: SUPPLE, no JVD, no lymphadenopathy, no carotid bruit CV: tachycardic, sinus rhythm, S1S2 normal, no murmurs/rubs/gallops RESPIRATORY: Clear to auscultation bilaterally, no rales/rhonchi/wheezes GI: BS positive in 4 quadrants, soft, nontender, nondistended, no rebound or guarding, no organomegaly : Deferred MUSCULOSKELETAL: Normal ROM. No cyanosis, clubbing, swelling, joint deformity, extremity edema INTEGUMENTARY: Healed RLE ulcer on anterior olivas, PVD skin changes b/l lower ext. Otherwise, Intact, no rashes, no lesions, no erythema NEUROLOGIC: CN 2-12 intact, no noted focal deficits LABORATORY DATA: Please see below IMAGING: CTA chest: 1. No evidence for pulmonary embolus. 2. Poor inspiratory effort limits evaluation. Mild pulmonary vascular congestion cannot be excluded. 3. Trace left basilar atelectasis. CT abd/pelvis with contrast: 1. Cholelithiasis without evidence for acute cholecystitis. 2. Subtle stranding surrounding the right renal pelvis and proximal ureter is nonspecific and should be correlated with urinalysis. This may represent chronic changes related to irritation and intermittent obstruction. Non-obstructing renal calculi measure up to roughly 13 mm in the right kidney and 8 mm in the left kidney. 3. Diverticulosis. 4. Evaluation of the pelvis is limited by beam hardening artifact but without obvious acute abnormality. CXR: Chronic appearing changes similar to prior examination. No obvious focal consolidation or effusion. CT head: 1. Partially degraded by artifact. 2. No acute intracranial abnormality seen. CT cervical spine: 1. No cervical spine fracture seen. 2. 1.6 cm nodule in the right thyroid lobe. Thyroid ultrasound is recommended for further evaluation. ASSESSMENT: 70-year-old female with past medical history of bilateral breast cancer, hypertension, dyslipidemia, history of nephrolithiasis, stream of right bundle branch block, history of DVT and dementia admitted for increased weakness likely secondary to urinary tract infection. PLAN: Proteus mirabilis UTI, resolved sepsis -Remains tachycardic, afebrile overnight -UCx- proteus mirabilis sensitive to IV ceftriaxone -Bcx x 2 sets: NG -Received 4 days of ceftriaxone IV , switched to PO levofloxacin today. -F/u daily labs Acute on chronic deconditioning with recent fall 2/2 UTI, sepsis -Hx of chronic deconditioning, requiring 10 months of rehab in past. Returned home this past 12/2019. -Remains weak, lethargic, confused at baseline. -Max assist with PT -C/w treatment above, PT/OT, fall precautions. Will likely need rehab after stay COVID 19 exposure -Exposed to healthcare worker who tested + -No s/s currently -COVID test neg 05/17/20 but could be too early for symptoms to show -Monitor closely, c/w precautions Thyroid nodules, incidental finding on CT -TSH low at 0.26, prior 0.8 in 02/2020 -Free T4 1.55, total T3 wnl -Thyroid US: Heterogeneous thyroid gland with multiple nonspecific indeterminate nodules-the largest of which is noted in the right midpole and appears moderately suspicious. -Will need biopsy as o/p, endocrine referral by PCP Hyperthyroidism likely 2/2 to thyroid nodules above -likely cause for tachycardia -F/u treatment plan above HTN -BP stable -C/w home medications HLD -Statin Herniated disc/chronic back pain -C/w home pain regimen Hx of DVT -c/w eliquis BID RBBB, chronic -ECG abnormal but at baseline Bilateral breast cancer history -F/u with PCP Dementia -Requires 24 hr care, 5x/week home health aid -Appears to be close to baseline according to . -Redirect whenever possible DVT px -Eliquis BID DISPOSITION: Admitted under inpatient status. Will attempt to update today. PT/OT: Unsafe for home at this time. Plan may be rehab vs. home. VS, I&O, 24H, Fishbone Vital Signs/I&O Vital Signs Date Time Temp Pulse Resp B/P (MAP) Pulse Ox O2 Delivery O2 Flow Rate FiO2 05/19/20 14:00 99.9 105 17 150/97 (114) 94 Room Air I&O- Last 24 Hours up to 6 AM 05/19/20 06:00 Intake Total 1150 ml Output Total 475 ml Balance 675 ml Laboratory Data 24H LABS Laboratory Tests 2 05/18/20 23:25: Troponin I < 0.02 05/19/20 06:14: Nucleated Red Blood Cells % (auto) 0.0, Anion Gap 6L, Glomerular Filtration Rate > 60.0, Calcium Level 8.1L, Total Bilirubin 0.3, Aspartate Amino Transf (AST/SGOT) 16, Alanine Aminotransferase (ALT/SGPT) 15, Alkaline Phosphatase 38L, Total Protein 5.3L, Albumin 2.2L, Albumin/Globulin Ratio 0.7L CBC/BMP Laboratory Tests 05/19/20 06:14 Microbiology Microbiology 05/15/20 Blood Culture - Preliminary, Resulted No Growth after 72 hours. All specime... 05/15/20 Blood Culture - Preliminary, Resulted No Growth after 72 hours. All specime... 05/15/20 Urine Culture - Final, Complete Proteus Mirabilis Current Medications Current Medications Medications (Trade) Dose Ordered Sig/Martha Route PRN Reason Start Time Stop Time Status Last Admin Dose Admin Acetaminophen (Tylenol Tab) 325 mg Q4H PRN PO PAIN / FEVER 05/15/20 14:15 05/19/20 09:59 DC Acetaminophen (Tylenol Tab) 650 mg Q4H PRN PO MILD PAIN OR FEVER 05/15/20 13:00 05/16/20 21:06 Acetaminophen/ Hydrocodone Bitart ([place], Anexsia 5/325) 1 tab Q8H PRN PO MODERATE PAIN (PS 5-7) 05/15/20 16:00 05/17/20 05:25 Apixaban (Eliquis) 5 mg BID PO 05/15/20 09:00 05/19/20 08:27 Bisoprolol Fumarate (Zebeta) 10 mg BID PO 05/15/20 09:00 05/19/20 08:26 Ceftriaxone Sodium 1 gm/ Dextrose 50 ml @ 100 mls/hr Q24H IV 05/16/20 13:00 05/16/20 08:20 DC Ceftriaxone Sodium 2 gm/ Dextrose 50 ml @ 100 mls/hr Q24H IV 05/16/20 08:30 05/19/20 08:29 DC 05/19/20 08:26 Diatrizoate Meglum/ Diatrizoate Sod (Gastrografin) 10 ml Q30M PO 05/17/20 09:30 05/17/20 10:01 DC 05/17/20 09:55 Donepezil HCl (AriCEPT) 5 mg QHS PO 05/15/20 21:00 05/18/20 20:56 Gabapentin (Neurontin) 200 mg BID PO 05/15/20 21:00 05/19/20 08:26 Home Med (Med Rec Complete!) ASDIRECTED XX 05/15/20 13:00 05/15/20 12:57 DC Levofloxacin (Levaquin) 500 mg DAILY@06 PO 05/19/20 06:00 05/24/20 05:59 05/19/20 09:15 Nystatin (Mycostatin Powder, Nystop) Apply to affected ar... BID TOP 05/15/20 21:00 05/19/20 08:27 Polyethylene Glycol (Miralax) 1 pkt DAILY PO 05/19/20 09:00 05/19/20 08:26 Simvastatin (Zocor) 20 mg QHS PO 05/15/20 21:00 05/18/20 20:56 Sodium Chloride 1,000 ml @ 80 mls/hr [id number] IV 05/15/20 14:15 05/17/20 08:40 DC 05/16/20 21:06 Allergies Coded Allergies: atenolol (Verified Allergy, Intermediate, WHEEZING, 03/14/19) lisinopril (Verified Allergy, Unknown, unknown reaction, 05/15/20) celecoxib (Verified Adverse Reaction, Mild, NAUSEA, 03/14/19) meperidine (Verified Adverse Reaction, Mild, VOMITING, 03/14/19) Helga Ferrara MD May 19, 2020 15:25
[2020-05-19] MEDS: DONEPEZIL 5 MG TAB PO SCH (21:53)
[2020-05-19] MEDS: SIMVASTATIN 20 MG TAB PO SCH (21:53)
[2020-05-19 22:00] VITALS: BP 157/89
[2020-05-20] MEDS: LevoFLOXacin 500 MG TABLET PO SCH (05:55)
[2020-05-20 06:00] VITALS: BP 160/90
[2020-05-20 06:21] LABS: HEMATOCRIT 38.4 % (36.0-47.0); HEMOGLOBIN 11.9 g/dl (12.0-15.5); MEAN CORPUSCULAR HEMOGLOBIN 27.7 pg (27.0-33.0); MEAN CORPUSCULAR VOLUME 89.3 fl (80.0-96.0); PLATELET COUNT, AUTOMATED 298 10^3/uL (150-450); WHITE BLOOD COUNT 9.5 10^3/uL (4.0-10.0)
[2020-05-20 06:44] LABS: ALBUMIN 2.2 GM/DL (3.2-5.2); ALT/SGPT 21 U/L (12-78); BILIRUBIN,TOTAL 0.4 MG/DL (0.2-1.0); BLOOD UREA NITROGEN 14 MG/DL (7-18); CALCIUM LEVEL 8.8 MG/DL (8.8-10.2); CARBON DIOXIDE LEVEL 30 MEQ/L (21-32); CHLORIDE LEVEL 109 MEQ/L (98-107); CREATININE FOR GFR 0.58 MG/DL (0.55-1.30); GLOMERULAR FILTRATION RATE > 60.0 (>39); GLUCOSE, FASTING 110 MG/DL (70-100); POTASSIUM SERUM 3.9 MEQ/L (3.5-5.1); SODIUM LEVEL 144 MEQ/L (136-145); TOTAL PROTEIN 6.2 GM/DL (6.4-8.2)
[2020-05-20] MEDS: GABAPENTIN 100 MG CAP PO SCH ×2 (08:55→20:23)
[2020-05-20] MEDS: MIRALAX *UNIT DOSE* 17GM PACKET PO SCH (08:55)
[2020-05-20] MEDS: APIXABAN 5 MG TAB (ELIQUIS) PO SCH ×2 (08:55→20:23)
[2020-05-20] MEDS: bisoproloL fumarate 10 MG TAB PO SCH ×2 (08:56→20:23)
[2020-05-20] MEDS: NYSTATIN 100,000 UNITS/GM TOPICAL PWD 15 GM TOP SCH ×2 (08:57→20:24)
[2020-05-20 14:00] VITALS: BP 140/96
[2020-05-20] MEDS: SIMVASTATIN 20 MG TAB PO SCH (20:23)
[2020-05-20] MEDS: DONEPEZIL 5 MG TAB PO SCH (20:23)
[2020-05-21] MEDS: LevoFLOXacin 500 MG TABLET PO SCH (05:07)
[2020-05-21 06:00] VITALS: BP 152/98
[2020-05-21 06:20] LABS: HEMATOCRIT 38.8 % (36.0-47.0); HEMOGLOBIN 11.9 g/dl (12.0-15.5); MEAN CORPUSCULAR HEMOGLOBIN 27.2 pg (27.0-33.0); MEAN CORPUSCULAR HGB CONC 30.7 g/dl (32.0-36.5); MEAN CORPUSCULAR VOLUME 88.6 fl (80.0-96.0); PLATELET COUNT, AUTOMATED 336 10^3/uL (150-450); RED BLOOD COUNT 4.38 10^6/uL (4.00-5.40); WHITE BLOOD COUNT 10.2 10^3/uL (4.0-10.0)
[2020-05-21 06:38] LABS: ALBUMIN 2.3 GM/DL (3.2-5.2); ALT/SGPT 26 U/L (12-78); BILIRUBIN,TOTAL 0.4 MG/DL (0.2-1.0); BLOOD UREA NITROGEN 18 MG/DL (7-18); CALCIUM LEVEL 8.8 MG/DL (8.8-10.2); CARBON DIOXIDE LEVEL 29 MEQ/L (21-32); CHLORIDE LEVEL 107 MEQ/L (98-107); CREATININE FOR GFR 0.55 MG/DL (0.55-1.30); GLOMERULAR FILTRATION RATE > 60.0 (>39); GLUCOSE, FASTING 104 MG/DL (70-100); POTASSIUM SERUM 4.1 MEQ/L (3.5-5.1); SODIUM LEVEL 140 MEQ/L (136-145); TOTAL PROTEIN 6.3 GM/DL (6.4-8.2)
[2020-05-21] MEDS: NYSTATIN 100,000 UNITS/GM TOPICAL PWD 15 GM TOP SCH ×2 (09:49→21:14)
[2020-05-21] MEDS: APIXABAN 5 MG TAB (ELIQUIS) PO SCH ×2 (09:51→21:14)
[2020-05-21] MEDS: GABAPENTIN 100 MG CAP PO SCH ×2 (09:52→21:14)
[2020-05-21] MEDS: MIRALAX *UNIT DOSE* 17GM PACKET PO SCH (09:52)
[2020-05-21] MEDS: bisoproloL fumarate 10 MG TAB PO SCH ×2 (09:54→21:15)
[2020-05-21] MEDS: DONEPEZIL 5 MG TAB PO SCH (21:14)
[2020-05-21] MEDS: SIMVASTATIN 20 MG TAB PO SCH (21:14)
[2020-05-22 06:00] VITALS: BP 166/89
[2020-05-22] MEDS: LevoFLOXacin 500 MG TABLET PO SCH (06:05)
[2020-05-22] MEDS: MIRALAX *UNIT DOSE* 17GM PACKET PO SCH (08:26)
[2020-05-22] MEDS: APIXABAN 5 MG TAB (ELIQUIS) PO SCH ×2 (08:27→21:29)
[2020-05-22] MEDS: GABAPENTIN 100 MG CAP PO SCH ×2 (08:27→21:28)
[2020-05-22] MEDS: bisoproloL fumarate 10 MG TAB PO SCH ×2 (08:28→21:29)
[2020-05-22] MEDS: NYSTATIN 100,000 UNITS/GM TOPICAL PWD 15 GM TOP SCH ×2 (08:29→21:00)
[2020-05-22] MEDS: DONEPEZIL 5 MG TAB PO SCH (21:29)
[2020-05-22] MEDS: SIMVASTATIN 20 MG TAB PO SCH (21:29)
[2020-05-23 06:00] VITALS: BP 130/76
[2020-05-23] MEDS: LevoFLOXacin 500 MG TABLET PO SCH (06:04)
[2020-05-23] MEDS: APIXABAN 5 MG TAB (ELIQUIS) PO SCH ×2 (09:27→20:19)
[2020-05-23] MEDS: GABAPENTIN 100 MG CAP PO SCH ×2 (09:27→20:20)
[2020-05-23] MEDS: MIRALAX *UNIT DOSE* 17GM PACKET PO SCH (09:27)
[2020-05-23] MEDS: bisoproloL fumarate 10 MG TAB PO SCH ×2 (09:29→20:20)
[2020-05-23] MEDS: NYSTATIN 100,000 UNITS/GM TOPICAL PWD 15 GM TOP SCH ×2 (09:32→20:21)
--- NOTE | 2020-05-23 09:46 | IPNPDOC ---
Text Note Date of Service The patient was seen on 05/23/20. NOTE Subjective: No any acute events overnight. Patient denied any pain, fever, chills, nausea, vomiting, diarrhea or dysuria Objective: GENERAL APPEARANCE: pleasantly confused female HEENT: no scleral icterus, no JVD, EOMI CARDIOVASCULAR: S1S2 LUNGS: CTA ABDOMEN: soft & not tender w palpitation MUSCULOSKELETAL: no cyanosis, no swelling INTEGUMENT: no generalized palor NEUROLOGICAL: cranial nerve function from 2-12 intact intact, follows commands, speech not dysarthric ASSESSMENT: 70-year-old female with past medical history of bilateral breast cancer, hypertension, dyslipidemia, history of nephrolithiasis, stream of right bundle branch block, history of DVT and dementia admitted for increased weakness likely secondary to urinary tract infection. PLAN: Proteus mirabilis UTI, resolved sepsis Patient completed course of antibiotic therapy chronic deconditioning with recent fall 2/2 UTI, sepsis -Hx of chronic deconditioning, requiring 10 months of rehab in past. Returned home this past 12/2019. PT/OT, fall precautions. COVID 19 exposure -Exposed to healthcare worker who tested + -No s/s currently -COVID test neg 05/17/20 -Monitor closely, c/w precautions Thyroid nodules, incidental finding on CT/hyperthyroidism -TSH low at 0.26, prior 0.8 in 02/2020 -Free T4 1.55, total T3 wnl -Thyroid US: Heterogeneous thyroid gland with multiple nonspecific indeterminate nodules-the largest of which is noted in the right midpole and appears moderately suspicious. -Patient might need a nuclear thyroid scan -endocrine referral by PCP -Patient continues to be tachycardic, I will start methimazole 5 mg Hyperthyroidism likely 2/2 to thyroid nodules above -likely cause for tachycardia -F/u treatment plan above HTN -BP stable -C/w home medications HLD -Statin Herniated disc/chronic back pain -C/w home pain regimen Hx of DVT -c/w eliquis BID RBBB, chronic -ECG abnormal but at baseline Bilateral breast cancer history -F/u with PCP Dementia -Requires 24 hr care, 5x/week home health aid -Appears to be close to baseline according to . -Redirect whenever possible VS,Fishbone, I+O VS, Fishbone, I+O Vital Signs Date Time Temp Pulse Resp B/P (MAP) Pulse Ox O2 Delivery O2 Flow Rate FiO2 05/23/20 09:29 102 122/74 05/23/20 06:00 97.4 17 95 Room Air I&O- Last 24 Hours up to 6 AM 05/23/20 06:00 Intake Total 590 ml Output Total 0 ml Balance 590 ml FRANCISCA SHETH DO May 23, 2020 09:46
[2020-05-23] MEDS: DONEPEZIL 5 MG TAB PO SCH (20:19)
[2020-05-23] MEDS: SIMVASTATIN 20 MG TAB PO SCH (20:20)
[2020-05-24 04:00] VITALS: BP_SYST 93
[2020-05-24 06:00] VITALS: BP_SYST 146
[2020-05-24] MEDS: MIRALAX *UNIT DOSE* 17GM PACKET PO SCH (07:57)
[2020-05-24] MEDS: APIXABAN 5 MG TAB (ELIQUIS) PO SCH ×2 (07:57→20:24)
[2020-05-24] MEDS: GABAPENTIN 100 MG CAP PO SCH ×2 (07:58→20:24)
[2020-05-24] MEDS: bisoproloL fumarate 10 MG TAB PO SCH ×2 (08:06→20:25)
[2020-05-24] MEDS: NYSTATIN 100,000 UNITS/GM TOPICAL PWD 15 GM TOP SCH ×2 (08:06→20:25)
[2020-05-24] MEDS: NORCO, ANEXSIA 5/325MG TABLET (HYDROcodone/ACETAMINOPHEN) PO PRN (08:16)
[2020-05-24] MEDS: DONEPEZIL 5 MG TAB PO SCH (20:24)
[2020-05-24] MEDS: SIMVASTATIN 20 MG TAB PO SCH (20:24)
[2020-05-25 06:00] VITALS: BP 144/79
[2020-05-25] MEDS: APIXABAN 5 MG TAB (ELIQUIS) PO SCH ×2 (10:08→22:11)
[2020-05-25] MEDS: GABAPENTIN 100 MG CAP PO SCH ×2 (10:08→22:11)
[2020-05-25] MEDS: NYSTATIN 100,000 UNITS/GM TOPICAL PWD 15 GM TOP SCH ×2 (10:10→22:12)
[2020-05-25] MEDS: bisoproloL fumarate 10 MG TAB PO SCH ×2 (10:10→22:13)
[2020-05-25] MEDS: MIRALAX *UNIT DOSE* 17GM PACKET PO SCH (10:18)
[2020-05-25] MEDS: DONEPEZIL 5 MG TAB PO SCH (22:11)
[2020-05-25] MEDS: SIMVASTATIN 20 MG TAB PO SCH (22:11)
[2020-05-26 06:00] VITALS: BP 127/73
[2020-05-26] MEDS: APIXABAN 5 MG TAB (ELIQUIS) PO SCH ×2 (08:33→21:49)
[2020-05-26] MEDS: MIRALAX *UNIT DOSE* 17GM PACKET PO SCH (08:34)
[2020-05-26] MEDS: bisoproloL fumarate 10 MG TAB PO SCH ×2 (08:34→21:50)
[2020-05-26] MEDS: GABAPENTIN 100 MG CAP PO SCH ×2 (08:34→21:48)
[2020-05-26] MEDS: NYSTATIN 100,000 UNITS/GM TOPICAL PWD 15 GM TOP SCH ×2 (08:35→21:49)
[2020-05-26] MEDS: SIMVASTATIN 20 MG TAB PO SCH (21:49)
[2020-05-26] MEDS: DONEPEZIL 5 MG TAB PO SCH (21:49)
[2020-05-27 06:00] VITALS: BP 160/83
[2020-05-27] MEDS: MIRALAX *UNIT DOSE* 17GM PACKET PO SCH (08:53)
[2020-05-27] MEDS: APIXABAN 5 MG TAB (ELIQUIS) PO SCH ×2 (08:54→21:45)
[2020-05-27] MEDS: bisoproloL fumarate 10 MG TAB PO SCH ×2 (08:54→21:00)
[2020-05-27] MEDS: NYSTATIN 100,000 UNITS/GM TOPICAL PWD 15 GM TOP SCH ×2 (08:55→21:46)
[2020-05-27] MEDS: GABAPENTIN 100 MG CAP PO SCH ×2 (08:55→21:45)
[2020-05-27] MEDS: SIMVASTATIN 20 MG TAB PO SCH (21:45)
[2020-05-27] MEDS: DONEPEZIL 5 MG TAB PO SCH (21:46)
[2020-05-28 06:00] VITALS: BP 138/84
[2020-05-28] MEDS: GABAPENTIN 100 MG CAP PO SCH ×2 (08:54→20:45)
[2020-05-28] MEDS: MIRALAX *UNIT DOSE* 17GM PACKET PO SCH ×2 (08:54→09:00)
[2020-05-28] MEDS: APIXABAN 5 MG TAB (ELIQUIS) PO SCH ×2 (08:55→20:46)
[2020-05-28] MEDS: bisoproloL fumarate 10 MG TAB PO SCH ×2 (08:57→20:46)
[2020-05-28] MEDS: NYSTATIN 100,000 UNITS/GM TOPICAL PWD 15 GM TOP SCH ×2 (08:57→20:46)
[2020-05-28] MEDS: SIMVASTATIN 20 MG TAB PO SCH (20:46)
[2020-05-28] MEDS: DONEPEZIL 5 MG TAB PO SCH (20:46)
[2020-05-29 06:00] VITALS: BP 149/79
[2020-05-29] MEDS: bisoproloL fumarate 10 MG TAB PO SCH ×2 (08:04→20:26)
[2020-05-29] MEDS: APIXABAN 5 MG TAB (ELIQUIS) PO SCH ×2 (08:04→20:25)
[2020-05-29] MEDS: MIRALAX *UNIT DOSE* 17GM PACKET PO SCH (08:04)
[2020-05-29] MEDS: GABAPENTIN 100 MG CAP PO SCH ×2 (08:04→20:25)
[2020-05-29] MEDS: NYSTATIN 100,000 UNITS/GM TOPICAL PWD 15 GM TOP SCH ×2 (08:05→20:26)
[2020-05-29] MEDS: SIMVASTATIN 20 MG TAB PO SCH (20:25)
[2020-05-29] MEDS: DONEPEZIL 5 MG TAB PO SCH (20:25)
[2020-05-30 06:00] VITALS: BP 140/78
[2020-05-30] MEDS: bisoproloL fumarate 10 MG TAB PO SCH ×2 (08:43→08:51)
[2020-05-30] MEDS: APIXABAN 5 MG TAB (ELIQUIS) PO SCH (08:43)
[2020-05-30] MEDS: GABAPENTIN 100 MG CAP PO SCH (08:43)
[2020-05-30] MEDS: MIRALAX *UNIT DOSE* 17GM PACKET PO SCH (08:44)
[2020-05-30] MEDS: NYSTATIN 100,000 UNITS/GM TOPICAL PWD 15 GM TOP SCH (08:45)
[2020-05-30 08:51] VITALS: BP 115/66
[2020-05-30] MEDS ORDERED: METH25TAB PO (10:16)
[2020-05-30] MEDS ORDERED: FLUBLOK(EGG FREE)(QUAD)INFLUENZA VACC 0.5ML SYRINGE 18YRS & OLDER IM ONE (11:30)
--- NOTE | 2020-05-30 16:27 | DS.PDOC ---
Discharge Summary General Date of Admission May 15, 2020 at 12:54 Date of Discharge 05/30/20 Discharge Summary PROCEDURES PERFORMED DURING STAY: [None]. ADMITTING DIAGNOSES: Proteus mirabilis UTI, resolved sepsis chronic deconditioning Thyroid nodules hyperthyroidism HTN HLD Herniated disc/chronic back pain RBBB Dementia Bilateral breast cancer history DISCHARGE DIAGNOSES: Proteus mirabilis UTI, resolved sepsis chronic deconditioning Thyroid nodules hyperthyroidism HTN HLD Herniated disc/chronic back pain RBBB Dementia Bilateral breast cancer history COMPLICATIONS/CHIEF COMPLAINT: Uti Weakness. HISTORY OF PRESENT ILLNESS: 70-year-old female with past medical history of bilateral breast cancer, hypertension, dyslipidemia, history of nephrolithiasis, stream of right bundle branch block, history of DVT and dementia admitted for increased weakness likely secondary to urinary tract infection. HOSPITAL COURSE: During hospital stay following issue addressed Proteus mirabilis UTI, resolved sepsis Patient completed course of antibiotic therapy chronic deconditioning with recent fall 2/2 UTI, sepsis -Hx of chronic deconditioning, requiring 10 months of rehab in past. Returned home this past 12/2019. PT/OT, fall precautions. COVID 19 exposure -Exposed to healthcare worker who tested + -No s/s currently -COVID test neg 05/17/20 -Monitor closely, c/w precautions Thyroid nodules, incidental finding on CT/hyperthyroidism -TSH low at 0.26, prior 0.8 in 02/2020 -Free T4 1.55, total T3 wnl -Thyroid US: Heterogeneous thyroid gland with multiple nonspecific indeterminate nodules-the largest of which is noted in the right midpole and appears moderately suspicious. -Patient might need a nuclear thyroid scan -endocrine referral by PCP -Patient continues to be tachycardic, started methimazole 5 mg Hyperthyroidism likely 2/2 to thyroid nodules above -likely cause for tachycardia -F/u treatment plan above HTN -BP stable -C/w home medications HLD -Statin Herniated disc/chronic back pain -C/w home pain regimen Hx of DVT -c/w eliquis BID RBBB, chronic -ECG abnormal but at baseline Bilateral breast cancer history -F/u with PCP Dementia -Requires 24 hr care, 5x/week home health aid -Appears to be close to baseline according to . -Redirect whenever possible DISCHARGE MEDICATIONS: Please see below. ALLERGIES: Please see below. PHYSICAL EXAMINATION ON DISCHARGE: VITAL SIGNS: Please see below. GENERAL APPEARANCE: pleasantly confused female HEENT: no scleral icterus, no JVD, EOMI CARDIOVASCULAR: S1S2 LUNGS: CTA ABDOMEN: soft & not tender w palpitation MUSCULOSKELETAL: no cyanosis, no swelling INTEGUMENT: no generalized palor NEUROLOGICAL: cranial nerve function from 2-12 intact intact, follows commands, speech not [id number]/ LABORATORY DATA: Please see below. IMAGING: [facility] NAME: JONAH ROBLES DATE OF : 1950 AGE: 70 SEX: F REPORT #: [id number] ROOM: [facility] TECHNOLOGIST: RAJI DOCTOR: Helga Ferrara MD Ordered for Date&Time: 05/16/20 162 cc: [~ rep ct ivnm] Service Date&Time: 05/16/20 1704 This report is in Signed status. If this report is in a DRAFT status it has not yet been reviewed by the radiologist for accuracy. Thank you for having your radiology procedures performed at [facility] RADIOLOGY REPORT Date&Time printed: [~ rep prt dt last] [~ rep prt tm last] Page 2 of 2 [place] [address] RADIOLOGY REPORT This report is in Signed status. If this report is in a DRAFT status it has not yet been reviewed by the radiologist for accuracy. Thank you for having your radiology procedures performed at [facility] RADIOLOGY REPORT Date&Time printed: [~ rep prt dt last] [~ rep prt tm last] Page 1 of 1 INDICATION: thyroid nodule COMPARISON: None. TECHNIQUE: Payton scale and color evaluation of the thyroid gland using the linear high frequency transducer. FINDINGS: The thyroid gland is diffusely heterogeneous and demonstrates multiple scattered nodules. Right thyroid lobe measures 3.6 x 2.4 x 2.1 cm and includes 1.7 x 1.3 x 1.7 cm complex mid pole nodule with cystic components and small calcifications as well as 5 x 4 x 6 mm lower pole cyst. Isthmus measures 7.6 mm mm in width. Left thyroid lobe measures 3.5 x 1.7 x 1.8 cm and includes 6 x 4 x 7 mm upper pole cyst and 4 x 3 x 3 mm midpole hypoechoic nodule. IMPRESSION: Heterogeneous thyroid gland with multiple nonspecific indeterminate nodules-the largest of which is noted in the right midpole and appears moderately suspicious. <Electronically signed by Fritz Aguirre > 05/16/202116 DD: Fritz Aguirre MD 05/16/202111 DT: MARCO A 05/16/202116 DS: TONY 05/16/20211105/16/202111 [~ rep ct labl] PROGNOSIS: Fair ACTIVITY: [As tolerated]. 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 TIME SPENT ON DISCHARGE: Greater than 40 minutes. Vital Signs/I&Os Vital Signs Date Time Temp Pulse Resp B/P (MAP) Pulse Ox O2 Delivery O2 Flow Rate FiO2 05/30/20 08:51 94 115/66 05/30/20 06:00 98.4 19 96 Room Air I&O- Last 24 Hours up to 6 AM 05/30/20 06:00 Intake Total 1000 ml Balance 1000 ml Laboratory Data Labs 24H Laboratory Tests 2 05/30/20 08:59: Coronavirus (COVID-19)(PCR) NEGATIVE Discharge Medications Scheduled Apixaban (Eliquis) 5 Mg Tablet, 5 MG PO BID, (Reported) Bisoprolol Fumarate (Bisoprolol Fumarate) 10 Mg Tablet, 10 MG PO BID, (Reported) Donepezil HCl (Aricept) 5 Mg Tablet, 5 MG PO QHS, (Reported) Gabapentin (Gabapentin) 100 Mg Capsule, 200 MG PO BID, (Reported) Methimazole (Methimazole) 5 Mg Tablet, 5 MG PO DAILY Simvastatin (Simvastatin) 20 Mg Tab, 20 MG PO QHS, (Reported) Scheduled PRN Acetaminophen (Acetaminophen) 325 Mg Tablet, 325 MG PO Q4H PRN for PAIN / FEVER, (Reported) Hydrocodone/Acetaminophen (Hydrocodone-Acetamin 5-325 mg) 1 Each Tablet, 1 TAB PO Q8H PRN for PAIN, (Reported) Loperamide HCl (Imodium A-D) 2 Mg Tablet, 2 MG PO for DIARRHEA, (Reported) Allergies Coded Allergies: atenolol (Verified Allergy, Intermediate, WHEEZING, 03/14/19) lisinopril (Verified Allergy, Unknown, unknown reaction, 05/15/20) celecoxib (Verified Adverse Reaction, Mild, NAUSEA, 03/14/19) meperidine (Verified Adverse Reaction, Mild, VOMITING, 03/14/19) FRANCISCA SHETH DO May 30, 2020 16:26
== END 2020-05-30 11:56 | DRG 872 ==
LOC: M ED 10:00 → EDBD 10:00 → M ED INP 12:54 → ENRESERV 15:00 → M MSPAV 16:23
PROVIDERS: ADMIT Internal Medicine; ATTEND Internal Medicine
DX: A41.9 Sepsis, unspecified organism (principal); N39.0 Urinary tract infection, site not specified; R53.1 Weakness; I10 Essential (primary) hypertension; E78.5 Hyperlipidemia, unspecified; F03.90 Unspecified dementia, unspecified severity, without behavioral disturbance, psychotic disturbance, mood disturbance, and anxiety; I45.10 Unspecified right bundle-branch block; Z87.442 Personal history of urinary calculi; Z85.3 Personal history of malignant neoplasm of breast; Z86.718 Personal history of other venous thrombosis and embolism; B96.4 Proteus (mirabilis) (morganii) as the cause of diseases classified elsewhere; M81.0 Age-related osteoporosis without current pathological fracture; Z98.49 Cataract extraction status, unspecified eye; Z90.13 Acquired absence of bilateral breasts and nipples; Z96.643 Presence of artificial hip joint, bilateral; Z96.653 Presence of artificial knee joint, bilateral; E05.00 Thyrotoxicosis with diffuse goiter without thyrotoxic crisis or storm; Z79.01 Long term (current) use of anticoagulants; Z79.899 Other long term (current) drug therapy; Z88.8 Allergy status to other drugs, medicaments and biological substances; R53.83 Other fatigue; Z20.828 Contact with and (suspected) exposure to other viral communicable diseases

== ENCOUNTER → 2020-06-05 | Outpatient (REF) ==
[~2020-06-05] MED LIST changes: +GABA-1171 PO; +GABA-843; +HYDR-3713 PO; +LOPE2TAB12 PO; +METH25TAB PO
[2020-06-06 08:22] LABS: INFLUENZA A AMPLIFICATION NEGATIVE (NEGATIVE); INFLUENZA B AMPLIFICATION NEGATIVE (NEGATIVE)
== END ==
LOC: SKLAB7 13:51
PROVIDERS: ATTEND Internal Medicine
DX: Z20.828 Contact with and (suspected) exposure to other viral communicable diseases (principal)

== ENCOUNTER → 2020-06-11 | Outpatient (REF) | payer MEDICARE, BC, OTHER ==
[~2020-06-11] MED LIST changes: +ACET-838 PO; +ACET-897 PO; +ACET500T15 PO; +FERR325T18 PO; +FURO20TA2 PO; -NON-325T5 PO; +PANT40TA29 PO; +PATIENT COMMENT; -SM A TOP; +TERB15CR TOP
== END ==
LOC: SKLAB7 06-10 15:05 → EDSTATUS 07-17 15:26
PROVIDERS: ATTEND Internal Medicine
DX: Z20.818 Contact with and (suspected) exposure to other bacterial communicable diseases (principal)

== ENCOUNTER → 2020-06-12 | Outpatient (REF) | payer BC, MEDICARE, OTHER ==
[~2020-06-12] MED LIST changes: -ACET-838 PO; -ACET-897 PO; -ACET500T15 PO; -FERR325T18 PO; -FURO20TA2 PO; +NON-325T5 PO; -PANT40TA29 PO; -PATIENT COMMENT; +SM A TOP; -TERB15CR TOP
[2020-06-12 11:45] LABS: CHOLESTEROL RISK RATIO 2.435 (<5)
== END ==
LOC: SKLAB7 07:00
PROVIDERS: ATTEND Internal Medicine
DX: E78.5 Hyperlipidemia, unspecified (principal)

== ENCOUNTER → 2020-07-01 | Outpatient (REF) | payer MEDICARE, OTHER ==
[~2020-07-01] MED LIST changes: +ACET-838 PO; -NON-325T5 PO; -SM A TOP; +TERB15CR TOP
[2020-07-01 15:58] LABS: BASO % 0.3 % (0.0-1.0); EOS # 0.1 10^3/uL (0.0-0.5); EOS % 1.3 % (0.0-3.0); HEMOGLOBIN 12.6 g/dl (12.0-15.5); LYMPH # 1.2 10^3/uL (1.5-5.0); MEAN CORPUSCULAR HEMOGLOBIN 26.4 pg (27.0-33.0); MEAN CORPUSCULAR HGB CONC 29.3 g/dl (32.0-36.5); MONO # 0.6 10^3/uL (0.0-0.8); MONO % 7.1 % (0.0-5.0); NEUTROPHILS # 6.7 10^3/uL (1.5-8.5); PLATELET COUNT, AUTOMATED 311 10^3/uL (150-450); RED BLOOD COUNT 4.78 10^6/uL (4.00-5.40); WHITE BLOOD COUNT 8.7 10^3/uL (4.0-10.0)
[2020-07-01 16:11] LABS: ALBUMIN 3.2 GM/DL (3.2-5.2); ALT/SGPT 17 U/L (12-78); BILIRUBIN,TOTAL 0.3 MG/DL (0.2-1.0); BLOOD UREA NITROGEN 18 MG/DL (7-18); CALCIUM LEVEL 9.1 MG/DL (8.8-10.2); CARBON DIOXIDE LEVEL 32 MEQ/L (21-32); CHLORIDE LEVEL 108 MEQ/L (98-107); CREATININE FOR GFR 0.72 MG/DL (0.55-1.30); FREE T4 1.18 NG/DL (0.76-1.46); GLOMERULAR FILTRATION RATE > 60.0 (>39); GLUCOSE, FASTING 114 MG/DL (70-100); SODIUM LEVEL 143 MEQ/L (136-145); TOTAL PROTEIN 6.6 GM/DL (6.4-8.2)
== END ==
LOC: M SFHCPLAZ 12:14
PROVIDERS: ATTEND Family Medicine
DX: E05.90 Thyrotoxicosis, unspecified without thyrotoxic crisis or storm (principal); R53.81 Other malaise
CPT/HCPCS: 36415; 80053; 84439; 84443; 85025; G0463

== ENCOUNTER 2020-07-22 21:05 | Inpatient (IN) | payer MEDICARE, BC, OTHER ==
[~2020-07-22] VITALS: Ht 170.2 cm; Wt 81.3 kg
[~2020-07-22 21:05] MED LIST changes: +SIMVASTATIN 20 MG TAB PO SCH
[2020-07-22] MEDS ORDERED: ACET500T15 PO (21:33)
[2020-07-22] MEDS ORDERED: ACETAMINOPHEN TAB 650MG DOSE (2X325MG) PO ONE (22:00)
[2020-07-22] MEDS ORDERED: NS 3,000 ML in IV 1 EA IV ONE (22:00)
[2020-07-22] MEDS ORDERED: ACETAMINOPHEN 650 MG SUPP PR ONE (22:15)
[2020-07-22] MEDS: GASTROGRAFIN SOLUTION 30ML PO SCH ×2 (22:30→23:54)
[2020-07-22 22:52] LABS: HEMATOCRIT 49.1 % (36.0-47.0); HEMOGLOBIN 14.6 g/dl (12.0-15.5); LYMPH # 0.2 10^3/uL (1.5-5.0); LYMPH % 5.5 % (24.0-44.0); MEAN CORPUSCULAR HEMOGLOBIN 26.4 pg (27.0-33.0); MEAN CORPUSCULAR HGB CONC 29.7 g/dl (32.0-36.5); MEAN CORPUSCULAR VOLUME 88.8 fl (80.0-96.0); MONO % 0.7 % (0.0-5.0); NEUTROPHILS # 2.5 10^3/uL (1.5-8.5); NEUTROPHILS % 93.4 % (36.0-66.0); PLATELET COUNT, AUTOMATED 242 10^3/uL (150-450); RED BLOOD COUNT 5.53 10^6/uL (4.00-5.40); WHITE BLOOD COUNT 2.7 10^3/uL (4.0-10.0)
[2020-07-22 23:02] LABS: INR 1.06
[2020-07-22 23:03] LABS: PARTIAL THROMBOPLASTIN TIME 24.6 SECONDS (24.2-38.5)
[2020-07-22 23:22] LABS: ALBUMIN 3.3 GM/DL (3.2-5.2); ALT/SGPT 12 U/L (12-78); BILIRUBIN,DIRECT 0.2 MG/DL (0.0-0.2); BILIRUBIN,TOTAL 0.6 MG/DL (0.2-1.0); BLOOD UREA NITROGEN 17 MG/DL (7-18); C REACTIVE PROTEIN QUANTITATIV 0.73 MG/DL (0.00-0.30); CALCIUM LEVEL 9.1 MG/DL (8.8-10.2); CARBON DIOXIDE LEVEL 24 MEQ/L (21-32); CHLORIDE LEVEL 106 MEQ/L (98-107); CK-MB VALUE MASS < 1.0 NG/ML (<3.6); CPK CREATINE PHOSPHOKINASE 38 U/L (26-192); CREATININE FOR GFR 1.18 MG/DL (0.55-1.30); GLOMERULAR FILTRATION RATE 47.9 (>39); GLUCOSE, FASTING 167 MG/DL (70-100); LIPASE 57 U/L (73-393); MB/CK RELATIVE INDEX 2.63 (< OR =4); POTASSIUM SERUM 3.8 MEQ/L (3.5-5.1); SODIUM LEVEL 138 MEQ/L (136-145); TOTAL PROTEIN 7.2 GM/DL (6.4-8.2); TROPONIN I < 0.02 NG/ML (< 0.10)
[2020-07-22 23:37] LABS: RSV AMPLIFICATION NEGATIVE (NEGATIVE)
--- NOTE | 2020-07-22 23:42 | REPVR ---
PROCEDURE INFORMATION: Exam: XR Chest, 1 View Exam date and time: 07/22/2020 11:12 PM Age: 70 years old Clinical indication: Other: Sepsis/ shock; Additional info: Sepsis/shock TECHNIQUE: Imaging protocol: XR of the chest Views: 1 view. COMPARISON: CR Chest, 2 view PA, Lat 05/16/2020 9:00 AM FINDINGS: Lungs: Degree of lung inflation is normal. No evidence of pulmonary edema. No focal consolidation or parenchymal lung mass. Pleural space: No pleural effusion or pneumothorax. Heart/Mediastinum: Cardiac silhouette appears normal. No adenopathy or hilar mass. Vasculature: Tortuous appearing aorta, similar to the prior exam. Bones/joints: Osseous structures show no concerning abnormality. Soft tissues: Bilateral axillary surgical clips are present. IMPRESSION: No acute or focal cardiopulmonary process. Electronically signed by: Leonardo Ureña On 07/22/2020 23:42:20 PM
[2020-07-22] MEDS ORDERED: CEFEPIME HCL 2 GM in D5W MINI-BAG PLUS 50 ML IV ONE (23:45)
[2020-07-22 23:58] LABS: CLOSTRIDIUM DIFFICILE PCR NEGATIVE (NEGATIVE)
[2020-07-23] VITALS (107 sets, daily range): BP systolic 66–154; BP diastolic 35–81; O2SAT 97–99
[2020-07-23] MEDS ORDERED: ISOVUE-370 76% 100ML VIAL As Ordered ONE (00:02)
--- NOTE | 2020-07-23 00:32 | REPVR ---
PROCEDURE INFORMATION: Exam: CT Abdomen And Pelvis With Contrast Exam date and time: 07/22/2020 9:47 PM Age: 70 years old Clinical indication: Fever; Abdominal pain; Generalized; Additional info: Abd pain and fever R/O diverticulitis/appy TECHNIQUE: Imaging protocol: Computed tomography of the abdomen and pelvis with intravenous contrast. Radiation optimization: All CT scans at this facility use at least one of these dose optimization techniques: automated exposure control; mA and/or kV adjustment per patient size (includes targeted exams where dose is matched to clinical indication); or iterative reconstruction. Contrast material: ISO; Contrast volume: 100 ml; Contrast route: INTRAVENOUS (IV); COMPARISON: CT ABD/PEL W/IV ORAL CONTRAS 05/17/2020 11:11 AM FINDINGS: Liver: Liver appears normal with no focal abnormality. Gallbladder and bile ducts: Gallbladder is present and shows no evidence of gallstone. Pancreas: Pancreas appears normal. No focal mass or peripancreatic inflammation. Spleen: Spleen appears homogeneous without focal mass. Adrenal glands: Adrenal glands are normal in appearance. Kidneys and ureters: Left kidney demonstrates perinephric stranding and hydroureteronephrosis with distal ureter stones at the level of the left acetabular roof measuring up to 7 mm. The distal most aspect of the left ureter is not visualized because of orthopedic hardware. Right kidney demonstrates no cierra obstructive uropathy. Stomach and bowel: No evidence of small bowel obstruction. Distal colon is not well visualized. Diverticular changes in the left colon are present. Appendix: Appendix is not visualized. Intraperitoneal space: No pneumoperitoneum. Vasculature: No aortic aneurysm. Lymph nodes: No enlarged lymph nodes. Urinary bladder: Bladder is not well visualized because of orthopedic hardware. Bones/joints: Bilateral hip arthroplasty hardware and lumbar spine degenerative changes are noted. Exam limitations: Exam is limited due to patient motion. Exam is limited by artifact from patient being scanned with arms at the sides. Limited exam secondary to body habitus and orthopedic hardware artifact IMPRESSION: 1. Severely limited study as outlined above 2. Moderate left hydroureteronephrosis and perinephric stranding with a 7 mm ureter stone within the left ureter at the acetabular roof level. The ureter remains somewhat dilated distal to this and a more distal ureter calculus could be present but not able to be seen because of artifact related to hip arthroplasties. 3. Nonvisualization of the appendix. Electronically signed by: Leonardo Ureña On 07/23/2020 00:33:10 AM
[2020-07-23] MEDS ORDERED: ACETAMINOPHEN 650 MG SUPP PR ONE (01:15)
--- NOTE | 2020-07-23 01:28 | ED PDOC ---
Post-Departure Follow-Up 70yo F with a history of dementia, HTN, HLD, DVT and renal stones presents with abdominal pain. Per her , the patient complained of feeling unwell this morning. She had at least 3 episodes of explosive diarrhea yesterday that he treated with Imodium. She has had a poor appetite to solids and fluids, and was pale which prompted him to call EMS. Upon their arrival, she complained of abdominal pain. I am unable to obtain further information due to her AMS/ dementia. Her exam is notable for LUQ tenderness without peritoneal signs. She is febrile, hypertensive and tachycardic, but nontoxic appearing. Her symptoms are concerning for sepsis secondary to an intra-abdominal infection vs pna vs UTI. Labs, imaging and EKG were obtained. She was given IVF and Tylenol 650mg PO. Her work up was notable for signs of a UTI, lactic acidosis, and an obstructing 7mm L renal stone with hydroureteronephrosis. She was given Cefepime 2mg IV. Upon reassessment, she continued to be tachycardic, but her BP improved. She was noted to have bibasilar crackles, and her IVF was slowed to 250cc/hr. Upon furth er assessment, she continued to be tachycardic but her BP down trended to the 90s systolic. her IVF rate was increased. I spoke with Dr. Brody (Urology), who agred to take the patient for an emergent L stent and retrograde. I also spoke with Dr. Villalobos, who accepted the patient to his service. I discussed the findings and the plan to admit her to the hospital. He verbalized understanding and agreed with the plan. Her condition remained guarded while under my care. MAX ESTES MD Jul 23, 2020 01:27
[2020-07-23] MEDS ORDERED: ACET-897 PO (02:22)
[2020-07-23] MEDS ORDERED: PATIENT COMMENT (02:27)
[2020-07-23] MEDS ORDERED: propofoL 200 MG/20 ML VIAL As Ordered ONE (02:42)
[2020-07-23] MEDS ORDERED: LIDOCAINE 2% 100MG/5ML SDV (FOR ANES.) As Ordered ONE ×2 (02:42→02:45)
[2020-07-23] MEDS ORDERED: MIDAZOLAM INJ 2MG/2ML VIAL (J2250 PER 1MG) As Ordered ONE (02:42)
--- NOTE | 2020-07-23 02:46 | HPEPDOC ---
[facility] Medical History & Physical Date of Admission Jul 23, 2020 Date of Service: Jul 23, 2020 History and Physical CHIEF COMPLAINT: Abdominal pain, Altered mental status, Malaise HISTORY OF PRESENT ILLNESS (obtained from ): 70yo F with a history of vascular dementia, HTN, HLD, DVT, herniated disc with chronic back pain, bilateral breast cancer, ?Hyperthyroidism and renal stones presenting with 1 day hx of progressive abdominal pain, altered mental status, and poor appetite. As per , patient's baseline is AO x 2 but would answer questions appropriately which she is currently unable to do. Notes patient did not have a temperature at home, but was complaining of subjective fevers and chills. No cough, nausea/vomiting, sick contacts noted. However patient did have multiple episodes of diarrhea today which the says has been occuring intermittently since last admission (D/C date Jun 16) where she was treated for proteus UTI with IV abx for nearly 2 weeks. In the ED, patient initially with BP 219/113, MN 112, and RR of 32 saturating well on RA but was febrile to T-Max of 104.1. Labs significant for leukopenia of 2.7 with elevated lactic acid of 3.6. Had abdominal CT performed showing left hydroureteronephrosis and perinephric stranding with a 7 mm stone in the left ureter. CXR WNL. PAST MEDICAL HISTORY: 1. Vascular Dementia 2. HTN 3. HLD 4. DVT 5. Disc herniation 6. Bilateral breast cancer 7. ?Hyperthyroidism PAST SURGICAL HISTORY: 1. Cataract surgery in 7. 2. Eye surgery. 3. Tonsillectomy and adenoidectomy in 1959. 4. Tubal ligation in 1982. 5. Reconstructive breast surgery in 1984. 6. Arthroscopic right knee surgery in 1986. 7. Hysterectomy due to menorrhagia in 1998. 8. Right mastectomy in 1999. 9. Right hip replacement in 2001. 10. Left knee replacement in October 2012. 11. Double-J stent placement in 03/21/2013. 12. Extracorporeal shockwave lithotripsy (ESWL) 06/20/2013. 13. Colonoscopy with hyperplastic polyps done in 2013. 14. Left hip replacement 01/04/2017. 15. Nephrolithiasis. 16. Lithotripsy October 2017. 17. Right knee replacement. SOCIAL HISTORY: As per , denies smoking, drinking or illicit drug use FAMILY HISTORY: Father from [place]. Mother from Alzheimer. Brother had ALS and sister had lung cancer ALLERGIES: Please see below. REVIEW OF SYSTEMS: Unable to be accurately obtained as patient is obtunded. As per , he notes patient was complaining of abdominal pain, poor appetite, malaise, and diarrhea. Denies any mention of dysuria, foul smelling urine, increased frequency. Subjective fevers and chills noted at home. HOME MEDICATIONS: Please see below. PHYSICAL EXAMINATION: GENERAL APPEARANCE: Somnolent HEENT: EOMI. CARDIOVASCULAR: HS 1+ 2 normal. no added sounds or murmurs LUNGS: Clear to auscultation ABDOMEN: Fluctuant. Unable to assess for fluid thrill. tender to palpation near epigastric region. Back: Left CVA tender to palpation. Musculoskeletal: able to wiggle fingers and toes EXTREMITIES: Limbs appear to have non-pitting edema NEUROLOGICAL: AO x 1 however able to follow instructions LABORATORY DATA: See below. IMAGING: Abdominal CT: 1. Severely limited study as outlined above 2. Moderate left hydroureteronephrosis and perinephric stranding with a 7 mm ureter stone within the left ureter at the acetabular roof level. The ureter remains somewhat dilated distal to this and a more distal ureter calculus could be present but not able to be seen because of artifact related to hip arthroplasties. 3. Nonvisualization of the appendix. CXR: WNL MICROBIOLOGY: Please see below. ASSESSMENT/Plan: 70yo F with a history of vascular dementia, hyperthyroidism, HTN, HLD, DVT, herniated disc with chronic back pain, bilateral breast cancer, ?hyperthyroidism and renal stones presenting with 1 day hx of progressive abdominal pain, altered mental status, and poor appetite. In the ED, abdominal CT showing 7 mm Left ureteral stent with signs of pyelonephritis and vitals suggestive of urosepsis. Will be admitted for stent placement and management of urosepsis. #Urosepsis likely 2/2 Ureteral Stone -Patient hypotensive, tachypneic, febrile and with UTI -CRP elevated at 0.73. Leukocytosis at 2.7 -S/P one dose of cefepime in ED. Will continue in house while awaiting Urine culture for sensitivities (2g BID--> Renally adjusted) -Urine cultures, blood cultures pending -C/W IVF at 140 ml/hr -Lactic acid 3.6 on admission. Trend #Ureteral Stone -As per CT scan, 7 mm Left ureteral stone -Dr. Brody (urology) consulted, will take patient for stent placement. Holding eliquis. NPO -C/W IVF after surgery #Hypertensive urgency now hypotensive -On admission, SBP > 200s, rapidly progressing to hypotension necessitating fluids and trendelenburg to maintain SBP > 90 -Home medication bisoprolol held due to septic shock -C/W IVF #Diarrhea -Unclear origin -C.Diff presumptive negative -GI panel ordered #Vascular Dementia -C/W home medication Aricept #HLD -C/W home medication simvastatin #Hx of DVT -As per , this occurred earlier this year in Jul/Aug. May consider discussing with PCP to stop medication once records are obtained -Home medication elliquis 5 BID -Hold home medication in anticipation of ureteral stent placement by Dr. Brody. SCDs ordered #?Hx of hyperthyroidism -As per last admission in May, patient discharged with methimazole 5. However as per med historian, methimazole was discontinued. -Jul 01 labs WNL. However 05/16 labs with slightly low TSH, slightly high t4 -Hold methimazole for now. Recheck labs in 6 weeks outpatient when patient does not have an acute illness Diet: NPO in anticipation of stent placement DVT PPX: SCDs Dispo: Home Code status: Not discussed Case discussed with Dr. Wilfredo Petersen MD Hospitalist Resident Vital Signs Vital Signs Date Time Temp Pulse Resp B/P (MAP) Pulse Ox O2 Delivery O2 Flow Rate FiO2 07/23/20 02:30 111 93/59 (70) 94 Room Air 07/23/20 02:15 22 07/23/20 01:45 104.1 Laboratory Data Labs 24H Laboratory Tests 2 07/22/20 22:42: Immature Granulocyte % (Auto) 0.4, Neutrophils (%) (Auto) 93.4H, Lymphocytes (%) (Auto) 5.5L, Monocytes (%) (Auto) 0.7, Eosinophils (%) (Auto) 0.0, Basophils (%) (Auto) 0.0, Neutrophils # (Auto) 2.5, Lymphocytes # (Auto) 0.2L, Monocytes # (Auto) 0.0, Eosinophils # (Auto) 0.0, Basophils # (Auto) 0.0, Nucleated Red Blood Cells % (auto) 0.0, Prothrombin Time 14.0, Prothromb Time International Ratio 1.06, Activated Partial Thromboplast Time 24.6L, Urine Color YELLOW, Urine Appearance CLOUDYH, Urine pH 6.0, Urine Specific [place] 1.010, Urine Protein 2+H, Urine Glucose (UA) NEGATIVE, Urine Ketones TRACEH, Urine Blood 3+H, Urine Nitrite NEGATIVE, Urine Bilirubin NEGATIVE, Urine Urobilinogen 0.2, Urine Leukocyte Esterase 3+H, Urine WBC (Auto) TNTCH, Urine RBC (Auto) TNTCH, Urine Hyaline Casts (Auto) 0, Urine Bacteria (Auto) 1+H, Urine Squamous Epithelial Cells 0, Urine Sperm (Auto) , Anion Gap 8, Glomerular Filtration Rate 47.9, Ca lcium Level 9.1, Total Bilirubin 0.6, Direct Bilirubin 0.2, Aspartate Amino Transf (AST/SGOT) 12, Alanine Aminotransferase (ALT/SGPT) 12, Alkaline Phosphatase 63, Total Creatine Kinase 38, Creatine Kinase MB < 1.0, Creatine Kinase MB Relative Index 2.63, Troponin I < 0.02, C-Reactive Protein, Quanti tative 0.73H, Total Protein 7.2, Albumin 3.3, Albumin/Globulin Ratio 0.8L, Lipase 57L, Coronavirus (COVID-19)(PCR) NEGATIVE, Influenza Type A (RT-PCR) NEGATIVE, Influenza Type B (RT-PCR) NEGATIVE, Respiratory Syncytial Virus (PCR) NEGATIVE 07/22/20 22:43: Lactic Acid Level 3.6*H 07/22/20 22:44: POC Glucose (Misc Panel) 168H, POC Sodium (Misc Panel) 139, POC Potassium (Misc Panel) 3.9, POC Chloride (Misc Panel) 104, POC Total CO2 (Misc Panel) 25.0, POC Blood Urea Nitrogen (Misc Panel 19, POC Ionized Calcium (Misc Panel) 4.6, POC Creatinine (Misc Panel) 1.0, POC Hematocrit (Misc Panel) 49.0 07/22/20 23:09: Clostridium difficile [id number] PRESUMPTIVE NEGATIVE, Clostridium difficile Toxin (PCR) NEGATIVE CBC/BMP Laboratory Tests 07/22/20 22:42 Microbiology Microbiology 07/23/20 Blood Culture, Received Pending 07/22/20 Urine Culture, Received Pending 07/22/20 Blood Culture, Received Pending 07/22/20 Blood Culture, Received Pending Home Medications Scheduled Acetaminophen (Tylenol Extra Strength) 500 Mg Tablet, 1,000 MG PO BID Apixaban (Eliquis) 5 Mg Tablet, 5 MG PO BID Bisoprolol Fumarate (Bisoprolol Fumarate) 10 Mg Tablet, 10 MG PO BID Donepezil HCl (Aricept) 5 Mg Tablet, 5 MG PO QHS Gabapentin (Gabapentin) 100 Mg Capsule, 200 MG PO BID Simvastatin (Simvastatin) 20 Mg Tab, 20 MG PO QHS Scheduled PRN Hydrocodone/Acetaminophen (Hydrocodone-Acetamin 5-325 mg) 1 Each Tablet, 1 TAB PO BID PRN for PAIN Loperamide HCl (Imodium A-D) 2 Mg Tablet, 2 MG PO Q4H PRN for DIARRHEA Miscellaneous Medications [Patient Comment] MED REC COMPLETED VIA MED LIST, EXTERNAL MED HISTORY, AND PREVIOUS CLINIC VISIT Allergies Coded Allergies: atenolol (Verified Allergy, Intermediate, WHEEZING, 03/14/19) lisinopril (Verified Allergy, Unknown, unknown reaction, 05/15/20) celecoxib (Verified Adverse Reaction, Mild, NAUSEA, 03/14/19) meperidine (Verified Adverse Reaction, Mild, VOMITING, 03/14/19) A-FIB/CHADSVASC A-FIB History Current/History of A-Fib/PAF?: No GME ATTESTATION GME ATTESTATION My faculty preceptor for this patient encounter was physically present during the encounter and was fully available. All aspects of the patient interview, examination, medical decision making process, and medical care plan development were reviewed and approved by the faculty preceptor. The faculty preceptor is aware and concurs with the plan as stated in the body of this note and will attest to such by his/her cosignature. ATTENDING NOTE Paige Bliss, have independently examined this patient and performed my own physical exam, as well as reviewed the documentation and edited where necessary. I have discussed in detail with the resident / student the findings and plan of treatment as documented by the resident / student and edited their note. I agree with their findings and treatment plan and have edited their documentation. I will continue to follow the patient during this hospital stay. Awake, able to respond to basic questions, but very frail and ill appearing. Following basic commands, able to move all four extremities. Extremities are cold, rectal temperature 104. In Trendelenburg position in ED, getting fluid boluses and BP has been responding. # Septic shock suspected to be 2/2 pyelonephritis: ICU. UA+, Febrile, tachycardia. LA 3.6 on admit. Trend lactate. IVFs boluses then NS@140. s/p cefepime in ED. IV Abx continue Cefepime 2g BID renally adjusted (includes pseudomonas coverage). CT abdo/pelvis showing perinephric stranding. Fu BCx, UCx. # L ureter stone with resulting left hydronephrosis: Dr Brody urology consulted from the ED and will take patient to OR for stenting. Consult urology. # Hypertensive urgency on presentation, now hypotensive: Hold home meds. ICU. IVFs. # Hyperthyroidism: Continue methimazole # Hx DVT: Continue eliquis # DVT prophylaxis: eliqius Rest per resident note ROMARIO PETERSEN M.D.,PGY-2 Jul 23, 2020 02:46 GABRIELA DENT MD Jul 23, 2020 04:56
[2020-07-23] MEDS ORDERED: ETOMIDATE INJ 20MG/10ML VIAL As Ordered ONE (03:00)
[2020-07-23] MEDS ORDERED: CONRAY-60 60% 50ML VIAL (Q9961) As Ordered ONE (03:17)
[2020-07-23] MEDS ORDERED: ACETAMINOPHEN TAB 650MG DOSE (2X325MG) PO PRN (03:30)
[2020-07-23] MEDS ORDERED: NORCO, ANEXSIA 5/325MG TABLET (HYDROcodone/ACETAMINOPHEN) PO PRN (03:30)
[2020-07-23] MEDS ORDERED: ePHEDrine SULFATE 25 MG/5 ML(5MG/ML) SYRINGE As Ordered ONE (03:59)
[2020-07-23] MEDS ORDERED: PHENYLephrine HCL 500 MCG/5 ML (100MCG/ML) SYRINGE (J2370) As Ordered ONE ×2 (03:59→04:00)
--- NOTE | 2020-07-23 04:20 | SMCUROLCON ---
Urology Consultation General Date of Consultation 07/23/20 Reason For Consultation This patient is seen for L Ureteral Calculus, Sepsis. History of Present Illness The patient is a 70-year-old female with a past medical history for renal calculi who presented to the emergency room in shock. She states her pain started suddenly today with pain left. Patient was found to be hypertensive bradycardic and CT scan showed an obstructing left ureteral calculus. White cell count is very low and urology consult was called to treat the left ureteral obstruction with probable pyelonephrosis. Patient is not able to give much information. Past Medical History Medical History Dementia Hypertension, HLD DVT Renal calculi Surgical Hstory Tonsillectomy Right mastectomy Family History Family History Unable to obtain from the patient Social History Social History Patient lives with her * Smoker: non-smoker Alcohol: Denies Drugs: denies Medications Current Medications Current Medications Medications (Trade) Dose Ordered Sig/Martha Route PRN Reason Start Time Stop Time Status Last Admin Dose Admin Acetaminophen (Tylenol Tab) 650 mg Q6HP PRN PO MILD PAIN OR FEVER 07/23/20 03:30 Acetaminophen/ Hydrocodone Bitart ([place], Anexsia 5/325) 1 tab BID PRN PO PAIN LEVEL 8-10 07/23/20 03:30 Cefepime HCl 2 gm/ Dextrose 50 ml @ 100 mls/hr Q12H IV 07/23/20 12:00 Diatrizoate Meglum/ Diatrizoate Sod (Gastrografin) 10 ml Q30M PO 07/22/20 22:30 07/22/20 23:01 DC 07/22/20 23:54 Donepezil HCl (AriCEPT) 5 mg QHS PO 07/23/20 21:00 Gabapentin (Neurontin) 200 mg BID PO 07/23/20 09:00 Home Med (Med Rec Complete!) ASDIRECTED XX 07/23/20 02:30 07/23/20 02:29 DC Simvastatin (Zocor) 20 mg QHS PO 07/22/20 21:00 Sodium Chloride 1,000 ml @ 140 mls/hr Q7H9M IV 07/23/20 04:00 Allergies Allergies: Coded Allergies: atenolol (Verified Allergy, Intermediate, WHEEZING, 03/14/19) lisinopril (Verified Allergy, Unknown, unknown reaction, 05/15/20) celecoxib (Verified Adverse Reaction, Mild, NAUSEA, 03/14/19) meperidine (Verified Adverse Reaction, Mild, VOMITING, 03/14/19) Review of Systems General: Reports: Other Symptoms (very poorly responsive) Constitutional: Denies: Fever, Chills, Sweats, Weakness, Malaise Eyes: Denies: Pain, Vision change ENT: Denies: Head Aches, Sore Throat, Epistaxis Pulmonary: Denies: Dyspnea, Cough Genitourinary: Denies: Dysuria, Frequency, Incontinence, Hematuria Musculoskeletal: Denies: Neck Pain, Back Pain Physical Examination General Exam: Severe Distress EYE EXAM: PERRLA, Conjunctiva & lids normal, EOMI; No: Sclera icteric Abdomen Exam: Normal Bowel Sounds, Soft; No: Tenderness, Hepatospenomegaly Female Exam Indwelling Carter catheter Vital Signs/I&O Vital Signs Date Time Temp Pulse Resp B/P (MAP) Pulse Ox O2 Delivery O2 Flow Rate FiO2 07/23/20 03:09 88/50 (63) 07/23/20 03:00 107 22 94 Room Air 07/23/20 02:45 100.9 I&O- Last 24 Hours up to 6 AM 07/23/20 06:00 Intake Total 2050 ml Balance 2050 ml Laboratory Data 24H Labs Laboratory Tests 2 07/22/20 22:42: Immature Granulocyte % (Auto) 0.4, Neutrophils (%) (Auto) 93.4H, Lymphocytes (%) (Auto) 5.5L, Monocytes (%) (Auto) 0.7, Eosinophils (%) (Auto) 0.0, Basophils (%) (Auto) 0.0, Neutrophils # (Auto) 2.5, Lymphocytes # (Auto) 0.2L, Monocytes # (Auto) 0.0, Eosinophils # (Auto) 0.0, Basophils # (Auto) 0.0, Nucleated Red Blood Cells % (auto) 0.0, Prothrombin Time 14.0, Prothromb Time International Ratio 1.06, Activated Partial Thromboplast Time 24.6L, Urine Color YELLOW, Urine Appearance CLOUDYH, Urine pH 6.0, Urine Specific [place] 1.010, Urine Protein 2+H, Urine Glucose (UA) NEGATIVE, Urine Ketones TRACEH, Urine Blood 3+H, Urine Nitrite NEGATIVE, Urine Bilirubin NEGATIVE, Urine Urobilinogen 0.2, Urine Leukocyte Esterase 3+H, Urine WBC (Auto) TNTCH, Urine RBC (Auto) TNTCH, Urine Hyaline Casts (Auto) 0, Urine Bacteria (Auto) 1+H, Urine Squamous Epithelial Cells 0, Urine Sperm (Auto) , Anion Gap 8, Glomerular Filtration Rate 47.9, Calcium Level 9.1, Total Bilirubin 0.6, Direct Bilirubin 0.2, Aspartate Amino Transf (AST/SGOT) 12, Alanine Aminotransferase (ALT/SGPT) 12, Alkaline Phosphatase 63, Total Creatine Kinase 38, Creatine Kinase MB < 1.0, Creatine Kinase MB Relative Index 2.63, Troponin I < 0.02, C-Reactive Protein, Quantitative 0.73H, Total Protein 7.2, Albumin 3.3, Albumin/Globulin Ratio 0.8L, Lipase 57L, Coronavirus (COVID-19)(PCR) NEGATIVE, Influenza Type A (RT-PCR) NEGATIVE, Influenza Type B (RT-PCR) NEGATIVE, Respiratory Syncytial Virus (PCR) NEGATIVE 07/22/20 22:43: Lactic Acid Level 3.6*H 07/22/20 22:44: POC Glucose (Misc Panel) 168H, POC Sodium (Misc Panel) 139, POC Potassium (Misc Panel) 3.9, POC Chloride (Misc Panel) 104, POC Total CO2 (Misc Panel) 25.0, POC Blood Urea Nitrogen (Misc Panel 19, POC Ionized Calcium (Misc Panel) 4.6, POC Creatinine (Misc Panel) 1.0, POC Hematocrit (Misc Panel) 49.0 07/22/20 23:09: Clostridium difficile 027-NAP1-B1 PRESUMPTIVE NEGATIVE, Clostridium difficile Toxin (PCR) NEGATIVE CBC/BMP Laboratory Tests 07/22/20 22:42 Microbiology Microbiology 07/23/20 Blood Culture, Received Pending 07/22/20 Urine Culture, Received Pending 07/22/20 Blood Culture, Received Pending 07/22/20 Blood Culture, Received Pending Assessment Obstructing left ureteral calculus with sepsis and pyelonephrosis Plan Patient will need to be taken to the operating room for urgent stent insertion and presented to the intensive care after. Time Spent on Consult: Time Spent / Consult (Minutes): 75 ROGER SILVERIO MD Jul 23, 2020 04:20
--- NOTE | 2020-07-23 04:25 | ROOPDOC ---
[facility] Report Of Operation Report of Operation DATE OF PROCEDURE: 07/23/20 PREPROCEDURE DIAGNOSES: Distal left ureteral calculus with hydroureteronephrosis and probable pyelonephrosis POSTPROCEDURE DIAGNOSES: Distal left ureteral calculus with hydroureteronephrosis and pyelonephrosis PROCEDURE: Cystoscopy, left retrograde pyelogram, stent insertion SURGEON: Eris Brody MD CATALYTIC CASE OPERATOR: None ANESTHESIA: Mac ESTIMATED BLOOD LOSS: Approximately 0 mL. COMPLICATIONS: None REMARKS: Patient had copious amounts of pus effluxing from the left ureteral orifice after wire insertion PROCEDURE NOTE: Patient brought operating room for an urgent stent insertion for sepsis and obstructing left ureteral calculus DESCRIPTION OF PROCEDURE: The patient was placed on the table in supine position and given Mac anesthesia. She was then placed in lithotomy position, prepped with Betadine paint, draped in aseptic manner and timeout was performed. A 22 [place] cystoscope was then inserted into the meatus and advanced under direct vision of a 30 lens and the bladder. There is very little urine in the bladder and ureteral orifices were in the normal anatomic position. The left ureteral orifice was then catheterized with a 5 [place] open-ended Pollack catheter and retrograde injection of 5 mL of Conray showed the patient had an obstructing left ureteral calculus in the distal third of the ureter. There were still contrast proximal to this from previous x-ray. A wire guide is then passed through the ureteral orifice and was able to be passed easily around to the stone up to the renal pelvis. At this point, copious amounts of purulent material was seen draining from the left renal orifice. A 5 [place] double-J stent was then passed over the wire and curled well in the renal pelvis and in the bladder when the wire was removed. The bladder was drained, cystoscope was removed and the patient was awakened and sent to recovery in stable condition having tolerated procedure well. Fluoroscopy was used throughout the case to diagnose the patient condition, size and position of the stone and for stent placement. Interpretation was performed throughout the procedure. ERIS BRODY MD Jul 23, 2020 04:24
[2020-07-23] MEDS ORDERED: fentaNYL 100 MCG/2 ML INJECTION (J3010) IV PRN (04:45)
[2020-07-23] MEDS ORDERED: ONDANSETRON 4MG/2ML VIAL IV PRN (04:45)
[2020-07-23] MEDS: NS 1,000 ML IV SCH ×2 (05:38→16:19)
[2020-07-23] MEDS ORDERED: HYDROCORTISONE 100 MG/2 ML VIAL (J1720 PER 1) IV ONE (06:15)
--- NOTE | 2020-07-23 07:43 | ECGEPIP ---
[facility] - ED Test Date: 2020-07-22 Pat Name: JONAH ROBLES Department: Room: - Gender: Female Elderly Sitter: nette : 1950 Requested By: MAX Hare Order Number: [id number] Reading MD: Saturnino Caceres Measurements Intervals [place] Rate: 137 P: 48 FL: 135 QRS: -10 QRSD: 119 T: -5 QT: 313 QTc: 474 Interpretive Statements SINUS TACHYCARDIA WITH OCCASIONAL VENTRICULAR PREMATURE COMPLEXES RIGHT BUNDLE BRANCH BLOCK MODERATE VOLTAGE CRITERIA FOR LVH, CONSIDER NORMAL VARIANT Rate increased from tracing done 05-15-20 Baseline artifact Electronically Signed on 07-23-2020 7:43:29 EST by Saturnino Caceres
--- NOTE | 2020-07-23 08:02 | REP ---
INDICATION: STENT PLACEMENT. COMPARISON: March 21, 2013. Comparison CT study July 23, 2020.. TECHNIQUE: Two views. 4 seconds of fluoroscopy time is reported. FINDINGS: A sequence of 2 last image hold fluoroscopically obtained spot radiographs document left ureteral cannulation and contrast injection. There is left-sided hydronephrosis and hydroureter. IMPRESSION: Procedural imaging. <Electronically signed by Dayne Yung > 07/23/20 [id number]
[2020-07-23 08:06] LABS: BASO % 0.2 % (0.0-1.0); HEMATOCRIT 40.5 % (36.0-47.0); LYMPH # 0.4 10^3/uL (1.5-5.0); LYMPH % 1.6 % (24.0-44.0); MEAN CORPUSCULAR HEMOGLOBIN 27.6 pg (27.0-33.0); MEAN CORPUSCULAR HGB CONC 30.9 g/dl (32.0-36.5); MEAN CORPUSCULAR VOLUME 89.4 fl (80.0-96.0); MONO # 0.4 10^3/uL (0.0-0.8); MONO % 1.8 % (0.0-5.0); NEUTROPHILS # 22.2 10^3/uL (1.5-8.5); NEUTROPHILS % 94.3 % (36.0-66.0); PLATELET COUNT, AUTOMATED 182 10^3/uL (150-450); RED BLOOD COUNT 4.53 10^6/uL (4.00-5.40); WHITE BLOOD COUNT 23.5 10^3/uL (4.0-10.0)
[2020-07-23 08:09] LABS: HEMOGLOBIN 12.5 g/dl (12.0-15.5)
[2020-07-23 08:19] LABS: ABG BASE EXCESS -8.3 (-2.0-2.0); ABG HCO3 17.6 MEQ/L (22.0-26.0); ABG O2 SATURATION 98.4 % (95.0-99.0); ABG PARTIAL PRESSURE CO2 37.8 mmHg (35.0-45.0); ABG PARTIAL PRESSURE O2 123.9 mmHg (75.0-100.0); ABG STANDARD HCO3 17.8 MEQ/L (22.0-26.0); ABG TOTAL CO2 18.8 MEQ/L (23.0-31.0); ABG pH (ARTERIAL) 7.286 UNITS (7.350-7.450)
[2020-07-23] MEDS ORDERED: flumazeniL 0.5 MG/5 ML VIAL IV STA ×2 (08:33→08:39)
[2020-07-23] MEDS ORDERED: NS 500 ML IV ONE (08:45)
[2020-07-23] MEDS ORDERED: NALOXONE INJ 0.4MG/1ML VIAL (J2310 PER 1MG) IV STA ×2 (09:00→09:09)
[2020-07-23] MEDS ORDERED: GABAPENTIN 100 MG CAP PO SCH (09:00)
[2020-07-23] MEDS ORDERED: APIXABAN 5 MG TAB (ELIQUIS) PO SCH (09:00)
[2020-07-23] MEDS ORDERED: VANCOMYCIN HCL 1,000 MG, VIAL MATE ADAPTER 1 EACH in D5W 250 ML IV ONE (09:30)
[2020-07-23 10:45] LABS: ALBUMIN 2.4 GM/DL (3.2-5.2); BILIRUBIN,TOTAL 0.3 MG/DL (0.2-1.0); CALCIUM LEVEL 7.3 MG/DL (8.8-10.2); CREATININE FOR GFR 1.25 MG/DL (0.55-1.30); GLOMERULAR FILTRATION RATE 44.8 (>39); POTASSIUM SERUM 3.4 MEQ/L (3.5-5.1); TOTAL PROTEIN 4.8 GM/DL (6.4-8.2)
--- NOTE | 2020-07-23 11:28 | IPNPDOC ---
Date Seen The patient was seen on 07/23/20. Progress Note SUBJECTIVE: Patient went for stent placement for left ureteral stone, hydronephrosis and given 25 fentanyl, 2 versed + propofol gtt for sedation. She was very lethargic, somnolent. She was given narcan x 2 doses, flumazenil x 1 dose which helped increase responsiveness but BP was still low. Total in ER received 4 L, given two 500 mL boluses since early this AM. BP still low at 87/51 despite fluids, crackles heard in posterior lung bases. Started on peripheral levophed to maintain MAP >65 mmHg and surgery consulted to place central line. WBC increased to 23K (possibly somewhat reactive to procedure) but broadened abx with vancomycin IV. OBJECTIVE: PHYSICAL EXAMINATION: VS: Please see below GENERAL APPEARANCE: Somnolent initially but slightly more awake after reversal agents. Following some commands, baseline dementia HEENT: pupils dilated, Pupils equal and reactive to light, dry oral mucosa NECK: No JVD, symmetrical CARDIOVASCULAR: HS 1+ 2 normal. no M/R/G LUNGS: crackles mild in post lung bases. No wheezing, rhonchi. ABDOMEN: soft, obese abd. BS + in 4 quad, no organomegaly Back: Left CVA tender to palpation. Musculoskeletal: ROM not tested due to EXTREMITIES: non-pitting edema b/l lower ext NEUROLOGICAL: Follows some commands, too lethargic to test CN, no focal deficits noticed; however. LABORATORY DATA: See below. IMAGING: Abdominal CT: 1. Severely limited study as outlined above 2. Moderate left hydroureteronephrosis and perinephric stranding with a 7 mm ureter stone within the left ureter at the acetabular roof level. The ureter remains somewhat dilated distal to this and a more distal ureter calculus could be present but not able to be seen because of artifact related to hip arthroplasties. 3. Nonvisualization of the appendix. CXR: WNL MICROBIOLOGY: Please see below. ASSESSMENT: 70yo F with a history of vascular dementia, hyperthyroidism, HTN, HLD, DVT, herniated disc with chronic back pain, bilateral breast cancer, ?hyperthyroidism and renal stones presenting with 1 day hx of progressive abdominal pain, altered mental status, and poor appetite. In the ED, abdominal CT showing 7 mm Left ureteral stent with signs of pyelonephritis and vitals suggestive of urosepsis. Currently in ICU, sepsis 2/2 to UTI/pyelonephritis, septic shock. PLAN: #Hypotension, septic shock 2/2 to UTI, pyelonephritis 2/2 to left ureteral stone s/p stent. Also cannot r/o sedative medications as contributing to hypotension as well. -BP after 5+ liters fluid 87/51 mmHg, starting on peripheral levophed -Central line to be placed, f/u CVP -C/w IVFs at 120 cc/hr. Monitor u/o closely -LA 2.1, improving -WBC 23K, worsened but likely partly reactively incr 2/2 to stent placement -Added Vancomycin to Cefepime -F/u BCx, UCx -Monitor closely on tele, ICU #Increased somnolence likely 2/2 to oversedation -S/p fentanyl 25 mcg, versed 2 mg and propofol -S/p 2 doses narcan, 1 dose flumazenil -More awake but still drowsy -Monitoring closely, keep NPO for now #Left ureteral stone s/p stent placement -CT above -Urology (Dr. Brody) consulted -C/w treatment above #Hypokalemia, acute -Giving 40 mEq KCL replacement now -F/u repeat K later today #Hypertensive urgency now hypotensive -On admission, SBP > 200s, rapidly progressing to hypotension requiring 5+ L since admission -Holding all BP meds -C/w treatment above #Diarrhea -Not an issue since admission -Unclear origin -C.Diff presumptive negative -GI panel ordered #Vascular Dementia -C/w home medication Aricept when taking PO #HLD -C/w simvastatin when taking PO #Hx of DVT -As per , this occurred earlier this year in Jul/Aug. May consider discussing with PCP to stop medication once records are obtained -Home medication elliquis 5 BID -lovenox BID #?Hx of hyperthyroidism -As per last admission in May, patient discharged with methimazole 5. However as per med historian, methimazole was discontinued. -Jul 01 labs WNL. However 05/16 labs with slightly low TSH, slightly high t4 -Hold methimazole for now. Recheck labs in 6 weeks outpatient when patient does not have an acute illness #GI px: PPI IV #DVT PPX -SCDs currently -Will discuss with urology when to restart lovenox DISPOSITION: Currently admitted to ICU. Plan is PT/OT, undecided for discharge at this time. TOTAL AMOUNT OF CRITICAL CARE TIME SPENT ON PATIENT (nonprocedural): 50 mins VS, I&O, 24H, Fishbone Vital Signs/I&O Vital Signs Date Time Temp Pulse Resp B/P (MAP) Pulse Ox O2 Delivery O2 Flow Rate FiO2 07/23/20 11:00 98 87/51 (63) 90 Nasal Cannula 2.0 07/23/20 08:00 97.2 20 07/23/20 07:00 100 I&O- Last 24 Hours up to 6 AM 07/23/20 06:00 Intake Total 3300 ml Output Total 100 ml Balance 3200 ml Laboratory Data 24H LABS Laboratory Tests 2 07/22/20 22:42: Immature Granulocyte % (Auto) 0.4, Neutrophils (%) (Auto) 93.4H, Lymphocytes (%) (Auto) 5.5L, Monocytes (%) (Auto) 0.7, Eosinophils (%) (Auto) 0.0, Basophils (%) (Auto) 0.0, Neutrophils # (Auto) 2.5, Lymphocytes # (Auto) 0.2L, Monocytes # (Auto) 0.0, Eosinophils # (Auto) 0.0, Basophils # (Auto) 0.0, Nucleated Red Blood Cells % (auto) 0.0, Prothrombin Time 14.0, Prothromb Time International Ratio 1.06, Activated Partial Thromboplast Time 24.6L, Urine Color YELLOW, Urine Appearance CLOUDYH, Urine pH 6.0, Urine Specific [place] 1.010, Urine Protein 2+H, Urine Glucose (UA) NEGATIVE, Urine Ketones TRACEH, Urine Blood 3+H, Urine Nitrite NEGATIVE, Urine Bilirubin NEGATIVE, Urine Urobilinogen 0.2, Urine Leukocyte Esterase 3+H, Urine WBC (Auto) TNTCH, Urine RBC (Auto) TNTCH, Urine Hyaline Casts (Auto) 0, Urine Bacteria (Auto) 1+H, Urine Squamous Epithelial Cells 0, Urine Sperm (Auto) , Anion Gap 8, Glomerular Filtration Rate 47.9, Ca lcium Level 9.1, Total Bilirubin 0.6, Direct Bilirubin 0.2, Aspartate Amino Transf (AST/SGOT) 12, Alanine Aminotransferase (ALT/SGPT) 12, Alkaline Phosphatase 63, Total Creatine Kinase 38, Creatine Kinase MB < 1.0, Creatine Kinase MB Relative Index 2.63, Troponin I < 0.02, C-Reactive Protein, Quanti tative 0.73H, Total Protein 7.2, Albumin 3.3, Albumin/Globulin Ratio 0.8L, Lipase 57L, Coronavirus (COVID-19)(PCR) NEGATIVE, Influenza Type A (RT-PCR) NEGATIVE, Influenza Type B (RT-PCR) NEGATIVE, Respiratory Syncytial Virus (PCR) NEGATIVE 07/22/20 22:43: Lactic Acid Level 3.6*H 07/22/20 22:44: POC Glucose (Misc Panel) 168H, POC Sodium (Misc Panel) 139, POC Potassium (Misc Panel) 3.9, POC Chloride (Misc Panel) 104, POC Total CO2 (Misc Panel) 25.0, POC Blood Urea Nitrogen (Misc Panel 19, POC Ionized Calcium (Misc Panel) 4.6, POC Creatinine (Misc Panel) 1.0, POC Hematocrit (Misc Panel) 49.0 07/22/20 23:09: Clostridium difficile 027-NAP1-B1 PRESUMPTIVE NEGATIVE, Clostridium difficile Toxin (PCR) NEGATIVE 07/23/20 05:00: Immature Granulocyte % (Auto) 2.1, Neutrophils (%) (Auto) 94.3H, Lymphocytes (%) (Auto) 1.6L, Monocytes (%) (Auto) 1.8, Eosinophils (%) (Auto) 0.0, Basophils (%) (Auto) 0.2, Neutrophils # (Auto) 22.2H, Lymphocytes # (Auto) 0.4L, Monocytes # (Auto) 0.4, Eosinophils # (Auto) 0.0, Basophils # (Auto) 0.0, Nucleated Red Blood Cells % (auto) 0.0 07/23/20 05:49: Bedside Glucose (Misc Panel) 106 07/23/20 06:02: Bedside Glucose (Misc Panel) 108 07/23/20 06:32: Lactic Acid Followup at 4 Hours 2.9*H 07/23/20 08:04: Blood Gas Bicarbonate Standard 17.8L, Arterial Blood pH 7.286L, Arterial Blood Partial Pressure CO2 37.8, Arterial Blood Partial Pressure O2 123.9H, Arterial Blood Total CO2 18.8L, Arterial Blood HCO3 17.6L, Arterial Blood Base Excess - 8.3L, Arterial Blood Oxygen Saturation 98.4 07/23/20 09:39: Anion Gap 8, Glomerular Filtration Rate 44.8, Lactic Acid Level 2.1*H, Calcium Level 7.3#L, Total Bilirubin 0.3, Aspartate Amino Transf (AST/SGOT) 17, Alanine Aminotransferase (ALT/SGPT) 10L, Alkaline Phosphatase 32L, Total Protein 4.8#L, Albumin 2.4#L, Albumin/Globulin Ratio 1.0L CBC/BMP Laboratory Tests 07/22/20 22:42 07/23/20 05:00 07/23/20 09:39 Microbiology Microbiology 07/23/20 Blood Culture, Received Pending 07/22/20 Urine Culture, Received Pending 07/22/20 Blood Culture, Received Pending 07/22/20 Blood Culture, Received Pending Current Medications Current Medications Medications (Trade) Dose Ordered Sig/Martha Route PRN Reason Start Time Stop Time Status Last Admin Dose Admin Acetaminophen (Tylenol Tab) 650 mg Q6HP PRN PO MILD PAIN OR FEVER 07/23/20 03:30 Acetaminophen/ Hydrocodone Bitart ([place], Anexsia 5/325) 1 tab BID PRN PO PAIN LEVEL 8-10 07/23/20 03:30 Apixaban (Eliquis) 5 mg BID PO 07/23/20 09:00 Cefepime HCl 2 gm/ Dextrose 50 ml @ 100 mls/hr Q12H IV 07/23/20 12:00 Diatrizoate Meglum/ Diatrizoate Sod (Gastrografin) 10 ml Q30M PO 07/22/20 22:30 07/22/20 23:01 DC 07/22/20 23:54 Donepezil HCl (AriCEPT) 5 mg QHS PO 07/23/20 21:00 Fentanyl Citrate (Sublimaze) 25 mcg Q5MP PRN IV PAIN LEVEL 5-10 07/23/20 04:45 07/23/20 05:44 DC Flumazenil (Romazicon) 1 mg STAT STAT IV 07/23/20 08:39 07/23/20 08:40 DC 07/23/20 08:48 Flumazenil (Romazicon) 3 mg STAT STAT IV 07/23/20 08:33 07/23/20 08:34 Cancel Gabapentin (Neurontin) 200 mg BID PO 07/23/20 09:00 Home Med (Med Rec Complete!) ASDIRECTED XX 07/23/20 02:30 07/23/20 02:29 DC Naloxone HCl (Narcan) 0.4 mg STAT STAT IV 07/23/20 09:00 07/23/20 09:01 DC 07/23/20 09:04 Naloxone HCl (Narcan) 0.4 mg STAT STAT IV 07/23/20 09:09 07/23/20 09:11 DC 07/23/20 09:22 Ondansetron HCl (ZOFRAN INJection) 4 mg Q4HP PRN IV NAUSEA OR VOMITING 07/23/20 04:45 07/23/20 05:44 DC Simvastatin (Zocor) 20 mg QHS PO 07/22/20 21:00 Sodium Chloride 1,000 ml @ 120 mls/hr Q8H20M IV 07/23/20 04:00 07/23/20 05:38 Vancomycin HCl 1000 mg/IV Miscellaneous Supplies 1 each/ Dextrose 270 ml @ 270 mls/hr Q18H IV 07/24/20 04:00 Allergies Coded Allergies: atenolol (Verified Allergy, Intermediate, WHEEZING, 03/14/19) lisinopril (Verified Allergy, Unknown, unknown reaction, 05/15/20) celecoxib (Verified Adverse Reaction, Mild, NAUSEA, 03/14/19) meperidine (Verified Adverse Reaction, Mild, VOMITING, 03/14/19) Helga Ferrara MD Jul 23, 2020 11:28
[2020-07-23] MEDS ORDERED: VANCOMYCIN HCL 500 MG in D5W MINI-BAG PLUS 100 ML IV ONE (12:00)
[2020-07-23] MEDS ORDERED: KCL 10MEQ/100ML SWI (KRUN) 10 MEQ in IV 1 EA IV SCH (12:00)
--- NOTE | 2020-07-23 12:33 | REP ---
INDICATION: central line placement. COMPARISON: Comparison chest x-ray 07/22/2020. TECHNIQUE: Portable upright AP chest radiograph. FINDINGS: A right-sided internal jugular central venous catheter is been been inserted with its tip in the expected location of the SVC right atrial junction. Cardiomegaly is again observed. The aorta is quite tortuous as before. There are surgical clips in the axillary soft tissues bilaterally. Patient appears to be status post right mastectomy. There are granulomatous calcifications in the right lung and right hilus. There is no evidence of pneumothorax. No new infiltrate.. IMPRESSION: Right IJ line in position. No complication seen. Otherwise unchanged.. <Electronically signed by Dayne Yung > 07/23/20 [id number]
[2020-07-23] MEDS: CEFEPIME HCL 2 GM in D5W MINI-BAG PLUS 50 ML IV SCH (12:53)
[2020-07-23] MEDS: NOREPINEPHRINE BITARTRATE 8 MG in D5W 492 ML IV SCH (12:54)
[2020-07-23] MEDS: PANTOPRAZOLE 40MG VIAL (C9113 PER 1) IV SCH (13:57)
[2020-07-23] MEDS: ENOXAPARIN 40MG/0.4ML SYRINGE (J1650 PER 10MG) SC SCH (13:58)
[2020-07-23] MEDS: KCL 20MEQ IN 100ML SWI (KRUN) 20 MEQ in IV 1 EA IV SCH ×4 (14:35→16:19)
--- NOTE | 2020-07-23 14:51 | RO ---
OPERATIVE NOTE DATE OF OPERATION: 07/23/2020 PREOPERATIVE DIAGNOSIS: POSTOPERATIVE DIAGNOSIS: PROCEDURE: Right-sided internal jugular vein central line. INDICATION: Septic shock. PROCEDURE TOBACCO CLOTH RECLAIMER: Richard Forrest D.O. ATTENDING PHYSICIAN: Dr. Tavo Mason D.O, who was in attendance. CONSENT: Consent was unable to be obtained secondary to patient's mental status and due to the emergent nature of the patient's condition. PROCEDURE SUMMARY: My hands were washed immediately prior to the procedure. I wore a surgical cap, mask with protective eyewear, full gown, the sterile gloves throughout the procedure. The patient was placed in Trendelenburg position. The right neck and chest region was prepped using chlorhexidine scrub and draped in sterile fashion using a full drape and sterile probe cover employed. The medial and lateral heads of the sternocleidomastoid muscle were identified as was the carotid pulse. The internal jugular vein was identified using the ultrasound. Anesthesia was achieved over the vein using 1% lidocaine. Using real-time [id number] guidance, the introducer needle was inserted into the vein under direct ultrasound visualization. Venous blood was withdrawn. The syringe was removed, and a guidewire was advanced into the introducer needle. A small incision was made at the skin surface with a scalpel, and the introducer needle was exchanged for a dilator over the guidewire. After appropriate dilatation, dilation was obtained. The dilator was exchanged over the wire for a central venous catheter. The wire was removed, and the catheter was sutured in place. A sterile SorbaView shield was placed over the catheter at the insertion site. The patient tolerated the procedure without any hemodynamic compromise. At time of procedure completion, all ports aspirated and flushed properly. Postprocedure chest x-ray showed the right internal jugular (IJ) line in position. No complications seen. Otherwise unchanged. Estimated blood loss is less than 2 mL.
--- NOTE | 2020-07-23 15:54 | CR ---
CONSULTATION DATE: 07/23/2020 REASON FOR CONSULTATION: Central line placement. HISTORY OF PRESENT ILLNESS: Patient is a 70-year-old female. She was admitted to the hospital for altered mental status. She was found to have pyelonephritis. She has already been evaluated by urology. She is requiring pressor support for her blood pressure, because she has failed resuscitation with fluids. Therefore I was called to place a central line for access. There was a senior resident, Dr. Forrest, who was available for lien placement. He did the entire procedure, supervised by myself. He did a great job and did not require my immediate assistance of any kind. Chest x-ray was obtained post procedure and was appropriate. Dr. Ferrara will continue to manage the line during the rest of the patient's stay.
[2020-07-23] MEDS ORDERED: DONEPEZIL 5 MG TAB PO SCH (21:00)
[2020-07-24] VITALS (44 sets, daily range): BP systolic 78–129; BP diastolic 50–69
[2020-07-24] MEDS: NOREPINEPHRINE BITARTRATE 8 MG in D5W 492 ML IV SCH ×4 (00:03→07:16)
[2020-07-24] MEDS: CEFEPIME HCL 2 GM in D5W MINI-BAG PLUS 50 ML IV SCH ×3 (00:11→23:43)
[2020-07-24] MEDS: NS 1,000 ML IV SCH ×3 (02:53→13:45)
[2020-07-24] MEDS: VANCOMYCIN HCL 1,000 MG, VIAL MATE ADAPTER 1 EACH in D5W 250 ML IV SCH ×2 (04:22→21:57)
--- NOTE | 2020-07-24 05:29 | IPNPDOC ---
Subjective Review oF Systems Chief Complaint The patient is a 70-year-old female admitted with a reason for visit of L Ureteral Calculus, Sepsis. General: Reports: Normal Appetite; Denies: Fatigue, Malaise Constitutional: Denies: Fever, Chills, Sweats, Weakness, Malaise Eyes: Denies: Pain, Vision change Genitourinary: Denies: Dysuria, Frequency, Incontinence, Hematuria Objective Physical Examination General Exam: Alert, No Acute Distress Eye Exam: PERRLA, Conjunctiva & lids normal, EOMI; No: Sclera icteric ENT EXAM: Atraumatic, Mucous membr. moist/pink, Pharynx Normal Other physical findings Urine is now draining clear yellow patient is comfortable without bladder spasms or urinary complaints. Vital Signs/I&O Vital Signs Date Time Temp Pulse Resp B/P (MAP) Pulse Ox O2 Delivery O2 Flow Rate FiO2 07/24/20 04:00 98.9 117 92/54 (67) Room Air 07/24/20 03:40 96 07/24/20 03:20 15 07/23/20 11:20 2.0 07/23/20 07:00 100 I&O- Last 24 Hours up to 6 AM 07/24/20 06:00 Intake Total 3271.6 ml Output Total 655 ml Balance 2616.6 ml Laboratory Data Labs 24H Laboratory Tests 2 07/23/20 05:49: Bedside Glucose (Misc Panel) 106 07/23/20 06:02: Bedside Glucose (Misc Panel) 108 07/23/20 06:32: Lactic Acid Followup at 4 Hours 2.9*H 07/23/20 08:04: Blood Gas Bicarbonate Standard 17.8L, Arterial Blood pH 7.286L, Arterial Blood Partial Pressure CO2 37.8, Arterial Blood Partial Pressure O2 123.9H, Arterial Blood Total CO2 18.8L, Arterial Blood HCO3 17.6L, Arterial Blood Base Excess - 8.3L, Arterial Blood Oxygen Saturation 98.4 07/23/20 09:39: Anion Gap 8, Glomerular Filtration Rate 44.8, Lactic Acid Level 2.1*H, Calcium Level 7.3#L, Total Bilirubin 0.3, Aspartate Amino Transf (AST/SGOT) 17, Alanine Aminotransferase (ALT/SGPT) 10L, Alkaline Phosphatase 32L, Total Protein 4.8#L, Albumin 2.4#L, Albumin/Globulin Ratio 1.0L 07/23/20 15:22: Lactic Acid Followup at 4 Hours 2.6*H CBC/BMP Laboratory Tests 07/23/20 09:39 FSBS Laboratory Tests Test 07/23/20 05:49 07/23/20 06:02 Range/Units Bedside Glucose (Misc Panel) 106 108 83-110 MG/DL Microbiology Microbiology 07/23/20 Blood Culture - Preliminary, Resulted 07/22/20 Urine Culture, Received Pending 07/22/20 Blood Culture - Preliminary, Resulted 07/22/20 Blood Culture - Preliminary, Resulted Assessment/Plan Date Seen The patient was seen on 07/24/20. Patient Summary Hematuria has resolved and the patient now has no bladder spasms or urinary complaints Plan/VTE VTE Prophylaxis Ordered?: No VTE Exclusion Mechanical Proph: N/A:VTE Prophy Ordered VTE Exclusion Pharmacological: N/A:VTE Prophy Ordered Plan No further urologic intervention necessary at this time. Patient may follow with her regular physicians at home. If further issues develop, please contact me ROGER SILVERIO MD Jul 24, 2020 05:29
[2020-07-24 05:40] LABS: BASO # 0.1 10^3/uL (0.0-0.2); BASO % 0.3 % (0.0-1.0); HEMATOCRIT 35.1 % (36.0-47.0); HEMOGLOBIN 10.9 g/dl (12.0-15.5); LYMPH % 2.7 % (24.0-44.0); MEAN CORPUSCULAR HEMOGLOBIN 27.7 pg (27.0-33.0); MEAN CORPUSCULAR HGB CONC 31.1 g/dl (32.0-36.5); MEAN CORPUSCULAR VOLUME 89.3 fl (80.0-96.0); MONO # 1.6 10^3/uL (0.0-0.8); MONO % 4.2 % (0.0-5.0); NEUTROPHILS # 31.2 10^3/uL (1.5-8.5); NEUTROPHILS % 82.7 % (36.0-66.0); PLATELET COUNT, AUTOMATED 191 10^3/uL (150-450); RED BLOOD COUNT 3.93 10^6/uL (4.00-5.40)
[2020-07-24 05:59] LABS: WHITE BLOOD COUNT 37.7 10^3/uL (4.0-10.0)
[2020-07-24 06:17] LABS: ALBUMIN 2.2 GM/DL (3.2-5.2); BILIRUBIN,TOTAL 0.3 MG/DL (0.2-1.0); CREATININE FOR GFR 1.16 MG/DL (0.55-1.30); GLOMERULAR FILTRATION RATE 48.9 (>39); TOTAL PROTEIN 4.6 GM/DL (6.4-8.2)
[2020-07-24] MEDS: PANTOPRAZOLE 40MG VIAL (C9113 PER 1) IV SCH (09:10)
[2020-07-24] MEDS: metroNIDAZOLE 500 MG in IV 1 EA IV SCH ×2 (09:11→16:47)
[2020-07-24] MEDS: ENOXAPARIN 40MG/0.4ML SYRINGE (J1650 PER 10MG) SC SCH (09:11)
[2020-07-24] MEDS: GASTROGRAFIN SOLUTION 30ML (Q9963) PO SCH ×2 (09:11→10:04)
--- NOTE | 2020-07-24 12:02 | REP ---
INDICATION: worsening leukocytosis, r/o developed abscess COMPARISON: None TECHNIQUE: Axial contrast enhanced images from the thoracic inlet to the upper abdomen with coronal and sagittal reformations using 100 ml Isovue 370 intravenous contrast material. This CT examination was performed using the following dose reduction techniques: Automated exposure control, adjustment of mA and/or kv according to the patient's size, and use of iterative reconstruction technique. FINDINGS: Evaluation is significantly limited by motion artifact. Perihilar and basilar atelectasis (left greater than right) along with small left pleural effusion appear slightly increased when compared with lung base images from abdominal CT dated 07/23/2020. Cardiomegaly with evidence for pulmonary vascular congestion including cephalization and prominence to the pulmonary vasculature and interstitium noted. No pericardial effusion. No obvious adenopathy. Few scattered calcified nodules again noted and consistent with prior granulomatous disease. IMPRESSION: 1. Cardiomegaly and pulmonary vascular congestion. 2. Relatively mild perihilar atelectasis with small left basilar consolidation and small left pleural effusion minimally increased from prior examination. <Electronically signed by Fritz Aguirre > 07/24/20 [id number]
--- NOTE | 2020-07-24 12:08 | REP ---
INDICATION: worsening leukocytosis, r/o developed abscess. COMPARISON: 07/23/2020 TECHNIQUE: Axial contrast-enhanced images from the lung bases to the pubic symphysis using oral and 100 cc Isovue 370 intravenous contrast material. Coronal and sagittal reformations obtained. This CT examination was performed using the following dose reduction techniques: Automated exposure control, adjustment of mA and/or kv according to the patient's size, and the use of iterative reconstruction technique. FINDINGS: Examination is significantly limited by motion artifact along with significant beam hardening artifact related to bilateral hip replacements and patient's overlying arms. Liver, spleen, pancreas, and bilateral adrenal glands are grossly normal. The gallbladder demonstrates layering high density material likely representing vicarious excretion of contrast although cholelithiasis cannot be excluded. The kidneys demonstrate a left pigtail catheter in satisfactory position. The right kidney demonstrates mild hydronephrosis and hydroureter and subtle stranding which warrants correlation with urinalysis to exclude the possibility of pyelonephritis. The enteric system is without obstruction or obvious acute inflammatory process. No obvious free air to suggest perforation. Extensive colonic and sigmoid diverticulosis noted without clear evidence for acute diverticulitis (despite artifact reduction techniques, evaluation of the pelvis and sigmoid colon is markedly limited). Pelvis demonstrates Carter catheter and pigtail catheter in collapsed bladder. Findings suggest prior hysterectomy. No obvious significant pelvic fluid or ascites. Abdominal aorta without aneurysm. Osseous structures demonstrate degenerative changes without acute osseous abnormality noted. IMPRESSION: 1. Correlation with urinalysis to exclude the possibility of pyelonephritis. 2. Nonacute findings as described above. <Electronically signed by Fritz Aguirre > 07/24/20 [id number]
--- NOTE | 2020-07-24 12:44 | IPNPDOC ---
Date Seen The patient was seen on 07/24/20. Progress Note SUBJECTIVE: Further weaned down to 4 mcg levophed, WBC incr to 37.7 from 23.5. Three loose BM today, checking C. diff PCR. BCx Gram neg rods in all bottles. Rescanned abd/pelvis, chest and ordering echocardiogram to r/o other sources of infection. Patient is more awake and alert but confused to place, time, reason she is here- has baseline confusion. OBJECTIVE: PHYSICAL EXAMINATION: VS: Please see below GENERAL APPEARANCE: More awake and alert today, confused to date, time and person (could not recount her full name) HEENT: PERRLA, moist oral mucosa NECK: No JVD, symmetrical CARDIOVASCULAR: HS 1+ 2 normal. no M/R/G LUNGS: crackles mild in post lungs b/l. No wheezing, rhonchi. ABDOMEN: soft, obese abd. BS + in 4 quad, no organomegaly EXTREMITIES: pitting edema b/l lower ext +2 INTEGUMENTARY: intact, normal skin turgor NEUROLOGICAL: Follows some commands, no focal deficits noticed LABORATORY DATA: See below. MICROBIOLOGY: BCx x 3 sets: Gram neg rods UCx from admission: Contaminated Repeat UA/UCx sent today C. diff PCR pending IMAGING: CT chest with contrast 07/24/20: 1. Cardiomegaly and pulmonary vascular congestion. 2. Relatively mild perihilar atelectasis with small left basilar consolidation and small left pleural effusion minimally increased from prior examination. CT abd/pelvis with contrast 07/24/20: 1. Correlation with urinalysis to exclude the possibility of pyelonephritis. 2. Nonacute findings as described above. Abdominal CT: 1. Severely limited study as outlined above 2. Moderate left hydroureteronephrosis and perinephric stranding with a 7 mm ureter stone within the left ureter at the acetabular roof level. The ureter remains somewhat dilated distal to this and a more distal ureter calculus could be present but not able to be seen because of artifact related to hip arthroplasties. 3. Nonvisualization of the appendix. CXR: WNL MICROBIOLOGY: Please see below. ASSESSMENT: 70yo F with a history of vascular dementia, hyperthyroidism, HTN, HLD, DVT, herniated disc with chronic back pain, bilateral breast cancer, ?h yperthyroidism and renal stones presenting with 1 day hx of progressive abdominal pain, altered mental status, and poor appetite. In the ED, abdominal CT showing 7 mm Left ureteral stent with signs of pyelonephritis and vitals suggestive of urosepsis. Currently in ICU, sepsis 2/2 to UTI/pyelonephritis, septic shock. PLAN: #Septic shock 2/2 to UTI, pyelonephritis and Gram neg flor bacteremia 2/2 to left obstructive ureteral stone s/p stent. R/o developing PNA, diarrhea (poss c. diff ) as additional causes below -WBC much increased to 37.7 from 23.5, afebrile. -BP after 5+ liters/24 H, weaning down on levophed, currently on 4 mcg -Repeating CVP -Repeat imaging of CT abd/pelvis: no abscess -CT chest above -Echocardiogram ordered, f/u results -LA wnl -C/w IVFs at 120 cc/hr. Monitor u/o closely -Vancomycin, Cefepime added flagyl -F/u BCx results, UA repeated due to 1st culture stating to be "contaminated" -Monitor closely on tele, ICU #Increased somnolence likely 2/2 to oversedation-improving -S/p fentanyl 25 mcg, versed 2 mg and propofol during stent placement -S/p 2 doses narcan, 1 dose flumazenilthis admission -More awake and alert today but still confused -Monitoring closely, keep NPO for now #Diarrhea r/o C. diff colitis -Three liquid BM's today -Had diarrhea prior to admission that was of concern, GI panel never collected due to patient not having any BM's until today -On several abx but no colitis seen on CT -F/u C. diff PCR #LLL PNA?, atelectasis on CT chest -Seen on CT chest -On RA, no respiratory symptoms -On abx coverage above -Sputum cx ordered, cultures above pending -IS Q2H while awake #Left ureteral stone s/p stent placement -CT above -Left pigtail catheter in place on CT -Urology (Dr. Brody) consulted and following -C/w treatment above #Hypokalemia, acute-resolved. -F/u daily labs. #HTN hx -Holding all antihypertensive meds due to hypotension #Vascular Dementia -C/w home medication Aricept when taking PO #HLD -C/w simvastatin when taking PO #Hx of DVT -As per , this occurred earlier this year in Jul/Aug. May consider discussing with PCP to stop medication once records are obtained -Home medication elliquis 5 BID -lovenox #?Hx of hyperthyroidism -As per last admission in May, patient discharged with methimazole 5. However as per med historian, methimazole was discontinued. -Jul 01 labs WNL. However 05/16 labs with slightly low TSH, slightly high t4 -Hold methimazole for now. Recheck labs in 6 weeks outpatient when patient does not have an acute illness #GI px: PPI IV #DVT PPX -SCDs -Lovenox DISPOSITION: Currently admitted to ICU. Plan is PT/OT, undecided for discharge at this time. TOTAL AMOUNT OF CRITICAL CARE TIME SPENT ON PATIENT (nonprocedural): 40 mins VS, I&O, 24H, Fishbone Vital Signs/I&O Vital Signs Date Time Temp Pulse Resp B/P (MAP) Pulse Ox O2 Delivery O2 Flow Rate FiO2 07/24/20 12:00 97.6 107 14 109/62 (78) 98 Room Air 07/23/20 11:20 2.0 07/23/20 07:00 100 I&O- Last 24 Hours up to 6 AM 07/24/20 06:00 Intake Total 3606.6 ml Output Total 855 ml Balance 2751.6 ml Laboratory Data 24H LABS Laboratory Tests 2 07/23/20 15:22: Lactic Acid Followup at 4 Hours 2.6*H 07/24/20 05:19: Immature Granulocyte % (Auto) 10.1H, Neutrophils (%) (Auto) 82.7H, Lymphocytes (%) (Auto) 2.7L, Monocytes (%) (Auto) 4.2, Eosinophils (%) (Auto) 0.0, Basophils (%) (Auto) 0.3, Neutrophils # (Auto) 31.2H, Lymphocytes # (Auto) 1.0L, Monocytes # (Auto) 1.6H, Eosinophils # (Auto) 0.0, Basophils # (Auto) 0.1, Nucleated Red Blood Cells % (auto) 0.0, Anion Gap 9, Glomerular Filtration Rate 48.9, Lactic Acid Level 1.9, Calcium Level 7.0L, Total Bilirubin 0.3, Aspartate Amino Transf (AST/SGOT) 19, Alanine Aminotransferase (ALT/SGPT) 14, Alkaline Phosphatase 50, Total Protein 4.6L, Albumin 2.2L, Albumin/Globulin Ratio 0.9L CBC/BMP Laboratory Tests 07/24/20 05:19 Microbiology Microbiology 07/23/20 Blood Culture - Preliminary, Resulted 07/22/20 Urine Culture - Final, Complete 07/22/20 Blood Culture - Preliminary, Resulted 07/22/20 Blood Culture - Preliminary, Resulted Current Medications Current Medications Medications (Trade) Dose Ordered Sig/Martha Route PRN Reason Start Time Stop Time Status Last Admin Dose Admin Acetaminophen (Tylenol Tab) 650 mg Q6HP PRN PO MILD PAIN OR FEVER 07/23/20 03:30 07/23/20 11:55 DC Acetaminophen/ Hydrocodone Bitart (Dilley, Anexsia 5/325) 1 tab BID PRN PO PAIN LEVEL 8-10 07/23/20 03:30 07/23/20 11:55 DC Apixaban (Eliquis) 5 mg BID PO 07/23/20 09:00 07/23/20 11:55 DC Cefepime HCl 2 gm/ Dextrose 50 ml @ 100 mls/hr Q12H IV 07/23/20 12:00 07/24/20 12:28 Diatrizoate Meglum/ Diatrizoate Sod (Gastrografin) 10 ml Q30M PO 07/22/20 22:30 07/22/20 23:01 DC 07/22/20 23:54 Diatrizoate Meglum/ Diatrizoate Sod (Gastrografin) 10 ml Q30M PO 07/24/20 09:00 07/24/20 09:31 DC 07/24/20 10:04 Donepezil HCl (AriCEPT) 5 mg QHS PO 07/23/20 21:00 07/23/20 11:55 DC Enoxaparin Sodium (Lovenox) 40 mg DAILY SC 07/23/20 12:30 07/24/20 09:11 Fentanyl Citrate (Sublimaze) 25 mcg Q5MP PRN IV PAIN LEVEL 5-10 07/23/20 04:45 07/23/20 05:44 DC Flumazenil (Romazicon) 1 mg STAT STAT IV 07/23/20 08:39 07/23/20 08:40 DC 07/23/20 08:48 Flumazenil (Romazicon) 3 mg STAT STAT IV 07/23/20 08:33 07/23/20 08:34 Cancel Gabapentin (Neurontin) 200 mg BID PO 07/23/20 09:00 07/23/20 11:55 DC Home Med (Med Rec Complete!) ASDIRECTED XX 07/23/20 02:30 07/23/20 02:29 DC Metronidazole 500 mg/IV Miscellaneous Supplies 100 ml @ 100 mls/hr Q8H IV 07/24/20 08:00 07/24/20 09:11 Naloxone HCl (Narcan) 0.4 mg STAT STAT IV 07/23/20 09:00 07/23/20 09:01 DC 07/23/20 09:04 Naloxone HCl (Narcan) 0.4 mg STAT STAT IV 07/23/20 09:09 07/23/20 09:11 DC 07/23/20 09:22 Norepinephrine Bitartrate 8 mg/ Dextrose 500 ml @ 30 mls/hr [id number] IV 07/23/20 12:00 07/24/20 07:16 Ondansetron HCl (ZOFRAN INJection) 4 mg Q4HP PRN IV NAUSEA OR VOMITING 07/23/20 04:45 07/23/20 05:44 DC Pantoprazole Sodium (Protonix) 40 mg DAILY IV 07/23/20 09:00 07/24/20 09:10 Potassium Chloride 10 meq/ IV Miscellaneous Supplies 100 ml @ 100 mls/hr Q1H IV 07/23/20 12:00 07/23/20 12:28 DC Potassium Chloride 20 meq/ IV Miscellaneous Supplies 100 ml @ 100 mls/hr Q1H IV 07/23/20 13:00 07/23/20 14:59 DC 07/23/20 16:19 Simvastatin (Zocor) 20 mg QHS PO 07/22/20 21:00 07/23/20 11:55 DC Sodium Chloride 1,000 ml @ 120 mls/hr Q8H20M IV 07/23/20 04:00 07/24/20 02:53 Vancomycin HCl 1000 mg/IV Miscellaneous Supplies 1 each/ Dextrose 270 ml @ 270 mls/hr Q18H IV 07/24/20 04:00 07/24/20 04:22 Allergies Coded Allergies: atenolol (Verified Allergy, Intermediate, WHEEZING, 03/14/19) lisinopril (Verified Allergy, Unknown, unknown reaction, 05/15/20) celecoxib (Verified Adverse Reaction, Mild, NAUSEA, 03/14/19) meperidine (Verified Adverse Reaction, Mild, VOMITING, 03/14/19) Helga Ferrara MD Jul 24, 2020 12:44
[2020-07-24 14:43] LABS: CLOSTRIDIUM DIFFICILE PCR NEGATIVE (NEGATIVE)
[2020-07-25] VITALS (17 sets, daily range): BP systolic 82–150; BP diastolic 43–105
[2020-07-25] MEDS: metroNIDAZOLE 500 MG in IV 1 EA IV SCH ×3 (00:51→15:28)
--- NOTE | 2020-07-25 03:21 | REPVR ---
PROCEDURE INFORMATION: Exam: XR Chest, 1 View Exam date and time: 07/25/2020 2:20 AM Age: 70 years old Clinical indication: Other vascular access device placement or adjustment; Central line, non-tunnelled; Additional info: Central line placement TECHNIQUE: Imaging protocol: XR of the chest Views: 1 view. COMPARISON: CT Chest with contrast 2020-07-24 11:25 FINDINGS: Limitations: Limited by patient's body habitus. Tubes, catheters and devices: Bilateral axillary dissection clips. Right IJ central venous catheter tip in the low SVC. Lungs: Dependent subsegmental pulmonary atelectasis. There is a pulmonary parenchymal calcification consistent with remote granulomatous organism exposure. Pleural space: Small bilateral pleural effusions. Heart/Mediastinum: Cardiac enlargement. Bones/joints: Dextroconvex thoracic scoliosis. Soft tissues: Right breast implant. Right mastectomy. IMPRESSION: Right IJ central venous catheter tip in the low SVC. Electronically signed by: Saturnino Wilkes On 07/25/2020 03:21:32 AM
[2020-07-25] MEDS: NS 1,000 ML IV SCH ×2 (03:32→15:29)
[2020-07-25 05:45] LABS: BASO # 0.1 10^3/uL (0.0-0.2); BASO % 0.2 % (0.0-1.0); EOS # 0.2 10^3/uL (0.0-0.5); EOS % 0.6 % (0.0-3.0); HEMATOCRIT 30.9 % (36.0-47.0); HEMOGLOBIN 9.8 g/dl (12.0-15.5); MEAN CORPUSCULAR HEMOGLOBIN 27.7 pg (27.0-33.0); MEAN CORPUSCULAR HGB CONC 31.7 g/dl (32.0-36.5); MEAN CORPUSCULAR VOLUME 87.3 fl (80.0-96.0); MONO # 1.1 10^3/uL (0.0-0.8); MONO % 4.1 % (0.0-5.0); NEUTROPHILS # 19.8 10^3/uL (1.5-8.5); NEUTROPHILS % 77.3 % (36.0-66.0); PLATELET COUNT, AUTOMATED 150 10^3/uL (150-450); RED BLOOD COUNT 3.54 10^6/uL (4.00-5.40); WHITE BLOOD COUNT 25.6 10^3/uL (4.0-10.0)
[2020-07-25 06:16] LABS: ALT/SGPT 12 U/L (12-78); BILIRUBIN,TOTAL 0.6 MG/DL (0.2-1.0); BLOOD UREA NITROGEN 23 MG/DL (7-18); CALCIUM LEVEL 7.5 MG/DL (8.8-10.2); CARBON DIOXIDE LEVEL 19 MEQ/L (21-32); CHLORIDE LEVEL 117 MEQ/L (98-107); CREATININE FOR GFR 0.79 MG/DL (0.55-1.30); GLOMERULAR FILTRATION RATE > 60.0 (>39); GLUCOSE, FASTING 83 MG/DL (70-100); POTASSIUM SERUM 3.3 MEQ/L (3.5-5.1); SODIUM LEVEL 145 MEQ/L (136-145); TOTAL PROTEIN 4.7 GM/DL (6.4-8.2)
[2020-07-25] MEDS ORDERED: KCL 10MEQ/100ML SWI (KRUN) 10 MEQ in IV 1 EA IV ONE (08:00)
[2020-07-25] MEDS: KCL 20MEQ IN 100ML SWI (KRUN) 20 MEQ in IV 1 EA IV SCH ×4 (08:22→09:36)
[2020-07-25] MEDS: PANTOPRAZOLE 40MG VIAL (C9113 PER 1) IV SCH (08:22)
[2020-07-25] MEDS: ENOXAPARIN 40MG/0.4ML SYRINGE (J1650 PER 10MG) SC SCH (08:22)
--- NOTE | 2020-07-25 11:16 | IPNPDOC ---
Date Seen The patient was seen on 07/25/20. Progress Note SUBJECTIVE: Weaned off levophed 07/24, currently on NS decreased to 100 cc/hr. WBC improved further to 25.6, stopped Vancomycin as BCx growing Enterobacter, not likely having sensitivities until 07/26/19 per lab. Advanced diet today. Still confused to place, time, reason she is here- has baseline confusion but awake and alert. OBJECTIVE: PHYSICAL EXAMINATION: VS: Please see below GENERAL APPEARANCE: Awake and alert , still confused to date, time HEENT: PERRLA, moist oral mucosa NECK: No JVD, symmetrical CARDIOVASCULAR: HS 1+ 2 normal. no M/R/G LUNGS: crackles mild in post lungs b/l. No wheezing, rhonchi. ABDOMEN: soft, obese abd. BS + in 4 quad, no organomegaly EXTREMITIES: pitting edema b/l lower ext +2 INTEGUMENTARY: intact, normal skin turgor NEUROLOGICAL: Follows some commands, no focal deficits noticed LABORATORY DATA: See below. MICROBIOLOGY: BCx x 3 sets: Enterobacter- sensitivities pending (called lab for results) UCx from admission: Contaminated Repeat UA + and UCx NG C. diff PCR: NEg GI panel: pending IMAGING: Echocardiogram 07/24/20: Pending CT chest with contrast 07/24/20: 1. Cardiomegaly and pulmonary vascular congestion. 2. Relatively mild perihilar atelectasis with small left basilar consolidation and small left pleural effusion minimally increased from prior examination. CT abd/pelvis with contrast 07/24/20: 1. Correlation with urinalysis to exclude the possibility of pyelonephritis. 2. Nonacute findings as described above. Abdominal CT: 1. Severely limited study as outlined above 2. Moderate left hydroureteronephrosis and perinephric stranding with a 7 mm ureter stone within the left ureter at the acetabular roof level. The ureter remains somewhat dilated distal to this and a more distal ureter calculus could be present but not able to be seen because of artifact related to hip arthroplasties. 3. Nonvisualization of the appendix. CXR: WNL MICROBIOLOGY: Please see below. ASSESSMENT: 70yo F with a history of vascular dementia, hyperthyroidism, HTN, HLD, DVT, herniated disc with chronic back pain, bilateral breast cancer, ?hyperthyroidism and renal stones presenting with 1 day hx of progressive abdominal pain, altered mental status, and poor appetite. In the ED, abdominal CT showing 7 mm Left ureteral stent with signs of pyelonephritis and vitals suggestive of urosepsis. Currently in ICU, sepsis 2/2 to UTI/pyelonephritis, septic shock. PLAN: #Sepsis 2/2 to UTI, pyelonephritis and Enterobacter bacteremia 2/2 to left obstructive ureteral stone s/p stent. R/o developing PNA -WBC improved from 37.7K to 25.6K -BP soft but improved and off levophed 07/24/20, remains on NSS at 100 cc/hr currently -Repeat imaging of CT abd/pelvis: no abscess -CT chest above -Echocardiogram ordered, f/u results -D/c Vancomycin, c/w Cefepime added flagyl for now only -F/u BCx results -Monitor closely on tele, ICU #Diarrhea r/o infectious cause -5 incontinent BMS 07/24/20, placed dignishield- to remove today -C. diff PCR neg -Had diarrhea prior to admission that was of concern, GI panel never collected due to patient not having any BM's until today -GI panel sent this AM -On several abx but no colitis seen on CT #LLL PNA?, atelectasis on CT chest. Could also be some fluid as patient does hav e crackles -Seen on CT chest -On RA, no respiratory symptoms -On abx coverage above -F/u BNP -Sputum cx ordered, cultures above pending -IS Q2H while awake #Left ureteral stone s/p stent placement -CT above -Left pigtail catheter in place on CT -Urology (Dr. Brody) consulted and following -C/w treatment above #Hypokalemia, acute -S/p 40 mEq KCL replacement today -F/u daily labs. #Vascular Dementia -Believed to be close to baseline -C/w home medication Aricept when taking PO #HTN hx -Holding all antihypertensive meds due to hypotension/soft BP #HLD -C/w simvastatin when tolerating advanced diet #Hx of DVT -As per , this occurred earlier this year in Jul/Aug. May consider discussing with PCP to stop medication once records are obtained -Home medication elliquis 5 BID -Lovenox #?Hx of hyperthyroidism -As per last admission in May, patient discharged with methimazole 5. However as per med historian, methimazole was discontinued. -Jul 01 labs WNL. However 05/16 labs with slightly low TSH, slightly high t4 -Hold methimazole for now. Recheck labs in 6 weeks outpatient when patient does not have an acute illness #GI px: PPI IV #DVT PPX -SCDs -Lovenox REsolved issues: #Increased somnolence likely 2/2 to oversedation DISPOSITION: Currently admitted to ICU. Plan is PT/OT, undecided for discharge at this time. TOTAL AMOUNT OF CRITICAL CARE TIME SPENT ON PATIENT (nonprocedural): 40 mins VS, I&O, 24H, Fishbone Vital Signs/I&O Vital Signs Date Time Temp Pulse Resp B/P (MAP) Pulse Ox O2 Delivery O2 Flow Rate FiO2 07/25/20 08:00 97.2 106 20 100/51 (67) 93 Room Air 07/23/20 11:20 2.0 07/23/20 07:00 100 I&O- Last 24 Hours up to 6 AM 07/25/20 06:00 Intake Total 3642 ml Output Total 1995 ml Balance 1647 ml Laboratory Data 24H LABS Laboratory Tests 2 07/24/20 13:30: Urine Color YELLOW, Urine Appearance CLOUDYH, Urine pH 5.0, Urine Specific [place] 1.026, Urine Protein NEGATIVE, Urine Glucose (UA) NEGATIVE, Urine Ketones NEGATIVE, Urine Blood 2+H, Urine Nitrite NEGATIVE, Urine Bilirubin NEGATIVE, Urine Urobilinogen 0.2, Urine Leukocyte Esterase 3+H, Urine WBC (Auto) 51H, Urine RBC (Auto) 8H, Urine Hyaline Casts (Auto) 0, Urine Bacteria (Auto) 1+H, Urine Squamous Epithelial Cells 0, Urine Mucus (Auto) SMALL, Urine Sperm (Auto) , Clostridium difficile [id number] PRESUMPTIVE NEGATIVE, Clostridium difficile Toxin (PCR) NEGATIVE 07/25/20 05:26: Immature Granulocyte % (Auto) 13.8H, Neutrophils (%) (Auto) 77.3H, Lymphocytes (%) (Auto) 4.0L, Monocytes (%) (Auto) 4.1, Eosinophils (%) (Auto) 0.6, Basophils (%) (Auto) 0.2, Neutrophils # (Auto) 19.8H, Lymphocytes # (Auto) 1.0L, Monocytes # (Auto) 1.1H, Eosinophils # (Auto) 0.2, Basophils # (Auto) 0.1, Nucleated Red Blood Cells % (auto) 0.0, Anion Gap 9, Glomerular Filtration Rate > 60.0, Calcium Level 7.5L, Total Bilirubin 0.6#, Aspartate Amino Transf (AST/SGOT) 14, Alanine Aminotransferase (ALT/SGPT) 12, Alkaline Phosphatase 61, Total Protein 4.7L, Albumin 2.0L, Albumin/Globulin Ratio 0.7L CBC/BMP Laboratory Tests 07/25/20 05:26 Microbiology Microbiology 07/24/20 Urine Culture - Final, Complete 07/23/20 Blood Culture - Preliminary, Resulted 07/22/20 Urine Culture - Final, Complete 07/22/20 Blood Culture - Preliminary, Resulted 07/22/20 Blood Culture - Preliminary, Resulted Current Medications Current Medications Medications (Trade) Dose Ordered Sig/Martha Route PRN Reason Start Time Stop Time Status Last Admin Dose Admin Acetaminophen (Tylenol Tab) 650 mg Q6HP PRN PO MILD PAIN OR FEVER 07/23/20 03:30 07/23/20 11:55 DC Acetaminophen/ Hydrocodone Bitart ([place], Anexsia 5/325) 1 tab BID PRN PO PAIN LEVEL 8-10 07/23/20 03:30 07/23/20 11:55 DC Apixaban (Eliquis) 5 mg BID PO 07/23/20 09:00 07/23/20 11:55 DC Cefepime HCl 2 gm/ Dextrose 50 ml @ 100 mls/hr Q12H IV 07/23/20 12:00 07/24/20 23:43 Diatrizoate Meglum/ Diatrizoate Sod (Gastrografin) 10 ml Q30M PO 07/22/20 22:30 07/22/20 23:01 DC 07/22/20 23:54 Diatrizoate Meglum/ Diatrizoate Sod (Gastrografin) 10 ml Q30M PO 07/24/20 09:00 07/24/20 09:31 DC 07/24/20 10:04 Donepezil HCl (AriCEPT) 5 mg QHS PO 07/23/20 21:00 07/23/20 11:55 DC Enoxaparin Sodium (Lovenox) 40 mg DAILY SC 07/23/20 12:30 07/25/20 08:22 Fentanyl Citrate (Sublimaze) 25 mcg Q5MP PRN IV PAIN LEVEL 5-10 07/23/20 04:45 07/23/20 05:44 DC Flumazenil (Romazicon) 1 mg STAT STAT IV 07/23/20 08:39 07/23/20 08:40 DC 07/23/20 08:48 Flumazenil (Romazicon) 3 mg STAT STAT IV 07/23/20 08:33 07/23/20 08:34 Cancel Gabapentin (Neurontin) 200 mg BID PO 07/23/20 09:00 07/23/20 11:55 DC Home Med (Med Rec Complete!) ASDIRECTED XX 07/23/20 02:30 07/23/20 02:29 DC Metronidazole 500 mg/IV Miscellaneous Supplies 100 ml @ 100 mls/hr Q8H IV 07/24/20 08:00 07/25/20 08:22 Naloxone HCl (Narcan) 0.4 mg STAT STAT IV 07/23/20 09:00 07/23/20 09:01 DC 07/23/20 09:04 Naloxone HCl (Narcan) 0.4 mg STAT STAT IV 07/23/20 09:09 07/23/20 09:11 DC 07/23/20 09:22 Norepinephrine Bitartrate 8 mg/ Dextrose 500 ml @ 30 mls/hr [id number] IV 07/23/20 12:00 Hold 07/24/20 07:16 Ondansetron HCl (ZOFRAN INJection) 4 mg Q4HP PRN IV NAUSEA OR VOMITING 07/23/20 04:45 07/23/20 05:44 DC Pantoprazole Sodium (Protonix) 40 mg DAILY IV 07/23/20 09:00 07/25/20 08:22 Potassium Chloride 10 meq/ IV Miscellaneous Supplies 100 ml @ 100 mls/hr Q1H IV 07/23/20 12:00 07/23/20 12:28 DC Potassium Chloride 20 meq/ IV Miscellaneous Supplies 100 ml @ 100 mls/hr Q1H IV 07/25/20 08:00 07/25/20 09:59 DC 07/25/20 09:36 Potassium Chloride 20 meq/ IV Miscellaneous Supplies 100 ml @ 100 mls/hr Q1H IV 07/23/20 13:00 07/23/20 14:59 DC 07/23/20 16:19 Simvastatin (Zocor) 20 mg QHS PO 07/22/20 21:00 07/23/20 11:55 DC Sodium Chloride 1,000 ml @ 100 mls/hr Q10H IV 07/23/20 04:00 07/25/20 03:32 Vancomycin HCl 1000 mg/IV Miscellaneous Supplies 1 each/ Dextrose 270 ml @ 270 mls/hr Q18H IV 07/24/20 04:00 07/25/20 10:49 DC 07/24/20 21:57 Allergies Coded Allergies: atenolol (Verified Allergy, Intermediate, WHEEZING, 03/14/19) lisinopril (Verified Allergy, Unknown, unknown reaction, 05/15/20) celecoxib (Verified Adverse Reaction, Mild, NAUSEA, 03/14/19) meperidine (Verified Adverse Reaction, Mild, VOMITING, 03/14/19) Helga Ferrara MD Jul 25, 2020 11:16
[2020-07-25 11:57] LABS: NT-PRO BNP 5159 PG/ML (<125)
[2020-07-25] MEDS: CEFEPIME HCL 2 GM in D5W MINI-BAG PLUS 50 ML IV SCH ×2 (11:59→23:35)
--- NOTE | 2020-07-25 17:35 | ECHO ---
DATE OF PROCEDURE: 07/24/2020 Age: 70 Gender: Female Height: 67 inches Weight: 198 pounds Body surface area: 2.01 m2 PATIENT LOCATION: Inpatient PCU, Room 3222. REFERRING PHYSICIAN: Helga Ferrara M.D. INDICATION: Sepsis. MEASUREMENTS: 2D Measurements: RV 4.3 cm LV 3.6 cm Septum 1.3 cm Posterior wall 1.3 cm Aortic Root 3.4 cm LA 4.4 cm LVEF 70% Doppler Measurements: AV 1.42 m/s LVOT 0.92 m/s LVOT diameter 1.9 cm MV-E 79, A 60, E/A ratio 1.3 Early mitral deceleration time 162 msec E prime medial 4.9, A prime medial 8, E prime lateral 8.3 Average E/E prime ratio 12/PCWP 16.7 mmHg PV 0.95 m/s Pulmonary artery acceleration time 87 msec RVSP 55 mmHg IVC 2.0 cm COMMENTS: Normal sinus rhythm with intraventricular conduction disturbance. M-mode and two-dimensional echocardiography was performed with pulse, continuous wave, color flow, and tissue Doppler studies. Mild concentric left ventricular hypertrophy with no septal wall motion abnormality yet preserved global resting systolic function. At least mildly dilated left atrium with grade 2 LV diastolic dysfunction with current estimated mean left atrial pressure upper limits of normal. Mildly dilated right ventricle with normal wall motion and Doppler evidence of at least moderately severe pulmonary hypertension. Moderately dilated right atrium and IVC size upper limits of normal with adequate respiratory collapse in keeping with central venous pressure upper limits of normal. Normal aortic dimensions. Three equal size aortic cusps with mildly thickened cusp edges, but adequate cusp separation. No apparent insufficiency. Mild degenerative changes of the mitral valve apparatus with adequate leaflet excursion and no posterior systolic buckling, but mild mitral insufficiency (not definitely outside normal limits). Normal appearing tricuspid valve with moderate to moderately severe insufficiency. No apparent separate intracardiac mass or pericardial effusion. If a cardiac source of systemic infection is seriously suspect and cultures are positive with elevated sedimentation rate, I would recommend a transesophageal echocardiogram to further define valvular structure and function. MTDD
[2020-07-26] VITALS: BP 137/72
[2020-07-26] MEDS: metroNIDAZOLE 500 MG in IV 1 EA IV SCH (01:17)
[2020-07-26 04:00] VITALS: BP 144/72
[2020-07-26] MEDS: NS 1,000 ML IV SCH (04:26)
[2020-07-26 06:38] LABS: BASO % 0.1 % (0.0-1.0); EOS # 0.2 10^3/uL (0.0-0.5); EOS % 1.1 % (0.0-3.0); HEMATOCRIT 31.9 % (36.0-47.0); HEMOGLOBIN 9.8 g/dl (12.0-15.5); LYMPH # 1.2 10^3/uL (1.5-5.0); LYMPH % 5.6 % (24.0-44.0); MEAN CORPUSCULAR HEMOGLOBIN 26.8 pg (27.0-33.0); MEAN CORPUSCULAR HGB CONC 30.7 g/dl (32.0-36.5); MEAN CORPUSCULAR VOLUME 87.4 fl (80.0-96.0); MONO # 0.7 10^3/uL (0.0-0.8); MONO % 3.4 % (0.0-5.0); NEUTROPHILS # 18.5 10^3/uL (1.5-8.5); NEUTROPHILS % 89.5 % (36.0-66.0); PLATELET COUNT, AUTOMATED 172 10^3/uL (150-450); RED BLOOD COUNT 3.65 10^6/uL (4.00-5.40); WHITE BLOOD COUNT 20.7 10^3/uL (4.0-10.0)
[2020-07-26 06:53] LABS: ALBUMIN 2.1 GM/DL (3.2-5.2); ALT/SGPT 11 U/L (12-78); BILIRUBIN,TOTAL 0.5 MG/DL (0.2-1.0); BLOOD UREA NITROGEN 19 MG/DL (7-18); CALCIUM LEVEL 7.8 MG/DL (8.8-10.2); CARBON DIOXIDE LEVEL 21 MEQ/L (21-32); CHLORIDE LEVEL 123 MEQ/L (98-107); CREATININE FOR GFR 0.62 MG/DL (0.55-1.30); GLOMERULAR FILTRATION RATE > 60.0 (>39); GLUCOSE, FASTING 103 MG/DL (70-100); POTASSIUM SERUM 3.7 MEQ/L (3.5-5.1); SODIUM LEVEL 149 MEQ/L (136-145); TOTAL PROTEIN 4.4 GM/DL (6.4-8.2)
[2020-07-26] MEDS: LACTOBACILLUS ACIDOPHILUS CAP (BACID) PO SCH ×2 (08:00→17:57)
[2020-07-26 08:08] VITALS: BP 140/83
[2020-07-26] MEDS: ENOXAPARIN 40MG/0.4ML SYRINGE (J1650 PER 10MG) SC SCH (09:36)
[2020-07-26] MEDS: FUROSEMIDE 20MG/2ML VIAL (J1940) IV SCH (09:36)
[2020-07-26] MEDS: PANTOPRAZOLE 40MG TAB (PROTONIX) PO SCH (09:36)
[2020-07-26] MEDS: LevoFLOXacin IV 500 MG in IV 1 EA IV SCH (09:37)
--- NOTE | 2020-07-26 11:00 | IPNPDOC ---
Date Seen The patient was seen on 07/26/20. Progress Note SUBJECTIVE: Still confused but awake, alert and eating well. Tailored antibiotics to E. cloacae only. PT/OT. Denies chest pain, n/v/d, shortness of breath. OBJECTIVE: PHYSICAL EXAMINATION: VS: Please see below GENERAL APPEARANCE: Awake and alert , still confused to date, time HEENT: PERRLA, moist oral mucosa NECK: No JVD, symmetrical CARDIOVASCULAR: HS 1+ 2 normal. no M/R/G LUNGS: crackles mild in post lungs b/l. No wheezing, rhonchi. ABDOMEN: soft, obese abd. BS + in 4 quad, no organomegaly EXTREMITIES: pitting edema b/l lower ext +2 INTEGUMENTARY: intact, normal skin turgor NEUROLOGICAL: Follows some commands, no focal deficits noticed, no motor/sensory deficts LABORATORY DATA: See below. MICROBIOLOGY: BCx x 3 sets: Enterobacter cloacae UCx from admission: Contaminated Repeat UA + and UCx NG C. diff PCR: NEg GI panel: Neg IMAGING: Echocardiogram 07/24/20: EF 70% Normal sinus rhythm with intraventricular conduction disturbance. M-mode and two-dimensional echocardiography was performed with pulse, continuous wave, color flow, and tissue Doppler studies. Mild concentric left ventricular hypertrophy with no septal wall motion abnormality yet preserved global resting systolic function At least mildly dilated left atrium with grade 2 LV diastolic dysfunction with current estimated mean left atrial pressure upper limits of normal. Mildly dilated right ventricle with normal wall motion and Doppler evidence of at least moderately severe pulmonary hypertension. Moderately dilated right atrium and IVC size upper limits of normal with adequate respiratory collapse in keeping with central venous pressure upper limits of normal. Normal aortic dimensions. Three equal size aortic cusps with mildly thickened cusp edges, but adequate cusp separation. No apparent insufficiency. Mild degenerative changes of the mitral valve apparatus with adequate leaflet excursion and no posterior systolic buckling, but mild mitral insufficiency (not definitely outside normal limits). Normal appearing tricuspid valve with moderate to moderately severe insuffici ency. No apparent separate intracardiac mass or pericardial effusion. If a cardiac source of systemic infection is seriously suspect and cultures are positive with elevated sedimentation rate, I would recommend a transesophageal echocardiogram to further define valvular structure and function. CT chest with contrast 07/24/20: 1. Cardiomegaly and pulmonary vascular congestion. 2. Relatively mild perihilar atelectasis with small left basilar consolidation and small left pleural effusion minimally increased from prior examination. CT abd/pelvis with contrast 07/24/20: 1. Correlation with urinalysis to exclude the possibility of pyelonephritis. 2. Nonacute findings as described above. Abdominal CT: 1. Severely limited study as outlined above 2. Moderate left hydroureteronephrosis and perinephric stranding with a 7 mm ureter stone within the left ureter at the acetabular roof level. The ureter remains somewhat dilated distal to this and a more distal ureter calculus could be present but not able to be seen because of artifact related to hip arthroplasties. 3. Nonvisualization of the appendix. CXR: WNL MICROBIOLOGY: Please see below. ASSESSMENT: 70yo F with a history of vascular dementia, hyperthyroidism, HTN, HLD, DVT, herniated disc with chronic back pain, bilateral breast cancer, ?hyperthyroidism and renal stones presenting with 1 day hx of progressive abdomi nal pain, altered mental status, and poor appetite. In the ED, abdominal CT showing 7 mm Left ureteral stent with signs of pyelonephritis and vitals suggestive of urosepsis. Currently in ICU, sepsis 2/2 to UTI/pyelonephritis, septic shock. PLAN: #Sepsis 2/2 to UTI, pyelonephritis and Enterobacter cloacae bacteremia 2/2 to left obstructive ureteral stone s/p stent. R/o developing PNA -WBC currently 20.7, afebrile but remains tachycardia -BP much improved and off levophed 07/24/20, stopped IVFs -Repeat imaging of CT abd/pelvis: no abscess -CT chest above -Echocardiogram above: No murmur but low suspicion of cardiac source currently. Will d/w cardiology after weekend. -BCx: E. cloacae -D/c cefepime due to cx results -Started on IV levofloxacin -On tele #Acute HFpEF -BNP >5K, increased lower ext swelling, crackles on exam b/l post lung dee. -Currently on RA -Echo above: EF 70%, Grade 2 LV diastolic dysfunction -D/cd IVF today -Starting on lasix 20 mg IV daily, can increase if BP tolerates. Consider back home bisoprolol if BP continues to tolerate diuresis -Does not follow with cardiology o/p #LLL PNA?, atelectasis on CT chest/ ? pulmonary vascular congestion -WBC 20K, see sepsis workup above -On RA, no increased coughing or times of desaturation -Seen on CT chest -BNP elevated -Sputum cx ordered -IS Q2H while awake -Lasix, levofloxacin IV #Left ureteral stone s/p stent placement -CT above -Left pigtail catheter in place on CT -Urology (Dr. Brody) consulted and following -C/w treatment above #Anemia likely acute and cannot r/o dilutional component. -No hx of anemia, MCV normal -No s/s of bleeding -F/u iron, tibc, ferritin -Daily CBC, stopped fluids #Hypokalemia, acute- resolved -Wnl today -Monitor with daily labs now that lasix added #Vascular Dementia -According to , she is normally signing legal papers at home. Currently very confused at times and does not appear to be at baseline. -Restarted home donepezil -Redirect whenever possible #HTN hx -Resolved hypotension recently with improvement of septic shock -BP 140's systolic so stopped IVFs -Starting only on lasix today #HLD -C/w simvastatin #Hx of DVT -As per , this occurred earlier this year in Jul/Aug. -Resume home eliquis 5 BID today #Hx of hyperthyroidism -As per last admission in May, patient discharged with methimazole 5. However as per med historian, methimazole was discontinued. -Jul 01 labs WNL. However 05/16 labs with slightly low TSH, slightly high t4 -Patient to f/u with PCP after discharge #GI px: PPI PO #DVT PPX -Eliquis BID REsolved issues: #Increased somnolence likely 2/2 to oversedation #Diarrhea improved and likely 2/2 to IV abx, GI upset DISPOSITION: Downgraded to med/surg tele . Plan is PT/OT, undecided for discharge at this time. VS, I&O, 24H, Fishbone Vital Signs/I&O Vital Signs Date Time Temp Pulse Resp B/P (MAP) Pulse Ox O2 Delivery O2 Flow Rate FiO2 07/26/20 08:08 97.9 114 19 140/83 (102) 96 Room Air 07/23/20 11:20 2.0 07/23/20 07:00 100 I&O- Last 24 Hours up to 6 AM 07/26/20 05:59 Intake Total 1880 ml Output Total 1390 ml Balance 490 ml Laboratory Data 24H LABS Laboratory Tests 2 07/26/20 06:20: Immature Granulocyte % (Auto) 0.3, Neutrophils (%) (Auto) 89.5H, Lymphocytes (%) (Auto) 5.6L, Monocytes (%) (Auto) 3.4, Eosinophils (%) (Auto) 1.1, Basophils (%) (Auto) 0.1, Neutrophils # (Auto) 18.5H, Lymphocytes # (Auto) 1.2L, Monocytes # (Auto) 0.7, Eosinophils # (Auto) 0.2, Basophils # (Auto) 0.0, Nucleated Red Bl ood Cells % (auto) 0.0, Anion Gap 5L, Glomerular Filtration Rate > 60.0, Calcium Level 7.8L, Total Bilirubin 0.5, Aspartate Amino Transf (AST/SGOT) 11, Alanine Aminotransferase (ALT/SGPT) 11L, Alkaline Phosphatase 68, Total Protein 4.4L, Albumin 2.1L, Albumin/Globulin Ratio 0.9L CBC/BMP Laboratory Tests 07/26/20 06:20 Microbiology Microbiology 07/25/20 Gastrointestinal Tract Panel (PCR) - Final, Complete 07/24/20 Urine Culture - Final, Complete 07/23/20 Blood Culture - Final, Complete Enterobacter Cloacae Complex 07/22/20 Urine Culture - Final, Complete 07/22/20 Blood Culture - Final, Complete Enterobacter Cloacae Complex 07/22/20 Blood Culture - Final, Complete Enterobacter Cloacae Complex Current Medications Current Medications Medications (Trade) Dose Ordered Sig/Martha Route PRN Reason Start Time Stop Time Status Last Admin Dose Admin Acetaminophen (Tylenol Tab) 650 mg Q6HP PRN PO MILD PAIN OR FEVER 07/23/20 03:30 07/23/20 11:55 DC Acetaminophen/ Hydrocodone Bitart ([place], Anexsia 5/325) 1 tab BID PRN PO PAIN LEVEL 8-10 07/23/20 03:30 07/23/20 11:55 DC Apixaban (Eliquis) 5 mg BID PO 07/23/20 09:00 07/23/20 11:55 DC Cefepime HCl 2 gm/ Dextrose 50 ml @ 100 mls/hr Q12H IV 07/23/20 12:00 07/26/20 07:40 DC 07/25/20 23:35 Diatrizoate Meglum/ Diatrizoate Sod (Gastrografin) 10 ml Q30M PO 07/22/20 22:30 07/22/20 23:01 DC 07/22/20 23:54 Diatrizoate Meglum/ Diatrizoate Sod (Gastrografin) 10 ml Q30M PO 07/24/20 09:00 07/24/20 09:31 DC 07/24/20 10:04 Donepezil HCl (AriCEPT) 5 mg QHS PO 07/26/20 21:00 Donepezil HCl (AriCEPT) 5 mg QHS PO 07/23/20 21:00 07/23/20 11:55 DC Enoxaparin Sodium (Lovenox) 40 mg DAILY SC 07/23/20 12:30 07/26/20 09:36 Fentanyl Citrate (Sublimaze) 25 mcg Q5MP PRN IV PAIN LEVEL 5-10 07/23/20 04:45 07/23/20 05:44 DC Flumazenil (Romazicon) 1 mg STAT STAT IV 07/23/20 08:39 07/23/20 08:40 DC 07/23/20 08:48 Flumazenil (Romazicon) 3 mg STAT STAT IV 07/23/20 08:33 07/23/20 08:34 Cancel Furosemide (LASIX injection) 20 mg DAILY IV 07/26/20 09:00 07/26/20 09:36 Gabapentin (Neurontin) 200 mg BID PO 07/23/20 09:00 07/23/20 11:55 DC Home Med (Med Rec Complete!) ASDIRECTED XX 07/23/20 02:30 07/23/20 02:29 DC Levofloxacin 500 mg/IV Miscellaneous Supplies 100 ml @ 100 mls/hr Q24H IV 07/26/20 09:00 07/26/20 09:37 Metronidazole 500 mg/IV Miscellaneous Supplies 100 ml @ 100 mls/hr Q8H IV 07/24/20 08:00 07/26/20 07:40 DC 07/26/20 01:17 Naloxone HCl (Narcan) 0.4 mg STAT STAT IV 07/23/20 09:00 07/23/20 09:01 DC 07/23/20 09:04 Naloxone HCl (Narcan) 0.4 mg STAT STAT IV 07/23/20 09:09 07/23/20 09:11 DC 07/23/20 09:22 Norepinephrine Bitartrate 8 mg/ Dextrose 500 ml @ 30 mls/hr [id number] IV 07/23/20 12:00 Hold 07/24/20 07:16 Ondansetron HCl (ZOFRAN INJection) 4 mg Q4HP PRN IV NAUSEA OR VOMITING 07/23/20 04:45 07/23/20 05:44 DC Pantoprazole Sodium (Protonix) 40 mg DAILY IV 07/23/20 09:00 07/26/20 07:44 DC 07/25/20 08:22 Pantoprazole Sodium (Protonix) 40 mg DAILY PO 07/26/20 09:00 07/26/20 09:36 Potassium Chloride 10 meq/ IV Miscellaneous Supplies 100 ml @ 100 mls/hr Q1H IV 07/23/20 12:00 07/23/20 12:28 DC Potassium Chloride 20 meq/ IV Miscellaneous Supplies 100 ml @ 100 mls/hr Q1H IV 07/25/20 08:00 07/25/20 09:59 DC 07/25/20 09:36 Potassium Chloride 20 meq/ IV Miscellaneous Supplies 100 ml @ 100 mls/hr Q1H IV 07/23/20 13:00 07/23/20 14:59 DC 07/23/20 16:19 Simvastatin (Zocor) 20 mg QHS PO 07/26/20 21:00 Simvastatin (Zocor) 20 mg QHS PO 07/22/20 21:00 07/23/20 11:55 DC Sodium Chloride 1,000 ml @ 100 mls/hr Q10H IV 07/23/20 04:00 07/26/20 07:40 DC 07/26/20 04:26 Vancomycin HCl 1000 mg/IV Miscellaneous Supplies 1 each/ Dextrose 270 ml @ 270 mls/hr Q18H IV 07/24/20 04:00 07/25/20 10:49 DC 07/24/20 21:57 Allergies Coded Allergies: atenolol (Verified Allergy, Intermediate, WHEEZING, 03/14/19) lisinopril (Verified Allergy, Unknown, unknown reaction, 05/15/20) celecoxib (Verified Adverse Reaction, Mild, NAUSEA, 03/14/19) meperidine (Verified Adverse Reaction, Mild, VOMITING, 03/14/19) Helga Ferrara MD Jul 26, 2020 11:00
[2020-07-26 11:59] VITALS: BP 172/96
[2020-07-26 14:06] LABS: FERRITIN 87 NG/ML (8-252); IRON (FE) 40 UG/DL (50-170); PERCENT SATURATION 23.8 % (13.2-45.0); TOTAL IRON BINDING CAPACITY 168 UG/DL (250-450)
[2020-07-26] MEDS: SIMVASTATIN 20 MG TAB PO SCH (19:59)
[2020-07-26] MEDS: APIXABAN 5 MG TAB (ELIQUIS) PO SCH (20:00)
[2020-07-26] MEDS: DONEPEZIL 5 MG TAB PO SCH (20:00)
[2020-07-26 22:00] VITALS: BP 131/63
[2020-07-27 06:00] VITALS: BP 125/73
[2020-07-27] MEDS ORDERED: SODIUM CHLORIDE 0.9% INJ 10 ML SYR IV PRN (06:00)
[2020-07-27] MEDS ORDERED: SODIUM CHLORIDE 0.9% INJ 10 ML SYR IV SCH (06:00)
[2020-07-27 06:16] LABS: BASO % 0.3 % (0.0-1.0); EOS % 0.3 % (0.0-3.0); HEMOGLOBIN 10.8 g/dl (12.0-15.5); LYMPH # 1.1 10^3/uL (1.5-5.0); LYMPH % 9.8 % (24.0-44.0); MEAN CORPUSCULAR HEMOGLOBIN 26.7 pg (27.0-33.0); MEAN CORPUSCULAR HGB CONC 30.9 g/dl (32.0-36.5); MEAN CORPUSCULAR VOLUME 86.6 fl (80.0-96.0); MONO # 0.8 10^3/uL (0.0-0.8); MONO % 6.9 % (0.0-5.0); NEUTROPHILS # 9.4 10^3/uL (1.5-8.5); NEUTROPHILS % 81.8 % (36.0-66.0); PLATELET COUNT, AUTOMATED 177 10^3/uL (150-450); RED BLOOD COUNT 4.04 10^6/uL (4.00-5.40); WHITE BLOOD COUNT 11.5 10^3/uL (4.0-10.0)
[2020-07-27 07:03] LABS: ALBUMIN 2.2 GM/DL (3.2-5.2); ALT/SGPT 12 U/L (12-78); BILIRUBIN,TOTAL 0.5 MG/DL (0.2-1.0); BLOOD UREA NITROGEN 14 MG/DL (7-18); CALCIUM LEVEL 8.1 MG/DL (8.8-10.2); CARBON DIOXIDE LEVEL 26 MEQ/L (21-32); CHLORIDE LEVEL 116 MEQ/L (98-107); CREATININE FOR GFR 0.58 MG/DL (0.55-1.30); GLOMERULAR FILTRATION RATE > 60.0 (>39); GLUCOSE, FASTING 114 MG/DL (70-100); POTASSIUM SERUM 3.7 MEQ/L (3.5-5.1); SODIUM LEVEL 148 MEQ/L (136-145); TOTAL PROTEIN 4.9 GM/DL (6.4-8.2)
[2020-07-27] MEDS ORDERED: bisoproloL fumarate 5 MG TAB PO SCH (09:00)
[2020-07-27] MEDS: LevoFLOXacin IV 500 MG in IV 1 EA IV SCH (09:42)
[2020-07-27] MEDS: APIXABAN 5 MG TAB (ELIQUIS) PO SCH ×2 (09:43→20:22)
[2020-07-27] MEDS: LACTOBACILLUS ACIDOPHILUS CAP (BACID) PO SCH ×2 (09:43→17:58)
[2020-07-27] MEDS: PANTOPRAZOLE 40MG TAB (PROTONIX) PO SCH (09:43)
[2020-07-27] MEDS: FUROSEMIDE 20MG/2ML VIAL (J1940) IV SCH (09:44)
[2020-07-27 09:59] VITALS: BP 190/122
[2020-07-27 12:49] VITALS: BP 160/102
[2020-07-27 14:00] VITALS: BP 142/94
--- NOTE | 2020-07-27 14:35 | IPNPDOC ---
Date Seen The patient was seen on 07/27/20. Progress Note SUBJECTIVE: Neg 3570/24H, only on 20 mg IV lasix daily. Appears more lethargic this AM, HR slightly more tachycardic with BP elevated 160-190 mmHg. D/paula central line, repeated BCx to see if resolution of bacteremia. Denies chest pain, n/v/d, shortness of breath. OBJECTIVE: PHYSICAL EXAMINATION: VS: Please see below GENERAL APPEARANCE: Awake but slightly more lethargic this AM, still confused to date, time HEENT: PERRLA, moist oral mucosa NECK: No JVD, symmetrical CARDIOVASCULAR: HS 1+ 2 normal. no M/R/G LUNGS: crackles mild in post lungs b/l. No wheezing, rhonchi. ABDOMEN: soft, obese abd. BS + in 4 quad, no organomegaly EXTREMITIES: pitting edema b/l lower ext +2 but improving slowly INTEGUMENTARY: intact, normal skin turgor NEUROLOGICAL: Follows some commands, no focal deficits noticed, no motor/sensory deficts LABORATORY DATA: See below. MICROBIOLOGY: BCx x 3 sets: Enterobacter cloacae UCx from admission: Contaminated Repeat UA + and UCx NG C. diff PCR: NEg GI panel: Neg IMAGING: Echocardiogram 07/24/20: EF 70% Normal sinus rhythm with intraventricular conduction disturbance. M-mode and two-dimensional echocardiography was performed with pulse, continuous wave, color flow, and tissue Doppler studies. Mild concentric left ventricular hypertrophy with no septal wall motion abnormality yet preserved global resting systolic function At least mildly dilated left atrium with grade 2 LV diastolic dysfunction with current estimated mean left atrial pressure upper limits of normal. Mildly dilated right ventricle with normal wall motion and Doppler evidence of at least moderately severe pulmonary hypertension. Moderately dilated right atrium and IVC size upper limits of normal with adequate respiratory collapse in keeping with central venous pressure upper limits of normal. Normal aortic dimensions. Three equal size aortic cusps with mildly thickened cusp edges, but adequate cusp separation. No apparent insufficiency. Mild degenerative changes of the mitral valve apparatus with adequate leaflet excursion and no posterior systolic buckling, but mild mitral insufficiency (not definitely outside normal limits). Normal appearing tricuspid valve with moderate to moderately severe insufficiency. No apparent separate intracardiac mass or pericardial effusion. If a cardiac source of systemic infection is seriously suspect and cultures are positive with elevated sedimentation rate, I would recommend a transesophageal echocardiogram to further define valvular structure and function. CT chest with contrast 07/24/20: 1. Cardiomegaly and pulmonary vascular congestion. 2. Relatively mild perihilar atelectasis with small left basilar consolidation and small left pleural effusion minimally increased from prior examination. CT abd/pelvis with contrast 07/24/20: 1. Correlation with urinalysis to exclude the possibility of pyelonephritis. 2. Nonacute findings as described above. Abdominal CT: 1. Severely limited study as outlined above 2. Moderate left hydroureteronephrosis and perinephric stranding with a 7 mm ureter stone within the left ureter at the acetabular roof level. The ureter remains somewhat dilated distal to this and a more distal ureter calculus could be present but not able to be seen because of artifact related to hip arthroplasties. 3. Nonvisualization of the appendix. CXR: WNL ASSESSMENT: 70yo F with a history of vascular dementia, hyperthyroidism, HTN, HLD, DVT, herniated disc with chronic back pain, bilateral breast cancer, ?hyperthyroidism and renal stones presenting with 1 day hx of progressive abdominal pain, altered mental status, and poor appetite. In the ED, abdominal CT showing 7 mm Left ureteral stent with signs of pyelonephritis and vitals suggestive of urosepsis. Currently in ICU, sepsis 2/2 to UTI/pyelonephritis, septic shock. PLAN: #Sepsis 2/2 to UTI, pyelonephritis and Enterobacter cloacae bacteremia 2/2 to left obstructive ureteral stone s/p stent. R/o developing PNA -WBC 11.5, afebrile but remains tachycardic -Repeat imaging of CT abd/pelvis: no abscess -CT chest above -Echocardiogram above: No murmur but low suspicion of cardiac source currently. Will d/w cardiology after weekend. -BCx: E. cloacae -Pulling central line, blood cultures x 2 sets repeated to see if resolution of bacteremia -C/w IV levofloxacin (Day 5 of appropriate abx therapy including prior abx) for total of 7-10 days -On tele #Acute HFpEF -BNP >5K, increased lower ext swelling, crackles on exam b/l post lung dee. -Currently on RA -Echo above: EF 70%, Grade 2 LV diastolic dysfunction -Neg fluid balance of 3.5 liters / 24H with only being on 20 mg IV daily, BP t olerating -Bisoprolol BID. Do not wish to mask tachycardia 2/2 to sepsis so if feel this is worsening, d/c BB -Does not follow with cardiology o/p #HTN -BP 160-190's mmHg -C/w lasix , bisoprolol #LLL PNA?, atelectasis on CT chest/ ? pulmonary vascular congestion -WBC 11.5, see sepsis workup above -On RA, no increased coughing or times of desaturation -Seen on CT chest -BNP elevated , repeat again in the AM since diuresing -Sputum cx ordered -IS Q2H while awake -Lasix, levofloxacin IV #Tachycardia 2/2 to sepsis? vs. anxiety (more awake and alert to things around her) -Baseline tachycardia is not recorded -C/w treatment above -Monitor on tele #Hypernatremia likely 2/2 to IVFs -Decreasing since IVFs stopped -Monitor with daily labs #Left ureteral stone s/p stent placement -CT above -Left pigtail catheter in place on CT -Urology (Dr. Brody) consulted and following -C/w treatment above #RACHAEL and cannot r/o dilutional component. -No s/s of bleeding -Iron low -Adding ferrous sulfate BID with BR -Daily CBC #Vascular Dementia -According to , she is normally signing legal papers at home. Currently very confused at times and does not appear to be at baseline. -Restarted home donepezil -Redirect whenever possible #HLD -C/w simvastatin #Hx of DVT -As per , this occurred earlier this year in Jul/Aug. -C/w eliquis 5 BID #Hx of hyperthyroidism -As per last admission in May, patient discharged with methimazole 5. However as per med historian, methimazole was discontinued. -Jul 01 labs WNL. However 05/16 labs with slightly low TSH, slightly high t4 -Patient to f/u with PCP after discharge #GI px: PPI PO #DVT PPX -Eliquis BID REsolved issues: #Increased somnolence likely 2/2 to oversedation #Diarrhea improved and likely 2/2 to IV abx, GI upset #Hypokalemia, acute DISPOSITION: PT/OT ordered, undecided for discharge at this time. VS, I&O, 24H, Fishbone Vital Signs/I&O Vital Signs Date Time Temp Pulse Resp B/P (MAP) Pulse Ox O2 Delivery O2 Flow Rate FiO2 07/27/20 12:49 160/102 (121) 07/27/20 10:03 131 07/27/20 06:00 98.9 19 96 Room Air 07/23/20 11:20 2.0 07/23/20 07:00 100 I&O- Last 24 Hours up to 6 AM 07/27/20 05:59 Intake Total 1480 ml Output Total 4675 ml Balance -3195 ml Laboratory Data 24H LABS Laboratory Tests 2 07/27/20 06:05: Immature Granulocyte % (Auto) 0.9, Neutrophils (%) (Auto) 81.8H, Lymphocytes (%) (Auto) 9.8L, Monocytes (%) (Auto) 6.9H, Eosinophils (%) (Auto) 0.3, Basophils (%) (Auto) 0.3, Neutrophils # (Auto) 9.4H, Lymphocytes # (Auto) 1.1L, Monocytes # (Auto) 0.8, Eosinophils # (Auto) 0.0, Basophils # (Auto) 0.0, Nucleated Red Blood Cells % (auto) 0.0, Anion Gap 6L, Glomerular Filtration Rate > 60.0, Calcium Level 8.1L, Total Bilirubin 0.5, Aspartate Amino Transf (AST/SGOT) 10, Alanine Aminotransferase (ALT/SGPT) 12, Alkaline Phosphatase 69, Total Protein 4.9L, Albumin 2.2L, Albumin/Globulin Ratio 0.8L CBC/BMP Laboratory Tests 07/27/20 06:05 Microbiology Microbiology 07/27/20 Blood Culture, Received Pending 07/27/20 Blood Culture, Received Pending 07/25/20 Gastrointestinal Tract Panel (PCR) - Final, Complete 07/24/20 Urine Culture - Final, Complete 07/23/20 Blood Culture - Final, Complete Enterobacter Cloacae Complex 07/22/20 Urine Culture - Final, Complete 07/22/20 Blood Culture - Final, Complete Enterobacter Cloacae Complex 07/22/20 Blood Culture - Final, Complete Enterobacter Cloacae Complex Current Medications Current Medications Medications (Trade) Dose Ordered Sig/Martha Route PRN Reason Start Time Stop Time Status Last Admin Dose Admin Acetaminophen (Tylenol Tab) 650 mg Q6HP PRN PO MILD PAIN OR FEVER 07/23/20 03:30 07/23/20 11:55 DC Acetaminophen/ Hydrocodone Bitart ([place], [employer] 5/325) 1 tab BID PRN PO PAIN LEVEL 8-10 07/23/20 03:30 07/23/20 11:55 DC Apixaban (Eliquis) 5 mg BID PO 07/26/20 21:00 07/27/20 09:43 Apixaban (Eliquis) 5 mg BID PO 07/23/20 09:00 07/23/20 11:55 DC Bisoprolol Fumarate (Zebeta) 5 mg BID PO 07/27/20 09:00 07/27/20 10:03 Cefepime HCl 2 gm/ Dextrose 50 ml @ 100 mls/hr Q12H IV 07/23/20 12:00 07/26/20 07:40 DC 07/25/20 23:35 Diatrizoate Meglum/ Diatrizoate Sod (Gastrografin) 10 ml Q30M PO 07/22/20 22:30 07/22/20 23:01 DC 07/22/20 23:54 Diatrizoate Meglum/ Diatrizoate Sod (Gastrografin) 10 ml Q30M PO 07/24/20 09:00 07/24/20 09:31 DC 07/24/20 10:04 Donepezil HCl (AriCEPT) 5 mg QHS PO 07/26/20 21:00 07/26/20 20:00 Donepezil HCl (AriCEPT) 5 mg QHS PO 07/23/20 21:00 07/23/20 11:55 DC Enoxaparin Sodium (Lovenox) 40 mg DAILY SC 07/23/20 12:30 07/26/20 10:58 DC 07/26/20 09:36 Fentanyl Citrate (Sublimaze) 25 mcg Q5MP PRN IV PAIN LEVEL 5-10 07/23/20 04:45 07/23/20 05:44 DC Flumazenil (Romazicon) 1 mg STAT STAT IV 07/23/20 08:39 07/23/20 08:40 DC 07/23/20 08:48 Flumazenil (Romazicon) 3 mg STAT STAT IV 07/23/20 08:33 07/23/20 08:34 Cancel Furosemide (LASIX injection) 20 mg DAILY IV 07/26/20 09:00 07/27/20 09:44 Gabapentin (Neurontin) 200 mg BID PO 07/23/20 09:00 07/23/20 11:55 DC Heparin Sodium (Heparin Lock Flush 10units/ml) 10 units ASDIRECTED PRN IV SEE LABEL COMMENTS 07/27/20 06:00 Heparin Sodium (Heparin Lock Flush 10units/ml) 10 units HLF IV 07/27/20 06:00 07/27/20 06:04 Home Med (Med Rec Complete!) ASDIRECTED XX 07/23/20 02:30 07/23/20 02:29 DC Lactobacillus Acidophilus (Bacid) 1 ea BIDWM PO 07/26/20 08:00 07/27/20 09:43 Levofloxacin 500 mg/IV Miscellaneous Supplies 100 ml @ 100 mls/hr Q24H IV 07/26/20 09:00 07/27/20 09:42 Metronidazole 500 mg/IV Miscellaneous Supplies 100 ml @ 100 mls/hr Q8H IV 07/24/20 08:00 07/26/20 07:40 DC 07/26/20 01:17 Naloxone HCl (Narcan) 0.4 mg STAT STAT IV 07/23/20 09:00 07/23/20 09:01 DC 07/23/20 09:04 Naloxone HCl (Narcan) 0.4 mg STAT STAT IV 07/23/20 09:09 07/23/20 09:11 DC 07/23/20 09:22 Norepinephrine Bitartrate 8 mg/ Dextrose 500 ml @ 30 mls/hr [id number] IV 07/23/20 12:00 07/26/20 10:37 DC 07/24/20 07:16 Ondansetron HCl (ZOFRAN INJection) 4 mg Q4HP PRN IV NAUSEA OR VOMITING 07/23/20 04:45 07/23/20 05:44 DC Pantoprazole Sodium (Protonix) 40 mg DAILY IV 07/23/20 09:00 07/26/20 07:44 DC 07/25/20 08:22 Pantoprazole Sodium (Protonix) 40 mg DAILY PO 07/26/20 09:00 07/27/20 09:43 Potassium Chloride 10 meq/ IV Miscellaneous Supplies 100 ml @ 100 mls/hr Q1H IV 07/23/20 12:00 07/23/20 12:28 DC Potassium Chloride 20 meq/ IV Miscellaneous Supplies 100 ml @ 100 mls/hr Q1H IV 07/25/20 08:00 07/25/20 09:59 DC 07/25/20 09:36 Potassium Chloride 20 meq/ IV Miscellaneous Supplies 100 ml @ 100 mls/hr Q1H IV 07/23/20 13:00 07/23/20 14:59 DC 07/23/20 16:19 Simvastatin (Zocor) 20 mg QHS PO 07/26/20 21:00 07/26/20 19:59 Simvastatin (Zocor) 20 mg QHS PO 07/22/20 21:00 07/23/20 11:55 DC Sodium Chloride 1,000 ml @ 100 mls/hr Q10H IV 07/23/20 04:00 07/26/20 07:40 DC 07/26/20 04:26 Sodium Chloride (Saline Lock Flush) 10 ml ASDIRECTED PRN IV SEE LABEL COMMENTS 07/27/20 06:00 Sodium Chloride (Saline Lock Flush) 10 ml SLF IV 07/27/20 06:00 07/27/20 06:05 Vancomycin HCl 1000 mg/IV Miscellaneous Supplies 1 each/ Dextrose 270 ml @ 270 mls/hr Q18H IV 07/24/20 04:00 07/25/20 10:49 DC 07/24/20 21:57 Allergies Coded Allergies: atenolol (Verified Allergy, Intermediate, WHEEZING, 07/27/20) on bisoprolol at home lisinopril (Verified Allergy, Unknown, unknown reaction, 05/15/20) celecoxib (Verified Adverse Reaction, Mild, NAUSEA, 03/14/19) meperidine (Verified Adverse Reaction, Mild, VOMITING, 03/14/19) Helga Ferrara MD Jul 27, 2020 14:35
[2020-07-27] MEDS ORDERED: MIRALAX *UNIT DOSE* 17GM PACKET PO PRN (14:45)
--- NOTE | 2020-07-27 18:04 | REPVR ---
PROCEDURE INFORMATION: Exam: US Duplex Right Upper Extremity Veins, Limited Exam date and time: 07/27/2020 5:07 PM Age: 70 years old Clinical indication: Swelling (edema) of limb; Upper extremity, right; Additional info: Right upper ext swelling TECHNIQUE: Imaging protocol: Real-time Duplex ultrasound of the Right Upper Extremity with 2-D orozco scale, color Doppler flow and spectral waveform analysis with image documentation. Limited exam focused on the right upper extremity veins. COMPARISON: No relevant prior studies available. FINDINGS: Right deep veins: Unremarkable. Axillary and brachial veins are patent throughout without thrombus. Normal Doppler waveforms. Normal compressibility and/or augmentation response. Visualized internal jugular and subclavian veins are patent. Right superficial veins: The cephalic vein and basilic vein demonstrate venous return. There is an IV within the medial cubital vein cephalic side with thrombus identified. Soft tissues: Unremarkable. IMPRESSION: Superficial thrombus identified within the medial cubital vein the site of IV placement. Electronically signed by: Julian Marr On 07/27/2020 18:05:17 PM
[2020-07-27] MEDS: FERROUS SULFATE 325MG TAB PO SCH (20:14)
[2020-07-27] MEDS: SIMVASTATIN 20 MG TAB PO SCH (20:14)
[2020-07-27] MEDS: DOCUSATE SODIUM 100MG CAPSULE PO SCH (20:14)
[2020-07-27] MEDS: bisoproloL fumarate 10 MG TAB PO SCH (20:22)
[2020-07-27] MEDS: DONEPEZIL 5 MG TAB PO SCH (20:22)
[2020-07-27 22:00] VITALS: BP 163/90
[2020-07-28 06:00] VITALS: BP 158/94
[2020-07-28 06:36] LABS: BASO % 0.5 % (0.0-1.0); EOS # 0.2 10^3/uL (0.0-0.5); EOS % 2.9 % (0.0-3.0); HEMATOCRIT 39.1 % (36.0-47.0); HEMOGLOBIN 11.8 g/dl (12.0-15.5); LYMPH # 1.4 10^3/uL (1.5-5.0); LYMPH % 17.8 % (24.0-44.0); MEAN CORPUSCULAR HEMOGLOBIN 26.3 pg (27.0-33.0); MEAN CORPUSCULAR HGB CONC 30.2 g/dl (32.0-36.5); MEAN CORPUSCULAR VOLUME 87.1 fl (80.0-96.0); MONO # 1.3 10^3/uL (0.0-0.8); MONO % 16.5 % (0.0-5.0); NEUTROPHILS # 4.9 10^3/uL (1.5-8.5); NEUTROPHILS % 60.5 % (36.0-66.0); PLATELET COUNT, AUTOMATED 205 10^3/uL (150-450); RED BLOOD COUNT 4.49 10^6/uL (4.00-5.40)
[2020-07-28 07:02] LABS: ALBUMIN 2.4 GM/DL (3.2-5.2); ALT/SGPT 11 U/L (12-78); BILIRUBIN,TOTAL 0.4 MG/DL (0.2-1.0); BLOOD UREA NITROGEN 16 MG/DL (7-18); CALCIUM LEVEL 8.4 MG/DL (8.8-10.2); CARBON DIOXIDE LEVEL 30 MEQ/L (21-32); CHLORIDE LEVEL 111 MEQ/L (98-107); CREATININE FOR GFR 0.54 MG/DL (0.55-1.30); GLOMERULAR FILTRATION RATE > 60.0 (>39); GLUCOSE, FASTING 96 MG/DL (70-100); NT-PRO BNP 2702 PG/ML (<125); POTASSIUM SERUM 3.5 MEQ/L (3.5-5.1); SODIUM LEVEL 146 MEQ/L (136-145); TOTAL PROTEIN 5.2 GM/DL (6.4-8.2)
[2020-07-28] MEDS: LevoFLOXacin IV 500 MG in IV 1 EA IV SCH (08:46)
[2020-07-28] MEDS: LACTOBACILLUS ACIDOPHILUS CAP (BACID) PO SCH ×2 (08:46→17:06)
[2020-07-28] MEDS: APIXABAN 5 MG TAB (ELIQUIS) PO SCH ×2 (08:46→20:16)
[2020-07-28] MEDS: DOCUSATE SODIUM 100MG CAPSULE PO SCH ×2 (08:46→20:16)
[2020-07-28] MEDS: FUROSEMIDE 20MG/2ML VIAL (J1940) IV SCH (08:46)
[2020-07-28] MEDS: FERROUS SULFATE 325MG TAB PO SCH ×2 (08:46→20:16)
[2020-07-28] MEDS: PANTOPRAZOLE 40MG TAB (PROTONIX) PO SCH (08:46)
[2020-07-28] MEDS: bisoproloL fumarate 10 MG TAB PO SCH ×2 (08:47→20:19)
[2020-07-28 14:00] VITALS: BP 104/74
--- NOTE | 2020-07-28 16:43 | IPNPDOC ---
Date Seen The patient was seen on 07/28/20. Progress Note SUBJECTIVE: Neg fluid balance still, improving BNP. More awake, alert and in better spirits today. No right upper ext pain or increased swelling. Repeat BCx NG, switched from IV to PO levofloxacin. PT/OT to see. Denies chest pain, n/v/d, shortness of breath. OBJECTIVE: PHYSICAL EXAMINATION: VS: Please see below GENERAL APPEARANCE: Awake, alert, oriented to self but not time or place HEENT: PERRLA, moist oral mucosa, corrective lenses in place NECK: No JVD, symmetrical CARDIOVASCULAR: HS 1+ 2 normal. no M/R/G LUNGS: crackles mild in post lungs b/l. No wheezing, rhonchi. ABDOMEN: soft, obese abd. BS + in 4 quad, no organomegaly EXTREMITIES: pitting edema b/l lower ext +2 but improving slowly INTEGUMENTARY: intact, normal skin turgor NEUROLOGICAL: Follows some commands, no focal deficits noticed, no motor/sensory deficts LABORATORY DATA: See below. MICROBIOLOGY: BCx x 3 sets: Enterobacter cloacae Repeat BCx x 2 sets: NG to date UCx from admission: Contaminated Repeat UA + and UCx NG C. diff PCR: NEg GI panel: Neg IMAGING: RUE doppler: Superficial thrombus identified within the medial cubital vein the site of IV placement. Echocardiogram 07/24/20: EF 70% Normal sinus rhythm with intraventricular conduction disturbance. M-mode and two-dimensional echocardiography was performed with pulse, continuous wave, color flow, and tissue Doppler studies. Mild concentric left ventricular hypertrophy with no septal wall motion abnormality yet preserved global resting systolic function At least mildly dilated left atrium with grade 2 LV diastolic dysfunction with current estimated mean left atrial pressure upper limits of normal. Mildly dilated right ventricle with normal wall motion and Doppler evidence of at least moderately severe pulmonary hypertension. Moderately dilated right atrium and IVC size upper limits of normal with adequate respiratory collapse in keeping with central venous pressure upper limits of normal. Normal aortic dimensions. Three equal size aortic cusps with mildly thickened cusp edges, but adequate cusp separation. No apparent insufficiency. Mild degenerative changes of the mitral valve apparatus with adequate leaflet excursion and no posterior systolic buckling, but mild mitral insufficiency (not definitely outside normal limits). Normal appearing tricuspid valve with moderate to moderately severe insufficien cy. No apparent separate intracardiac mass or pericardial effusion. If a cardiac source of systemic infection is seriously suspect and cultures are positive with elevated sedimentation rate, I would recommend a transesophageal echocardiogram to further define valvular structure and function. CT chest with contrast 07/24/20: 1. Cardiomegaly and pulmonary vascular congestion. 2. Relatively mild perihilar atelectasis with small left basilar consolidation and small left pleural effusion minimally increased from prior examination. CT abd/pelvis with contrast 07/24/20: 1. Correlation with urinalysis to exclude the possibility of pyelonephritis. 2. Nonacute findings as described above. Abdominal CT: 1. Severely limited study as outlined above 2. Moderate left hydroureteronephrosis and perinephric stranding with a 7 mm ureter stone within the left ureter at the acetabular roof level. The ureter remains somewhat dilated distal to this and a more distal ureter calculus could be present but not able to be seen because of artifact related to hip arthroplasties. 3. Nonvisualization of the appendix. CXR: WNL ASSESSMENT: 70yo F with a history of vascular dementia, hyperthyroidism, HTN, HLD, DVT, herniated disc with chronic back pain, bilateral breast cancer, ?hyperthyroidism and renal stones presenting with 1 day hx of progressive abdominal pain, altered mental status, and poor appetite. In the ED, abdominal CT showing 7 mm Left ureteral stent with signs of pyelonephritis and vitals suggestive of urosepsis. Currently in ICU, sepsis 2/2 to UTI/pyelonephritis, septic shock. PLAN: #UTI, pyelonephritis and Enterobacter cloacae bacteremia 2/2 to left obstructive ureteral stone s/p stent. Resolved sepsis -WBC wnl, afebrile but remains tachycardic -Repeat imaging of CT abd/pelvis: no abscess -CT chest above -Echocardiogram above: No murmur but low suspicion of cardiac source currently. -BCx on admission: E. cloacae -Repeat BCx: NG at 24 H -Day 6 IV levofloxacin, switched to PO today to complete total of 7-10 days based on continued improvement #Acute HFpEF -BNP >5K on admission, currently 2702 -Improved lower ext swelling, crackles on exam b/l post lung dee. -Currently on RA -Echo above: EF 70%, Grade 2 LV diastolic dysfunction -Neg fluid balance of 2.98 liters / 24H with only being on 20 mg IV daily, BP tolerating -C/w Bisoprolol BID. -Does not follow with cardiology o/p #RUE DVT -Hx of DVT, unknown location- occurred earlier this year -Has been on lovenox this admission prior to resuming eliquis BID 5 mg PO BID -Lovenox dose she was on was prophylactic dosing, as was home dosing of eliquis -IV line which was previously placed in arm taken out -C/w eliquis for now, if worsens, consider failure of eliquis #HTN -BP 130-160's mmHg -C/w lasix , bisoprolol #LLL PNA?, atelectasis on CT chest/ ? pulmonary vascular congestion. Resolved sepsis -WBC wnl, see sepsis workup above -On RA, no increased coughing or times of desaturation -Seen on CT chest -BNP elevated but much improved -Sputum cx ordered but unable to be produced -IS Q2H while awake -Lasix, levo PO #Tachycardia 2/2 to sepsis? vs. anxiety (more awake and alert to things around her) -Baseline tachycardia is not recorded but could be possibility -C/w treatment above -Monitor on tele #Hypernatremia likely 2/2 to IVFs -Decreasing since IVFs stopped -Monitor with daily labs #Left ureteral stone s/p stent placement -CT above -Left pigtail catheter in place on CT -Urology (Dr. Brody) consulted and following -C/w treatment above #RACHAEL and cannot r/o dilutional component. 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 Currently very confused at times and does not appear to be at baseline. -C/w home donepezil -Redirect whenever possible #HLD -C/w simvastatin #Hx of hyperthyroidism -As per last admission in May, patient discharged with methimazole 5. However as per med historian, methimazole was discontinued. -Jul 01 labs WNL. However 05/16 labs with slightly low TSH, slightly high t4 -Patient to f/u with PCP after discharge #GI px: PPI PO #DVT PPX -Eliquis BID REsolved issues: #Increased somnolence likely 2/2 to oversedation #Diarrhea improved and likely 2/2 to IV abx, GI upset #Hypokalemia, acute DISPOSITION: PT/OT today, plan is hopefully home when medically improved with . VS, I&O, 24H, [place] Vital Signs/I&O Vital Signs Date Time Temp Pulse Resp B/P (MAP) Pulse Ox O2 Delivery O2 Flow Rate FiO2 07/28/20 08:47 114 142/80 07/28/20 06:00 98.7 16 91 07/27/20 06:00 Room Air 07/23/20 11:20 2.0 07/23/20 07:00 100 I&O- Last 24 Hours up to 6 AM 07/28/20 06:00 Intake Total 120 ml Output Total 2850 ml Balance -2730 ml Laboratory Data 24H LABS Laboratory Tests 2 07/28/20 05:43: Immature Granulocyte % (Auto) 1.8, Neutrophils (%) (Auto) 60.5, Lymphocytes (%) (Auto) 17.8L, Monocytes (%) (Auto) 16.5H, Eosinophils (%) (Auto) 2.9, Basophils (%) (Auto) 0.5, Neutrophils # (Auto) 4.9, Lymphocytes # (Auto) 1.4L, Monocytes # (Auto) 1.3H, Eosinophils # (Auto) 0.2, Basophils # (Auto) 0.0, Nucleated Red Blo od Cells % (auto) 0.0, Anion Gap 5L, Glomerular Filtration Rate > 60.0, Calcium Level 8.4L, Total Bilirubin 0.4, Aspartate Amino Transf (AST/SGOT) 13, Alanine Aminotransferase (ALT/SGPT) 11L, Alkaline Phosphatase 67, RT-Epn-G-Type Natriuretic Peptide 2702H, Total Protein 5.2L, Albumin 2.4L, Albumin/Globulin Ratio 0.9L CBC/BMP Laboratory Tests 07/28/20 05:43 Microbiology Microbiology 07/27/20 Catheter Tip Culture, Received Pending 07/27/20 Blood Culture - Preliminary, Resulted No growth after 24 hours . All specim... 07/27/20 Blood Culture - Preliminary, Resulted No growth after 24 hours . All specim... 07/25/20 Gastrointestinal Tract Panel (PCR) - Final, Complete 07/24/20 Urine Culture - Final, Complete 07/23/20 Blood Culture - Final, Complete Enterobacter Cloacae Complex 07/22/20 Urine Culture - Final, Complete 07/22/20 Blood Culture - Final, Complete Enterobacter Cloacae Complex 07/22/20 Blood Culture - Final, Complete Enterobacter Cloacae Complex Current Medications Current Medications Medications (Trade) Dose Ordered Sig/Martha Route PRN Reason Start Time Stop Time Status Last Admin Dose Admin Acetaminophen (Tylenol Tab) 650 mg Q6HP PRN PO MILD PAIN OR FEVER 07/23/20 03:30 07/23/20 11:55 DC Acetaminophen/ Hydrocodone Bitart ([place], [place] 5/325) 1 tab BID PRN PO PAIN LEVEL 8-10 07/23/20 03:30 07/23/20 11:55 DC Apixaban (Eliquis) 5 mg BID PO 07/26/20 21:00 07/28/20 08:46 Apixaban (Eliquis) 5 mg BID PO 07/23/20 09:00 07/23/20 11:55 DC Bisoprolol Fumarate (Zebeta) 5 mg BID PO 07/27/20 09:00 07/27/20 14:30 DC 07/27/20 10:03 Bisoprolol Fumarate (Zebeta) 10 mg BID PO 07/27/20 21:00 07/28/20 08:47 Cefepime HCl 2 gm/ Dextrose 50 ml @ 100 mls/hr Q12H IV 07/23/20 12:00 07/26/20 07:40 DC 07/25/20 23:35 Diatrizoate Meglum/ Diatrizoate Sod (Gastrografin) 10 ml Q30M PO 07/22/20 22:30 07/22/20 23:01 DC 07/22/20 23:54 Diatrizoate Meglum/ Diatrizoate Sod (Gastrografin) 10 ml Q30M PO 07/24/20 09:00 07/24/20 09:31 DC 07/24/20 10:04 Docusate Sodium (Colace) 100 mg BID PO 07/27/20 21:00 07/28/20 08:46 Donepezil HCl (AriCEPT) 5 mg QHS PO 07/26/20 21:00 07/27/20 20:22 Donepezil HCl (AriCEPT) 5 mg QHS PO 07/23/20 21:00 07/23/20 11:55 DC Enoxaparin Sodium (Lovenox) 40 mg DAILY SC 07/23/20 12:30 07/26/20 10:58 DC 07/26/20 09:36 Fentanyl Citrate (Sublimaze) 25 mcg Q5MP PRN IV PAIN LEVEL 5-10 07/23/20 04:45 07/23/20 05:44 DC Ferrous Sulfate (Ferrous Sulfate) 325 mg BID PO 07/27/20 21:00 07/28/20 08:46 Flumazenil (Romazicon) 1 mg STAT STAT IV 07/23/20 08:39 07/23/20 08:40 DC 07/23/20 08:48 Flumazenil (Romazicon) 3 mg STAT STAT IV 07/23/20 08:33 07/23/20 08:34 Cancel Furosemide (LASIX injection) 20 mg DAILY IV 07/26/20 09:00 07/28/20 08:46 Gabapentin (Neurontin) 200 mg BID PO 07/23/20 09:00 07/23/20 11:55 DC Heparin Sodium (Heparin Lock Flush 10units/ml) 10 units ASDIRECTED PRN IV SEE LABEL COMMENTS 07/27/20 06:00 Cancel Heparin Sodium (Heparin Lock Flush 10units/ml) 10 units HLF IV 07/27/20 06:00 07/27/20 14:55 DC 07/27/20 06:04 Home Med (Med Rec Complete!) ASDIRECTED XX 07/23/20 02:30 07/23/20 02:29 DC Lactobacillus Acidophilus (Bacid) 1 ea BIDWM PO 07/26/20 08:00 07/28/20 08:46 Levofloxacin (Levaquin) 500 mg DAILY@06 PO 07/29/20 06:00 Levofloxacin 500 mg/IV Miscellaneous Supplies 100 ml @ 100 mls/hr Q24H IV 07/26/20 09:00 07/28/20 14:29 DC 07/28/20 08:46 Metronidazole 500 mg/IV Miscellaneous Supplies 100 ml @ 100 mls/hr Q8H IV 07/24/20 08:00 07/26/20 07:40 DC 07/26/20 01:17 Naloxone HCl (Narcan) 0.4 mg STAT STAT IV 07/23/20 09:00 07/23/20 09:01 DC 07/23/20 09:04 Naloxone HCl (Narcan) 0.4 mg STAT STAT IV 07/23/20 09:09 07/23/20 09:11 DC 07/23/20 09:22 Norepinephrine Bitartrate 8 mg/ Dextrose 500 ml @ 30 mls/hr [id number] IV 07/23/20 12:00 07/26/20 10:37 DC 07/24/20 07:16 Ondansetron HCl (ZOFRAN INJection) 4 mg Q4HP PRN IV NAUSEA OR VOMITING 07/23/20 04:45 07/23/20 05:44 DC Pantoprazole Sodium (Protonix) 40 mg DAILY IV 07/23/20 09:00 07/26/20 07:44 DC 07/25/20 08:22 Pantoprazole Sodium (Protonix) 40 mg DAILY PO 07/26/20 09:00 07/28/20 08:46 Polyethylene Glycol (Miralax) 1 pkt DAILYPRN PRN PO CONSTIPATION 07/27/20 14:45 Potassium Chloride 10 meq/ IV Miscellaneous Supplies 100 ml @ 100 mls/hr Q1H IV 07/23/20 12:00 07/23/20 12:28 DC Potassium Chloride 20 meq/ IV Miscellaneous Supplies 100 ml @ 100 mls/hr Q1H IV 07/25/20 08:00 07/25/20 09:59 DC 07/25/20 09:36 Potassium Chloride 20 meq/ IV Miscellaneous Supplies 100 ml @ 100 mls/hr Q1H IV 07/23/20 13:00 07/23/20 14:59 DC 07/23/20 16:19 Simvastatin (Zocor) 20 mg QHS PO 07/26/20 21:00 07/27/20 20:14 Simvastatin (Zocor) 20 mg QHS PO 07/22/20 21:00 07/23/20 11:55 DC Sodium Chloride 1,000 ml @ 100 mls/hr Q10H IV 07/23/20 04:00 07/26/20 07:40 DC 07/26/20 04:26 Sodium Chloride (Saline Lock Flush) 10 ml ASDIRECTED PRN IV SEE LABEL COMMENTS 07/27/20 06:00 Cancel Sodium Chloride (Saline Lock Flush) 10 ml SLF IV 07/27/20 06:00 1/3/21 14:55 DC 07/27/20 06:05 Vancomycin HCl 1000 mg/IV Miscellaneous Supplies 1 each/ Dextrose 270 ml @ 270 mls/hr Q18H IV 07/24/20 04:00 07/25/20 10:49 DC 07/24/20 21:57 Allergies Coded Allergies: atenolol (Verified Allergy, Intermediate, WHEEZING, 07/27/20) on bisoprolol at home lisinopril (Verified Allergy, Unknown, unknown reaction, 05/15/20) celecoxib (Verified Adverse Reaction, Mild, NAUSEA, 03/14/19) meperidine (Verified Adverse Reaction, Mild, VOMITING, 03/14/19) Helga Ferrara MD Jul 28, 2020 16:43
[2020-07-28] MEDS: SIMVASTATIN 20 MG TAB PO SCH (20:19)
[2020-07-28] MEDS: DONEPEZIL 5 MG TAB PO SCH (20:19)
[2020-07-28 22:00] VITALS: BP 138/88
--- NOTE | 2020-07-28 23:26 | ECGEPIP ---
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
[2020-07-29] MEDS: LevoFLOXacin 500 MG TABLET PO SCH (05:55)
[2020-07-29 06:00] VITALS: BP 137/90
[2020-07-29 06:00] LABS: BASO % 0.4 % (0.0-1.0); EOS # 0.1 10^3/uL (0.0-0.5); EOS % 1.6 % (0.0-3.0); HEMATOCRIT 38.2 % (36.0-47.0); HEMOGLOBIN 11.8 g/dl (12.0-15.5); LYMPH # 1.5 10^3/uL (1.5-5.0); LYMPH % 17.9 % (24.0-44.0); MEAN CORPUSCULAR HEMOGLOBIN 26.5 pg (27.0-33.0); MEAN CORPUSCULAR HGB CONC 30.9 g/dl (32.0-36.5); MEAN CORPUSCULAR VOLUME 85.8 fl (80.0-96.0); MONO # 1.5 10^3/uL (0.0-0.8); MONO % 18.1 % (0.0-5.0); NEUTROPHILS # 4.9 10^3/uL (1.5-8.5); NEUTROPHILS % 58.6 % (36.0-66.0); PLATELET COUNT, AUTOMATED 237 10^3/uL (150-450); RED BLOOD COUNT 4.45 10^6/uL (4.00-5.40); WHITE BLOOD COUNT 8.3 10^3/uL (4.0-10.0)
[2020-07-29 07:07] LABS: ALBUMIN 2.4 GM/DL (3.2-5.2); ALT/SGPT 11 U/L (12-78); BILIRUBIN,TOTAL 0.4 MG/DL (0.2-1.0); BLOOD UREA NITROGEN 23 MG/DL (7-18); CALCIUM LEVEL 8.3 MG/DL (8.8-10.2); CARBON DIOXIDE LEVEL 33 MEQ/L (21-32); CHLORIDE LEVEL 109 MEQ/L (98-107); CREATININE FOR GFR 0.62 MG/DL (0.55-1.30); GLOMERULAR FILTRATION RATE > 60.0 (>39); GLUCOSE, FASTING 116 MG/DL (70-100); POTASSIUM SERUM 3.5 MEQ/L (3.5-5.1); SODIUM LEVEL 146 MEQ/L (136-145); TOTAL PROTEIN 5.2 GM/DL (6.4-8.2)
[2020-07-29] MEDS: DOCUSATE SODIUM 100MG CAPSULE PO SCH ×2 (08:53→21:04)
[2020-07-29] MEDS: FERROUS SULFATE 325MG TAB PO SCH ×2 (08:53→21:04)
[2020-07-29] MEDS: APIXABAN 5 MG TAB (ELIQUIS) PO SCH ×2 (08:54→21:04)
[2020-07-29] MEDS: PANTOPRAZOLE 40MG TAB (PROTONIX) PO SCH (08:54)
[2020-07-29] MEDS: LACTOBACILLUS ACIDOPHILUS CAP (BACID) PO SCH ×2 (08:54→17:13)
[2020-07-29] MEDS: bisoproloL fumarate 10 MG TAB PO SCH ×2 (08:54→21:08)
[2020-07-29] MEDS: FUROSEMIDE 20MG/2ML VIAL (J1940) IV SCH (08:55)
--- NOTE | 2020-07-29 10:44 | IPNPDOC ---
Text Note Date of Service The patient was seen on 07/29/20. NOTE SUBJECTIVE: Patient seen and examined at bedside. It was reported that overnight she desaturated to the low 80s and was provided supplemental oxygen. Patient has no new medical complaints this morning. She is pleasantly confused. OBJECTIVE: VS: Please see below GENERAL APPEARANCE: NAD, lying comfortably in bed HEENT: PERRLA, moist oral mucosa, corrective lenses in place NECK: No JVD, symmetrical CARDIOVASCULAR: systolic murmur, +S1S2 LUNGS: minimal crackles mild in post lungs b/l. No wheezing, rhonchi. ABDOMEN: soft, obese abd. BS + in 4 quad, no organomegaly EXTREMITIES: pitting edema b/l lower ext +2 Psych: alert, awake, oriented to person, pleasantly confused ASSESSMENT: 70yo F with a history of vascular dementia, hyperthyroidism, HTN, HLD, DVT, herniated disc with chronic back pain, bilateral breast cancer, ?hyperthyroidism and renal stones presenting with 1 day hx of progressive abdominal pain, altered mental status, and poor appetite. In the ED, abdominal CT showing 7 mm Left ureteral stent with signs of pyelonephritis and vitals suggestive of sepsis 2/2 to UTI/pyelonephritis, septic shock. PLAN: #UTI, pyelonephritis and Enterobacter cloacae bacteremia - 2/2 to left obstructive ureteral stone s/p stent - Resolved sepsis -WBC wnl, afebrile but remains tachycardic -Repeat imaging of CT abd/pelvis: no abscess -BCx on admission: E. cloacae 3 of 3 positive -Repeat BCx: negative to date - 2 of 2 -PO levofloxacin to complete total of 7-10 days based on continued improvement #Acute HFpEF -BNP >5K on admission -Improved lower ext swelling, crackles on exam b/l post lung dee. -overnight desaturated, this morning on 1L supplemental O2 -Echo above: EF 70%, Grade 2 LV diastolic dysfunction -C/w Bisoprolol BID, transition to PO lasix -Does not follow with cardiology o/p #RUE DVT -Hx of DVT, unknown location- occurred earlier this year -Has been on lovenox this admission prior to resuming eliquis BID 5 mg PO BID -Lovenox dose she was on was prophylactic dosing, as was home dosing of eliquis -IV line which was previously placed in arm taken out -C/w eliquis for now, if worsens, consider failure of eliquis #HTN -BP 130-160's mmHg -C/w lasix , bisoprolol #LLL PNA?, atelectasis on CT chest/ ? pulmonary vascular congestion. Resolved sepsis -WBC wnl, see sepsis workup above -On RA, no increased coughing or times of desaturation -Seen on CT chest -BNP elevated but much improved -Sputum cx ordered but unable to be produced -IS Q2H while awake -Lasix, levo PO #Tachycardia 2/2 to sepsis? vs. anxiety (more awake and alert to things around her) -Baseline tachycardia is not recorded but could be possibility -C/w treatment above -Monitor on tele #Hypernatremia likely 2/2 to IVFs -Decreasing since IVFs stopped -Monitor with daily labs #Left ureteral stone s/p stent placement -CT above -Left pigtail catheter in place on CT -Urology (Dr. Brody) consulted and following -C/w treatment above #RACHAEL and cannot r/o dilutional component. 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 Currently very confused at times and does not appear to be at baseline. -C/w home donepezil -Redirect whenever possible #HLD -C/w simvastatin #Hx of hyperthyroidism -As per last admission in May, patient discharged with methimazole 5. However as per med historian, methimazole was discontinued. -Jul 01 labs WNL. However 05/16 labs with slightly low TSH, slightly high t4 -Patient to f/u with PCP after discharge #GI px: PPI PO #DVT PPX -Eliquis BID REsolved issues: #Increased somnolence likely 2/2 to oversedation #Diarrhea improved and likely 2/2 to IV abx, GI upset #Hypokalemia, acute DISPOSITION: pending clinical improvement, plan is hopefully home when medically improved with . VS,Fishbone, I+O VS, Fishbone, I+O Laboratory Tests 07/29/20 05:32 Vital Signs Date Time Temp Pulse Resp B/P (MAP) Pulse Ox O2 Delivery O2 Flow Rate FiO2 07/29/20 08:54 104 115/72 1/5/21 06:00 98.4 16 96 Nasal Cannula 1.0 07/23/20 07:00 100 I&O- Last 24 Hours up to 6 AM 07/29/20 06:00 Intake Total 1290 ml Output Total 1475 ml Balance -185 ml KAREN EVANGELISTA MD Jul 29, 2020 10:44
[2020-07-29 13:32] VITALS: BP 149/90
[2020-07-29] MEDS: SIMVASTATIN 20 MG TAB PO SCH (21:04)
[2020-07-29] MEDS: DONEPEZIL 5 MG TAB PO SCH (21:08)
[2020-07-29 22:00] VITALS: BP 138/81
[2020-07-30] MEDS: LevoFLOXacin 500 MG TABLET PO SCH (05:33)
[2020-07-30 06:00] VITALS: BP 129/84
[2020-07-30 06:42] LABS: ALBUMIN 2.5 GM/DL (3.2-5.2); ALT/SGPT 14 U/L (12-78); BILIRUBIN,TOTAL 0.3 MG/DL (0.2-1.0); BLOOD UREA NITROGEN 27 MG/DL (7-18); CALCIUM LEVEL 8.3 MG/DL (8.8-10.2); CARBON DIOXIDE LEVEL 35 MEQ/L (21-32); CHLORIDE LEVEL 110 MEQ/L (98-107); CREATININE FOR GFR 0.63 MG/DL (0.55-1.30); GLOMERULAR FILTRATION RATE > 60.0 (>39); GLUCOSE, FASTING 105 MG/DL (70-100); POTASSIUM SERUM 3.4 MEQ/L (3.5-5.1); SODIUM LEVEL 147 MEQ/L (136-145); TOTAL PROTEIN 5.6 GM/DL (6.4-8.2)
[2020-07-30] MEDS: PANTOPRAZOLE 40MG TAB (PROTONIX) PO SCH (08:32)
[2020-07-30] MEDS: APIXABAN 5 MG TAB (ELIQUIS) PO SCH ×2 (08:32→20:24)
[2020-07-30] MEDS: FUROSEMIDE 40 MG TAB PO SCH (08:32)
[2020-07-30] MEDS: LACTOBACILLUS ACIDOPHILUS CAP (BACID) PO SCH ×2 (08:32→17:09)
[2020-07-30] MEDS: FERROUS SULFATE 325MG TAB PO SCH ×2 (08:32→20:24)
[2020-07-30] MEDS: DOCUSATE SODIUM 100MG CAPSULE PO SCH ×2 (08:32→20:24)
[2020-07-30] MEDS: bisoproloL fumarate 10 MG TAB PO SCH ×2 (08:33→20:25)
[2020-07-30] MEDS ORDERED: POTASSIUM CHLORIDE 10 MEQ SR TABLET PO ONE (09:00)
[2020-07-30 10:02] LABS: MAGNESIUM LEVEL 1.7 MG/DL (1.8-2.4)
--- NOTE | 2020-07-30 11:38 | IPNPDOC ---
Text Note Date of Service The patient was seen on 07/30/20. NOTE SUBJECTIVE: Patient seen and examined at bedside. Patient has no new medical complaints this morning.. No acute overnight events reported. She does seem to regularly desaturate overnight requiring supplemental oxygen. OBJECTIVE: VS: Please see below GENERAL APPEARANCE: NAD, lying comfortably in bed HEENT: PERRLA, moist oral mucosa, corrective lenses in place NECK: No JVD, symmetrical CARDIOVASCULAR: systolic murmur, +S1S2 LUNGS: minimal crackles mild in post lungs b/l. No wheezing, rhonchi. ABDOMEN: soft, obese abd. BS + in 4 quad, no organomegaly EXTREMITIES: pitting edema b/l lower ext +2 Psych: alert, awake, oriented to person, pleasantly confused, flat affect ASSESSMENT: 70yo F with a history of vascular dementia, hyperthyroidism, HTN, HLD, DVT, herniated disc with chronic back pain, bilateral breast cancer, ?hyperthyroidism and renal stones presenting with 1 day hx of progressive abdominal pain, altered mental status, and poor appetite. In the ED, abdominal CT showing 7 mm Left ureteral stent with signs of pyelonephritis and vitals suggestive of sepsis 2/2 to UTI/pyelonephritis, septic shock. PLAN: #UTI, pyelonephritis and Enterobacter cloacae bacteremia - 2/2 to left obstructive ureteral stone s/p stent - Resolved sepsis -WBC wnl, afebrile but remains tachycardic -Repeat imaging of CT abd/pelvis: no abscess -BCx on admission: E. cloacae 3 of 3 positive -Repeat BCx: negative to date - 2 of 2 -PO levofloxacin to complete total of 7-10 days based on continued improvement #Acute HFpEF -BNP >5K on admission -Improved lower ext swelling, crackles on exam b/l post lung dee. -overnight desaturated, this morning on 1L supplemental O2 -Echo above: EF 70%, Grade 2 LV diastolic dysfunction -C/w Bisoprolol BID, transition to PO lasix -Does not follow with cardiology o/p #metabolic encephalopathy - secondary to sepsis as above #RUE DVT -Hx of DVT, unknown location- occurred earlier this year -Has been on lovenox this admission prior to resuming eliquis BID 5 mg PO BID -Lovenox dose she was on was prophylactic dosing, as was home dosing of eliquis -IV line which was previously placed in arm taken out -C/w eliquis for now #HTN -BP 130-160's mmHg -C/w lasix , bisoprolol #LLL PNA?, atelectasis on CT chest/ ? pulmonary vascular congestion. Resolved sepsis -WBC wnl, see sepsis workup above -On RA, no increased coughing or times of desaturation -Seen on CT chest -BNP elevated but much improved -Sputum cx ordered but unable to be produced -IS Q2H while awake -Lasix, levo PO #Tachycardia 2/2 to sepsis? vs. anxiety (more awake and alert to things around her) -Baseline tachycardia is not recorded but could be possibility -C/w treatment above -Monitor on tele #Hypernatremia likely 2/2 to IVFs -Decreasing since IVFs stopped -Monitor with daily labs #Left ureteral stone s/p stent placement -CT above -Left pigtail catheter in place on CT -Urology (Dr. Brody) consulted and following -C/w treatment above #RACHAEL and cannot r/o dilutional component. 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 Currently very confused at times and does not appear to be at baseline. -C/w home donepezil -Redirect whenever possible #HLD -C/w simvastatin #Hx of hyperthyroidism -As per last admission in May, patient discharged with methimazole 5. However as per med historian, methimazole was discontinued. -Jul 01 labs WNL. However 05/16 labs with slightly low TSH, slightly high t4 -Patient to f/u with PCP after discharge #GI px: - PPI PO #DVT PPX -Eliquis BID DISPOSITION: pending placement - rehab VS,Fishbone, I+O VS, Fishbone, I+O Laboratory Tests 07/30/20 05:36 Vital Signs Date Time Temp Pulse Resp B/P (MAP) Pulse Ox O2 Delivery O2 Flow Rate FiO2 07/30/20 08:33 106 139/73 07/30/20 06:00 98.4 18 95 Nasal Cannula 1.0 I&O- Last 24 Hours up to 6 AM 07/30/20 06:00 Intake Total 910 ml Output Total 0 ml Balance 910 ml KAREN EVANGELISTA MD Jul 30, 2020 11:38
[2020-07-30 14:00] VITALS: BP 134/73
[2020-07-30] MEDS: DONEPEZIL 5 MG TAB PO SCH (20:24)
[2020-07-30] MEDS: SIMVASTATIN 20 MG TAB PO SCH (20:25)
[2020-07-30 22:00] VITALS: BP 130/75
[2020-07-31] MEDS: LevoFLOXacin 500 MG TABLET PO SCH (05:03)
[2020-07-31 06:00] VITALS: BP 133/78
[2020-07-31 06:26] LABS: HEMATOCRIT 39.6 % (36.0-47.0); MEAN CORPUSCULAR HGB CONC 30.3 g/dl (32.0-36.5); MEAN CORPUSCULAR VOLUME 89.2 fl (80.0-96.0); PLATELET COUNT, AUTOMATED 314 10^3/uL (150-450); RED BLOOD COUNT 4.44 10^6/uL (4.00-5.40); WHITE BLOOD COUNT 7.7 10^3/uL (4.0-10.0)
[2020-07-31 07:01] LABS: ALBUMIN 2.6 GM/DL (3.2-5.2); ALT/SGPT 14 U/L (12-78); BILIRUBIN,TOTAL 0.4 MG/DL (0.2-1.0); BLOOD UREA NITROGEN 30 MG/DL (7-18); CALCIUM LEVEL 8.4 MG/DL (8.8-10.2); CARBON DIOXIDE LEVEL 34 MEQ/L (21-32); CHLORIDE LEVEL 109 MEQ/L (98-107); CREATININE FOR GFR 0.62 MG/DL (0.55-1.30); GLOMERULAR FILTRATION RATE > 60.0 (>39); GLUCOSE, FASTING 105 MG/DL (70-100); POTASSIUM SERUM 3.8 MEQ/L (3.5-5.1); SODIUM LEVEL 146 MEQ/L (136-145); TOTAL PROTEIN 5.7 GM/DL (6.4-8.2)
[2020-07-31] MEDS: DOCUSATE SODIUM 100MG CAPSULE PO SCH (08:26)
[2020-07-31] MEDS: LACTOBACILLUS ACIDOPHILUS CAP (BACID) PO SCH (08:26)
[2020-07-31] MEDS: APIXABAN 5 MG TAB (ELIQUIS) PO SCH (08:26)
[2020-07-31] MEDS: FERROUS SULFATE 325MG TAB PO SCH (08:26)
[2020-07-31 08:27] VITALS: BP 109/55
[2020-07-31] MEDS: bisoproloL fumarate 10 MG TAB PO SCH (08:27)
[2020-07-31] MEDS: PANTOPRAZOLE 40MG TAB (PROTONIX) PO SCH (08:27)
[2020-07-31] MEDS: FUROSEMIDE 40 MG TAB PO SCH (09:00)
[2020-07-31 09:13] LABS: MAGNESIUM LEVEL 1.8 MG/DL (1.8-2.4)
[2020-07-31] MEDS ORDERED: FERR325T18 PO (11:17)
[2020-07-31] MEDS ORDERED: PANT40TA29 PO (11:17)
[2020-07-31] MEDS ORDERED: FURO20TA2 PO (11:19)
--- NOTE | 2020-07-31 13:15 | DS.PDOC ---
Discharge Summary General Date of Admission Jul 23, 2020 at 03:00 Date of Discharge 07/31/20 Specialist/Consultants Involve general surgery, urology Discharge Summary PROCEDURES PERFORMED DURING STAY: right IJ, cystoscopy with left retrograde pyelogram and stent insertion DISCHARGE DIAGNOSES: #UTI, pyelonephritis #Enterobacter cloacae bacteremia #Acute HFpEF #metabolic encephalopathy #RUE DVT #HTN #LLL PNA #Hypernatremia #Left ureteral stone s/p stent placement #RACHAEL #Vascular Dementia #HLD #Hx of hyperthyroidism COMPLICATIONS/CHIEF COMPLAINT: L Ureteral Calculus, Sepsis. HISTORY OF PRESENT ILLNESS: 70yo F with a history of vascular dementia, HTN, HLD, DVT, herniated disc with chronic back pain, bilateral breast cancer, ?Hyperthyroidism and renal stones presenting with 1 day hx of progressive abdominal pain, altered mental status, and poor appetite. As per , patient's baseline is AO x 2 but would answer questions appropriately which she is currently unable to do. Notes patient did not have a temperature at home, but was complaining of subjective fevers and chills. No cough, nausea/vomiting, sick contacts noted. However patient did have multiple episodes of diarrhea today which the says has been occuring intermittently since last admission (D/C date Jun 16) where she was treated for proteus UTI with IV abx for nearly 2 weeks. In the ED, patient initially with BP 219/113, NC 112, and RR of 32 saturating well on RA but was febrile to T-Max of 104.1. Labs significant for leukopenia of 2.7 with elevated lactic acid of 3.6. Had abdominal CT performed showing left hydroureteronephrosis and perinephric stranding with a 7 mm stone in the left ureter. CXR WNL. HOSPITAL COURSE: #UTI, pyelonephritis and Enterobacter cloacae bacteremia - 2/2 to left obstructive ureteral stone s/p stent - Resolved sepsis -Repeat imaging of CT abd/pelvis: no abscess -BCx on admission: E. cloacae 3 of 3 positive -Repeat BCx: negative to date - 2 of 2 -PO levofloxacin completed #Acute HFpEF -BNP >5K on admission -Improved lower ext swelling, crackles on exam b/l post lung dee. -Echo above: EF 70%, Grade 2 LV diastolic dysfunction -Does not follow with cardiology o/p #metabolic encephalopathy - secondary to sepsis as above #RUE DVT -Hx of DVT, unknown location- occurred earlier this year -Has been on lovenox this admission prior to resuming eliquis BID 5 mg PO BID -Lovenox dose she was on was prophylactic dosing, as was home dosing of eliquis -IV line which was previously placed in arm taken out -C/w eliquis #HTN #LLL PNA?, atelectasis on CT chest/ ? pulmonary vascular congestion. Resolved sepsis -WBC wnl, see sepsis workup above -On RA, no increased coughing or times of desaturation -Seen on CT chest -BNP elevated but much improved -Sputum cx ordered but unable to be produced #Tachycardia 2/2 to sepsis? vs. anxiety (more awake and alert to things around her) -Baseline tachycardia is not recorded but could be possibility #Hypernatremia likely 2/2 to IVFs -Decreasing since IVFs stopped #Left ureteral stone s/p stent placement -CT above -Left pigtail catheter in place on CT -Urology (Dr. Brody) consulted and following #RACHAEL and cannot r/o dilutional component. -No s/s of bleeding -Iron low -C/w ferrous sulfate BID with BR #Vascular Dementia -According to , she is normally signing legal papers at home. Currently very confused at times and does not appear to be at baseline. -C/w home donepezil #HLD -C/w simvastatin #Hx of hyperthyroidism -As per last admission in May, patient discharged with methimazole 5. However as per med historian, methimazole was discontinued. -Jul 01 labs WNL. However 05/16 labs with slightly low TSH, slightly high t4 -Patient to f/u with PCP after discharge DISCHARGE MEDICATIONS: Please see below. ALLERGIES: Please see below. PHYSICAL EXAMINATION ON DISCHARGE: VS: Please see below GENERAL APPEARANCE: NAD, lying comfortably in bed HEENT: PERRLA, moist oral mucosa, corrective lenses in place NECK: No JVD, symmetrical CARDIOVASCULAR: systolic murmur, +S1S2 LUNGS: minimal crackles mild in post lungs b/l. No wheezing, rhonchi. ABDOMEN: soft, obese abd. BS + in 4 quad, no organomegaly EXTREMITIES: pitting edema b/l lower ext +2 Psych: alert, awake, oriented to person, pleasantly confused, flat affect LABORATORY DATA: Please see below. ACTIVITY: [As tolerated]. DISPOSITION: [facility]. DISCHARGE INSTRUCTIONS: 1. Follow up with PCP in 3-5 days. DISCHARGE CONDITION: [Stable]. TIME SPENT ON DISCHARGE: 35 minutes. Vital Signs/I&Os Vital Signs Date Time Temp Pulse Resp B/P (MAP) Pulse Ox O2 Delivery O2 Flow Rate FiO2 07/31/20 08:27 73 109/55 07/31/20 06:00 96.8 20 96 Room Air 07/30/20 06:00 1.0 I&O- Last 24 Hours up to 6 AM 07/31/20 05:59 Intake Total 1400 ml Output Total 0 ml Balance 1400 ml Laboratory Data Labs 24H Laboratory Tests 2 07/31/20 05:47: Nucleated Red Blood Cells % (auto) 0.0, Anion Gap 3L, Glomerular Filtration Rate > 60.0, Calcium Level 8.4L, Magnesium Level 1.8, Total Bilirubin 0.4, Aspartate Amino Transf (AST/SGOT) 11, Alanine Aminotransferase (ALT/SGPT) 14, Alkaline Phosphatase 52, Total Protein 5.7L, Albumin 2.6L, Albumin/Globulin Ratio 0.8L 07/31/20 10:52: Coronavirus (COVID-19)(PCR) NEGATIVE CBC/BMP Laboratory Tests 07/31/20 05:47 Microbiology Microbiology 07/27/20 Catheter Tip Culture - Final, Complete 07/27/20 Blood Culture - Preliminary, Resulted No Growth after 72 hours. All specime... 07/27/20 Blood Culture - Preliminary, Resulted No Growth after 72 hours. All specime... 07/25/20 Gastrointestinal Tract Panel (PCR) - Final, Complete 07/24/20 Urine Culture - Final, Complete 07/23/20 Blood Culture - Final, Complete Enterobacter Cloacae Complex 07/22/20 Urine Culture - Final, Complete 07/22/20 Blood Culture - Final, Complete Enterobacter Cloacae Complex 07/22/20 Blood Culture - Final, Complete Enterobacter Cloacae Complex Discharge Medications Scheduled Acetaminophen (Tylenol Extra Strength) 500 Mg Tablet, 1,000 MG PO BID, (Reported) Apixaban (Eliquis) 5 Mg Tablet, 5 MG PO BID, (Reported) Bisoprolol Fumarate (Bisoprolol Fumarate) 10 Mg Tablet, 10 MG PO BID, (Reported) Donepezil HCl (Aricept) 5 Mg Tablet, 5 MG PO QHS, (Reported) Ferrous Sulfate (Ferrous Sulfate) 325 Mg Tablet, 325 MG PO BID Furosemide (Furosemide) 20 Mg Tablet, 1 TAB PO DAILY Gabapentin (Gabapentin) 100 Mg Capsule, 200 MG PO BID, (Reported) Simvastatin (Simvastatin) 20 Mg Tab, 20 MG PO QHS, (Reported) Scheduled PRN Hydrocodone/Acetaminophen (Hydrocodone-Acetamin 5-325 mg) 1 Each Tablet, 1 TAB PO BID PRN for PAIN, (Reported) Loperamide HCl (Imodium A-D) 2 Mg Tablet, 2 MG PO Q4H PRN for DIARRHEA, (Reported) Miscellaneous Medications [Patient Comment] , (Reported) MED REC COMPLETED VIA MED LIST, EXTERNAL MED HISTORY, AND PREVIOUS CLINIC VISIT Allergies Coded Allergies: atenolol (Verified Allergy, Intermediate, WHEEZING, 07/27/20) on bisoprolol at home lisinopril (Verified Allergy, Unknown, unknown reaction, 05/15/20) celecoxib (Verified Adverse Reaction, Mild, NAUSEA, 03/14/19) meperidine (Verified Adverse Reaction, Mild, VOMITING, 03/14/19) KAREN EVANGELISTA MD Jul 31, 2020 13:15
== END 2020-07-31 12:37 | DRG 853 ==
LOC: M ED 21:05 → M ED INP 07-23 03:00 → M PCU 07-23 05:13 → M MSPAV 07-26 12:08
PROVIDERS: ADMIT Urology; ATTEND Internal Medicine
PROC: 02HV33Z Insertion of Infusion Device into Superior Vena Cava, Percutaneous Approach (ICD-10-PCS; 2020-07-23)
PROC: 0T778DZ Dilation of Left Ureter with Intraluminal Device, Via Natural or Artificial Opening Endoscopic (ICD-10-PCS; principal; 2020-07-23 03:00)
DX: A41.89 Other specified sepsis (principal); R65.21 Severe sepsis with septic shock; J18.9 Pneumonia, unspecified organism; I50.31 Acute diastolic (congestive) heart failure; G93.41 Metabolic encephalopathy; N13.6 Pyonephrosis; N10 Acute pyelonephritis; E87.0 Hyperosmolality and hypernatremia; I82.611 Acute embolism and thrombosis of superficial veins of right upper extremity; F01.50 Vascular dementia, unspecified severity, without behavioral disturbance, psychotic disturbance, mood disturbance, and anxiety; E87.6 Hypokalemia; I11.0 Hypertensive heart disease with heart failure; R19.7 Diarrhea, unspecified; E78.5 Hyperlipidemia, unspecified; D50.9 Iron deficiency anemia, unspecified; Z85.3 Personal history of malignant neoplasm of breast; Z98.49 Cataract extraction status, unspecified eye; Z90.11 Acquired absence of right breast and nipple; Z96.643 Presence of artificial hip joint, bilateral; Z96.653 Presence of artificial knee joint, bilateral; I16.0 Hypertensive urgency; Z79.01 Long term (current) use of anticoagulants; Z79.899 Other long term (current) drug therapy; Z88.8 Allergy status to other drugs, medicaments and biological substances; Z88.5 Allergy status to narcotic agent; Z20.822 Contact with and (suspected) exposure to COVID-19; Z86.718 Personal history of other venous thrombosis and embolism

== ENCOUNTER → 2020-07-29 | Outpatient (CLI) | payer MEDICARE, BC, OTHER ==
[~2020-07-29] MED LIST changes: +ACET-897 PO; +ACET500T15 PO; +FERR325T18 PO; +FURO20TA2 PO; +PANT40TA29 PO; +PATIENT COMMENT; -SIMVASTATIN 20 MG TAB PO SCH
== END ==
LOC: M PLALAB 15:00
PROVIDERS: ATTEND Internal Medicine Endocrinology, Diabetes & Metabolism
DX: E05.20 Thyrotoxicosis with toxic multinodular goiter without thyrotoxic crisis or storm (principal)

== ENCOUNTER → 2020-08-06 | Outpatient (REF) ==
[~2020-08-06] MED LIST changes: +GABA-282; -GABA-843
== END ==
LOC: SKLAB2 07:00
PROVIDERS: ATTEND Internal Medicine
DX: Z20.822 Contact with and (suspected) exposure to COVID-19 (principal)

== ENCOUNTER → 2020-08-13 | Outpatient (REF) | LOC: SKLAB3 08:26 | PROVIDERS: ATTEND Internal Medicine | DX: Z20.822 Contact with and (suspected) exposure to COVID-19 (principal) ==

== ENCOUNTER → 2020-08-14 | Outpatient (REF) ==
[2020-08-14 09:41] LABS: BLOOD UREA NITROGEN 29 MG/DL (7-18); CARBON DIOXIDE LEVEL 27 MEQ/L (21-32); CHLORIDE LEVEL 110 MEQ/L (98-107); CREATININE FOR GFR 0.76 MG/DL (0.55-1.30); GLOMERULAR FILTRATION RATE > 60.0 (>39); GLUCOSE, FASTING 162 MG/DL (70-100); POTASSIUM SERUM 4.1 MEQ/L (3.5-5.1); SODIUM LEVEL 147 MEQ/L (136-145); THYROID STIMULATING HORMONE 0.938 uIU/ML (0.358-3.740)
== END ==
LOC: SKLAB3 08:25
PROVIDERS: ATTEND Internal Medicine
DX: D64.9 Anemia, unspecified (principal)

== ENCOUNTER → 2020-08-20 | Outpatient (REF) | LOC: SKLAB3 14:44 | PROVIDERS: ATTEND Internal Medicine | DX: Z20.822 Contact with and (suspected) exposure to COVID-19 (principal) ==

== ENCOUNTER → 2020-08-21 | Outpatient (REF) ==
[2020-08-21 13:22] LABS: BLOOD UREA NITROGEN 25 MG/DL (7-18); CALCIUM LEVEL 8.9 MG/DL (8.8-10.2); CARBON DIOXIDE LEVEL 26 MEQ/L (21-32); CHLORIDE LEVEL 109 MEQ/L (98-107); CREATININE FOR GFR 0.62 MG/DL (0.55-1.30); GLOMERULAR FILTRATION RATE > 60.0 (>39); GLUCOSE, FASTING 85 MG/DL (70-100); POTASSIUM SERUM 4.1 MEQ/L (3.5-5.1); SODIUM LEVEL 143 MEQ/L (136-145)
== END ==
LOC: SKLAB3 08-20 14:43
PROVIDERS: ATTEND Internal Medicine
DX: Z86.73 Personal history of transient ischemic attack (TIA), and cerebral infarction without residual deficits (principal)

== ENCOUNTER → 2020-08-27 | Outpatient (REF) | LOC: SKLAB3 07:00 | PROVIDERS: ATTEND Internal Medicine | DX: Z11.52 Encounter for screening for COVID-19 (principal) ==

== ENCOUNTER → 2020-08-28 | Outpatient (REF) ==
[2020-08-28 12:39] LABS: BLOOD UREA NITROGEN 33 MG/DL (7-18); CALCIUM LEVEL 9.1 MG/DL (8.8-10.2); CARBON DIOXIDE LEVEL 28 MEQ/L (21-32); CHLORIDE LEVEL 110 MEQ/L (98-107); CREATININE FOR GFR 0.82 MG/DL (0.55-1.30); GLOMERULAR FILTRATION RATE > 60.0 (>39); GLUCOSE, FASTING 131 MG/DL (70-100); POTASSIUM SERUM 4.2 MEQ/L (3.5-5.1); SODIUM LEVEL 145 MEQ/L (136-145)
== END ==
LOC: SKLAB3 07:03
PROVIDERS: ATTEND Internal Medicine
DX: I63.9 Cerebral infarction, unspecified (principal)

== ENCOUNTER → 2020-10-21 | Outpatient (REF) | payer MEDICARE, OTHER ==
[~2020-10-21] MED LIST changes: -ACET-838 PO; +ACET32TAB PO; +FERR1TAB8 PO
[2020-10-21 17:15] LABS: HEMATOCRIT 46.6 % (36.0-47.0); HEMOGLOBIN 14.4 g/dl (12.0-15.5); MEAN CORPUSCULAR HEMOGLOBIN 28.4 pg (27.0-33.0); MEAN CORPUSCULAR HGB CONC 30.9 g/dl (32.0-36.5); MEAN CORPUSCULAR VOLUME 91.9 fl (80.0-96.0); PLATELET COUNT, AUTOMATED 316 10^3/uL (150-450); RED BLOOD COUNT 5.07 10^6/uL (4.00-5.40)
[2020-10-21 17:23] LABS: INR 1.18; PROTHROMBIN TIME 15.3 SECONDS (12.5-14.3)
[2020-10-21 17:24] LABS: PARTIAL THROMBOPLASTIN TIME 32.4 SECONDS (24.2-38.5)
[2020-10-21 17:48] LABS: HEMOGLOBIN A1c 5.5 %
[2020-10-21 17:50] LABS: BLOOD UREA NITROGEN 23 MG/DL (7-18); CALCIUM LEVEL 9.5 MG/DL (8.8-10.2); CARBON DIOXIDE LEVEL 31 MEQ/L (21-32); CHLORIDE LEVEL 107 MEQ/L (98-107); CREATININE FOR GFR 0.74 MG/DL (0.55-1.30); GLOMERULAR FILTRATION RATE > 60.0 (>39); GLUCOSE, FASTING 87 MG/DL (70-100); NT-PRO BNP 583 PG/ML (<125); POTASSIUM SERUM 4.3 MEQ/L (3.5-5.1); SODIUM LEVEL 143 MEQ/L (136-145)
== END ==
LOC: M SFHCPLAZ 14:36
PROVIDERS: ATTEND Family Medicine
DX: Z01.818 Encounter for other preprocedural examination (principal); E05.90 Thyrotoxicosis, unspecified without thyrotoxic crisis or storm; E11.9 Type 2 diabetes mellitus without complications; Z86.711 Personal history of pulmonary embolism
CPT/HCPCS: 36415; 80048; 83036; 83880; 84439; 84443; 85027; 85610; 85730; 93005; G0463

== ENCOUNTER 2020-11-05 00:52 | Inpatient (IN) | payer MEDICARE, BC, OTHER, MEDICAID ==
[~2020-11-05] VITALS: Ht 167.6 cm; Wt 84.6 kg
[2020-11-05] VITALS (9 sets, daily range): BP systolic 79–145; BP diastolic 45–72
[~2020-11-05 00:52] MED LIST changes: +BACTDSTA PO; -FERR1TAB8 PO; -SULF1TAB93 PO
[2020-11-05 02:07] LABS: BASO % 0.2 % (0.0-1.0); EOS # 0.1 10^3/uL (0.0-0.5); EOS % 0.3 % (0.0-3.0); HEMATOCRIT 47.3 % (36.0-47.0); HEMOGLOBIN 14.6 g/dl (12.0-15.5); LYMPH # 1.3 10^3/uL (1.5-5.0); LYMPH % 8.3 % (24.0-44.0); MEAN CORPUSCULAR HEMOGLOBIN 28.6 pg (27.0-33.0); MEAN CORPUSCULAR HGB CONC 30.9 g/dl (32.0-36.5); MEAN CORPUSCULAR VOLUME 92.7 fl (80.0-96.0); MONO # 1.4 10^3/uL (0.0-0.8); NEUTROPHILS # 12.3 10^3/uL (1.5-8.5); NEUTROPHILS % 81.7 % (36.0-66.0); PLATELET COUNT, AUTOMATED 255 10^3/uL (150-450); WHITE BLOOD COUNT 15.1 10^3/uL (4.0-10.0)
[2020-11-05 02:17] LABS: CALCIUM LEVEL 8.9 MG/DL (8.8-10.2); CREATININE FOR GFR 1.18 MG/DL (0.55-1.30); GLOMERULAR FILTRATION RATE 47.9 (>39); POTASSIUM SERUM 4.7 MEQ/L (3.5-5.1)
[2020-11-05 02:22] LABS: BILIRUBIN, URINE MANUAL NEGATIVE (NEGATIVE); GLUCOSE, URINE (UA) MANUAL NEGATIVE (NEGATIVE); KETONE, URINE MANUAL NEGATIVE (NEGATIVE); UROBILINOGEN, URINE MANUAL NORMAL (NORMAL)
[2020-11-05 02:32] LABS: RBC, URINE TNTC /hpf (0-3)
[2020-11-05 02:34] LABS: BACTERIA, URINE MOD AMOUNT; HYALINE CAST, URINE NONE SEEN /lpf (0-1); MUCUS, URINE SMALL AMOUNT (NEGATIVE); SQUAMOUS EPITHELIAL CELL URINE NONE SEEN /hpf (SMALL AMT); TRIPLE PHOSPHATE CRYSTAL,URINE SMALL AMOUNT /hpf
[2020-11-05 02:35] LABS: AMORPHOUS SEDIMENT, URINE SMALL AMOUNT (NEGATIVE); TRANSITIONAL EPI CELLS, URINE SMALL AMOUNT /hpf
--- NOTE | 2020-11-05 03:25 | REPVR ---
PROCEDURE INFORMATION: Exam: XR Chest Exam date and time: 11/05/2020 2:31 AM Age: 70 years old Clinical indication: Other: Weakness TECHNIQUE: Imaging protocol: XR of the chest. Views: 1 view. COMPARISON: CR PORTABLE CHEST X-RAY 07/25/2020 2:13 AM FINDINGS: Tubes, catheters and devices: A right internal jugular central line has been removed. Lungs: Improved inflation. There is minimal left base atelectasis or scar. Calcified granulomata are noted in the right upper lobe. Pleural spaces: Unremarkable. No pleural effusion. No pneumothorax. Heart/Mediastinum: The heart and mediastinum are unchanged. Bones/joints: Thoracic dextroscoliosis with degenerative disc change. Soft tissues: Bilateral axillary surgical clips are again noted. Soft tissue density is noted over the left hemithorax with probable previous right mastectomy. IMPRESSION: 1. Bilateral axillary surgical clips with prior right mastectomy. 2. Minimal left base atelectasis or scar. 3. Old granulomatous disease. 4. Otherwise negative chest. Electronically signed by: Amarjit Guadalupe On 11/05/2020 03:25:42 AM
--- NOTE | 2020-11-05 05:11 | REPVR ---
PROCEDURE INFORMATION: Exam: CT Abdomen And Pelvis Without Contrast Exam date and time: 11/05/2020 3:54 AM Age: 70 years old Clinical indication: Abdominal pain; Generalized; Additional info: Obstructive pyelonephritis TECHNIQUE: Imaging protocol: Computed tomography of the abdomen and pelvis without contrast. Radiation optimization: All CT scans at this facility use at least one of these dose optimization techniques: automated exposure control; mA and/or kV adjustment per patient size (includes targeted exams where dose is matched to clinical indication); or iterative reconstruction. COMPARISON: CT ABD PELVIS WITH CONTRAST 07/24/2020 11:25 AM FINDINGS: Lungs: Mild bibasilar fibro-atelectatic change and interstitial coarsening, left greater than right with question of minimal infiltrates. Liver: Normal. No mass. Gallbladder and bile ducts: Normal. No calcified stones. No ductal dilation. Pancreas: Normal. No ductal dilation. Spleen: Normal. No splenomegaly. Adrenal glands: Normal. No mass. Kidneys and ureters: Right renal calculi which involve the renal pelvis and infundibula suggesting staghorn calculus which extends to the right UPJ. There is question of minimal right hydronephrosis and hydroureter with periureteral edema which extends into the pelvis. Nonobstructing left renal calculi with double-J left ureteral stent in position. There is moderate left hydronephrosis and hydroureter with periureteral edema which appears to extend to the point of a distal left ureteral calculus which is traversed by the stent. The calculus measures approximately 5 x 7 x 9 mm. Stomach and bowel: There is colonic diverticulosis without evidence of diverticulitis. Appendix: A normal appendix is seen. Intraperitoneal space: Unremarkable. No free air. No significant fluid collection. Vasculature: Coronary artery calcifications are present. Lymph nodes: Unremarkable. No enlarged lymph nodes. Urinary bladder: Interval removal of the Carter catheter since the prior study. Reproductive: Status post hysterectomy. Bones/joints: Bilateral hip prostheses with beam hardening artifact obscuring the caudal aspect of the pelvis. Lower lumbar facet arthropathy with moderate anterolisthesis of L5 relative to S1 which appears to be fused. Soft tissues: Left breast reconstruction. Right mastectomy. Left axillary surgical clips consistent with fidelina dissection. Other findings: Motion artifact with image degradation. IMPRESSION: 1. Interval removal of a Cartre catheter since 07/24/2020. 2. Left obstructive uropathy with moderate left hydronephrosis and hydroureter extending into the pelvis which is new since the prior study despite the presence of a double-J left ureteral stent consistent with poor functionality of the stent since the prior study. 3. Nonobstructing bilateral renal calculi including probable staghorn calculus on the right. The left ureteral stent appears to traverse a left ureteral calculus within the pelvis which measures approximately 5 x 7 x 9 mm and appears to a been present on the prior study. 4. Left breast reconstruction with right mastectomy and left axillary fidelina dissection. 5. Mild bibasilar fibro-atelectatic change and interstitial coarsening, left greater than right with question of minimal infiltrates. There is resolution of left pleural effusion since the prior study and left lower lobe atelectasis is decreased. 6. Minimal right hydronephrosis and hydroureter with periureteral edema, however, this appears similar to slightly improved since the prior study although there is resolution of the right ureteral calculus at the level of the sciatic notch since the prior study. 7. Colonic diverticulosis without diverticulitis. 8. Status post hysterectomy. Electronically signed by: Amarjit Guadalupe On 11/05/2020 05:11:45 AM
[2020-11-05] MEDS ORDERED: FERR1TAB8 PO (05:16)
[2020-11-05] MEDS ORDERED: FURO20TA2 PO (05:16)
[2020-11-05] MEDS ORDERED: cefTRIAXone SOD 2 GM in D5W MINI-BAG PLUS 50 ML IV ONE (05:30)
[2020-11-05] MEDS ORDERED: BACLOFEN 10 MG TAB PO PRN (05:40)
[2020-11-05] MEDS ORDERED: MOM 30ML SUSPENSION UDC PO PRN (05:45)
[2020-11-05] MEDS ORDERED: MAALOX 30 ML SUSP *UDC PO PRN (05:45)
[2020-11-05] MEDS ORDERED: MORPHINE 2 MG/ML 1ML VIAL (J2270) IV PRN (05:45)
[2020-11-05] MEDS: NS 1,000 ML IV SCH ×3 (06:30→20:48)
--- NOTE | 2020-11-05 08:05 | HPEPDOC ---
[facility] Medical History & Physical Date of Admission Nov 05, 2020 Date of Service: Nov 05, 2020 Primary Care Physician: ANUPAM ABERNATHY MD Attending Physician: JOELLE RIVERA MD History and Physical TIME OF SERVICE: 620am CHIEF COMPLAINT: weakness HISTORY OF PRESENT ILLNESS: This 70 yr old F was brought to the ER by her because he noticed that she has not been feeling well for a few days and seems more confused when compared to her baseline. Yesterday evening while in the bathroom she almost had a fall. Her thought that she may have a bladder infection so he called EMS. At the time of my evaluation the patient was sleepy and added that she has been having some cramping lower abdominal pain REVIEW OF SYSTEMS: unable to obtain full ROS bc the pt has dementia PAST MEDICAL/ SURGICAL HISTORY: Vascular Dementia Essential HTN HLD DVT Disc herniation Bilateral breast cancer Bilateral Nephrolithiasis Class 1 obesity Cataract surgery in 1956 Eye surgery Tonsillectomy and adenoidectomy in 1959 Tubal ligation in 1982 Reconstructive breast surgery in 1984 Arthroscopic right knee surgery in 1986 Hysterectomy due to menorrhagia in 1998 Right mastectomy in 1999 Right hip replacement in 2001 Left knee replacement in October 2012 Double-J stent placement in 03/21/2013 Extracorporeal shockwave lithotripsy (ESWL) 06/20/2013 Colonoscopy with hyperplastic polyps done in 2013 Left hip replacement 01/04/2017 Nephrolithiasis s/p Lithotripsy October 2017. SOCIAL HISTORY: Smoker: NO Alcohol: NO Drugs: NO Recent Travel/Sick Contacts: NO Recent travel, Recent sick contacts Psychosocial History: Dementia, lives with who cares for her along with home health aid 5 days/week. FAMILY HISTORY: Father from [place]. Mother from Alzheimer. Brother had ALS and sister had lung cancer ALLERGIES: Please see below. HOME MEDICATIONS: Please see below. PHYSICAL EXAMINATION: Vital Signs Date Time Temp Pulse Resp B/P (MAP) Pulse Ox O2 Delivery O2 Flow Rate FiO2 11/05/20 00:59 98.7 98 20 140/69 96 Room Air GENERAL APPEARANCE: well nourished and developed HEENT: mucus membranes dry CARDIOVASCULAR: RRR/NMRG LUNGS: CTAB on RA ABDOMEN: obese / soft & NT INTEGUMENT: not flushed or pale NEUROLOGICAL: speech not dysarthric PSYCHIATRIC: asleep but intermittently arousable LABORATORY DATA: 11/05/20 01:19 Immature Granulocyte % (Auto) 0.5, Neutrophils (%) (Auto) 81.7H, Lymphocytes (%) (Auto) 8.3L, Monocytes (%) (Auto) 9.0H, Eosinophils (%) (Auto) 0.3, Basophils (%) (Auto) 0.2, Neutrophils # (Auto) 12.3H, Lymphocytes # (Auto) 1.3L, Monocytes # (Auto) 1.4H, Eosinophils # (Auto) 0.1, Basophils # (Auto) 0.0, Nucleated Red Blood Cells % (auto) 0.0, Urine Color (ADY) REDH, Urine Appearance (ADY) TURBIDH, Urine pH (ADY) 8.5, Urine Specific [place] (ADY) 1.018, Urine Protein 3+H, Bedside Urine Glucose (UA) NEGATIVE, Bedside Urine Ketones (LAB) NEGATIVE, Bedside Urine Blood POSITIVEH, Bedside Urine Nitrite (LAB) POSITIVEH, Bedside Urine Bilirubin (LAB) NEGATIVE, Bedside Urine Urobilinogen (LAB) NORMAL, Bedside Urine Leukocyte Esterase (L POSITIVEH, Urine Sediment Examination UNSPUN, Urine RBC TNTCH, Urine WBC 3-5H, Urine Squamous Epithelial Cells NONE SEEN, Urine Transitional Epithelial Cells SMALL AMOUNTH, Urine Triple Phosphate Crystals SMALL AMOUNTH, Urine Amorphous Sediment SMALL AMOUNTH, Urine Bacteria MOD AMOUNTH, Urine Hyaline Casts NONE SEEN, Urine Mucus SMALL AMOUNTH, Anion Gap 4L, Glomerular Filtration Rate 47.9, Calcium Level 8.9 11/05/20 05:38: POC Lactate (Misc Panel) 0.79 IMAGING: Chest xray IMPRESSION: 1.Bilateral axillary surgical clips with prior right mastectomy. 2. Minimal left base atelectasis or scar. 3. Old granulomatous disease. 4. Otherwise negative chest. CT abd/pelvis IMPRESSION: 1. Interval removal of a Carter catheter since 07/24/2020. 2. Left obstructive uropathy with moderate left hydronephrosis and hydroureter extending into the pelvis which is new since the prior study despite the presence of a double-J left ureteral stent consistent with poor functionality of the stent since the prior study. 3. Nonobstructing bilateral renal calculi including probable staghorn calculus on the right. The left ureteral stent appears to traverse a left ureteral calculus within the pelvis which measures approximately 5 x 7 x 9 mm and appears to a been present on the prior study. 4. Left breast reconstruction with right mastectomy and left axillary fidelina dissection. 5. Mild bibasilar fibro-atelectatic change and interstitial coarsening, left greater than right with question of minimal infiltrates. There is resolution of left pleural effusion since the prior study and left lower lobe atelectasis is decreased. 6. Minimal right hydronephrosis and hydroureter with periureteral edema, however, this appears similar to slightly improved since the prior study although there is resolution of the right ureteral calculus at the level of the sciatic notch since the prior study. 7. Colonic diverticulosis without diverticulitis. 8. Status post hysterectomy. MICROBIOLOGY: 11/05/20 Blood Culture, Received Pending 11/05/20 Respiratory Virus Panel (PCR) (RAJESH) - Final, Complete 11/05/20 Urine Culture, Received Pending ASSESSMENT: Ms. Olsen is a 70 yr old w a hx of dementia, nephrolithiasis, HTN, DLP, DVT & breast CA who was escorted to the ER by her for evaluation of weakness & worsening confusion; she will be admitted for management of left sided obstruc ting kidney stone, SIRS and possibly UTI. PLAN: 1 Metabolic encephalopathy (delirium in the setting of vascular dementia) Possibly 2/2 UTI and or renal colic Plan: admit to medical floor / frequent neurochecks / donepezil 2 Left sided obstructing kidney stone s/p stent placement per there were plans to remove the stent but for various reasons the procedure was deferred Plan: NPO / IVF/ morphine PRN for pain / f/u w 3 SIRS vs early sepsis likely 2/2 UTI Tachycardia and Leukocytosis Plan: ceftriaxone / f/u UCx, blood cx and lactic acid 4 Essential HTN Plan: bisoprolol 5 HLD Plan: simvastatin 6 DVT Plan: hold Eliquis 7 Class 1 obesity Complicates care DVT px w SCDs Dispo: home after at least 2 midnights stay Home Medications Scheduled Acetaminophen (Tylenol Extra Strength) 500 Mg Tablet, 1,000 MG PO BID Apixaban (Eliquis) 5 Mg Tablet, 5 MG PO BID Bisoprolol Fumarate (Bisoprolol Fumarate) 10 Mg Tablet, 10 MG PO BID Donepezil HCl (Aricept) 5 Mg Tablet, 5 MG PO QHS Ferrous Sulfate (Ferrous Sulfate) 325 Mg Tablet, 325 MG PO BID Furosemide (Furosemide) 20 Mg Tablet, 20 MG PO DAILY Gabapentin (Gabapentin) 100 Mg Capsule, 200 MG PO BID Simvastatin (Simvastatin) 20 Mg Tab, 20 MG PO QHS Allergies Coded Allergies: atenolol (Verified Allergy, Intermediate, WHEEZING, 09/17/20) on bisoprolol at home lisinopril (Verified Allergy, Unknown, unknown reaction, 09/17/20) celecoxib (Verified Adverse Reaction, Mild, NAUSEA, 09/17/20) meperidine (Verified Adverse Reaction, Mild, VOMITING, 09/17/20) A-FIB/CHADSVASC A-FIB History Current/History of A-Fib/PAF?: No Current PO Anticoag Therapy: No JOELLE RIVERA MD Nov 05, 2020 08:05
--- NOTE | 2020-11-05 08:11 | ECGEPIP ---
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
[2020-11-05] MEDS: bisoproloL fumarate 10 MG TAB PO SCH ×2 (09:00→20:47)
[2020-11-05] MEDS ORDERED: FUROSEMIDE 20 MG TAB PO SCH (09:00)
[2020-11-05] MEDS: ACETAMINOPHEN TAB 650MG DOSE (2X325MG) PO PRN (09:26)
[2020-11-05] MEDS: FERROUS SULFATE 325MG TAB PO SCH ×2 (09:27→21:00)
[2020-11-05] MEDS: GABAPENTIN 100 MG CAP PO SCH ×2 (09:27→20:46)
--- NOTE | 2020-11-05 11:15 | SMCUROLCON ---
Urology Consultation General Date of Consultation 11/05/20 Reason For Consultation This patient is seen for Renal Calculus, Left. History of Present Illness This is a 70 y/o F w/ multiple medical problems, including vascular dementia and kidney stones, s/p cysto w/ L ureteral stent placement on 07/23/20, brought in by her to the ER yesterday evening. She notes that she sustained a fall due to feeling weak. She denies flank or abd pain. She denies dysuria. She denies f/c. A CT was obtained in the ER and was notable for moderate L hydro w/ a stent in place as well as what appears to be a developing R staghorn stone. Past Medical History Medical History Vascular Dementia Essential HTN HLD DVT Disc herniation Bilateral breast cancer Nephrolithiasis Surgical Hstory Cataract surgery in 1956 Eye surgery Tonsillectomy and adenoidectomy in 1959 Tubal ligation in 1982 Reconstructive breast surgery in 1984 Arthroscopic right knee surgery in 1986 Hysterectomy due to menorrhagia in 1998 Right mastectomy in 1999 Right hip replacement in 2001 Left knee replacement in October 2012 Double-J stent placement in 03/21/2013 Extracorporeal shockwave lithotripsy (ESWL) 06/20/2013 Colonoscopy with hyperplastic polyps done in 2013 Left hip replacement 01/04/2017 Nephrolithiasis s/p Lithotripsy October 2017 Medications Current Medications Current Medications Medications (Trade) Dose Ordered Sig/Martha Route PRN Reason Start Time Stop Time Status Last Admin Dose Admin Acetaminophen (Tylenol Tab) 650 mg Q4H PRN PO PAIN OR FEVER 11/05/20 05:45 Al Hydrox/Mg Hydrox/Simethicone (Mylanta) 30 ml DAILY PRN PO DYSPEPSIA 11/05/20 05:45 Baclofen (Lioresal) 10 mg Q12H PRN PO back spasms 11/05/20 05:40 Bisoprolol Fumarate (Zebeta) 10 mg BID PO 11/05/20 09:00 Ceftriaxone Sodium 2 gm/ Dextrose 50 ml @ 100 mls/hr Q24H IV 11/06/20 06:00 Donepezil HCl (AriCEPT) 5 mg QHS PO 11/05/20 21:00 Ferrous Sulfate (Ferrous Sulfate) 325 mg BID PO 11/05/20 09:00 Furosemide (Lasix) 20 mg DAILY PO 11/05/20 09:00 Gabapentin (Neurontin) 200 mg BID PO 11/05/20 09:00 Home Med (Med Rec Complete!) ASDIRECTED XX 11/05/20 05:20 11/05/20 05:19 DC Magnesium Hydroxide (Milk Of Magnesia) 30 ml DAILY PRN PO CONSTIPATION 11/05/20 05:45 Morphine Sulfate (Morphine Sulfate Inj) 2 mg Q3H PRN IV PAIN 11/05/20 05:45 Sodium Chloride 1,000 ml @ 60 mls/hr [id number] IV 11/05/20 05:45 11/05/20 06:30 Allergies Allergies: Coded Allergies: atenolol (Verified Allergy, Intermediate, WHEEZING, 09/17/20) on bisoprolol at home lisinopril (Verified Allergy, Unknown, unknown reaction, 09/17/20) celecoxib (Verified Adverse Reaction, Mild, NAUSEA, 09/17/20) meperidine (Verified Adverse Reaction, Mild, VOMITING, 09/17/20) Review of Systems Constitutional: Reports: Weakness; Denies: Fever, Chills, Sweats Skin: Denies: Rash, Lesions, Breakdown, Nail Changes Pulmonary: Denies: Dyspnea, Cough Cardiovascular: Denies Chest Pain, Denies Palpitations Gastrointestinal: Denies: Nausea, Vomiting, Abdominal Pain Genitourinary: Denies: Dysuria, Hematuria Musculoskeletal: Denies: Neck Pain, Back Pain Neurological: Reports: Weakness Physical Examination General Exam: Cooperative, No Acute Distress Chest Exam: Normal air movement Heart Exam: Rate Normal Abdomen Exam: Soft; No: Tenderness Skin Exam: Nl turgor and temperature Neuro Exam: Normal Speech Vital Signs/I&O Vital Signs Date Time Temp Pulse Resp B/P (MAP) Pulse Ox O2 Delivery O2 Flow Rate FiO2 11/05/20 07:27 92 97 11/05/20 07:15 152/79 (103) 11/05/20 06:45 16 Room Air 11/05/20 00:59 98.7 Laboratory Data 24H Labs Laboratory Tests 2 11/05/20 01:19: Immature Granulocyte % (Auto) 0.5, Neutrophils (%) (Auto) 81.7H, Lymphocytes (%) (Auto) 8.3L, Monocytes (%) (Auto) 9.0H, Eosinophils (%) (Auto) 0.3, Basophils (%) (Auto) 0.2, Neutrophils # (Auto) 12.3H, Lymphocytes # (Auto) 1.3L, Monocytes # (Auto) 1.4H, Eosinophils # (Auto) 0.1, Basophils # (Auto) 0.0, Nucleated Red Blood Cells % (auto) 0.0, Urine Color (ADY) REDH, Urine Appearance (ADY) TURBIDH, Urine pH (ADY) 8.5, Urine Specific [place] (ADY) 1.018, Urine Protein 3+H, Bedside Urine Glucose (UA) NEGATIVE, Bedside Urine Ketones (LAB) NEGATIVE, Bedside Urine Blood POSITIVEH, Bedside Urine Nitrite (LAB) POSITIVEH, Bedside Urine Bilirubin (LAB) NEGATIVE, Bedside Urine Urobilinogen (LAB) NORMAL, Bedside Urine Leukocyte Esterase (L POSITIVEH, Urine Sediment Examination UNSPUN, Urine RBC TNTCH, Urine WBC 3-5H, Urine Squamous Epithelial Cells NONE SEEN, Urine T ransitional Epithelial Cells SMALL AMOUNTH, Urine Triple Phosphate Crystals SMALL AMOUNTH, Urine Amorphous Sediment SMALL AMOUNTH, Urine Bacteria MOD AMOUNTH, Urine Hyaline Casts NONE SEEN, Urine Mucus SMALL AMOUNTH, Anion Gap 4L, Glomerular Filtration Rate 47.9, Calcium Level 8.9 11/05/20 05:38: POC Lactate (Misc Panel) 0.79 11/05/20 07:39: Lactic Acid Level 1.2 CBC/BMP Laboratory Tests 11/05/20 01:19 Microbiology Microbiology 11/05/20 Blood Culture, Received Pending 11/05/20 Respiratory Virus Panel (PCR) (RAJESH) - Final, Complete 11/05/20 Urine Culture, Received Pending Assessment This is a 70 y/o F w/ multiple medical problems, including vascular dementia and kidney stones, s/p cysto w/ L ureteral stent placement on 07/23/20, brought in by her to the ER yesterday evening for weakness. CT is notable for L hydro despite the stent in proper place as well as b/l kidney stones. UA appears positive for an infection. Her WBC is elevated at 15.1. Due to the L hydro and likely impending hydro from a developing staghorn stone on the R as well as her UTI, I recommend that we take her to the OR today for cystoscopy w/ b/l ureteral stent placement. Plan - recommend OR today for cystoscopy w/ b/l ureteral stent placement - urine and blood cultures obtained - rocephin given - NPO until OR RUBEN VACA MD Nov 05, 2020 11:15
[2020-11-05] MEDS ORDERED: NS 500 ML IV ONE (11:55)
[2020-11-05] MEDS ORDERED: NS 1,000 ML IV ONE ×3 (11:55→13:10)
--- NOTE | 2020-11-05 13:35 | IPNPDOC ---
Text Note Date of Service The patient was seen on 11/05/20. NOTE Subjective: Patient slightly confused in the morning with low blood pressure of 85/40. She denies any pain or chills. She stated that she has feeling of urge urination Objective: GENERAL APPEARANCE: Somnolent female HEENT: no scleral icterus, no JVD, EOMI CARDIOVASCULAR: S1S2 LUNGS: CTA ABDOMEN: soft & not tender w palpitation MUSCULOSKELETAL: no cyanosis, no swelling INTEGUMENT: no generalized pallor NEUROLOGICAL: cranial nerve function from 2-12 intact intact, follows commands, speech not dysarthric Assessment and plan Patient 71 years old female with past mental history of vascular dementia, hypertension, hyperlipidemia, history of breast cancer, nephrolithiasis presented to the hospital with altered mental status and left-sided obstructing kidney stone. Metabolic encephalopathy Patient has history of vascular dementia superimposed with UTI and renal colic Patient continues to be slightly lethargic, but oriented in time and place Left-sided obstructing kidney stone Status post stent placement Dr. Cornell will proceed with cystoscopy today Sepsis On admission patient has temperature 100.8 with tachypnea, later today she developed hypotension with blood pressure 80/40 Most likely secondary to UTI Continue ceftriaxone IV IV fluid Await urine and blood culture Nephrolithiasis/UTI CTA abdomen/pelvis showed: Interval removal of a Carter catheter since 07/24/2020. 2. Left obstructive uropathy with moderate left hydronephrosis and hydroureter extending into the pelvis which is new since the prior study despite the presence of a double-J left ureteral stent consistent with poor functionality of the stent since the prior study. 3. Nonobstructing bilateral renal calculi including probable staghorn calculus on the right. The left ureteral stent appears to traverse a left ureteral calculus within the pelvis which measures approximately 5 x 7 x 9 mm and appears to a been present on the prior study Urology team proceeded with cystoscopy and ureteroscopy today. Essential HTN continue cardioprotective meds with parameters Hyperlipidemia Continue statin Hx of DVT As per , this occurred earlier this year in Jul/Aug. it's unclear if it's provoked or unprovoked. Eliquis on hold VS,Fishbone, I+O VS, Fishbone, I+O Laboratory Tests 11/05/20 01:19 Vital Signs Date Time Temp Pulse Resp B/P (MAP) Pulse Ox O2 Delivery O2 Flow Rate FiO2 11/05/20 13:01 92/56 (68) 11/05/20 11:46 97.8 94 22 93 Room Air FRANCISCA SHETH Nov 05, 2020 13:35
[2020-11-05] MEDS ORDERED: CONRAY-60 60% 50ML VIAL (Q9961) As Ordered ONE (15:41)
[2020-11-05] MEDS ORDERED: KETOROLAC 60MG 2ML VIAL As Ordered ONE ×2 (16:18→17:33)
[2020-11-05] MEDS ORDERED: LIDOCAINE 2% 100MG/5ML SDV (FOR ANES.) As Ordered ONE (16:18)
[2020-11-05] MEDS ORDERED: ACETAMINOPHEN 1000MG 100ML IV BTL (OFIRMEV) (J0131 PER 10MG) As Ordered ONE (16:18)
[2020-11-05] MEDS ORDERED: propofoL 200 MG/20 ML VIAL As Ordered ONE (16:18)
[2020-11-05] MEDS ORDERED: dexameTHASONE 4 MG/ML 1ML VIAL (J1100 PER 1MG) As Ordered ONE (16:18)
[2020-11-05] MEDS ORDERED: ONDANSETRON 4MG/2ML VIAL As Ordered ONE (16:18)
[2020-11-05] MEDS ORDERED: MIDAZOLAM INJ 2MG/2ML VIAL (J2250 PER 1MG) As Ordered ONE (16:19)
[2020-11-05] MEDS ORDERED: fentaNYL 100 MCG/2 ML INJECTION (J3010) As Ordered ONE (16:19)
[2020-11-05] MEDS ORDERED: LIDOCAINE 5% OINT 30GM TUBE As Ordered ONE (16:25)
[2020-11-05] MEDS ORDERED: LIDOCAINE 2% 5ML JELLY UROJET As Ordered ONE (16:44)
--- NOTE | 2020-11-05 17:48 | REP ---
INDICATION: BILATERAL STENT PLACEMENT. COMPARISON: Comparison study July 23, 2020.. TECHNIQUE: Three views. 32 seconds of fluoroscopy time is reported peer FINDINGS: A sequence of 3 last image hold fluoroscopically obtained spot radiographs of the abdomen document bilateral ureteral cannulation, contrast injection, and stent placement. IMPRESSION: Procedural imaging. <Electronically signed by Dayne Yung > 11/05/20 [id number]
[2020-11-05] MEDS ORDERED: fentaNYL 100 MCG/2 ML INJECTION (J3010) IV PRN (17:55)
[2020-11-05] MEDS ORDERED: ONDANSETRON 4MG/2ML VIAL IV PRN (17:55)
[2020-11-05] MEDS ORDERED: oxyCODONE 5MG TAB PO PRN (17:55)
[2020-11-05] MEDS: HEPARIN SOD (PORCINE) 5000UNITS/ML 1ML VIAL/SYRINGE SQ SCH (20:46)
[2020-11-05] MEDS: DONEPEZIL 5 MG TAB PO SCH (20:47)
[2020-11-05] MEDS: NYSTATIN 100,000 UNITS/GM TOPICAL PWD 15 GM TOP SCH (20:48)
[2020-11-06 02:00] VITALS: BP 112/72
[2020-11-06 05:47] LABS: MEAN CORPUSCULAR HEMOGLOBIN 28.9 pg (27.0-33.0); MEAN CORPUSCULAR VOLUME 96.2 fl (80.0-96.0); PLATELET COUNT, AUTOMATED 195 10^3/uL (150-450); RED BLOOD COUNT 3.95 10^6/uL (4.00-5.40); WHITE BLOOD COUNT 9.9 10^3/uL (4.0-10.0)
[2020-11-06 05:56] LABS: HEMOGLOBIN 11.4 g/dl (12.0-15.5)
[2020-11-06 06:00] VITALS: BP 124/76
[2020-11-06] MEDS: cefTRIAXone SOD 2 GM in D5W MINI-BAG PLUS 50 ML IV SCH (06:12)
[2020-11-06 06:16] LABS: BLOOD UREA NITROGEN 33 MG/DL (7-18); CALCIUM LEVEL 8.2 MG/DL (8.8-10.2); CARBON DIOXIDE LEVEL 27 MEQ/L (21-32); CHLORIDE LEVEL 116 MEQ/L (98-107); CREATININE FOR GFR 0.93 MG/DL (0.55-1.30); GLOMERULAR FILTRATION RATE > 60.0 (>39); GLUCOSE, FASTING 128 MG/DL (70-100); POTASSIUM SERUM 4.1 MEQ/L (3.5-5.1); SODIUM LEVEL 148 MEQ/L (136-145)
--- NOTE | 2020-11-06 08:07 | IPNPDOC ---
Subjective Review oF Systems Chief Complaint The patient is a 70-year-old female admitted with a reason for visit of Renal Calculus, Left. Events since Last Encounter No acute events o/n. Denies pain. Objective Physical Examination General Exam: Alert, Cooperative, No Acute Distress ABDOMEN EXAM: Soft; No: Tenderness Skin Exam: Nl turgor and temperature Neuro Exam: Normal Speech Vital Signs/I&O Vital Signs Date Time Temp Pulse Resp B/P (MAP) Pulse Ox O2 Delivery O2 Flow Rate FiO2 11/06/20 06:00 98.1 88 20 124/76 (92) 97 Room Air 11/05/20 21:00 2.0 I&O- Last 24 Hours up to 6 AM 11/06/20 06:00 Intake Total 2160 ml Output Total 550 ml Balance 1610 ml Laboratory Data Labs 24H Laboratory Tests 2 11/06/20 05:29: Nucleated Red Blood Cells % (auto) 0.0, Anion Gap 5L, Glomerular Filtration Rate > 60.0, Calcium Level 8.2L CBC/BMP Laboratory Tests 11/06/20 05:29 Microbiology Microbiology 11/05/20 Blood Culture - Preliminary, Resulted No growth after 24 hours . All specim... 11/05/20 Respiratory Virus Panel (PCR) (RAJESH) - Final, Complete 11/05/20 Urine Culture, Received Pending Assessment/Plan Date Seen The patient was seen on 11/06/20. Patient Summary This is a 70 y/o F admitted for AMS potentially 2/2 UTI and ureteral ob struction, POD1 s/p cysto, L ureteral stent exchange, R ureteral stent placement. Plan/VTE VTE Prophylaxis Ordered?: Yes VTE Exclusion Mechanical Proph: N/A:VTE Prophy Ordered Plan - continue care per hospitalist service - patient will be brought to the OR in a few wks once her infection is cleared for definitive management of her b/l kidney stones - keep catheter to gravity - recommend voiding trial prior to discharge (if patient is incontinent, bladder scan the patient once the catheter is removed to check if she is emptying completely) - my office will touch base w/ the patient's to get her set up for her next surgery RUBEN VACA MD Nov 06, 2020 08:06
[2020-11-06 09:00] VITALS: BP 151/102
--- NOTE | 2020-11-06 09:35 | RO ---
OPERATIVE NOTE DATE OF OPERATION: 11/05/2020 PREOPERATIVE DIAGNOSIS: Bilateral kidney stones. POSTOPERATIVE DIAGNOSIS: Bilateral kidney stones. PROCEDURE: Cystoscopy, left ureteral stent exchange, right ureteral stent placement, bilateral retrograde pyelograms with intraop interpretation of images. SURGEON: Alejandro Cornell MD GAMING MANAGER: None. ANESTHESIA: MAC. OPERATIVE INDICATIONS: This is a 70-year-old female who was brought to the Operating Room in June for a left ureteral stent placement for an obstructing left ureteral stone. We have been trying to get her back to the Operating Room to remove her stones on 2 occasions and due to family reasons her procedures have been rescheduled twice. She came into the Emergency Room today with pain and altered mental status. A CAT scan obtained in the Emergency Room was notable for hydronephrosis on the left side with appearance of the stent in the proper place. She also had what appeared to be a staghorn stone in the right kidney. She also has a urinary tract infection. She was brought to the Operating Room today to change out her left renal stent and put one up the right side to protect the right kidney. DESCRIPTION OF PROCEDURE: The patient was brought to the operating room and MAC anesthesia was administered. Broad spectrum antibiotics had already been infused. She was then placed in the dorsal lithotomy position and prepped and draped in usual sterile fashion. A rigid cystoscope was inserted in the urethral meatus and advanced into the bladder. A guidewire was advanced up the left collecting system along side the previously placed left renal stent. That left ureteral stent appeared to be severely encrusted. We then removed the left ureteral stent. A 5-[place] open ended ureteral catheter was advanced over the wire and up the left collecting system. The guidewire was removed and then a retrograde pyelogram was performed. It was notable for moderate left hydronephrosis with no extravasation. Then I advanced the guidewire back up the left collecting system and removed the ureteral catheter. I utilized the guidewire to advance a 7-[place] x 22-32 cm JJ ureteral stent up the left collecting system. The wire was removed and there were adequate curls of the stent in the left renal pelvis and in the bladder. I then advanced the guidewire up the right collecting system. I advanced the #5 [place] open ureteral catheter over the wire into the right collecting system. The wire was removed and a retrograde pyelogram was performed and notable for mild right hydronephrosis and no extravasation. I then advanced the guidewire back up the right collecting system and removed the ureteral catheter. I then utilized the guidewire to advance the 7-[place] x 22-32 cm JJ ureteral stent up the right collecting system. The wire was removed and there were adequate curls of the stent in the right renal pelvis and in the bladder. I then advanced an 18-[place] Carter catheter into the bladder and filled the balloon with 10 mL of sterile water. The catheter was then connected toto gravity drainage and this marked the conclusion of the procedure. The patient was taken out of the dorsal lithotomy position, awakened from anesthesia and transported to the recovery room in stable condition. ESTIMATED BLOOD LOSS: 5 mL. COMPLICATIONS: None. SPECIMENS: None. PLAN: The patient will be kept in the hospital and treated with antibiotics until the infection clears. We will bring her back to the Operating Room in a few weeks for bilateral ureteroscopy with laser lithotripsy. ALMA
[2020-11-06] MEDS: bisoproloL fumarate 10 MG TAB PO SCH ×2 (09:38→20:00)
[2020-11-06] MEDS: FERROUS SULFATE 325MG TAB PO SCH ×2 (09:38→20:00)
[2020-11-06] MEDS: GABAPENTIN 100 MG CAP PO SCH ×2 (09:38→20:00)
[2020-11-06] MEDS: HEPARIN SOD (PORCINE) 5000UNITS/ML 1ML VIAL/SYRINGE SQ SCH ×2 (09:38→19:59)
[2020-11-06] MEDS: NYSTATIN 100,000 UNITS/GM TOPICAL PWD 15 GM TOP SCH ×2 (09:44→20:01)
[2020-11-06 14:00] VITALS: BP 112/72
[2020-11-06] MEDS: NS 1,000 ML IV SCH ×2 (14:24→20:01)
--- NOTE | 2020-11-06 14:36 | IPNPDOC ---
Text Note Date of Service The patient was seen on 11/06/20. NOTE Subjective: No any acute events overnight. Patient alert, awake in the morning. No fever Objective: GENERAL APPEARANCE: nad HEENT: no scleral icterus, no JVD, EOMI CARDIOVASCULAR: S1S2 LUNGS: CTA ABDOMEN: soft & not tender w palpitation MUSCULOSKELETAL: no cyanosis, no swelling INTEGUMENT: no generalized pallor NEUROLOGICAL: cranial nerve function from 2-12 intact intact, follows commands, speech not dysarthric Assessment and plan Patient 71 years old female with past medical history of vascular dementia, hypertension, hyperlipidemia, history of breast cancer, nephrolithiasis presented to the hospital with altered mental status and left-sided obstructing kidney stone. Metabolic encephalopathy Patient has history of vascular dementia superimposed with UTI and renal colic Resolved Left-sided obstructing kidney stone Status post stent placement Dr. Cornell placed ureteral stents bilaterally yesterday Sepsis On admission patient has temperature 100.8 with tachypnea, later today she developed hypotension with blood pressure 80/40 Most likely secondary to UTI Continue ceftriaxone IV IV fluid blood culture negative Nephrolithiasis/UTI CTA abdomen/pelvis showed: Interval removal of a Carter catheter since 07/24/2020. 2. Left obstructive uropathy with moderate left hydronephrosis and hydroureter extending into the pelvis which is new since the prior study despite the presence of a double-J left ureteral stent consistent with poor functionality of the stent since the prior study. 3. Nonobstructing bilateral renal calculi including probable staghorn calculus on the right. The left ureteral stent appears to traverse a left ureteral calculus within the pelvis which measures approximately 5 x 7 x 9 mm and appears to a been present on the prior study Follow-up with urologist in the outpatient settings Essential HTN continue cardioprotective meds with parameters Hyperlipidemia Continue statin Hx of DVT As per , this occurred earlier this year in Jul/Aug. it's unclear if it's provoked or unprovoked. Eliquis on hold VS,Fishbone, I+O VS, Fishbone, I+O Laboratory Tests 11/06/20 05:29 Vital Signs Date Time Temp Pulse Resp B/P (MAP) Pulse Ox O2 Delivery O2 Flow Rate FiO2 11/06/20 09:38 98 151/102 11/06/20 09:00 97.9 18 97 Room Air 11/05/20 21:00 2.0 I&O- Last 24 Hours up to 6 AM 11/06/20 06:00 Intake Total 2160 ml Output Total 550 ml Balance 1610 ml FRANCISCA SHETH DO Nov 06, 2020 14:36
[2020-11-06 17:43] LABS: HEMOGLOBIN A1c 5.7 %
[2020-11-06] MEDS: DONEPEZIL 5 MG TAB PO SCH (20:00)
[2020-11-06 22:00] VITALS: BP 125/70
[2020-11-06] MEDS: ACETAMINOPHEN TAB 650MG DOSE (2X325MG) PO PRN (23:21)
[2020-11-07] MEDS: cefTRIAXone SOD 2 GM in D5W MINI-BAG PLUS 50 ML IV SCH (05:42)
[2020-11-07 06:00] VITALS: BP 124/68
[2020-11-07] MEDS: HEPARIN SOD (PORCINE) 5000UNITS/ML 1ML VIAL/SYRINGE SQ SCH (08:51)
[2020-11-07] MEDS: GABAPENTIN 100 MG CAP PO SCH ×2 (08:51→22:03)
[2020-11-07] MEDS: FERROUS SULFATE 325MG TAB PO SCH ×2 (08:51→22:03)
[2020-11-07] MEDS: NYSTATIN 100,000 UNITS/GM TOPICAL PWD 15 GM TOP SCH ×2 (08:51→22:03)
[2020-11-07] MEDS: bisoproloL fumarate 10 MG TAB PO SCH ×2 (08:58→22:03)
[2020-11-07] MEDS: NS 1,000 ML IV SCH (08:59)
[2020-11-07] MEDS ORDERED: MIRALAX *UNIT DOSE* 17GM PACKET PO PRN (09:50)
[2020-11-07 10:38] LABS: BASO % 0.2 % (0.0-1.0); EOS # 0.2 10^3/uL (0.0-0.5); EOS % 2.7 % (0.0-3.0); HEMATOCRIT 33.8 % (36.0-47.0); HEMOGLOBIN 10.3 g/dl (12.0-15.5); LYMPH # 1.1 10^3/uL (1.5-5.0); LYMPH % 13.2 % (24.0-44.0); MEAN CORPUSCULAR HEMOGLOBIN 28.8 pg (27.0-33.0); MEAN CORPUSCULAR HGB CONC 30.5 g/dl (32.0-36.5); MEAN CORPUSCULAR VOLUME 94.4 fl (80.0-96.0); MONO # 0.7 10^3/uL (0.0-0.8); MONO % 7.8 % (2.0-8.0); NEUTROPHILS # 6.4 10^3/uL (1.5-8.5); NEUTROPHILS % 75.9 % (36.0-66.0); PLATELET COUNT, AUTOMATED 203 10^3/uL (150-450); RED BLOOD COUNT 3.58 10^6/uL (4.00-5.40); WHITE BLOOD COUNT 8.4 10^3/uL (4.0-10.0)
[2020-11-07] MEDS: SENNA 8.6 MG TAB (SENOKOT) PO SCH (11:11)
[2020-11-07 11:22] LABS: ALBUMIN 2.1 GM/DL (3.2-5.2); ALT/SGPT 11 U/L (12-78); BILIRUBIN,TOTAL < 0.1 MG/DL (0.2-1.0); BLOOD UREA NITROGEN 30 MG/DL (7-18); CALCIUM LEVEL 8.5 MG/DL (8.8-10.2); CARBON DIOXIDE LEVEL 27 MEQ/L (21-32); CHLORIDE LEVEL 115 MEQ/L (98-107); GLOMERULAR FILTRATION RATE > 60.0 (>39); GLUCOSE, FASTING 173 MG/DL (70-100); MAGNESIUM LEVEL 1.9 MG/DL (1.8-2.4); POTASSIUM SERUM 4.2 MEQ/L (3.5-5.1); SODIUM LEVEL 147 MEQ/L (136-145); TOTAL PROTEIN 4.7 GM/DL (6.4-8.2)
--- NOTE | 2020-11-07 13:49 | IPNPDOC ---
Text Note Date of Service The patient was seen on 11/07/20. NOTE Subjective: No any acute events overnight. Patient pleasantly confused in the morning she's not oriented in time. Objective: GENERAL APPEARANCE: nad HEENT: no scleral icterus, no JVD, EOMI CARDIOVASCULAR: S1S2 LUNGS: CTA ABDOMEN: soft & not tender w palpitation MUSCULOSKELETAL: no cyanosis, no swelling INTEGUMENT: no generalized pallor NEUROLOGICAL: cranial nerve function from 2-12 intact intact, follows commands, speech not dysarthric Assessment and plan Patient 71 years old female with past medical history of vascular dementia, hypertension, hyperlipidemia, history of breast cancer, nephrolithiasis presented to the hospital with altered mental status and left-sided obstructing kidney stone. Metabolic encephalopathy Patient has history of vascular dementia superimposed with UTI and renal colic Resolved Left-sided obstructing kidney stone Status post stent placement Dr. Cornell placed ureteral stents bilaterally 11/07/20 Sepsis resolved On admission patient has temperature 100.8 with tachypnea, later today she developed hypotension with blood pressure 80/40 Most likely secondary to UTI Continue ceftriaxone IV blood culture negative Nephrolithiasis/UTI CTA abdomen/pelvis showed: Interval removal of a Carter catheter since 07/24/2020. 2. Left obstructive uropathy with moderate left hydronephrosis and hydroureter extending into the pelvis which is new since the prior study despite the presence of a double-J left ureteral stent consistent with poor functionality of the stent since the prior study. 3. Nonobstructing bilateral renal calculi including probable staghorn calculus on the right. The left ureteral stent appears to traverse a left ureteral calculus within the pelvis which measures approximately 5 x 7 x 9 mm and appears to a been present on the prior study Follow-up with urologist in the outpatient settings Essential HTN continue cardioprotective meds with parameters Hyperlipidemia Continue statin Hx of DVT As per , this occurred earlier this year in Jul/Aug. it's unclear if it's provoked or unprovoked. Restarted Eliquis. We'll discuss with primary care physician continuation of Eliquis. If it's provoked DVT the length of therapy 3 months VS,Fishbone, I+O VS, Fishbone, I+O Laboratory Tests 11/07/20 09:42 Vital Signs Date Time Temp Pulse Resp B/P (MAP) Pulse Ox O2 Delivery O2 Flow Rate FiO2 11/07/20 08:58 100 119/71 11/07/20 06:00 98.3 18 96 Room Air 11/07/20 04:00 1.0 I&O- Last 24 Hours up to 6 AM 11/07/20 06:00 Intake Total 3600 ml Output Total 1800 ml Balance 1800 ml FRANCISAC SHETH DO Nov 07, 2020 13:49
[2020-11-07 14:00] VITALS: BP 122/70
[2020-11-07] MEDS: ACETAMINOPHEN TAB 650MG DOSE (2X325MG) PO PRN (18:12)
--- NOTE | 2020-11-07 19:12 | REP ---
INDICATION: Left lower extremity tenderness/swollen, r/o DVT. COMPARISON: Comparison study November 29, 2019.. TECHNIQUE: Bilateral lower extremity duplex venous ultrasound. FINDINGS: The deep veins are anechoic and fully compressible from the groin to the popliteal fossa in the left and right lower extremity. Color flow imaging is homogeneous. Spectral Doppler interrogation demonstrates intact respiratory variation in flow and normal manual augmentation of flow. There is no evidence of deep vein thrombosis. IMPRESSION: Negative bilateral lower extremity duplex venous ultrasound. No evidence of deep vein thrombosis. <Electronically signed by Dayne Yung > 11/07/20 [id number]
--- NOTE | 2020-11-07 19:15 | REP ---
INDICATION: bruising/pain/swelling, r/o fracture. COMPARISON: Comparison left ankle radiographs November 26, 2019.. TECHNIQUE: Four views of the left ankle are provided. FINDINGS: There is moderate to marked diffuse soft tissue swelling of the distal calf and Tiny articular soft tissues about the ankle. The soft tissue swelling partially obscures the upper portion of the Achilles tendon on the lateral radiograph. There is plantar calcaneal spurring. There is an acute fracture of the distal fibular metaphysis with some mild, 6 mm lateral displacement of the distal fragment. There is a chip fracture of the medial malleolus. There is cortical irregularity at the anterior aspect of the ankle on the lateral radiograph but I believe this is from the lateral malleolar fracture. No other tibial fracture is appreciated. Ankle mortise is intact. There is soft tissue swelling extending into the dorsum of the foot. No other fracture is visible on these radiographs. IMPRESSION: Bimalleolar ankle fracture with a moderate to marked associated soft tissue swelling. Diffuse osteopenia. Heel spurring. <Electronically signed by Dayne Yung > 11/07/201910
[2020-11-07 22:00] VITALS: BP 153/95
[2020-11-07] MEDS: DONEPEZIL 5 MG TAB PO SCH (22:01)
[2020-11-07] MEDS: SIMVASTATIN 20 MG TAB PO SCH (22:02)
[2020-11-08] MEDS: cefTRIAXone SOD 2 GM in D5W MINI-BAG PLUS 50 ML IV SCH (05:11)
[2020-11-08] MEDS: ACETAMINOPHEN TAB 650MG DOSE (2X325MG) PO PRN ×2 (05:40→20:39)
[2020-11-08 06:00] VITALS: BP 158/95
[2020-11-08 07:54] LABS: BASO % 0.3 % (0.0-1.0); EOS # 0.3 10^3/uL (0.0-0.5); EOS % 2.9 % (0.0-3.0); HEMATOCRIT 33.8 % (36.0-47.0); HEMOGLOBIN 10.6 g/dl (12.0-15.5); LYMPH # 1.2 10^3/uL (1.5-5.0); LYMPH % 13.2 % (24.0-44.0); MEAN CORPUSCULAR HEMOGLOBIN 28.4 pg (27.0-33.0); MEAN CORPUSCULAR HGB CONC 31.4 g/dl (32.0-36.5); MEAN CORPUSCULAR VOLUME 90.6 fl (80.0-96.0); MONO # 0.9 10^3/uL (0.0-0.8); MONO % 10.7 % (2.0-8.0); NEUTROPHILS # 6.3 10^3/uL (1.5-8.5); NEUTROPHILS % 72.6 % (36.0-66.0); PLATELET COUNT, AUTOMATED 239 10^3/uL (150-450); RED BLOOD COUNT 3.73 10^6/uL (4.00-5.40); WHITE BLOOD COUNT 8.7 10^3/uL (4.0-10.0)
[2020-11-08 08:14] LABS: BLOOD UREA NITROGEN 20 MG/DL (7-18); CALCIUM LEVEL 8.4 MG/DL (8.8-10.2); CARBON DIOXIDE LEVEL 29 MEQ/L (21-32); CHLORIDE LEVEL 110 MEQ/L (98-107); GLOMERULAR FILTRATION RATE > 60.0 (>39); GLUCOSE, FASTING 119 MG/DL (70-100); SODIUM LEVEL 143 MEQ/L (136-145)
[2020-11-08] MEDS: FERROUS SULFATE 325MG TAB PO SCH ×2 (09:58→20:40)
[2020-11-08] MEDS: GABAPENTIN 100 MG CAP PO SCH ×2 (09:58→20:40)
[2020-11-08] MEDS: NYSTATIN 100,000 UNITS/GM TOPICAL PWD 15 GM TOP SCH ×2 (09:58→20:40)
[2020-11-08] MEDS: SENNA 8.6 MG TAB (SENOKOT) PO SCH (09:58)
[2020-11-08] MEDS: bisoproloL fumarate 10 MG TAB PO SCH ×2 (09:59→20:41)
[2020-11-08 14:00] VITALS: BP 148/84
--- NOTE | 2020-11-08 18:07 | IPNPDOC ---
Subjective Date Seen The patient was seen on 11/08/20. Subjective Chief Complaint/HPI Does not offer any complaints. Does not complain of any ankle pain. No abdominal pain or cramps today. Objective Physical Examination General Exam: Positive: Alert, Cooperative, Other (oriented to name and knows she is inthe [facility]. ) Neck Exam: Positive: Supple; Negative: JVD, thyromegaly Chest Exam: Positive: Normal air movement, Diminished (at the bases), Other (bilateral basl crackles) Heart Exam: Positive: Rate Normal, Regular Rhythm, Normal S1, Normal S2; Negative: Murmurs, Rubs Abdomen Exam: Positive: Normal bowel sounds, Soft; Negative: Tenderness Extremity Exam: Positive: Edema (bipedal edema 1+ to 2+), Tenderness (right ankle), Swelling (right ankle); Negative: Clubbing, Cyanosis, Other Skin Exam: Positive: Rash (bilateral chronic venous stasis dermatitis.) Assessment /Plan Assessment This is a 70 yr old F with past medical history of vascular dementia, hypertension, hyperlipidemia, history of breast cancer, nephrolithiasis , left ureteral stent was brought to the ER by her because he noticed that she has not been feeling well for a few days and seems more confused when compared to her baseline. The night prior to admission while in the bathroom she had a fall and could not help her up so had called the EMS. She was admitted for UTi, obstructive uropathy and metabolic encephalopathy. Patient is not a reliable historian at baseline due to her dementia. Metabolic encephalopathy on the back ground of dementia. due to UTI and sepsis. Resolved Now mental status seems to be at baseline. UTI with obstructive uropathy;y continue ceftriaxone Bilateral nephrolithiasis with right stag horn calculus and Left-sided obstructing ureteral stone, H/o lithotripsies inthe past and double j stent placements. Left obstructive uropathy with moderate left hydronephrosis and hydroureter extending into the pelvis. The left ureteral stent appears to traverse a left ureteral calculus within the pelvis which measures approximately 5 x 7 x 9 mm and appears to a been present on the prior study Status post left stent exchange and right new stent placement on 11/07/20 Sepsis secondary to UTI resolved Continue ceftriaxone IV blood culture negative Urine culture contaminated but in view of bilateral stents will continue with antibiotics. Fall at home right ankle fracture will consult ortho at baseline mostly uses WC can walk to bathroom with walker. Essential HTN continue current meds bisoprolol Hyperlipidemia Continue statin Hx of DVT As per , this occurred earlier this year in Jul/Aug. it's unclear if it's provoked or unprovoked. Restarted Eliquis. We'll discuss with primary care physician continuation of Eliquis. If it's provoked DVT the length of therapy 3 months Vascular dementia poor historian continue donepezil Disc herniation gabapentin, will not give any baclofen H/o Bilateral breast cancer Reconstructive breast surgery in 1984 Right mastectomy in 1999 Plan/VTE VTE Prophylaxis Ordered?: Yes VTE Exclusion Mechanical Proph: N/A:VTE Prophy Ordered VS, I&O, 24H, Fishbone Vital Signs/I&O Vital Signs Date Time Temp Pulse Resp B/P (MAP) Pulse Ox O2 Delivery O2 Flow Rate FiO2 11/08/20 14:00 97.6 97 17 148/84 (105) 96 Room Air 11/07/20 04:00 1.0 I&O- Last 24 Hours up to 6 AM 11/08/20 06:00 Intake Total 1540 ml Output Total 425 ml Balance 1115 ml Laboratory Data 24H LABS Laboratory Tests 2 11/08/20 07:41: Immature Granulocyte % (Auto) 0.3, Neutrophils (%) (Auto) 72.6H, Lymphocytes (%) (Auto) 13.2L, Monocytes (%) (Auto) 10.7H, Eosinophils (%) (Auto) 2.9, Basophils (%) (Auto) 0.3, Neutrophils # (Auto) 6.3, Lymphocytes # (Auto) 1.2L, Monocytes # (Auto) 0.9H, Eosinophils # (Auto) 0.3, Basophils # (Auto) 0.0, Nucleated Red Blood Cells % (auto) 0.0, Anion Gap 4L, Glomerular Filtration Rate > 60.0, Calcium Level 8.4L CBC/BMP Laboratory Tests 11/08/20 07:41 Microbiology Microbiology 11/05/20 Blood Culture - Preliminary, Resulted No Growth after 72 hours. All specime... 11/05/20 Respiratory Virus Panel (PCR) ([facility]) - Final, Complete 11/05/20 Urine Culture - Final, Complete NANCIE POOLE MD Nov 08, 2020 18:08
--- NOTE | 2020-11-08 18:51 | REP ---
INDICATION: left ankle fracture, please help with stress film, thanks. COMPARISON: Comparison left ankle radiographs November 07, 2020 6:54 p.m... TECHNIQUE: Ankle mortise views are obtained without and with valgus stress. FINDINGS: Obliquely oriented somewhat displaced fracture of the distal fibula is again seen. With valgus stress, the ankle mortise is widened. There is a chip fracture of the medial malleolus. Moderate diffuse swelling persists. IMPRESSION: Medial ankle mortise opens with stress. <Electronically signed by Dyane Yung > 11/08/20 [id number]
[2020-11-08] MEDS: SIMVASTATIN 20 MG TAB PO SCH (20:40)
[2020-11-08] MEDS: DONEPEZIL 5 MG TAB PO SCH (20:40)
[2020-11-08 22:00] VITALS: BP 155/80
[2020-11-09] MEDS: cefTRIAXone SOD 2 GM in D5W MINI-BAG PLUS 50 ML IV SCH (05:15)
[2020-11-09 06:00] VITALS: BP 159/89
[2020-11-09] MEDS ORDERED: FUROSEMIDE 40MG/4ML VIAL (J1940) IV ONE (08:00)
[2020-11-09] MEDS: FERROUS SULFATE 325MG TAB PO SCH ×3 (08:53→19:57)
[2020-11-09] MEDS: SENNA 8.6 MG TAB (SENOKOT) PO SCH ×2 (08:53→08:55)
[2020-11-09] MEDS: GABAPENTIN 100 MG CAP PO SCH ×3 (08:53→19:56)
[2020-11-09] MEDS: NYSTATIN 100,000 UNITS/GM TOPICAL PWD 15 GM TOP SCH ×2 (08:55→19:59)
[2020-11-09] MEDS: bisoproloL fumarate 10 MG TAB PO SCH ×2 (08:56→19:57)
[2020-11-09] MEDS ORDERED: ONDANSETRON 4MG/2ML VIAL IV PRN (09:30)
--- NOTE | 2020-11-09 11:23 | IPNPDOC ---
Subjective Date Seen The patient was seen on 11/09/20. Subjective Chief Complaint/HPI Complains of nausea this morning and refused breakfast. Had splint placed at the right ankle. Has an unstable fracture will need to be fixed. Objective Physical Examination General Exam: Positive: Alert, Cooperative, Other (oriented to name and knows she is in the [facility]. ) Neck Exam: Positive: Supple; Negative: JVD, thyromegaly Chest Exam: Positive: Normal air movement, Diminished (at the bases), Other (bilateral basl crackles) Heart Exam: Positive: Rate Normal, Regular Rhythm, Normal S1, Normal S2; Negative: Murmurs, Rubs Abdomen Exam: Positive: Normal bowel sounds, Soft; Negative: Tenderness Extremity Exam: Positive: Edema (bipedal edema 1+ to 2+), Tenderness (right ankle), Swelling (right ankle); Negative: Clubbing, Cyanosis, Other Skin Exam: Positive: Rash (bilateral chronic venous stasis dermatitis.) Assessment /Plan Assessment This is a 70 yr old F with past medical history of vascular dementia, hypertension, hyperlipidemia, history of breast cancer, nephrolithiasis , left ureteral stent was brought to the ER by her because he noticed that she has not been feeling well for a few days and seems more confused when compared to her baseline. The night prior to admission while in the bathroom she had a fall and could not help her up so had called the EMS. She was admitted for UTi, obstructive uropathy and metabolic encephalopathy. Patient is not a reliable historian at baseline due to her dementia. Metabolic encephalopathy on the back ground of dementia. due to UTI and sepsis. Resolved Now mental status seems to be at baseline. UTI with obstructive uropathy continue ceftriaxone Bilateral nephrolithiasis with right stag horn calculus and Left-sided obstructing ureteral stone, H/o lithotripsies inthe past and double j stent placements. Left obstructive uropathy with moderate left hydronephrosis and hydroureter extending into the pelvis. The left ureteral stent appears to traverse a left ureteral calculus within the pelvis which measures approximately 5 x 7 x 9 mm and appears to a been present on the prior study Status post left stent exchange and right new stent placement on 11/07/20 Sepsis secondary to UTI resolved Continue ceftriaxone IV blood culture negative Urine culture contaminated but in view of bilateral stents will continue with antibiotics. Fall at home right ankle unstable fracture splinted . Will need ORIF to be planned for in the next 1 to 2 weeks after infection is treated. Seen by Dr Lazaro. Nonweightbearing on the right. PT/OT Essential HTN continue current meds bisoprolol Hyperlipidemia Continue statin Hx of DVT As per , this occurred earlier this year in Jul/Aug. it's unclear if it's provoked or unprovoked. Restarted Eliquis. We'll discuss with primary care physician continuation of Eliquis. If it's provoked DVT the length of therapy 3 months Vascular dementia poor historian, continue donepezil Disc herniation gabapentin, will not give any baclofen H/o Bilateral breast cancer Reconstructive breast surgery in 1984 Right mastectomy in 1999 Dispo: To Rehab. Plan/VTE VTE Prophylaxis Ordered?: Yes VTE Exclusion Mechanical Proph: N/A:VTE Prophy Ordered VS, I&O, 24H, Fishbone Vital Signs/I&O Vital Signs Date Time Temp Pulse Resp B/P (MAP) Pulse Ox O2 Delivery O2 Flow Rate FiO2 11/09/20 08:56 98 158/104 11/09/20 06:00 97.6 18 95 11/08/20 14:00 Room Air 11/07/20 04:00 1.0 I&O- Last 24 Hours up to 6 AM 11/09/20 06:00 Intake Total 810 ml Output Total 0 ml Balance 810 ml Laboratory Data Microbiology Microbiology 11/05/20 Blood Culture - Preliminary, Resulted No Growth after 72 hours. All specime... 11/05/20 Respiratory Virus Panel (PCR) ([facility]) - Final, Complete 11/05/20 Urine Culture - Final, Complete NANCIE POOLE MD Nov 09, 2020 11:23
[2020-11-09] MEDS: APIXABAN 5 MG TAB (ELIQUIS) PO SCH ×2 (11:45→19:57)
--- NOTE | 2020-11-09 12:54 | CR ---
CONSULTATION DATE: 11/08/2020 REASON FOR CONSULTATION: Left ankle pain. CHIEF COMPLAINT: Left ankle pain. HISTORY OF PRESENT ILLNESS: The patient is a 70-year-old female who presented to [facility] after not feeling well for several days. She fell in the bathroom and noted pain in her left ankle. She was then brought to the emergency department, but then found to be in urosepsis. She had kidney stones and was subsequently taken for the procedure of bilateral renal stents. After this was completed, they took more notice of her left ankle pain. She had had this since her fall. X-rays were taken that demonstrated a left ankle fibular fracture. There was also a small chip fracture off of the medial malleolus, but this was likely not acute. Orthopedics was called for evaluation and recommendations. Please note that she was in urosepsis and has been on IV antibiotics for several days now and will continue to be for another day or two and then, she will go on oral antibiotics. PAST MEDICAL HISTORY: 1. Vascular dementia. 2. Essential hypertension. 3. Hyperlipidemia. 4. DVT. 5. Breast cancer. 6. Nephrolithiasis. 7. Obesity. 8. Cataracts. PAST SURGICAL HISTORY: 1. Nephrolithiasis. 2. Tonsillectomy and adenoidectomy. 3. Tubal ligation. 4. Reconstructive breast surgery. 5. Knee surgery. 6. Hysterectomy. 7. Mastectomy. 8. Left hip replacement. SOCIAL HISTORY: Nonsmoker. No alcohol. No drugs. FAMILY HISTORY: Father from a heart attack. Mother from Alzheimer's. ALLERGIES: ATENOLOL, CELEBREX, LISINOPRIL, MEPERIDINE. MEDICATIONS: See med reconciliation. PHYSICAL EXAMINATION: GENERAL APPEARANCE: Well-nourished, well-developed. HEENT: Mucous membranes dry. CARDIOVASCULAR: Regular rate and rhythm. LUNGS: Equal chest rise bilaterally. ABDOMEN: Obese, soft, and nontender. INTEGUMENT: Not flush or pale. NEUROLOGIC: Speech no dysarthric. PSYCHIATRIC: Normal mood and affect. MUSCULOSKELETAL: Evaluation of the left lower extremity demonstrates swelling and ecchymosis about the ankle. The patient is tender to palpation isolated over the lateral aspect of the ankle over the lateral malleolus. The patient has limited range of motion secondary to pain. There is no fracture or blister. No other breaks in the skin. She otherwise is neurovascularly intact distally. IMAGING DATA: Review of the radiographs of the left ankle demonstrate a distal fibular fracture with mild displacement. There is a chip fracture of the medial malleolus, but this is likely an incidental finding and likely not acute, especially given the lack of pain on the medial side of the patient's ankle. Stress films were obtained by myself, which demonstrate increased gapping of the fracture site, as well as lateral translation of the talus. This is consistent with an unstable Hernandez B ankle fracture. ASSESSMENT: This is a 70-year-old female who was admitted for urosepsis and renal stones status post bilateral stone removal and stent placement. Orthopedic faye, she has a left unstable Hernandez B ankle fracture. I discussed with the patient, as well as her primary doctor, about her ambulatory status. It sounds like she is ambulatory within the home, but does use a walker and then also uses a wheelchair when she is out of the house. Given the unstable nature of her ankle fracture, I think that she would be best treated with an open reduction internal fixation to achieve the best chance of healing and ability to mobilize thereafter. However, I do think that this can wait maybe a week or so given the fact that she is still being treated for urosepsis. My concern is that if we do surgery in the next day or two, this is in close proximity to the urosepsis event, and I worry about the organisms seeding the area around the implant and predisposing us to an increased risk of surgical site infection. I discussed this with the patient, as well as Dr. Coleman. For now, we will plan for her to be nonweightbearing on the left lower extremity. DVT chemo prophylaxis given her prior history of DVT is per her primary team. If she does have surgery, then I do recommend the appropriate amount of holiday from the chemoprophylactic agent prior to surgery. She is on Eliquis and I think the recommended time to discontinue prior to surgery is 48-72 hours. We will tentatively plan for her to have surgery within the next week or two and we will try to find surgeon availability. Otherwise, pain control and other care per the primary team. If there are any questions, please call myself at [phone].
[2020-11-09 14:00] VITALS: BP 154/96
[2020-11-09] MEDS: SIMVASTATIN 20 MG TAB PO SCH (19:56)
[2020-11-09] MEDS: DONEPEZIL 5 MG TAB PO SCH (19:57)
--- NOTE | 2020-11-09 21:46 | IPNPDOC ---
Text Note Date of Service The patient was seen on 11/09/20. NOTE Patient seen today and appeared comfortable in bed, says ankle feels better. Discussed with patient again recommendation for ORIF due to instability of the fracture pattern and her baseline ambulatory status. I've discussed with my colleague, Dr. Blackburn, and he is able to do the surgery on TuesdayNovember 17. Recommend this as the best course of action so she can maximize her time on antibiotics for her recent urosepsis and ureteral stent. Until then recommend elevation and soft tissue rest, non-weight bearing, okay to restart DVT chemoprophylaxis but will need to be withheld 72 hours before surgery. Questions please call [phone], if unavailable please leave a message. [place] VS,Michael, I+O VS, Michael, I+O Vital Signs Date Time Temp Pulse Resp B/P (MAP) Pulse Ox O2 Delivery O2 Flow Rate FiO2 11/09/20 19:57 113 153/93 11/09/20 14:00 98.3 18 96 Room Air 11/07/20 04:00 1.0 I&O- Last 24 Hours up to 6 AM 11/09/20 06:00 Intake Total 810 ml Output Total 0 ml Balance 810 ml SHELBY EUGENE MD Nov 09, 2020 21:46
[2020-11-09 22:00] VITALS: BP 153/93
[2020-11-10] MEDS: cefTRIAXone SOD 2 GM in D5W MINI-BAG PLUS 50 ML IV SCH (05:28)
[2020-11-10 06:42] VITALS: BP 130/74
[2020-11-10 06:44] LABS: BASO % 0.2 % (0.0-1.0); EOS # 0.1 10^3/uL (0.0-0.5); EOS % 0.5 % (0.0-3.0); HEMOGLOBIN 11.7 g/dl (12.0-15.5); LYMPH # 1.5 10^3/uL (1.5-5.0); LYMPH % 15.3 % (24.0-44.0); MEAN CORPUSCULAR HEMOGLOBIN 27.9 pg (27.0-33.0); MEAN CORPUSCULAR HGB CONC 31.6 g/dl (32.0-36.5); MEAN CORPUSCULAR VOLUME 88.3 fl (80.0-96.0); MONO # 1.1 10^3/uL (0.0-0.8); MONO % 11.6 % (2.0-8.0); NEUTROPHILS # 6.7 10^3/uL (1.5-8.5); NEUTROPHILS % 71.3 % (36.0-66.0); PLATELET COUNT, AUTOMATED 296 10^3/uL (150-450); RED BLOOD COUNT 4.19 10^6/uL (4.00-5.40); WHITE BLOOD COUNT 9.5 10^3/uL (4.0-10.0)
[2020-11-10 06:59] LABS: BLOOD UREA NITROGEN 25 MG/DL (7-18); CALCIUM LEVEL 9.1 MG/DL (8.8-10.2); CARBON DIOXIDE LEVEL 32 MEQ/L (21-32); CHLORIDE LEVEL 103 MEQ/L (98-107); CREATININE FOR GFR 0.62 MG/DL (0.55-1.30); GLOMERULAR FILTRATION RATE > 60.0 (>39); GLUCOSE, FASTING 126 MG/DL (70-100); POTASSIUM SERUM 3.9 MEQ/L (3.5-5.1); SODIUM LEVEL 141 MEQ/L (136-145)
[2020-11-10] MEDS ORDERED: FUROSEMIDE 40MG/4ML VIAL (J1940) IV ONE (07:05)
[2020-11-10] MEDS: SENNA 8.6 MG TAB (SENOKOT) PO SCH (08:06)
[2020-11-10] MEDS: FERROUS SULFATE 325MG TAB PO SCH ×2 (08:06→20:11)
[2020-11-10] MEDS: GABAPENTIN 100 MG CAP PO SCH ×2 (08:06→20:12)
[2020-11-10] MEDS: APIXABAN 5 MG TAB (ELIQUIS) PO SCH ×2 (08:06→20:11)
[2020-11-10] MEDS: bisoproloL fumarate 10 MG TAB PO SCH ×2 (08:07→20:12)
[2020-11-10] MEDS: NYSTATIN 100,000 UNITS/GM TOPICAL PWD 15 GM TOP SCH ×2 (08:07→20:12)
--- NOTE | 2020-11-10 13:25 | IPNPDOC ---
Subjective Date Seen The patient was seen on 11/10/20. Subjective Chief Complaint/HPI oriented only to self today , thinks she is in the salon. lang not know the date or time. Confused about morning or evening. When i asked if she had breakfast she was not sure if she had it. Objective Physical Examination General Exam: Positive: Alert, Cooperative, Other (oriented x1 today some days she knows she is in the hospital. ) Neck Exam: Positive: Supple; Negative: JVD, thyromegaly Chest Exam: Positive: Normal air movement, Diminished (at the bases), Other (bilateral basl crackles) Heart Exam: Positive: Rate Normal, Regular Rhythm, Normal S1, Normal S2; Negative: Murmurs, Rubs Abdomen Exam: Positive: Normal bowel sounds, Soft; Negative: Tenderness Extremity Exam: Positive: Edema (bipedal edema 1+ to 2+), Tenderness (right ankle), Swelling (right ankle); Negative: Clubbing, Cyanosis, Other Skin Exam: Positive: Rash (bilateral chronic venous stasis dermatitis.) Assessment /Plan Assessment This is a 70 yr old F with past medical history of vascular dementia, hypertension, hyperlipidemia, history of breast cancer, nephrolithiasis , left ureteral stent was brought to the ER by her because he noticed that she has not been feeling well for a few days and seems more confused when compared to her baseline. The night prior to admission while in the bathroom she had a fall and could not help her up so had called the EMS. She was admitted for UTI, obstructive uropathy and metabolic encephalopathy. Patient is not a reliable historian at baseline due to her dementia. Metabolic encephalopathy on the back ground of dementia. due to UTI and sepsis. Resolved Now mental status seems to be at baseline. UTI with obstructive uropathy ceftriaxone changed to cefdinir Bilateral nephrolithiasis with right stag horn calculus and Left-sided obstructing ureteral stone, H/o lithotripsies inthe past and double j stent placements. Left obstructive uropathy with moderate left hydronephrosis and hydroureter extending into the pelvis. The left ureteral stent appears to traverse a left ureteral calculus within the pelvis which measures approximately 5 x 7 x 9 mm and appears to a been present on the prior study Status post left stent exchange and right new stent placement on 11/07/20 Sepsis secondary to UTI resolved ceftriaxone 5 days now on cefdinir blood culture negative Urine culture contaminated but in view of bilateral stents will continue with antibiotics. Fall at home right ankle unstable bimalleolar fracture splinted . Will need ORIF planned for 11/[address] Lazaro. Nonweightbearing on the right. PT/OT Eliquis to be held 3 days prior to surgery. Essential HTN continue current meds bisoprolol Hyperlipidemia Continue statin Hx of DVT As per , this occurred earlier this year in Jul/Aug. it's unclear if it's provoked or unprovoked. Restarted Eliquis. If it's provoked DVT the length of therapy 3 months Vascular dementia poor historian, continue donepezil Disc herniation gabapentin, will not give any baclofen H/o Bilateral breast cancer Reconstructive breast surgery in 1984 Right mastectomy in 1999 Dispo: To Rehab. Plan/VTE VTE Prophylaxis Ordered?: Yes VTE Exclusion Mechanical Proph: N/A:VTE Prophy Ordered VS, I&O, 24H, Fishbone Vital Signs/I&O Vital Signs Date Time Temp Pulse Resp B/P (MAP) Pulse Ox O2 Delivery O2 Flow Rate FiO2 11/10/20 08:07 112 152/92 11/10/20 06:42 98.4 18 96 Room Air 11/07/20 04:00 1.0 I&O- Last 24 Hours up to 6 AM 11/10/20 06:00 Intake Total 850 ml Output Total 0 ml Balance 850 ml Laboratory Data 24H LABS Laboratory Tests 2 11/10/20 06:18: Immature Granulocyte % (Auto) 1.1, Neutrophils (%) (Auto) 71.3H, Lymphocytes (%) (Auto) 15.3L, Monocytes (%) (Auto) 11.6H, Eosinophils (%) (Auto) 0.5, Basophils (%) (Auto) 0.2, Neutrophils # (Auto) 6.7, Lymphocytes # (Auto) 1.5, Monocytes # (Auto) 1.1H, Eosinophils # (Auto) 0.1, Basophils # (Auto) 0.0, Nucleated Red Blood Cells % (auto) 0.0, Anion Gap 6L, Glomerular Filtration Rate > 60.0, Calcium Level 9.1 CBC/BMP Laboratory Tests 11/10/20 06:18 Microbiology Microbiology 11/05/20 Blood Culture - Final, Complete NO GROWTH AFTER 5 DAYS 11/05/20 Respiratory Virus Panel (PCR) ([facility]) - Final, Complete 11/05/20 Urine Culture - Final, Complete NANCIE POOLE MD Nov 10, 2020 13:25
[2020-11-10 14:00] VITALS: BP 147/94
[2020-11-10] MEDS: SIMVASTATIN 20 MG TAB PO SCH (20:11)
[2020-11-10] MEDS: CEFDINIR 300 MG CAP (OMNICEF) PO SCH (20:11)
[2020-11-10] MEDS: DONEPEZIL 5 MG TAB PO SCH (20:11)
[2020-11-10 22:00] VITALS: BP 136/81
[2020-11-11 06:00] VITALS: BP 142/76
[2020-11-11 06:25] LABS: BASO # 0.1 10^3/uL (0.0-0.2); BASO % 0.5 % (0.0-1.0); EOS # 0.1 10^3/uL (0.0-0.5); EOS % 1.1 % (0.0-3.0); HEMOGLOBIN 11.6 g/dl (12.0-15.5); LYMPH # 2.1 10^3/uL (1.5-5.0); LYMPH % 16.1 % (24.0-44.0); MEAN CORPUSCULAR HEMOGLOBIN 28.3 pg (27.0-33.0); MEAN CORPUSCULAR HGB CONC 31.4 g/dl (32.0-36.5); MEAN CORPUSCULAR VOLUME 90.2 fl (80.0-96.0); MONO # 1.5 10^3/uL (0.0-0.8); MONO % 11.9 % (2.0-8.0); NEUTROPHILS # 8.8 10^3/uL (1.5-8.5); NEUTROPHILS % 69.3 % (36.0-66.0); PLATELET COUNT, AUTOMATED 325 10^3/uL (150-450); WHITE BLOOD COUNT 12.7 10^3/uL (4.0-10.0)
[2020-11-11 06:55] LABS: BLOOD UREA NITROGEN 32 MG/DL (7-18); CALCIUM LEVEL 9.3 MG/DL (8.8-10.2); CARBON DIOXIDE LEVEL 32 MEQ/L (21-32); CHLORIDE LEVEL 103 MEQ/L (98-107); CREATININE FOR GFR 0.64 MG/DL (0.55-1.30); GLOMERULAR FILTRATION RATE > 60.0 (>39); GLUCOSE, FASTING 113 MG/DL (70-100); POTASSIUM SERUM 3.8 MEQ/L (3.5-5.1); SODIUM LEVEL 143 MEQ/L (136-145)
[2020-11-11] MEDS: GABAPENTIN 100 MG CAP PO SCH ×2 (09:28→20:15)
[2020-11-11] MEDS: NYSTATIN 100,000 UNITS/GM TOPICAL PWD 15 GM TOP SCH ×2 (09:28→20:16)
[2020-11-11] MEDS: CEFDINIR 300 MG CAP (OMNICEF) PO SCH ×2 (09:28→20:16)
[2020-11-11] MEDS: SENNA 8.6 MG TAB (SENOKOT) PO SCH (09:28)
[2020-11-11] MEDS: FERROUS SULFATE 325MG TAB PO SCH ×2 (09:28→20:16)
[2020-11-11] MEDS: bisoproloL fumarate 10 MG TAB PO SCH ×2 (09:28→20:16)
[2020-11-11] MEDS: APIXABAN 5 MG TAB (ELIQUIS) PO SCH ×2 (09:29→20:16)
--- NOTE | 2020-11-11 13:03 | IPNPDOC ---
Subjective Date Seen The patient was seen on 11/11/20. Subjective Chief Complaint/HPI No complaints this morning. Objective Physical Examination General Exam: Positive: Alert, Cooperative, Other (oriented to self and some days she knows she is in the hospital. ) Neck Exam: Positive: Supple; Negative: JVD, thyromegaly Chest Exam: Positive: Normal air movement, Diminished (at the bases), Other (bilateral basl crackles) Heart Exam: Positive: Rate Normal, Regular Rhythm, Normal S1, Normal S2; Negative: Murmurs, Rubs Abdomen Exam: Positive: Normal bowel sounds, Soft; Negative: Tenderness Extremity Exam: Positive: Edema (bipedal edema 1+ to 2+), Tenderness (right an kle), Swelling (right ankle); Negative: Clubbing, Cyanosis, Other Skin Exam: Positive: Rash (bilateral chronic venous stasis dermatitis.) Assessment /Plan Assessment This is a 70 yr old F with past medical history of vascular dementia, hype rtension, hyperlipidemia, history of breast cancer, nephrolithiasis , left ureteral stent was brought to the ER by her because he noticed that she has not been feeling well for a few days and seems more confused when compared to her baseline. The night prior to admission while in the bathroom she had a fall and could not help her up so had called the EMS. She was admitted for UTI, obstructive uropathy and metabolic encephalopathy. Patient is not a reliable historian at baseline due to her dementia. Metabolic encephalopathy on the back ground of dementia. due to UTI and sepsis. Resolved Now mental status seems to be at baseline. UTI with obstructive uropathy ceftriaxone changed to cefdinir Bilateral nephrolithiasis with right stag horn calculus and Left-sided obstruc ting ureteral stone, H/o lithotripsies inthe past and double j stent placements. Left obstructive uropathy with moderate left hydronephrosis and hydroureter extending into the pelvis. The left ureteral stent appears to traverse a left ureteral calculus within the pelvis which measures approximately 5 x 7 x 9 mm and appears to a been present on the prior study Status post left stent exchange and right new stent placement on 11/07/20 Sepsis secondary to UTI resolved ceftriaxone 5 days now on cefdinir blood culture negative Urine culture contaminated but in view of bilateral stents will continue with antibiotics. Fall at home right ankle unstable bimalleolar fracture splinted . Will need ORIF planned for 11/[address] Lazaro. Nonweightbearing on the right. PT/OT Eliquis to be held 3 days prior to surgery. Essential HTN continue current meds bisoprolol Hyperlipidemia Continue statin Hx of DVT As per , this occurred earlier this year in Jul/Aug. it's unclear if it's provoked or unprovoked. Restarted Eliquis. If it's provoked DVT the length of therapy 3 months Vascular dementia poor historian, continue donepezil Disc herniation gabapentin, will not give any baclofen H/o Bilateral breast cancer Reconstructive breast surgery in 1984 Right mastectomy in 1999 Dispo: To Rehab. Plan/VTE VTE Prophylaxis Ordered?: Yes VTE Exclusion Mechanical Proph: N/A:VTE Prophy Ordered VS, I&O, 24H, Fishbone Vital Signs/I&O Vital Signs Date Time Temp Pulse Resp B/P (MAP) Pulse Ox O2 Delivery O2 Flow Rate FiO2 11/11/20 09:28 109 165/92 11/11/20 06:00 97.9 18 93 Room Air 11/07/20 04:00 1.0 I&O- Last 24 Hours up to 6 AM0 11/11/20 06:00 Intake Total 720 ml Output Total 0 ml Balance 720 ml Laboratory Data 24H LABS Laboratory Tests 2 11/11/20 06:10: Immature Granulocyte % (Auto) 1.1, Neutrophils (%) (Auto) 69.3H, Lymphocytes (%) (Auto) 16.1L, Monocytes (%) (Auto) 11.9H, Eosinophils (%) (Auto) 1.1, Basophils (%) (Auto) 0.5, Neutrophils # (Auto) 8.8H, Lymphocytes # (Auto) 2.1, Monocytes # (Auto) 1.5H, Eosinophils # (Auto) 0.1, Basophils # (Auto) 0.1, Nucleated Red Blood Cells % (auto) 0.0, Anion Gap 8, Glomerular Filtration Rate > 60.0, Calcium Level 9.3 CBC/BMP Laboratory Tests 11/11/20 06:10 Microbiology Microbiology 11/05/20 Blood Culture - Final, Complete NO GROWTH AFTER 5 DAYS 11/05/20 Respiratory Virus Panel (PCR) ([facility]) - Final, Complete 11/05/20 Urine Culture - Final, Complete NANCIE POOLE MD Nov 11, 2020 13:03
[2020-11-11 14:00] VITALS: BP 152/88
[2020-11-11] MEDS: SIMVASTATIN 20 MG TAB PO SCH (20:16)
[2020-11-11] MEDS: DONEPEZIL 5 MG TAB PO SCH (20:16)
[2020-11-11 22:00] VITALS: BP 149/87
[2020-11-12 06:00] VITALS: BP 146/85
[2020-11-12] MEDS: FERROUS SULFATE 325MG TAB PO SCH ×2 (09:59→20:42)
[2020-11-12] MEDS: APIXABAN 5 MG TAB (ELIQUIS) PO SCH ×2 (09:59→20:42)
[2020-11-12] MEDS: bisoproloL fumarate 10 MG TAB PO SCH ×2 (10:00→20:42)
[2020-11-12] MEDS: GABAPENTIN 100 MG CAP PO SCH ×2 (10:00→20:42)
[2020-11-12] MEDS: NYSTATIN 100,000 UNITS/GM TOPICAL PWD 15 GM TOP SCH ×2 (10:00→20:43)
[2020-11-12] MEDS: CEFDINIR 300 MG CAP (OMNICEF) PO SCH ×2 (10:00→20:42)
[2020-11-12] MEDS: SENNA 8.6 MG TAB (SENOKOT) PO SCH (10:00)
[2020-11-12] MEDS: amLODIPine 5 MG TAB PO SCH (10:00)
[2020-11-12 14:00] VITALS: BP 145/88
[2020-11-12] MEDS: SIMVASTATIN 20 MG TAB PO SCH (20:41)
[2020-11-12] MEDS: DONEPEZIL 5 MG TAB PO SCH (20:42)
[2020-11-12 22:00] VITALS: BP 142/91
[2020-11-13 06:00] VITALS: BP 116/67
[2020-11-13 06:11] LABS: BASO # 0.1 10^3/uL (0.0-0.2); BASO % 0.5 % (0.0-1.0); EOS # 0.2 10^3/uL (0.0-0.5); HEMATOCRIT 37.7 % (36.0-47.0); HEMOGLOBIN 11.5 g/dl (12.0-15.5); LYMPH % 20.3 % (24.0-44.0); MEAN CORPUSCULAR HEMOGLOBIN 27.9 pg (27.0-33.0); MEAN CORPUSCULAR HGB CONC 30.5 g/dl (32.0-36.5); MEAN CORPUSCULAR VOLUME 91.5 fl (80.0-96.0); MONO # 1.3 10^3/uL (0.0-0.8); MONO % 13.3 % (2.0-8.0); NEUTROPHILS # 6.2 10^3/uL (1.5-8.5); NEUTROPHILS % 63.1 % (36.0-66.0); PLATELET COUNT, AUTOMATED 375 10^3/uL (150-450); RED BLOOD COUNT 4.12 10^6/uL (4.00-5.40); WHITE BLOOD COUNT 9.8 10^3/uL (4.0-10.0)
[2020-11-13 06:34] LABS: BLOOD UREA NITROGEN 31 MG/DL (7-18); CALCIUM LEVEL 8.9 MG/DL (8.8-10.2); CARBON DIOXIDE LEVEL 32 MEQ/L (21-32); CHLORIDE LEVEL 109 MEQ/L (98-107); CREATININE FOR GFR 0.64 MG/DL (0.55-1.30); GLOMERULAR FILTRATION RATE > 60.0 (>39); GLUCOSE, FASTING 109 MG/DL (70-100); POTASSIUM SERUM 4.2 MEQ/L (3.5-5.1); SODIUM LEVEL 144 MEQ/L (136-145)
[2020-11-13] MEDS: FERROUS SULFATE 325MG TAB PO SCH ×2 (09:36→20:28)
[2020-11-13] MEDS: APIXABAN 5 MG TAB (ELIQUIS) PO SCH ×2 (09:36→20:28)
[2020-11-13] MEDS: amLODIPine 5 MG TAB PO SCH (09:36)
[2020-11-13] MEDS: NYSTATIN 100,000 UNITS/GM TOPICAL PWD 15 GM TOP SCH ×2 (09:36→20:29)
[2020-11-13] MEDS: GABAPENTIN 100 MG CAP PO SCH ×2 (09:36→20:28)
[2020-11-13] MEDS: SENNA 8.6 MG TAB (SENOKOT) PO SCH (09:36)
[2020-11-13] MEDS: bisoproloL fumarate 10 MG TAB PO SCH ×2 (09:36→20:29)
[2020-11-13] MEDS: CEFDINIR 300 MG CAP (OMNICEF) PO SCH ×2 (09:48→20:28)
[2020-11-13 14:00] VITALS: BP 135/79
[2020-11-13] MEDS: SIMVASTATIN 20 MG TAB PO SCH (20:28)
[2020-11-13] MEDS: DONEPEZIL 5 MG TAB PO SCH (20:28)
[2020-11-13 22:00] VITALS: BP 131/77
[2020-11-14 06:00] VITALS: BP 120/72
[2020-11-14] MEDS: CEFDINIR 300 MG CAP (OMNICEF) PO SCH ×2 (09:04→20:43)
[2020-11-14] MEDS: SENNA 8.6 MG TAB (SENOKOT) PO SCH (09:04)
[2020-11-14] MEDS: GABAPENTIN 100 MG CAP PO SCH ×2 (09:04→20:43)
[2020-11-14] MEDS: FERROUS SULFATE 325MG TAB PO SCH ×2 (09:04→20:43)
[2020-11-14] MEDS: amLODIPine 5 MG TAB PO SCH (09:04)
[2020-11-14] MEDS: NYSTATIN 100,000 UNITS/GM TOPICAL PWD 15 GM TOP SCH ×2 (09:05→20:44)
[2020-11-14] MEDS: bisoproloL fumarate 10 MG TAB PO SCH ×2 (09:05→20:44)
[2020-11-14 14:00] VITALS: BP 129/61
[2020-11-14] MEDS: DONEPEZIL 5 MG TAB PO SCH (20:43)
[2020-11-14] MEDS: SIMVASTATIN 20 MG TAB PO SCH (20:43)
[2020-11-15 06:00] VITALS: BP 132/80
[2020-11-15] MEDS: CEFDINIR 300 MG CAP (OMNICEF) PO SCH ×2 (10:00→20:14)
[2020-11-15] MEDS: amLODIPine 5 MG TAB PO SCH (10:00)
[2020-11-15] MEDS: NYSTATIN 100,000 UNITS/GM TOPICAL PWD 15 GM TOP SCH ×2 (10:01→20:11)
[2020-11-15] MEDS: SENNA 8.6 MG TAB (SENOKOT) PO SCH (10:01)
[2020-11-15] MEDS: bisoproloL fumarate 10 MG TAB PO SCH ×2 (10:01→20:11)
[2020-11-15] MEDS: FERROUS SULFATE 325MG TAB PO SCH ×2 (10:01→20:10)
[2020-11-15] MEDS: GABAPENTIN 100 MG CAP PO SCH ×2 (10:01→20:10)
[2020-11-15] MEDS: ACETAMINOPHEN TAB 650MG DOSE (2X325MG) PO PRN (13:51)
[2020-11-15] MEDS: DONEPEZIL 5 MG TAB PO SCH (20:10)
[2020-11-15] MEDS: SIMVASTATIN 20 MG TAB PO SCH (20:10)
[2020-11-16 06:00] VITALS: BP 133/63
[2020-11-16 07:03] LABS: BASO % 0.3 % (0.0-1.0); EOS # 0.3 10^3/uL (0.0-0.5); EOS % 2.5 % (0.0-3.0); HEMATOCRIT 36.7 % (36.0-47.0); HEMOGLOBIN 11.4 g/dl (12.0-15.5); LYMPH # 1.9 10^3/uL (1.5-5.0); LYMPH % 15.3 % (24.0-44.0); MEAN CORPUSCULAR HEMOGLOBIN 28.2 pg (27.0-33.0); MEAN CORPUSCULAR HGB CONC 31.1 g/dl (32.0-36.5); MEAN CORPUSCULAR VOLUME 90.8 fl (80.0-96.0); MONO # 1.1 10^3/uL (0.0-0.8); MONO % 8.7 % (2.0-8.0); NEUTROPHILS # 8.9 10^3/uL (1.5-8.5); NEUTROPHILS % 72.5 % (36.0-66.0); PLATELET COUNT, AUTOMATED 392 10^3/uL (150-450); RED BLOOD COUNT 4.04 10^6/uL (4.00-5.40); WHITE BLOOD COUNT 12.2 10^3/uL (4.0-10.0)
[2020-11-16 07:25] LABS: BLOOD UREA NITROGEN 24 MG/DL (7-18); CALCIUM LEVEL 8.7 MG/DL (8.8-10.2); CARBON DIOXIDE LEVEL 28 MEQ/L (21-32); CHLORIDE LEVEL 109 MEQ/L (98-107); CREATININE FOR GFR 0.48 MG/DL (0.55-1.30); GLOMERULAR FILTRATION RATE > 60.0 (>39); GLUCOSE, FASTING 92 MG/DL (70-100); POTASSIUM SERUM 4.4 MEQ/L (3.5-5.1); SODIUM LEVEL 142 MEQ/L (136-145)
[2020-11-16] MEDS: SENNA 8.6 MG TAB (SENOKOT) PO SCH (09:40)
[2020-11-16] MEDS: CEFDINIR 300 MG CAP (OMNICEF) PO SCH ×2 (09:40→21:17)
[2020-11-16] MEDS: FERROUS SULFATE 325MG TAB PO SCH (09:40)
[2020-11-16] MEDS: bisoproloL fumarate 10 MG TAB PO SCH ×2 (09:41→21:19)
[2020-11-16] MEDS: amLODIPine 5 MG TAB PO SCH (09:41)
[2020-11-16] MEDS: GABAPENTIN 100 MG CAP PO SCH (09:41)
[2020-11-16] MEDS: NYSTATIN 100,000 UNITS/GM TOPICAL PWD 15 GM TOP SCH ×2 (09:42→21:18)
[2020-11-16] MEDS ORDERED: ONDANSETRON 4 MG TAB PO ONE (16:10)
[2020-11-16] MEDS ORDERED: SENNA 8.6 MG TAB (SENOKOT) PO PRN (17:00)
[2020-11-16 17:54] LABS: INR 1.06
[2020-11-16 17:55] LABS: PARTIAL THROMBOPLASTIN TIME 28.7 SECONDS (24.2-38.5)
[2020-11-16] MEDS: DONEPEZIL 5 MG TAB PO SCH (21:18)
[2020-11-16] MEDS: SIMVASTATIN 20 MG TAB PO SCH (21:18)
[2020-11-16] MEDS ORDERED: D5W/0.9% SODIUM CHLORIDE 1,000 ML IV SCH (23:55)
[2020-11-17] VITALS (7 sets, daily range): BP systolic 126–153; BP diastolic 74–92
[2020-11-17] MEDS ORDERED: MIDAZOLAM INJ 2MG/2ML VIAL (J2250 PER 1MG) IV PRN (07:01)
[2020-11-17] MEDS ORDERED: fentaNYL 100 MCG/2 ML INJECTION (J3010) IV PRN ×3 (07:01→15:35)
[2020-11-17] MEDS: bisoproloL fumarate 10 MG TAB PO SCH ×2 (08:05→21:22)
[2020-11-17] MEDS: CEFDINIR 300 MG CAP (OMNICEF) PO SCH ×2 (08:05→21:19)
[2020-11-17] MEDS: NYSTATIN 100,000 UNITS/GM TOPICAL PWD 15 GM TOP SCH ×2 (08:05→21:22)
[2020-11-17] MEDS: amLODIPine 5 MG TAB PO SCH (08:05)
[2020-11-17] MEDS ORDERED: MIDAZOLAM INJ 2MG/2ML VIAL (J2250 PER 1MG) As Ordered ONE (09:39)
[2020-11-17] MEDS ORDERED: fentaNYL 100 MCG/2 ML INJECTION (J3010) As Ordered ONE (09:39)
[2020-11-17] MEDS ORDERED: LIDOCAINE 2% 100MG/5ML SDV (FOR ANES.) As Ordered ONE (09:40)
[2020-11-17] MEDS ORDERED: ONDANSETRON 4MG/2ML VIAL As Ordered ONE (09:40)
[2020-11-17] MEDS ORDERED: SUGAMMADEX SODIUM 500 MG/5 ML VIAL (BRIDION) As Ordered ONE (09:40)
[2020-11-17] MEDS ORDERED: dexameTHASONE 4 MG/ML 1ML VIAL (J1100 PER 1MG) As Ordered ONE (09:40)
[2020-11-17] MEDS ORDERED: ROCURONIUM BROMIDE 50 MG/5 ML VIAL As Ordered ONE (09:40)
[2020-11-17] MEDS ORDERED: propofoL 200 MG/20 ML VIAL As Ordered ONE (09:40)
[2020-11-17] MEDS ORDERED: ePHEDrine SULFATE 25 MG/5 ML(5MG/ML) SYRINGE As Ordered ONE (09:43)
[2020-11-17] MEDS ORDERED: PHENYLephrine 500MCG 5ML (100MCG/ML) SYRINGE As Ordered ONE (09:43)
[2020-11-17] MEDS ORDERED: ACETAMINOPHEN 1000MG 100ML IV BTL (OFIRMEV) (J0131 PER 10MG) As Ordered ONE (09:43)
[2020-11-17] MEDS ORDERED: BUPIVACAINE HCL 0.5% 30 ML VIAL XX ONE (11:45)
[2020-11-17] MEDS ORDERED: LIDOCAINE 1% MDV 20ML VIAL XX ONE (11:45)
[2020-11-17] MEDS ORDERED: dexameTHASONE 10MG/1ML VIAL PRES.FREE (J1100 PER 1MG) As Ordered ONE (12:03)
[2020-11-17] MEDS ORDERED: EPINEPHrine INJ 1 MG/ML 1ML AMP As Ordered ONE (12:03)
[2020-11-17] MEDS ORDERED: EPINEPHrine INJ 1 MG/ML 1ML AMP XX ONE (12:05)
[2020-11-17] MEDS ORDERED: dexameTHASONE 10MG/1ML VIAL PRES.FREE (J1100 PER 1MG) XX ONE (12:05)
[2020-11-17] MEDS ORDERED: ceFAZolin 2 GM/D5W 50 ML IV BAG (J0690 PER 500MG) As Ordered ONE (12:42)
[2020-11-17] MEDS ORDERED: VASOPRESSIN INJ 20 UNITS/ML VIAL As Ordered ONE (12:44)
[2020-11-17] MEDS ORDERED: oxyCODONE 5MG TAB PO PRN (15:35)
[2020-11-17] MEDS ORDERED: METOCLOPRAMIDE INJ 10MG/2ML VIAL (J2765 PER 1) IV PRN (15:35)
[2020-11-17] MEDS ORDERED: ONDANSETRON 4MG/2ML VIAL IV PRN (15:35)
[2020-11-17] MEDS ORDERED: LR 1,000 ML IV SCH (15:35)
--- NOTE | 2020-11-17 15:41 | REP ---
INDICATION: LEFT ANKLE FRACTURE. COMPARISON: None. TECHNIQUE: Seventeen views. 204.6 seconds of fluoroscopy time is reported. FINDINGS: A sequence of 17 last image hold fluoroscopically obtained spot radiographs of the left ankle document open reduction internal fixation procedure. IMPRESSION: Orthopedic procedural imaging. <Electronically signed by Dayne Yung > 11/17/20 [id number]
--- NOTE | 2020-11-17 15:45 | IPNPDOC ---
Subjective Date Seen The patient was seen on 11/17/20. Subjective Chief Complaint/HPI Complains of abdominal pain and having intermittent nausea. Having diarrhea. No fever or chills. Objective Physical Examination General Exam: Positive: Alert, Cooperative, No Acute Distress, Other (oriented to self and some days she knows she is in the hospital. ) Neck Exam: Positive: Supple; Negative: JVD, thyromegaly Chest Exam: Positive: Normal air movement, Diminished (at the bases), Other (bilateral basl crackles) Heart Exam: Positive: Rate Normal, Regular Rhythm, Normal S1, Normal S2; Negative: Murmurs, Rubs Abdomen Exam: Positive: Normal bowel sounds, Soft, Tenderness (epigastrium and right paraumbilical region) Extremity Exam: Positive: Edema (bipedal edema 1+ to 2+), Tenderness (right ankle), Swelling (right ankle); Negative: Clubbing, Cyanosis, Other Skin Exam: Positive: Rash (bilateral chronic venous stasis dermatitis.) Assessment /Plan Assessment This is a 70 yr old F with past medical history of vascular dementia, hypertension, hyperlipidemia, history of breast cancer, nephrolithiasis , left ureteral stent was brought to the ER by her because he noticed that she has not been feeling well for a few days and seems more confused when compared to her baseline. The night prior to admission while in the bathroom she had a fall and could not help her up so had called the EMS. She was admitted for UTI, obstructive uropathy and metabolic encephalopathy. Patient is not a re liable historian at baseline due to her dementia. Fall at home right ankle unstable bimalleolar fracture going for ORIF 11/17 Eliquis to be restarted when OK with surgeon. PT/OT post surgery. Metabolic encephalopathy on the back ground of dementia. due to UTI and sepsis. Resolved Now mental status seems to be at baseline. UTI with obstructive uropathy Now with bilateral ureteral stents. ceftriaxone changed to cefdinir. Total 2 weeks of antibiotics Bilateral nephrolithiasis with right stag horn calculus and Left-sided obstructing ureteral stone, H/o lithotripsies inthe past and double j stent placements. Left obstructive uropathy with moderate left hydronephrosis and hydroureter extending into the pelvis. The left ureteral stent appears to traverse a left ureteral calculus within the pelvis which measures approximately 5 x 7 x 9 mm and appears to a been present on the prior study Status post left stent exchange and right new stent placement on 11/07/20 Sepsis secondary to UTI resolved ceftriaxone 5 days now on cefdinir blood culture negative Urine culture contaminated but in view of bilateral stents will continue with antibiotics. Essential HTN continue current meds bisoprolol, amlodipine Hyperlipidemia Continue statin Hx of DVT As per , this occurred earlier this year in Jul/Aug. it's unclear if it's provoked or unprovoked. If it's provoked DVT anticoagulation the length of therapy 3 months Vascular dementia poor historian, continue donepezil Disc herniation gabapentin, will not give any baclofen H/o Bilateral breast cancer Reconstructive breast surgery in 1984 on the left Right mastectomy in 1999 Abdominal pain could be gastritis will give PPI and zofran Dispo: To Rehab. Plan/VTE VTE Prophylaxis Ordered?: Yes VTE Exclusion Mechanical Proph: N/A:VTE Prophy Ordered VS, I&O, 24H, Fishbone Vital Signs/I&O Vital Signs Date Time Temp Pulse Resp B/P (MAP) Pulse Ox O2 Delivery O2 Flow Rate FiO2 11/17/20 12:30 88 20 118/60 (79) 100 Nasal Cannula 3.0 11/17/20 06:00 97.4 I&O- Last 24 Hours up to 6 AM 11/17/20 06:59 Intake Total 930 ml Balance 930 ml Laboratory Data 24H LABS Laboratory Tests 2 11/16/20 17:32: Prothrombin Time 14.0, Prothromb Time International Ratio 1.06, Activated Partial Thromboplast Time 28.7 NANCIE POOLE MD Nov 17, 2020 15:45
--- NOTE | 2020-11-17 20:34 | RO ---
OPERATIVE NOTE DATE OF OPERATION: 11/17/2020 TIME: 1 p.m. PREOPERATIVE DIAGNOSIS: Left ankle Hernandez B unstable fracture, closed. POSTOPERATIVE DIAGNOSIS: Left ankle Hernandez B unstable fracture, closed. NAME OF OPERATION: Left ankle open reduction and percutaneous fixation. SURGEON: Brandin Blackburn MD MACHINE APPLICATOR CEMENTER: Saturnino Pandya MD SUPERVISING ATTENDING: Brandin Blackburn MD FINDINGS: Left ankle Hernandez B unstable fracture. INDICATIONS: This was a 70-year-old female who presented to [facility] for not feeling well for several days. The patient was fell in the bathroom and noted pain in her left ankle. The patient was then brought to the emergency department one week prior and was found to be in urosepsis. The patient had kidney stones and was subsequently taken for the procedure of bilateral renal stents. After this was completed, we took note of her left ankle pain and history of fall. She had the aforementioned injury, unstable Hernandez B ankle fracture that was closed. Orthopedics was consulted and indicated for the aforementioned procedure. ANESTHESIA: GETA. TOURNIQUET TIME: 107 minutes. ESTIMATED BLOOD LOSS: 20 mL. IV FLUIDS: Please see anesthesia report. IV ANTIBIOTICS: 3 grams of Ancef. IMPLANTS: Arthrex. CULTURES: None. SPECIMENS: None. Of note, please add modifier 80 for ophthalmic surgical assistant with Dr. Saturnino Pandya assisting in the case due to the complexity. Also add modifier 22 for complexity of the percutaneous case. DESCRIPTION OF PROCEDURE: The patient was met in the preoperative holding area where the patient's operative extremity was signed, the patient's consent was confirmed to be correct, and the patient's identity was confirmed to be correct. The patient was then transported to the operating theater where she was placed on a regular surgical flat-top bed with a radiolucent foot extension. A safety strap secured the patient to the bed. All bony prominences were well padded. The contralateral lower extremity had an SCD placed. A timeout was called. This confirmed the correct patient, correct operative extremity and correct consent. All staff were in agreement. The patient was then draped in the usual sterile fashion. We began the procedure by obtaining fluoroscopic imaging to demonstrate fracture in order to aid in our surgical markings for our skin incisions. After marking out the skin incisions and exsanguinating the left leg and inflating the tourniquet to 250 mmHg, I then made two small percutaneous incisions around the [id number] bone-reducing clamp in order to reduce the fracture to restore mechanical alignment in order to aid in the nail passage. After an adequate reduction, I then made a small 2 cm skin incision overlying the fibula in order to place a lobster claw clamp which would provisionally hold the reduction. After placing the lobster claw clamp and obtaining mechanical alignment of the fractured fibula, I then placed a thin guidewire at the very apex of the distal fibula and in line with the fibular shaft in the lateral view. This was advanced to the level of the fracture. At that point in time, we then used a cannulated drill to drill to the fracture site using a drill bit as a rigid guide. I then was able to advance the thin wire through the tibial canal approximately 130 mm. After passing the thin wire within the fibula which confirmed AP and lateral views, I then replaced the thin wire with a sled which would be used to guide the fibular nail. Of note, I did over-ream prior to passing the nail in order to gain entry into the intramedullary canal of the fibula. At this point in time with the lobster clamp in place, I passed the fibular nail to 130 mm the length of the nail. I then confirmed with fluoroscopic imaging that the nail was seated in the appropriate position and was completely surrounded by fibular bone. The nail was then secured to the fibula using a thin K-wire. We then deployed the proximal talons to secure the proximal aspect of the fibular nail. I secured it distally using a jig and three cortical screws through the distal fibular nail. At this point in time, we were satisfied with the fracture reduction as well as the current implant placement. I then used the guide to place two tetra-cortical 2.5 mm screws through nail and securing the fibula to the tibia and to provide further fixation given the patient is prediabetic and obese, medical comorbidities. This would allow more rigid fixation as endorsed by the current orthopedic literature. At the conclusion of the tetra-cortical syndesmotic screw placement x2, I then removed the jig and took final fluoroscopic imaging to include a mortise, AP and lateral views of the fibula and left ankle. We were satisfied with our implant placement and fracture reduction. I then copiously irrigated all surgical sites. I closed out our 2 cm incision using 2-0 PDS for the dermal layer and 3-0 interrupted nylon sutures and closed all percutaneous incisions using 3-0 nylon suture. I then placed Xeroform over the surgical incisions followed by 4x4 gauze, Webril and placed the patient in a well-padded L&U splint. The patient was then extubated without complication and transported to the postanesthesia care unit. The patient will be nonweightbearing to the left ankle for 12 weeks. She will remain in her L&U splint for two to four weeks and then at that time, will have it removed in clinic and her nylon sutures removed. She will follow the diabetic left ankle open reduction and internal fixation rehabilitative protocol. Her care will be transferred to the internal medicine team and she will follow up in clinic on the November, for a postoperative wound check.
[2020-11-17] MEDS: SIMVASTATIN 20 MG TAB PO SCH (21:19)
[2020-11-17] MEDS: PANTOPRAZOLE 40MG VIAL (C9113 PER 1) IV SCH (21:19)
[2020-11-17] MEDS: DONEPEZIL 5 MG TAB PO SCH (21:19)
[2020-11-18] VITALS (8 sets, daily range): BP systolic 108–140; BP diastolic 66–90; O2SAT 91–94
[2020-11-18] MEDS: ACETAMINOPHEN TAB 650MG DOSE (2X325MG) PO PRN (05:29)
[2020-11-18 06:29] LABS: BASO % 0.1 % (0.0-1.0); EOS % 0.1 % (0.0-3.0); HEMATOCRIT 37.9 % (36.0-47.0); HEMOGLOBIN 11.6 g/dl (12.0-15.5); LYMPH # 0.9 10^3/uL (1.5-5.0); LYMPH % 6.3 % (24.0-44.0); MEAN CORPUSCULAR HEMOGLOBIN 28.2 pg (27.0-33.0); MEAN CORPUSCULAR HGB CONC 30.6 g/dl (32.0-36.5); MEAN CORPUSCULAR VOLUME 92.2 fl (80.0-96.0); MONO # 0.4 10^3/uL (0.0-0.8); MONO % 2.7 % (2.0-8.0); NEUTROPHILS # 12.3 10^3/uL (1.5-8.5); NEUTROPHILS % 90.2 % (36.0-66.0); PLATELET COUNT, AUTOMATED 299 10^3/uL (150-450); RED BLOOD COUNT 4.11 10^6/uL (4.00-5.40); WHITE BLOOD COUNT 13.6 10^3/uL (4.0-10.0)
[2020-11-18 06:43] LABS: BLOOD UREA NITROGEN 21 MG/DL (7-18); CALCIUM LEVEL 8.5 MG/DL (8.8-10.2); CARBON DIOXIDE LEVEL 26 MEQ/L (21-32); CHLORIDE LEVEL 107 MEQ/L (98-107); CREATININE FOR GFR 0.53 MG/DL (0.55-1.30); GLOMERULAR FILTRATION RATE > 60.0 (>39); GLUCOSE, FASTING 128 MG/DL (70-100); POTASSIUM SERUM 4.8 MEQ/L (3.5-5.1); SODIUM LEVEL 140 MEQ/L (136-145)
--- NOTE | 2020-11-18 08:34 | IPNPDOC ---
Subjective Date Seen The patient was seen on 11/18/20. Subjective Chief Complaint/HPI abdominal pain better today. No nausea. Had surgery yesterday. No overnight events will be 3 months non weight bearing on the left foot. Objective Physical Examination General Exam: Positive: Alert, Cooperative, No Acute Distress, Other (oriented to self and some days she knows she is in the hospital. ) Neck Exam: Positive: Supple; Negative: JVD, thyromegaly Chest Exam: Positive: Normal air movement, Diminished (at the bases), Other (bilateral basl crackles) Heart Exam: Positive: Rate Normal, Regular Rhythm, Normal S1, Normal S2; Negative: Murmurs, Rubs Abdomen Exam: Positive: Normal bowel sounds, Soft, Tenderness (epigastrium and right paraumbilical region) Extremity Exam: Positive: Edema (bipedal edema 1+ to 2+), Other (left foot in splint and dressing); Negative: Clubbing, Cyanosis Skin Exam: Positive: Rash (bilateral chronic venous stasis dermatitis.) Assessment /Plan Assessment This is a 70 yr old F with past medical history of vascular dementia, hypertension, hyperlipidemia, history of breast cancer, nephrolithiasis , left ureteral stent was brought to the ER by her because he noticed that she has not been feeling well for a few days and seems more confused when compared to her baseline. The night prior to admission while in the bathroom she had a fall and could not help her up so had called the EMS. She was admitted for UTI, obstructive uropathy and metabolic encephalopathy. Patient is not a reliable historian at baseline due to her dementia. Fall at home right ankle unstable bimalleolar fracture going for ORIF 11/17 As per orthopedics:The patient will be nonweightbearing to the left ankle for 12 weeks. She will remain in her L&U splint for two to four weeks and then at that time, will have it removed in clinic and her nylon sutures removed. She will follow the diabetic left ankle open reduction and internal fixation rehabilitative protocol. She will follow up in clinic on the November, for a postoperative wound check. Metabolic encephalopathy on the back ground of dementia. due to UTI and sepsis. Resolved Now mental status seems to be at baseline. UTI with obstructive uropathy Now with bilateral ureteral stents. ceftriaxone changed to cefdinir. Total 2 weeks of antibiotics finished Bilateral nephrolithiasis with right stag horn calculus and Left-sided obstructing ureteral stone, H/o lithotripsies inthe past and double j stent placements. Left obstructive uropathy with moderate left hydronephrosis and hydroureter extending into the pelvis. The left ureteral stent appears to traverse a left ureteral calculus within the pelvis which measures approximately 5 x 7 x 9 mm and appears to a been present on the prior study Status post left stent exchange and right new stent placement on 11/07/20 Follow up with urology as outpatient for stents. Sepsis secondary to UTI resolved finished antibiotics blood culture negative Essential HTN continue current meds bisoprolol, amlodipine Hyperlipidemia Continue statin Hx of DVT As per , this occurred earlier this year in Jul/Aug. it's unclear if it's provoked or unprovoked. If it's provoked DVT anticoagulation the length of therapy 3 months Vascular dementia poor historian, continue donepezil Disc herniation gabapentin, will not give any baclofen H/o Bilateral breast cancer Reconstructive breast surgery in 1984 on the left Right mastectomy in 1999 Abdominal pain could be gastritis will give PPI and zofran Dispo: To Rehab. Plan/VTE VTE Prophylaxis Ordered?: Yes VTE Exclusion Mechanical Proph: N/A:VTE Prophy Ordered VS, I&O, 24H, Fishbone Vital Signs/I&O Vital Signs Date Time Temp Pulse Resp B/P (MAP) Pulse Ox O2 Delivery O2 Flow Rate FiO2 11/18/20 06:00 98.3 97 16 136/90 (105) 93 Room Air 11/17/20 15:49 2.0 I&O- Last 24 Hours up to 6 AM 11/18/20 06:00 Intake Total 2030 ml Output Total 20 ml Balance 2010 ml Laboratory Data 24H LABS Laboratory Tests 2 11/18/20 05:42: Immature Granulocyte % (Auto) 0.6, Neutrophils (%) (Auto) 90.2H, Lymphocytes (%) (Auto) 6.3L, Monocytes (%) (Auto) 2.7, Eosinophils (%) (Auto) 0.1, Basophils (%) (Auto) 0.1, Neutrophils # (Auto) 12.3H, Lymphocytes # (Auto) 0.9L, Monocytes # (Auto) 0.4, Eosinophils # (Auto) 0.0, Basophils # (Auto) 0.0, Nucleated Red Blood Cells % (auto) 0.0, Anion Gap 7L, Glomerular Filtration Rate > 60.0, Calcium Level 8.5L CBC/BMP Laboratory Tests 11/18/20 05:42 NANCIE POOLE MD Nov 18, 2020 08:34
[2020-11-18] MEDS: PANTOPRAZOLE 40MG VIAL (C9113 PER 1) IV SCH ×2 (08:47→20:11)
[2020-11-18] MEDS: bisoproloL fumarate 10 MG TAB PO SCH ×2 (08:49→20:16)
[2020-11-18] MEDS: CEFDINIR 300 MG CAP (OMNICEF) PO SCH ×2 (08:49→20:11)
[2020-11-18] MEDS: amLODIPine 5 MG TAB PO SCH (08:49)
[2020-11-18] MEDS: NYSTATIN 100,000 UNITS/GM TOPICAL PWD 15 GM TOP SCH ×2 (08:50→20:25)
[2020-11-18] MEDS: GABAPENTIN 100 MG CAP PO SCH ×2 (09:47→20:12)
[2020-11-18] MEDS: FERROUS SULFATE 325MG TAB PO SCH ×2 (09:47→20:12)
[2020-11-18] MEDS: SIMVASTATIN 20 MG TAB PO SCH (20:11)
[2020-11-18] MEDS: DONEPEZIL 5 MG TAB PO SCH (20:12)
[2020-11-19 06:00] VITALS: BP 135/82
[2020-11-19] MEDS ORDERED: FUROSEMIDE 40MG/4ML VIAL (J1940) IV ONE (08:45)
[2020-11-19] MEDS: bisoproloL fumarate 10 MG TAB PO SCH ×2 (09:03→20:57)
[2020-11-19] MEDS: FERROUS SULFATE 325MG TAB PO SCH ×2 (09:03→20:55)
[2020-11-19] MEDS: PANTOPRAZOLE 40MG VIAL (C9113 PER 1) IV SCH ×2 (09:03→20:55)
[2020-11-19] MEDS: NYSTATIN 100,000 UNITS/GM TOPICAL PWD 15 GM TOP SCH ×2 (09:03→20:55)
[2020-11-19] MEDS: GABAPENTIN 100 MG CAP PO SCH ×2 (09:03→20:55)
[2020-11-19 11:31] LABS: ALBUMIN 2.7 GM/DL (3.2-5.2); ALT/SGPT 14 U/L (12-78); BILIRUBIN,DIRECT 0.1 MG/DL (0.0-0.2); BILIRUBIN,TOTAL 0.4 MG/DL (0.2-1.0); TOTAL PROTEIN 5.6 GM/DL (6.4-8.2)
[2020-11-19] MEDS: APIXABAN 5 MG TAB (ELIQUIS) PO SCH ×2 (12:38→20:58)
[2020-11-19 20:12] VITALS: O2SAT 94
[2020-11-19] MEDS: SIMVASTATIN 20 MG TAB PO SCH (20:58)
[2020-11-19] MEDS: DONEPEZIL 5 MG TAB PO SCH (20:58)
[2020-11-20 06:00] VITALS: BP 138/84
[2020-11-20] MEDS: APIXABAN 5 MG TAB (ELIQUIS) PO SCH ×2 (08:13→20:53)
[2020-11-20] MEDS: PANTOPRAZOLE 40MG VIAL (C9113 PER 1) IV SCH ×3 (08:13→20:59)
[2020-11-20] MEDS: NYSTATIN 100,000 UNITS/GM TOPICAL PWD 15 GM TOP SCH ×2 (08:14→20:58)
[2020-11-20] MEDS: TORSEMIDE 20 MG TAB PO SCH (08:14)
[2020-11-20] MEDS: bisoproloL fumarate 10 MG TAB PO SCH ×2 (08:14→21:00)
[2020-11-20] MEDS: FERROUS SULFATE 325MG TAB PO SCH ×2 (08:15→20:53)
[2020-11-20] MEDS: GABAPENTIN 100 MG CAP PO SCH ×2 (08:15→20:53)
[2020-11-20] MEDS: ACETAMINOPHEN TAB 650MG DOSE (2X325MG) PO PRN (14:08)
[2020-11-20] MEDS: SIMVASTATIN 20 MG TAB PO SCH (20:53)
[2020-11-20] MEDS: DONEPEZIL 5 MG TAB PO SCH (20:53)
[2020-11-21 06:00] VITALS: BP 120/80
[2020-11-21 06:46] LABS: BASO % 0.4 % (0.0-1.0); EOS # 0.2 10^3/uL (0.0-0.5); EOS % 1.9 % (0.0-3.0); HEMATOCRIT 38.6 % (36.0-47.0); HEMOGLOBIN 12.1 g/dl (12.0-15.5); LYMPH # 1.9 10^3/uL (1.5-5.0); LYMPH % 18.1 % (24.0-44.0); MEAN CORPUSCULAR HEMOGLOBIN 28.3 pg (27.0-33.0); MEAN CORPUSCULAR HGB CONC 31.3 g/dl (32.0-36.5); MEAN CORPUSCULAR VOLUME 90.4 fl (80.0-96.0); MONO # 1.1 10^3/uL (0.0-0.8); MONO % 10.9 % (2.0-8.0); NEUTROPHILS # 7.2 10^3/uL (1.5-8.5); NEUTROPHILS % 68.2 % (36.0-66.0); PLATELET COUNT, AUTOMATED 380 10^3/uL (150-450); RED BLOOD COUNT 4.27 10^6/uL (4.00-5.40); WHITE BLOOD COUNT 10.5 10^3/uL (4.0-10.0)
[2020-11-21 07:01] LABS: BLOOD UREA NITROGEN 43 MG/DL (7-18); CALCIUM LEVEL 9.1 MG/DL (8.8-10.2); CARBON DIOXIDE LEVEL 31 MEQ/L (21-32); CHLORIDE LEVEL 106 MEQ/L (98-107); CREATININE FOR GFR 0.76 MG/DL (0.55-1.30); GLOMERULAR FILTRATION RATE > 60.0 (>39); GLUCOSE, FASTING 119 MG/DL (70-100); POTASSIUM SERUM 3.9 MEQ/L (3.5-5.1); SODIUM LEVEL 144 MEQ/L (136-145)
[2020-11-21] MEDS: NYSTATIN 100,000 UNITS/GM TOPICAL PWD 15 GM TOP SCH ×2 (08:09→20:59)
[2020-11-21] MEDS: FERROUS SULFATE 325MG TAB PO SCH ×2 (08:09→20:59)
[2020-11-21] MEDS: APIXABAN 5 MG TAB (ELIQUIS) PO SCH ×2 (08:09→20:57)
[2020-11-21] MEDS: PANTOPRAZOLE 40MG TAB (PROTONIX) PO SCH ×2 (08:09→20:59)
[2020-11-21] MEDS: GABAPENTIN 100 MG CAP PO SCH ×2 (08:10→20:57)
[2020-11-21] MEDS: TORSEMIDE 20 MG TAB PO SCH (08:11)
[2020-11-21] MEDS: bisoproloL fumarate 10 MG TAB PO SCH ×2 (08:11→20:58)
[2020-11-21] MEDS: SIMVASTATIN 20 MG TAB PO SCH (20:58)
[2020-11-21] MEDS: DONEPEZIL 5 MG TAB PO SCH (20:58)
[2020-11-22 06:00] VITALS: BP 119/74
[2020-11-22] MEDS: bisoproloL fumarate 10 MG TAB PO SCH ×2 (08:29→20:35)
[2020-11-22] MEDS: APIXABAN 5 MG TAB (ELIQUIS) PO SCH ×2 (08:30→20:34)
[2020-11-22] MEDS: PANTOPRAZOLE 40MG TAB (PROTONIX) PO SCH ×2 (08:30→20:36)
[2020-11-22] MEDS: FERROUS SULFATE 325MG TAB PO SCH ×2 (08:30→20:34)
[2020-11-22] MEDS: NYSTATIN 100,000 UNITS/GM TOPICAL PWD 15 GM TOP SCH ×2 (08:30→20:33)
[2020-11-22] MEDS: TORSEMIDE 20 MG TAB PO SCH (08:30)
[2020-11-22] MEDS: GABAPENTIN 100 MG CAP PO SCH ×2 (08:30→20:36)
[2020-11-22] MEDS: ACETAMINOPHEN TAB 650MG DOSE (2X325MG) PO PRN (14:13)
[2020-11-22] MEDS: DONEPEZIL 5 MG TAB PO SCH (20:34)
[2020-11-22] MEDS: SIMVASTATIN 20 MG TAB PO SCH (20:35)
[2020-11-23 06:00] VITALS: BP 116/67
[2020-11-23 08:33] LABS: BASO # 0.1 10^3/uL (0.0-0.2); BASO % 0.5 % (0.0-1.0); EOS # 0.3 10^3/uL (0.0-0.5); EOS % 3.2 % (0.0-3.0); HEMATOCRIT 41.1 % (36.0-47.0); HEMOGLOBIN 12.6 g/dl (12.0-15.5); LYMPH % 20.2 % (24.0-44.0); MEAN CORPUSCULAR HEMOGLOBIN 27.9 pg (27.0-33.0); MEAN CORPUSCULAR HGB CONC 30.7 g/dl (32.0-36.5); MEAN CORPUSCULAR VOLUME 91.1 fl (80.0-96.0); MONO % 9.6 % (2.0-8.0); NEUTROPHILS # 6.6 10^3/uL (1.5-8.5); NEUTROPHILS % 66.1 % (36.0-66.0); PLATELET COUNT, AUTOMATED 355 10^3/uL (150-450); RED BLOOD COUNT 4.51 10^6/uL (4.00-5.40)
[2020-11-23 09:06] LABS: BLOOD UREA NITROGEN 60 MG/DL (7-18); CALCIUM LEVEL 8.9 MG/DL (8.8-10.2); CARBON DIOXIDE LEVEL 32 MEQ/L (21-32); CHLORIDE LEVEL 110 MEQ/L (98-107); CREATININE FOR GFR 0.91 MG/DL (0.55-1.30); GLOMERULAR FILTRATION RATE > 60.0 (>39); GLUCOSE, FASTING 115 MG/DL (70-100); MAGNESIUM LEVEL 2.4 MG/DL (1.8-2.4); POTASSIUM SERUM 3.8 MEQ/L (3.5-5.1); SODIUM LEVEL 148 MEQ/L (136-145)
[2020-11-23] MEDS: GABAPENTIN 100 MG CAP PO SCH ×2 (09:50→20:34)
[2020-11-23] MEDS: ACETAMINOPHEN TAB 650MG DOSE (2X325MG) PO PRN ×2 (09:50→20:32)
[2020-11-23] MEDS: APIXABAN 5 MG TAB (ELIQUIS) PO SCH ×2 (09:50→20:32)
[2020-11-23] MEDS: bisoproloL fumarate 10 MG TAB PO SCH ×2 (09:50→20:34)
[2020-11-23] MEDS: FERROUS SULFATE 325MG TAB PO SCH ×2 (09:50→20:34)
[2020-11-23] MEDS: PANTOPRAZOLE 40MG TAB (PROTONIX) PO SCH ×2 (09:50→20:34)
[2020-11-23] MEDS: TORSEMIDE 20 MG TAB PO SCH (09:51)
[2020-11-23] MEDS: NYSTATIN 100,000 UNITS/GM TOPICAL PWD 15 GM TOP SCH ×2 (09:51→20:35)
[2020-11-23] MEDS: DONEPEZIL 5 MG TAB PO SCH (20:32)
[2020-11-23] MEDS: SIMVASTATIN 20 MG TAB PO SCH (20:34)
[2020-11-24 06:00] VITALS: BP 116/73
[2020-11-24 08:06] LABS: BASO % 0.4 % (0.0-1.0); EOS # 0.4 10^3/uL (0.0-0.5); EOS % 3.6 % (0.0-3.0); HEMATOCRIT 43.5 % (36.0-47.0); HEMOGLOBIN 13.2 g/dl (12.0-15.5); LYMPH # 1.8 10^3/uL (1.5-5.0); LYMPH % 18.3 % (24.0-44.0); MEAN CORPUSCULAR HEMOGLOBIN 28.1 pg (27.0-33.0); MEAN CORPUSCULAR HGB CONC 30.3 g/dl (32.0-36.5); MEAN CORPUSCULAR VOLUME 92.6 fl (80.0-96.0); MONO % 10.3 % (2.0-8.0); NEUTROPHILS # 6.6 10^3/uL (1.5-8.5); NEUTROPHILS % 67.1 % (36.0-66.0); PLATELET COUNT, AUTOMATED 370 10^3/uL (150-450); WHITE BLOOD COUNT 9.8 10^3/uL (4.0-10.0)
[2020-11-24 08:23] LABS: CALCIUM LEVEL 9.9 MG/DL (8.8-10.2); CREATININE FOR GFR 1.14 MG/DL (0.55-1.30); GLOMERULAR FILTRATION RATE 49.9 (>39); MAGNESIUM LEVEL 2.5 MG/DL (1.8-2.4); POTASSIUM SERUM 3.9 MEQ/L (3.5-5.1)
[2020-11-24] MEDS: GABAPENTIN 100 MG CAP PO SCH ×2 (08:54→20:57)
[2020-11-24] MEDS: FERROUS SULFATE 325MG TAB PO SCH ×2 (08:54→20:57)
[2020-11-24] MEDS: PANTOPRAZOLE 40MG TAB (PROTONIX) PO SCH ×2 (08:54→20:58)
[2020-11-24] MEDS: APIXABAN 5 MG TAB (ELIQUIS) PO SCH ×2 (08:54→20:58)
[2020-11-24] MEDS: bisoproloL fumarate 10 MG TAB PO SCH ×2 (08:55→20:58)
[2020-11-24] MEDS: NYSTATIN 100,000 UNITS/GM TOPICAL PWD 15 GM TOP SCH ×2 (08:55→20:58)
[2020-11-24] MEDS: SIMVASTATIN 20 MG TAB PO SCH (20:57)
[2020-11-24] MEDS: ACETAMINOPHEN TAB 650MG DOSE (2X325MG) PO PRN (20:57)
[2020-11-24] MEDS: DONEPEZIL 5 MG TAB PO SCH (20:58)
[2020-11-25 06:00] VITALS: BP 140/81
[2020-11-25 06:33] LABS: BASO # 0.1 10^3/uL (0.0-0.2); BASO % 0.6 % (0.0-1.0); EOS # 0.3 10^3/uL (0.0-0.5); EOS % 2.9 % (0.0-3.0); HEMOGLOBIN 13.2 g/dl (12.0-15.5); LYMPH # 1.4 10^3/uL (1.5-5.0); LYMPH % 15.8 % (24.0-44.0); MEAN CORPUSCULAR HEMOGLOBIN 27.9 pg (27.0-33.0); MEAN CORPUSCULAR HGB CONC 30.7 g/dl (32.0-36.5); MEAN CORPUSCULAR VOLUME 90.9 fl (80.0-96.0); MONO # 0.9 10^3/uL (0.0-0.8); MONO % 9.7 % (2.0-8.0); NEUTROPHILS # 6.4 10^3/uL (1.5-8.5); NEUTROPHILS % 70.6 % (36.0-66.0); PLATELET COUNT, AUTOMATED 369 10^3/uL (150-450); RED BLOOD COUNT 4.73 10^6/uL (4.00-5.40)
[2020-11-25 06:59] LABS: BLOOD UREA NITROGEN 57 MG/DL (7-18); CALCIUM LEVEL 9.7 MG/DL (8.8-10.2); CARBON DIOXIDE LEVEL 32 MEQ/L (21-32); CHLORIDE LEVEL 108 MEQ/L (98-107); CREATININE FOR GFR 0.84 MG/DL (0.55-1.30); GLOMERULAR FILTRATION RATE > 60.0 (>39); GLUCOSE, FASTING 133 MG/DL (70-100); MAGNESIUM LEVEL 2.4 MG/DL (1.8-2.4); POTASSIUM SERUM 3.6 MEQ/L (3.5-5.1); SODIUM LEVEL 147 MEQ/L (136-145)
[2020-11-25] MEDS: GABAPENTIN 100 MG CAP PO SCH ×2 (10:15→20:32)
[2020-11-25] MEDS: APIXABAN 5 MG TAB (ELIQUIS) PO SCH ×2 (10:15→20:32)
[2020-11-25] MEDS: FERROUS SULFATE 325MG TAB PO SCH ×2 (10:15→20:32)
[2020-11-25] MEDS: PANTOPRAZOLE 40MG TAB (PROTONIX) PO SCH ×2 (10:15→20:32)
[2020-11-25] MEDS: NYSTATIN 100,000 UNITS/GM TOPICAL PWD 15 GM TOP SCH ×2 (10:16→20:32)
[2020-11-25] MEDS: bisoproloL fumarate 10 MG TAB PO SCH ×2 (10:17→20:26)
[2020-11-25] MEDS: SIMVASTATIN 20 MG TAB PO SCH (20:32)
[2020-11-25] MEDS: DONEPEZIL 5 MG TAB PO SCH (20:32)
[2020-11-26 06:00] VITALS: BP 137/64
[2020-11-26 06:40] LABS: BASO % 0.2 % (0.0-1.0); EOS # 0.1 10^3/uL (0.0-0.5); EOS % 1.4 % (0.0-3.0); HEMATOCRIT 41.2 % (36.0-47.0); HEMOGLOBIN 12.6 g/dl (12.0-15.5); LYMPH # 1.6 10^3/uL (1.5-5.0); LYMPH % 16.7 % (24.0-44.0); MEAN CORPUSCULAR HEMOGLOBIN 27.8 pg (27.0-33.0); MEAN CORPUSCULAR HGB CONC 30.6 g/dl (32.0-36.5); MEAN CORPUSCULAR VOLUME 90.7 fl (80.0-96.0); MONO % 10.5 % (2.0-8.0); NEUTROPHILS # 6.7 10^3/uL (1.5-8.5); PLATELET COUNT, AUTOMATED 323 10^3/uL (150-450); RED BLOOD COUNT 4.54 10^6/uL (4.00-5.40); WHITE BLOOD COUNT 9.5 10^3/uL (4.0-10.0)
[2020-11-26 06:59] LABS: BLOOD UREA NITROGEN 44 MG/DL (7-18); CALCIUM LEVEL 9.6 MG/DL (8.8-10.2); CARBON DIOXIDE LEVEL 31 MEQ/L (21-32); CHLORIDE LEVEL 112 MEQ/L (98-107); CREATININE FOR GFR 0.79 MG/DL (0.55-1.30); GLOMERULAR FILTRATION RATE > 60.0 (>39); GLUCOSE, FASTING 129 MG/DL (70-100); MAGNESIUM LEVEL 2.3 MG/DL (1.8-2.4); POTASSIUM SERUM 3.4 MEQ/L (3.5-5.1); SODIUM LEVEL 147 MEQ/L (136-145)
[2020-11-26] MEDS ORDERED: POTASSIUM CHLORIDE 10 MEQ SR TABLET PO ONE (08:00)
[2020-11-26] MEDS: GABAPENTIN 100 MG CAP PO SCH ×2 (08:42→20:43)
[2020-11-26] MEDS: PANTOPRAZOLE 40MG TAB (PROTONIX) PO SCH ×2 (08:42→20:47)
[2020-11-26] MEDS: APIXABAN 5 MG TAB (ELIQUIS) PO SCH ×2 (08:42→20:43)
[2020-11-26] MEDS: FERROUS SULFATE 325MG TAB PO SCH ×2 (08:42→20:43)
[2020-11-26] MEDS: NYSTATIN 100,000 UNITS/GM TOPICAL PWD 15 GM TOP SCH ×2 (08:43→20:47)
[2020-11-26] MEDS: ACETAMINOPHEN TAB 650MG DOSE (2X325MG) PO PRN (08:49)
[2020-11-26] MEDS: bisoproloL fumarate 10 MG TAB PO SCH ×2 (08:50→20:46)
--- NOTE | 2020-11-26 17:29 | IPNPDOC ---
Text Note Date of Service The patient was seen on 11/25/20. NOTE Subjective: Patient is a 70-year-old female with a PMHx of Dementia, HTN, DLP, Breast CA, Hx of Nephrolithiasis and L ureteral stent ) to the ER by her after she was not feeling well for the last few days. The night prior to admission, patient had a fall and EMS was summoned. Upon arrival to emergency room, patient was found to have a urinary tract infection with obstructive uropathy and confusion. Patient was seen and examined at the bedside. Patient was seen sitting up in bed with breakfast tray in place eating banana. She denied any chest pain, shortness of breath or palpitations. Did report some discomfort of her part because she's been in bed the entire time. Objective: Vitals (See below) General: Lying in bed, no acute distress, comfortable, awake / alert HEENT: NC, AT CVS: +S1S2 Lungs: Fair air entry b/l, -w/r/r Abdomen: Soft, ND, NT Extremities: Right leg with some edema noted, left leg in dressing Imaging: XR Chest 11/05: 1. Bilateral axillary surgical clips with prior right mastectomy. 2. Minimal left base atelectasis or scar. 3. Old granulomatous disease. 4. Otherwise negative chest. CT abdomen / pelvis 11/05: 1. Interval removal of a Carter catheter since 07/24/2020. 2. Left obstructive uropathy with moderate left hydronephrosis and hydroureter extending into the pelvis which is new since the prior study despite the presence of a double-J left ureteral stent consistent with poor functionality of the stent since the prior study. 3. Nonobstructing bilateral renal calculi including probable staghorn calculus on the right. The left ureteral stent appears to traverse a left ureteral calculus within the pelvis which measures approximately 5 x 7 x 9 mm and appears to a been present on the prior study. 4. Left breast reconstruction with right mastectomy and left axillary fidelina dissection. 5. Mild bibasilar fibro-atelectatic change and interstitial coarsening, left greater than right with question of minimal infiltrates. There is resolution of left pleural effusion since the prior study and left lower lobe atelectasis is decreased. 6. Minimal right hydronephrosis and hydroureter with periureteral edema, however, this appears similar to slightly improved since the prior study although there is resolution of the right ureteral calculus at the level of the sciatic notch since the prior study. 7. Colonic diverticulosis without diverticulitis. 8. Status post hysterectomy. Vascular US 11/07: Negative bilateral lower extremity duplex venous ultrasound. No evidence of deep vein thrombosis. Ankle XR 11/07: Bimalleolar ankle fracture with a moderate to marked associated soft tissue swelling. Diffuse osteopenia. Heel spurring. Ankle XR 11/08: Medial ankle mortise opens with stress. Assessment and plan: R ankle fracture - 2/2 mechanical fall at home - Patient is s/p Left ankle open reduction and percutaneous fixation on 11/[address] Blackburn - Patient is to remain nonweightbearing of her left ankle for 12 weeks - Orthopedic surgery on consultation; appreciate their input - c/w Pain control as ordered - c/w PT and OT; will require rehabilitation moving forward s/p Metabolic encephalopathy, in the setting of dementia - Patient appears to be at baseline UTI with obstructive uropathy - Has had bilateral ureteral stents placed - s/p Antibiotics (Ceftriaxone and Cefdinir) x 2 weeks Bilateral nephrolithiasis with right stag horn calculus and Left-sided obstructing ureteral stone - History of lithotripsies in the past and double j stent placements - s/p L stent exchange and New R stent placement on 11/07 - Urology on consultation; appreciate their input - Patient is scheduled for stent replacement on 11/[address] Cornell s/p Sepsis 2/2 UTI Essential HTN - BP well controlled - c/w Bisoprolol, amlodipine DLP - c/w Simvastatin History of DVT - Reported to have occurred or 08/2020 - c/w Eliquis - Will have outpatient follow-up with primary care provider Vascular dementia - c/w Donepezil Disc herniation - c/w Gabapentin - s/p Baclofen History of Bilateral breast cancer - s/p reconstructive breast surgery of left (1984) - s/p Right mastectomy (1999) GERD - c/w Protonix DVT prophylaxis - c/w full anticoagulation with Eliquis Disposition: - Anticipate transition to rehabilitation on Tuesday 11/28 VS,Fishbone, I+O VS, Fishbone, I+O Laboratory Tests 11/25/20 06:09 Vital Signs Date Time Temp Pulse Resp B/P (MAP) Pulse Ox O2 Delivery O2 Flow Rate FiO2 11/25/20 10:17 86 122/78 11/25/20 06:00 98.6 18 91 Room Air I&O- Last 24 Hours up to 6 AM 11/25/20 06:00 Intake Total 1720 ml Output Total 0 ml Balance 1720 ml UDRAN HERNANDEZ MD November 25, 2020 19:14
[2020-11-26] MEDS: TORSEMIDE 20 MG TAB PO SCH (18:25)
[2020-11-26] MEDS: SIMVASTATIN 20 MG TAB PO SCH (20:47)
[2020-11-26] MEDS: DONEPEZIL 5 MG TAB PO SCH (20:47)
[2020-11-27] VITALS (7 sets, daily range): BP systolic 105–132; BP diastolic 53–83
[2020-11-27 06:22] LABS: BASO % 0.4 % (0.0-1.0); EOS # 0.3 10^3/uL (0.0-0.5); EOS % 3.2 % (0.0-3.0); HEMATOCRIT 42.4 % (36.0-47.0); HEMOGLOBIN 13.1 g/dl (12.0-15.5); LYMPH # 1.8 10^3/uL (1.5-5.0); LYMPH % 19.6 % (24.0-44.0); MEAN CORPUSCULAR HEMOGLOBIN 28.1 pg (27.0-33.0); MEAN CORPUSCULAR HGB CONC 30.9 g/dl (32.0-36.5); MEAN CORPUSCULAR VOLUME 90.8 fl (80.0-96.0); MONO # 1.1 10^3/uL (0.0-0.8); MONO % 11.5 % (2.0-8.0); NEUTROPHILS # 6.1 10^3/uL (1.5-8.5); PLATELET COUNT, AUTOMATED 328 10^3/uL (150-450); RED BLOOD COUNT 4.67 10^6/uL (4.00-5.40); WHITE BLOOD COUNT 9.4 10^3/uL (4.0-10.0)
[2020-11-27 06:48] LABS: BLOOD UREA NITROGEN 41 MG/DL (7-18); CALCIUM LEVEL 9.1 MG/DL (8.8-10.2); CARBON DIOXIDE LEVEL 32 MEQ/L (21-32); CHLORIDE LEVEL 110 MEQ/L (98-107); GLOMERULAR FILTRATION RATE > 60.0 (>39); GLUCOSE, FASTING 112 MG/DL (70-100); MAGNESIUM LEVEL 2.1 MG/DL (1.8-2.4); POTASSIUM SERUM 3.9 MEQ/L (3.5-5.1); SODIUM LEVEL 147 MEQ/L (136-145)
[2020-11-27] MEDS: APIXABAN 5 MG TAB (ELIQUIS) PO SCH ×2 (09:00→19:34)
[2020-11-27] MEDS: TORSEMIDE 20 MG TAB PO SCH (09:00)
[2020-11-27] MEDS: GABAPENTIN 100 MG CAP PO SCH ×2 (09:00→20:34)
[2020-11-27] MEDS: FERROUS SULFATE 325MG TAB PO SCH ×2 (09:00→20:33)
[2020-11-27] MEDS: bisoproloL fumarate 10 MG TAB PO SCH ×2 (09:00→20:34)
[2020-11-27] MEDS: PANTOPRAZOLE 40MG TAB (PROTONIX) PO SCH ×2 (09:00→20:33)
[2020-11-27] MEDS: NYSTATIN 100,000 UNITS/GM TOPICAL PWD 15 GM TOP SCH ×2 (09:19→20:34)
[2020-11-27] MEDS ORDERED: METOCLOPRAMIDE INJ 10MG/2ML VIAL (J2765 PER 1) ONE (16:06)
[2020-11-27] MEDS ORDERED: fentaNYL 100 MCG/2 ML INJECTION (J3010) ONE (16:06)
[2020-11-27] MEDS ORDERED: dexameTHASONE 4 MG/ML 1ML VIAL (J1100 PER 1MG) ONE (16:06)
[2020-11-27] MEDS ORDERED: ONDANSETRON 4MG/2ML VIAL ONE (16:06)
[2020-11-27] MEDS ORDERED: SUGAMMADEX SODIUM 500 MG/5 ML VIAL (BRIDION) ONE (16:06)
[2020-11-27] MEDS ORDERED: ROCURONIUM BROMIDE 50 MG/5 ML VIAL ONE (16:06)
[2020-11-27] MEDS ORDERED: MIDAZOLAM INJ 2MG/2ML VIAL (J2250 PER 1MG) ONE (16:06)
[2020-11-27] MEDS ORDERED: propofoL 200 MG/20 ML VIAL ONE (16:06)
[2020-11-27] MEDS ORDERED: LIDOCAINE 2% 100MG/5ML SDV (FOR ANES.) ONE (16:06)
[2020-11-27] MEDS ORDERED: LevoFLOXacin IV 500 MG in IV 1 EA IV ONE (17:05)
--- NOTE | 2020-11-27 17:10 | IPNPDOC ---
Subjective Review oF Systems Chief Complaint The patient is a 70-year-old female admitted with a reason for visit of Renal Calculus, Left. Events since Last Encounter No acute events. Objective Physical Examination General Exam: Alert, Cooperative, No Acute Distress Chest Exam: Normal air movement Heart Exam: Positive: Rate Normal, Regular Rhythm Skin Exam: Nl turgor and temperature Neuro Exam: Normal Speech Psych Exam: Mental status NL, Mood NL Vital Signs/I&O Vital Signs Date Time Temp Pulse Resp B/P (MAP) Pulse Ox O2 Delivery O2 Flow Rate FiO2 11/27/20 06:00 98.0 88 20 106/62 (77) 95 11/26/20 06:00 Room Air I&O- Last 24 Hours up to 6 AM 11/27/20 06:00 Intake Total 780 ml Output Total 800 ml Balance -20 ml Laboratory Data Labs 24H Laboratory Tests 2 11/27/20 05:48: Immature Granulocyte % (Auto) 0.3, Neutrophils (%) (Auto) 65.0, Lymphocytes (%) (Auto) 19.6L, Monocytes (%) (Auto) 11.5H, Eosinophils (%) (Auto) 3.2H, Basophils (%) (Auto) 0.4, Neutrophils # (Auto) 6.1, Lymphocytes # (Auto) 1.8, Monocytes # (Auto) 1.1H, Eosinophils # (Auto) 0.3, Basophils # (Auto) 0.0, Nucleated Red Blood Cells % (auto) 0.0, Anion Gap 5L, Glomerular Filtration Rate > 60.0, Calcium Level 9.1, Magnesium Level 2.1 11/27/20 08:34: Coronavirus (COVID-19)(PCR) NEGATIVE CBC/BMP Laboratory Tests 11/27/20 05:48 Microbiology Microbiology 11/21/20 Urine Culture - Final, Complete Assessment/Plan Date Seen The patient was seen on 11/27/20. Patient Summary This is a 70 y/o F admitted for AMS 2/2 UTI and ureteral obstruction approximately 3 wks ago, s/p cysto, L ureteral stent exchange, R ureteral stent placement on 11/05/20. She is scheduled to go to the OR today for cysto, b/l ureteroscopy w/ laser lithotripsy, b/l ureteral stent placement. Informed consent was obtained over the phone from the patient's healthcare proxy [employer]. Plan/VTE VTE Prophylaxis Ordered?: Yes VTE Exclusion Mechanical Proph: N/A:VTE Prophy Ordered Plan - to OR now - NPO - levaquin 500mg IV patron attendant to OR - may resume normal diet postop RUBEN VACA MD November 27, 2020 17:10
[2020-11-27] MEDS ORDERED: VASOPRESSIN INJ 20 UNITS/ML VIAL ONE (17:40)
[2020-11-27] MEDS ORDERED: ePHEDrine SULFATE 25 MG/5 ML(5MG/ML) SYRINGE ONE (17:40)
[2020-11-27] MEDS ORDERED: PHENYLephrine 500MCG 5ML (100MCG/ML) SYRINGE ONE (17:40)
[2020-11-27] MEDS ORDERED: CONRAY-60 60% 50ML VIAL (Q9961) As Ordered ONE (18:47)
[2020-11-27] MEDS: SIMVASTATIN 20 MG TAB PO SCH (20:34)
[2020-11-27] MEDS: DONEPEZIL 5 MG TAB PO SCH (20:34)
[2020-11-28 02:00] VITALS: BP 108/65
[2020-11-28 06:00] VITALS: BP 112/69
[2020-11-28] MEDS: GABAPENTIN 100 MG CAP PO SCH (08:26)
[2020-11-28] MEDS: TORSEMIDE 20 MG TAB PO SCH (08:26)
[2020-11-28] MEDS: bisoproloL fumarate 10 MG TAB PO SCH (08:26)
[2020-11-28] MEDS: FERROUS SULFATE 325MG TAB PO SCH (08:26)
[2020-11-28] MEDS: NYSTATIN 100,000 UNITS/GM TOPICAL PWD 15 GM TOP SCH (08:26)
[2020-11-28] MEDS: PANTOPRAZOLE 40MG TAB (PROTONIX) PO SCH (08:26)
[2020-11-28 08:27] LABS: BASO % 0.2 % (0.0-1.0); HEMATOCRIT 41.8 % (36.0-47.0); HEMOGLOBIN 12.5 g/dl (12.0-15.5); LYMPH # 1.1 10^3/uL (1.5-5.0); LYMPH % 8.6 % (24.0-44.0); MEAN CORPUSCULAR HEMOGLOBIN 27.8 pg (27.0-33.0); MEAN CORPUSCULAR HGB CONC 29.9 g/dl (32.0-36.5); MEAN CORPUSCULAR VOLUME 93.1 fl (80.0-96.0); MONO # 0.7 10^3/uL (0.0-0.8); MONO % 5.8 % (2.0-8.0); NEUTROPHILS # 10.6 10^3/uL (1.5-8.5); NEUTROPHILS % 84.9 % (36.0-66.0); PLATELET COUNT, AUTOMATED 306 10^3/uL (150-450); RED BLOOD COUNT 4.49 10^6/uL (4.00-5.40); WHITE BLOOD COUNT 12.5 10^3/uL (4.0-10.0)
[2020-11-28 08:48] LABS: CREATININE FOR GFR 1.08 MG/DL (0.55-1.30); GLOMERULAR FILTRATION RATE 53.1 (>39); MAGNESIUM LEVEL 2.3 MG/DL (1.8-2.4); POTASSIUM SERUM 4.5 MEQ/L (3.5-5.1)
[2020-11-28] MEDS ORDERED: CEFDINIR 300 MG CAP (OMNICEF) PO SCH (09:00)
[2020-11-28] MEDS ORDERED: CEFD1CAP8 PO (09:01)
[2020-11-28] MEDS ORDERED: TORS20TA2 PO (09:01)
[2020-11-28] MEDS ORDERED: PANT40TA29 PO (09:01)
--- NOTE | 2020-11-28 12:08 | DS.PDOC ---
Discharge Summary General Date of Admission Nov 05, 2020 at 05:44 Date of Discharge 11/28/2020 Discharge Summary PROCEDURES PERFORMED DURING STAY: s/p cysto, L ureteral stent exchange, R ureteral stent placement on 11/05/[address] Cornell s/p Left ankle open reduction and percutaneous fixation on 11/[address] Blackburn s/p cystoscopy, bilateral ureteroscopy with laser lithotripsy, bilateral ureteral stent placement on 11/27/[address] Cornell ADMITTING DIAGNOSES / DISCHARGE DIAGNOSES: R ankle fracture - 2/2 mechanical fall at home s/p Metabolic encephalopathy, in the setting of dementia UTI with obstructive uropathy Bilateral nephrolithiasis with right stag horn calculus and Left-sided obstr ucting ureteral stone s/p Sepsis 2/2 UTI Essential HTN DLP History of DVT Vascular dementia Disc herniation History of Bilateral breast cancer GERD DVT prophylaxis COMPLICATIONS/CHIEF COMPLAINT: Falls / Confusion HISTORY OF PRESENT ILLNESS: Patient is a 70-year-old female with a PMHx of Dementia, HTN, DLP, Breast CA, Hx of Nephrolithiasis and L ureteral stent ) to the ER by her after she was not feeling well for the last few days. The night prior to admission, patient had a fall and EMS was summoned. Upon arrival to emergency room, patient was found to have a urinary tract infection with obstructive uropathy and confusion. HOSPITAL COURSE: R ankle fracture - 2/2 mechanical fall at home - Patient is s/p Left ankle open reduction and percutaneous fixation on 11/[address] Blackburn - Patient is to remain nonweightbearing of her left ankle for 12 weeks - Orthopedic surgery on consultation; appreciate their input - c/w Pain control as ordered - c/w PT and OT; will be transitioned to rehabilitation on discharge - Will have outpatient follow-up with orthopedic surgery within the next 7 days s/p Metabolic encephalopathy, in the setting of dementia - Patient appears to be at baseline UTI with obstructive uropathy - Has had bilateral ureteral stents placed and exchanged - Had received antibiotics (Ceftriaxone and Cefdinir) x 2 weeks - Will provide additional 7 days of Cefdinir post stent exchange (11/27/2020) Bilateral nephrolithiasis with right stag horn calculus and Left-sided obstructing ureteral stone - History of lithotripsies in the past and double j stent placements - s/p L stent exchange and New R stent placement on 11/07 - s/p cystoscopy, bilateral ureteroscopy with laser lithotripsy, bilateral ureteral stent placement on 11/27/2020 - Urology on consultation; appreciate their input - Will have outpatient follow-up with urology within the next 7 days s/p Sepsis 2/2 UTI Essential HTN - BP well controlled - c/w Bisoprolol, Amlodipine DLP - c/w Simvastatin History of DVT - Reported to have occurred or 08/2020 - c/w Eliquis - Will have outpatient follow-up with primary care provider Vascular dementia - c/w Donepezil Disc herniation - c/w Gabapentin - s/p Baclofen History of Bilateral breast cancer - s/p reconstructive breast surgery of left (1984) - s/p Right mastectomy (1999) GERD - c/w Protonix DVT prophylaxis - c/w full anticoagulation with Eliquis DISCHARGE MEDICATIONS: Please see below. ALLERGIES: Please see below. PHYSICAL EXAMINATION ON DISCHARGE: Vitals (See below) General: Sitting up in bed, appears to be comfortable, awake / alert HEENT: NC, AT CVS: +S1S2 Lungs: There appears to be fair air entry bilaterally without any evidence of wheezing, crackles or rhonchi Abdomen: Soft without distention or tenderness Extremities: Left leg with dressing in place. Right foot with boot in place. Trace edema noted at right foot LABORATORY DATA: Please see below. IMAGING: XR Chest 11/05: 1. Bilateral axillary surgical clips with prior right mastectomy. 2. Minimal left base atelectasis or scar. 3. Old granulomatous disease. 4. Otherwise negative chest. CT abdomen / pelvis 11/05: 1. Interval removal of a Carter catheter since 07/24/2020. 2. Left obstructive uropathy with moderate left hydronephrosis and hydroureter extending into the pelvis which is new since the prior study despite the presence of a double-J left ureteral stent consistent with poor functionality of the stent since the prior study. 3. Nonobstructing bilateral renal calculi including probable staghorn calculus on the right. The left ureteral stent appears to traverse a left ureteral calculus within the pelvis which measures approximately 5 x 7 x 9 mm and appears to a been present on the prior study. 4. Left breast reconstruction with right mastectomy and left axillary fidelina dissection. 5. Mild bibasilar fibro-atelectatic change and interstitial coarsening, left gre ater than right with question of minimal infiltrates. There is resolution of left pleural effusion since the prior study and left lower lobe atelectasis is decreased. 6. Minimal right hydronephrosis and hydroureter with periureteral edema, however, this appears similar to slightly improved since the prior study although there is resolution of the right ureteral calculus at the level of the sciatic notch since the prior study. 7. Colonic diverticulosis without diverticulitis. 8. Status post hysterectomy. Vascular US 11/07: Negative bilateral lower extremity duplex venous ultrasound. No evidence of deep vein thrombosis. Ankle XR 11/07: Bimalleolar ankle fracture with a moderate to marked associated soft tissue swelling. Diffuse osteopenia. Heel spurring. Ankle XR 11/08: Medial ankle mortise opens with stress. ACTIVITY: [As tolerated]. DISCHARGE PLAN: Follow up with PCP, Orthopedic surgery and Urology within 7 days. Remain compliant with treatment plan and medications Return to the ER if you experience any problems DISPOSITION: [facility] DISCHARGE CONDITION: [Stable]. TIME SPENT ON DISCHARGE: 35 minutes. Vital Signs/I&Os Vital Signs Date Time Temp Pulse Resp B/P (MAP) Pulse Ox O2 Delivery O2 Flow Rate FiO2 11/28/20 06:00 98.0 84 18 112/69 (83) 93 11/27/20 23:30 Room Air I&O- Last 24 Hours up to 6 AM 11/28/20 05:59 Intake Total 1160 ml Output Total 500 ml Balance 660 ml Laboratory Data Labs 24H Laboratory Tests 2 11/27/20 18:04: 11/28/20 07:26: Immature Granulocyte % (Auto) 0.5, Neutrophils (%) (Auto) 84.9H, Lymphocytes (%) (Auto) 8.6L, Monocytes (%) (Auto) 5.8, Eosinophils (%) (Auto) 0.0, Basophils (%) (Auto) 0.2, Neutrophils # (Auto) 10.6H, Lymphocytes # (Auto) 1.1L, Monocytes # (Auto) 0.7, Eosinophils # (Auto) 0.0, Basophils # (Auto) 0.0, Nucleated Red Blood Cells % (auto) 0.0, Anion Gap 7L, Glomerular Filtration Rate 53.1, Calcium Level 9.0, Magnesium Level 2.3 CBC/BMP Laboratory Tests 11/28/20 07:26 Microbiology Microbiology 11/21/20 Urine Culture - Final, Complete Discharge Medications Scheduled Acetaminophen (Tylenol Extra Strength) 500 Mg Tablet, 1,000 MG PO BID, (Reported) Apixaban (Eliquis) 5 Mg Tablet, 5 MG PO BID, (Reported) Bisoprolol Fumarate (Bisoprolol Fumarate) 10 Mg Tablet, 10 MG PO BID, (Reported) Cefdinir (Cefdinir) 300 Mg Capsule, 1 CAP PO BID Donepezil HCl (Aricept) 5 Mg Tablet, 5 MG PO QHS, (Reported) Ferrous Sulfate (Ferrous Sulfate) 325 Mg Tablet, 325 MG PO BID, (Reported) Gabapentin (Gabapentin) 100 Mg Capsule, 200 MG PO BID, (Reported) Pantoprazole Sodium (Pantoprazole Sodium) 40 Mg Tablet.dr, 40 MG PO BID Simvastatin (Simvastatin) 20 Mg Tab, 20 MG PO QHS, (Reported) Torsemide (Torsemide) 20 Mg Tablet, 20 MG PO DAILY Allergies Coded Allergies: atenolol (Verified Allergy, Intermediate, WHEEZING, 09/17/20) on bisoprolol at home lisinopril (Verified Allergy, Unknown, unknown reaction, 09/17/20) celecoxib (Verified Adverse Reaction, Mild, NAUSEA, 09/17/20) meperidine (Verified Adverse Reaction, Mild, VOMITING, 09/17/20) DURAN HERNANDEZ MD November 28, 2020 12:08
--- NOTE | 2020-11-28 13:36 | IPNPDOC ---
Subjective Review oF Systems Chief Complaint The patient is a 70-year-old female admitted with a reason for visit of Renal Calculus, Left. Events since Last Encounter No acute events o/n. Notes mild lower abd pain. Objective Physical Examination General Exam: Alert, Cooperative, No Acute Distress ABDOMEN EXAM: Soft; No: Tenderness Skin Exam: Nl turgor and temperature Neuro Exam: Normal Speech Psych Exam: Mental status NL, Mood NL Vital Signs/I&O Vital Signs Date Time Temp Pulse Resp B/P (MAP) Pulse Ox O2 Delivery O2 Flow Rate FiO2 11/28/20 06:00 98.0 84 18 112/69 (83) 93 11/27/20 23:30 Room Air I&O- Last 24 Hours up to 6 AM 11/28/20 06:00 Intake Total 1220 ml Output Total 300 ml Balance 920 ml Laboratory Data Labs 24H Laboratory Tests 2 11/27/20 18:04: 11/28/20 07:26: Immature Granulocyte % (Auto) 0.5, Neutrophils (%) (Auto) 84.9H, Lymphocytes (%) (Auto) 8.6L, Monocytes (%) (Auto) 5.8, Eosinophils (%) (Auto) 0.0, Basophils (%) (Auto) 0.2, Neutrophils # (Auto) 10.6H, Lymphocytes # (Auto) 1.1L, Monocytes # (Auto) 0.7, Eosinophils # (Auto) 0.0, Basophils # (Auto) 0.0, Nucleated Red Blood Cells % (auto) 0.0, Anion Gap 7L, Glomerular Filtration Rate 53.1, Calcium Level 9.0, Magnesium Level 2.3 CBC/BMP Laboratory Tests 11/28/20 07:26 Microbiology Microbiology 11/21/20 Urine Culture - Final, Complete Assessment/Plan Date Seen The patient was seen on 11/28/20. Patient Summary his is a 70 y/o F admitted for AMS 2/2 UTI and ureteral obstruction approximately 3 wks ago, s/p cysto, L ureteral stent exchange, R ureteral stent placement on 11/05/20, now POD1 s/p cysto, b/l ureteroscopy w/ laser lithotripsy and basket extraction of stones, b/l ureteral stent exchange. She is doing well. Plan/VTE VTE Prophylaxis Ordered?: Yes VTE Exclusion Mechanical Proph: N/A:VTE Prophy Ordered Plan - patient doing well postop - recommend holding eliquis until 11/30 - my office will arrange f/u in 3-4 wks to remove her stents RUBEN VACA MD November 28, 2020 13:36
== END 2020-11-28 15:50 | DRG 853 ==
LOC: M ED 00:52 → M ED INP 05:44 → ENRESERV 07:59 → M MSPAV 09:09
PROVIDERS: ADMIT Internal Medicine; ATTEND Internal Medicine
PROC: 0T788DZ Dilation of Bilateral Ureters with Intraluminal Device, Via Natural or Artificial Opening Endoscopic (ICD-10-PCS; 2020-11-05)
PROC: 0QSK04Z Reposition Left Fibula with Internal Fixation Device, Open Approach (ICD-10-PCS; principal; 2020-11-17 11:30)
DX: A41.9 Sepsis, unspecified organism (principal); G93.41 Metabolic encephalopathy; N13.2 Hydronephrosis with renal and ureteral calculous obstruction; N39.0 Urinary tract infection, site not specified; F01.50 Vascular dementia, unspecified severity, without behavioral disturbance, psychotic disturbance, mood disturbance, and anxiety; S82.842A Displaced bimalleolar fracture of left lower leg, initial encounter for closed fracture; I10 Essential (primary) hypertension; M85.872 Other specified disorders of bone density and structure, left ankle and foot; E66.9 Obesity, unspecified; E78.5 Hyperlipidemia, unspecified; Z85.3 Personal history of malignant neoplasm of breast; Z20.822 Contact with and (suspected) exposure to COVID-19; Z90.11 Acquired absence of right breast and nipple; Z96.643 Presence of artificial hip joint, bilateral; Z96.652 Presence of left artificial knee joint; Z86.718 Personal history of other venous thrombosis and embolism; Z79.01 Long term (current) use of anticoagulants; Z79.899 Other long term (current) drug therapy; Z88.8 Allergy status to other drugs, medicaments and biological substances; Y92.012 Bathroom of single-family (private) house as the place of occurrence of the external cause; W19.XXXA Unspecified fall, initial encounter; Z68.30 Body mass index [BMI] 30.0-30.9, adult

== ENCOUNTER → 2021-01-15 | Outpatient (CLI) | payer MEDICARE, BC, OTHER ==
[~2021-01-15] MED LIST changes: +CEFD1CAP8 PO; +FERR1TAB8 PO; +TORS20TA2 PO
--- NOTE | 2021-01-15 16:29 | REP ---
INDICATION: ENCOUNTER FOR OTHER SPECIFIED SURGICAL AFTERCARE. COMPARISON: Preoperative examination 11/09/2019 TECHNIQUE: There is no evidence of an acute fracture or destructive osseous lesion. The mortise is four views FINDINGS: Previously described fracture has been openly reduced and internally fixed. Internal fixation screws are seen 2 in the distal tibia 3 in the distal fibula with an internal fixation flor in the distal fibula. The alignment is near anatomical. The mortise is intact. Overlying casting material obscures the bony detail. IMPRESSION: As above. Consider follow-up once the casting material has been removed. <Electronically signed by Andreas Spear > 01/15/21 [id number]
== END ==
LOC: M SOG 15:38
PROVIDERS: ATTEND Orthopaedic Surgery
DX: Z48.89 Encounter for other specified surgical aftercare (principal)

== ENCOUNTER → 2021-02-26 | Outpatient (CLI) | payer MEDICARE, BC, OTHER ==
--- NOTE | 2021-02-26 12:40 | REP ---
INDICATION: OTH FRACTURE OF L LOW LEG, SUBS FOR CLOS FX W ROUTN HEAL. COMPARISON: 01/15/2021 TECHNIQUE: The overlying cast has been removed. Four views were obtained. FINDINGS: S/p ORIF shows no change. There is no evidence of an acute fracture. The bones are somewhat demineralized. IMPRESSION: S/p ORIF showing no significant change from the prior exam. There is a healing distal fibular fracture. <Electronically signed by Andreas Spear > 02/26/21 [id number]
== END ==
LOC: M SOG 11:53
PROVIDERS: ATTEND Orthopaedic Surgery
DX: S82.892D Other fracture of left lower leg, subsequent encounter for closed fracture with routine healing (principal)

== ENCOUNTER 2022-02-03 22:05 | Emergency (ER) | payer MEDICARE, BC, OTHER ==
[~2022-02-03] VITALS: Ht 162.6 cm; Wt 79.0 kg
[~2022-02-03 22:05] MED LIST changes: -CEFD1CAP8 PO; +CEFD300C41 PO; -VERA180T3 PO; +VERA180T42 PO
[2022-02-03 23:00] LABS: BASO % 0.3 % (0.0-1.0); EOS # 0.2 10^3/uL (0.0-0.5); EOS % 1.7 % (0.0-3.0); HEMOGLOBIN 13.5 g/dl (12.0-15.5); LYMPH # 1.5 10^3/uL (1.5-5.0); MEAN CORPUSCULAR HEMOGLOBIN 26.6 pg (27.0-33.0); MEAN CORPUSCULAR HGB CONC 31.4 g/dl (32.0-36.5); MEAN CORPUSCULAR VOLUME 84.8 fl (80.0-96.0); MONO % 8.6 % (2.0-8.0); NEUTROPHILS % 76.1 % (36.0-66.0); PLATELET COUNT, AUTOMATED 345 10^3/uL (150-450); RED BLOOD COUNT 5.07 10^6/uL (4.00-5.40); WHITE BLOOD COUNT 11.8 10^3/uL (4.0-10.0)
[2022-02-03 23:11] LABS: INR 2.38; PROTHROMBIN TIME 26.4 SECONDS (12.7-14.5)
[2022-02-03 23:12] LABS: PARTIAL THROMBOPLASTIN TIME 43.6 SECONDS (25.9-37.0)
[2022-02-03 23:24] LABS: BLOOD UREA NITROGEN 18 MG/DL (7-18); CALCIUM LEVEL 8.9 MG/DL (8.8-10.2); CARBON DIOXIDE LEVEL 28 MEQ/L (21-32); CHLORIDE LEVEL 108 MEQ/L (98-107); GLOMERULAR FILTRATION RATE > 60.0 (>39); GLUCOSE, FASTING 111 MG/DL (70-100); POTASSIUM SERUM 4.8 MEQ/L (3.5-5.1); SODIUM LEVEL 143 MEQ/L (136-145)
[2022-02-04 00:30] VITALS: BP 119/79
== END 2022-02-04 04:20 | disposition home or self-care (01) ==
LOC: M ED 22:05 → EDBD 22:05 → M ED 02-04 04:20
DX: S70.12XA Contusion of left thigh, initial encounter (principal); X58.XXXA Exposure to other specified factors, initial encounter; Y92.89 Other specified places as the place of occurrence of the external cause; I45.10 Unspecified right bundle-branch block; I10 Essential (primary) hypertension; E78.5 Hyperlipidemia, unspecified; F01.50 Vascular dementia, unspecified severity, without behavioral disturbance, psychotic disturbance, mood disturbance, and anxiety; M51.9 Unspecified thoracic, thoracolumbar and lumbosacral intervertebral disc disorder; Z86.718 Personal history of other venous thrombosis and embolism; Z87.442 Personal history of urinary calculi; Z88.8 Allergy status to other drugs, medicaments and biological substances; Z79.899 Other long term (current) drug therapy; Z79.01 Long term (current) use of anticoagulants

== ENCOUNTER → 2022-03-24 | Outpatient (CLI) | payer MEDICARE, BC, OTHER ==
[~2022-03-24] MED LIST changes: +LIDOCAINE 1% MDV 20ML VIAL As Ordered ONE
[2022-03-24 11:08] VITALS: BP 147/86
== END ==
LOC: M IRPRO 10:01
PROVIDERS: ATTEND Surgery
DX: S70.12XD Contusion of left thigh, subsequent encounter (principal)